=== PATIENT | female | born 1945 | race Caucasian/White ===

== ENCOUNTER 2021-03-14 12:02 | Emergency (ER) | payer OTHER ==
--- OUTSIDE RECORDS SUMMARY | 2021-03-14 12:06 | XMS REPORT | Continuity of Care Document ---
:1945 Author Organization [facility] t Address [address] [place] [address] Care Team Providers Name Role Phone PCP, DOES NOT HAVE A Primary Care Physician Unavailable Jake Rangel Attending Clinician Unavailable MAIA Attending Clinician Unavailable Maia CHACON Attending Clinician SATNAM Attending Clinician Unavailable SHELBI Attending Clinician Unavailable LINDA Attending Clinician Unavailable RICHARD Attending Clinician Unavailable CARLOS Attending Clinician Unavailable MD CARLOS Attending Clinician Unavailable KELVIN Attending Clinician Unavailable Jake Rangel Admitting Clinician Unavailable MARINO Admitting Clinician Unavailable MD MARINO Admitting Clinician Unavailable Payers Payer Name Policy Type Policy Number Effective Date Expiration Date Dede lewis MEDICARE PART A [id number] 2009 \\T\\ B 00:00:[address] [facility] [id number] 2021 00:00:00 Problems Condition Condition Condition Status Onset Resolution Last Treating Co mments Source Name Details Category Date Date Treatment Clinician Date Benign Benign Disease Active Univers hypertensi hypertensi it y of on on [facility] Arthritis Arthritis Disease Active Uni vers ity [facility] Sleep Sleep Disease Active Univers apnea apnea ity of [facility] Pre-diabet Pre-diabet Disease Active U nivers es es ity of [facility] Herpes Herpes Disease Active Univers ity of [facility] Hyperlipid Hyperlipid Disease Active U nivers emia emia ity of [facility] Edema of Edema of Disease Active Unive rs foot foot ity [facility] [place] Allergies, Adverse Reactions, Alerts Allergy Allergy Status Severity Reaction(s) Onset Inactive Treating Comm ents Source Name Type Date Date Clinician Statins- DA Active SV 0 [facility] 8-13 Clear Reductas 00:[facility] hydralaz DA Active SV 0 [facility] ine 8-13 Clear 00:00: Ardon 00 [facility] amoxicil DA Active DC [facility] elsy 8-13 Clear 00:00: Ardon 00 [facility] Statins- DA Active SV BURNING 0 [facility] SKIN,VOMITIN 8-13 Bong ar Reductas G,SWEATING,D 00:00: La pratibha RUSSELL,"FEELIN 00 Sandi trish Inhibito G OF PASSING l r OUT [facility] hydralaz DA Active SV SOB,PALPITAT HC A ine IONS, 8-13 Clear "FEELING OF 00:00: Ardon DYING" 00 [facility] amoxicil DA Active DC GI UPSET [facility] elsy 8-13 Clear 00:00: Ardon 00 [facility] Codeine Propensi Active Other - See 2012-04 stomach U nivers ty to comments 2-15 ache ity of adverse 00:00: [place] reaction Medical s Branch CODEINE DRUG Active Dizziness 2012-04 Univer s INGREDI 2-15 ity of 00:00: [address] Social History Social Habit Start Date Stop Date Quantity Comments Source Exposure to Not sure [facility] SARS-CoV-2 [facility] (event) Branch Alcohol intake 2021-03-12 2021-03-12 Current University 00:00:00 00:00:00 non-drinker of [facility] alcohol Branch (finding) Tobacco use and 2012-12-13 2012-12-13 Never used Universit y of exposure 00:00:00 00:00:00 [facility] Sex Ass[birth year] Universit y of 00:00:00 00:00:00 [facility] Smoking Status Start Date Stop Date Source Never smoker [facility] Branch Medications Ordered Filled Start Stop Current Ordering Indication Dosage Frequency Signature Comments Components Source Medication Medication Date Date Medication? Clinician (SIG) Name Name ALPRAZolam 2020-04 Yes .25mg Take 0.25 U nivers (XANAX) 1-19 mg by ity of 0.25 mg 18:59: mouth 3 [place] tablet 20 (three) Medical times Branch daily. ibuprofen 2020-04 Yes 800mg Take 800 Uni vers (MOTRIN) 1-19 mg by ity of 800 mg 18:59: mouth 3 [place] tablet 20 (three) Medical times Branch daily with meals. Cholecalcif 2020-04 Yes 5000U Take 5,000 Univers stephon, 1-19 Units by ity of Vitamin D3, 18:59: [place]. [place] 125 [place]cg 20 Medical (5,000 Branch unit) capsule ALPRAZolam 2020-04 Yes .25mg Take 0.25 U nivers (XANAX) 1-19 mg by ity of 0.25 mg 18:59: mouth 3 [place] tablet 20 (three) Medical times Branch daily. ibuprofen 2020-04 Yes 800mg Take 800 Uni vers (MOTRIN) 1-19 mg by ity of 800 mg 18:59: mouth 3 [place] tablet 20 (three) Medical times Branch daily with meals. Cholecalcif 2020-04 Yes 5000U Take 5,000 Univers stephon, 1-19 Units by ity of Vitamin D3, 18:59: [place]. [place] 125 mcg 20 Medical (5,000 Branch unit) capsule apixaban 2020-04 Yes 2.5mg Take 2.5 Univ ers 2.5 mg 1-19 mg by ity of tablet 18:58: mouth. [address] apixaban 2020-04 Yes 2.5mg Take 2.5 Univ ers 2.5 mg 1-19 mg by ity of tablet 18:58: mouth. [address] amLODIPine 2020-04 Yes 10mg Take 10 mg U nivers 10 mg 1-19 by mouth. ity of tablet 18:57: [address] amLODIPine 2020-04 Yes 10mg Take 10 mg U nivers 10 mg 1-19 by mouth. ity of tablet 18:57: [address] levalbutero 2020-04 Yes [id number] 1{puff} Inhale 1-2 Univers l 45 1-19 Puffs ity of mcg/actuati 00:00: every 4 [place] as on inhaler 00 (four) Medical hours as Branch needed for Wheezing. levalbutero 2020-04 Yes [id number] 1{puff} Inhale 1-2 Univers l 45 1-19 Puffs ity of mcg/actuati 00:00: every 4 [place] as on inhaler 00 (four) Medical hours as Branch needed for Wheezing. benzonatate 2020-04- Yes [id number] 100mg Take 1 Univers (TESSALON 1-19 11-30 capsule by itQuynh) 100 00:00: 05:59 [place] mg capsule 00 :00 every 8 Medica l (eight) Branch hours for 10 days. benzonatate 2020-04- Yes [id number] 100mg Take 1 Univers (TESSALON 1-19 11-30 capsule by itlarry [facility] JOSEFINASwifto) 100 00:00: 05:59 [place] mg capsule 00 :00 every 8 Medica l (eight) Branch hours for 10 days. pantoprazol 2020-04 Yes Take by Un anthony e 40 mg EC 0-12 mouth 2 ity of tablet 00:00: (two) [place] 00 times Medical daily. Branch pantoprazol 2020-04 Yes Take by Un anthony e 40 mg EC 0-12 mouth 2 ity of tablet 00:00: (two) [place] 00 times Medical daily. Branch chlorphenir 2012-04 Yes [id number] 5mL Take 5 mL Univers amine-hydro 2-09 by mouth ity of codone 00:00: every 12 [place] (TUSSIONEX) 00 (twelve) Medi adalberto 8-10 mg/5 hours as Branch mL needed for suspension Cough. chlorphenir 2012-04 Yes [id number] 5mL Take 5 mL Univers amine-hydro 2-09 by mouth ity of codone 00:00: every 12 [place] (TUSSIONEX) 00 (twelve) Medi adalberto 8-10 mg/5 hours as Branch mL needed for suspension Cough. loratadine 2012-04 Yes 10mg Take 1 Tab U nivers (CLARITIN) 0-18 by mouth ity o f 10 mg 00:00: daily. [place] tablet 00 Medical Branch loratadine 2012-04 Yes 10mg Take 1 Tab U nivers (CLARITIN) 0-18 by mouth ity o f 10 mg 00:00: daily. [place] tablet 00 Medical Branch furosemide Yes [id number] 40mg Take 1 Tab Univers (LASIX) 40 8-22 by mouth ity o f mg tablet 00:00: daily. [place] 00 [facility] telmisartan Yes [id number] 80mg Take 1 Tab Univers (MICARDIS) 8-22 by mouth ity o f 80 mg 00:00: daily. [place] tablet Medical [place] potassium Yes [id number] 10meq Take 1 Tab Univers chloride 8-22 by mouth ity of (K-DUR) 10 00:00: daily. [place] mEq CR Medical tablet Branch furosemide Yes [id number] 40mg Take 1 Tab Univers (LASIX) 40 8-22 by mouth ity o f mg tablet 00:00: daily. [address] telmisartan Yes [id number] 80mg Take 1 Tab Univers (MICARDIS) 8-22 by mouth ity o f 80 mg 00:00: daily. [place] tablet Medical [place] potassium Yes [id number] 10meq Take 1 Tab Univers chloride 8-22 by mouth ity of (K-DUR) 10 00:00: daily. [place] mEq CR Medical tablet [place] Vital Signs Vital Name Observation Time Observation Value Comments Source Systolic blood 2021-03-13 01:03:00 149 [facility]Hg[facility] Diastolic blood 2021-03-13 01:03:00 88 mm[Hg] [facility] Heart rate 2021-03-13 01:02:00 86 /min [facility] Body temperature 2021-03-13 01:02:00 37.5 [facility] Respiratory rate 2021-03-13 01:02:00 21 /min [facility] Body height 2021-03-13 01:02:00 162.6 cm [facility] Body weight 2021-03-13 01:02:00 85.231 kg [facility] BMI 2021-03-13 01:02:00 32.25 kg/m2 [facility] Oxygen saturation in 2021-03-13 01:02:00 96 /min [facility] Arterial blood by [facility] Pulse oximetry Branch Procedures Procedure Date / Time Performed Performing Clinician Sourc e POCT RAPID FLU A AND 2021-03-13 01:42:00 Anjana Carvalho [facility] POCT GRP A STREP 2021-03-13 01:42:00 Anjana Carvalho [facility] (MOLECULAR) [facility] XR CHEST 2 VW 2021-03-13 01:25:08 Anjana Carvalho [place] [facility] [id number] 2019-12-09 00:00:00 JOHRI.02 [facility] [id number] 2019-12-09 00:00:00 JOHRI.02 [facility] [id number] 2019-12-09 00:00:00 JOHRI.02 [facility] Encounters Start End Encounter Admission Attending Care Care Encounter Source Date/Time Date/Time Type Type Clinicians Facility Department ID 2019-12-10 Inpatient SHERLY Rangel, [facility] MEDI.01 [id number] [facility] 14:30:00 Avinash [id number] [facility] 2019-12-09 Inpatient Claire, [facility] DAYS [id number] [facility] 08:00:00 Avinash [id number] [facility] 2019-12-05 Inpatient Claire, [facility] DAYS [id number] [facility] 10:00:00 Avinash [id number] [facility] 2021-03-12 2021-03-12 Outpatient R MAIA [facility] [id number] [facility] 19:17:34 23:59:00 [facility] 2021-03-12 2021-03-12 [facility] [id number] [facility] 19:17:34 23:59:00 Encounter Located within [facility] [id number] ity of [place] 4.2.7.2.686 [place] as ANDREA?BLEA [id number] [facility] [address] [place] MEDICAL OFFICE BUILDING 2021-03-12 2021-03-12 Urgent [facility] [id number] Univers 18:44:47 19:49:37 Care Located within [facility] [id number] it [facility] 4.2.7.2.686 [place] as ANDREA?BLEA [id number] Hi dical [facility] [address] [place] MEDICAL OFFICE BUILDING 2020-11-03 2020-11-03 Outpatient [facility] [id number] [place] 00:00:00 00:00:[address] 2020-07-27 2020-07-29 Outpatient GHADIRI, [facility] [id number] [place] 00:00:00 00:00:00 BLANCA [address] 2020-07-15 2020-07-15 Outpatient MARIO, [facility] [id number] [place] 00:00:00 00:00:00 KISHA [address] 2020-07-02 2020-07-02 Outpatient GHADIRI, [facility] [id number] [place] 00:00:00 00:00:00 BLANCA [address] 2020-06-29 2020-06-29 Emergency WINGKUN, [facility] [id number] [place] 00:00:00 00:00:00 KEITH [address] 2020-06-02 2020-06-02 Outpatient [facility] [id number] [place] 00:00:00 00:00:[address] 2020-05-12 2020-05-12 Outpatient [facility] [id number] [place] 00:00:00 00:00:[address] 2020-01-14 2020-01-14 Outpatient GHADIRI, [facility] [id number] [place] 00:00:00 00:00:00 BLANCA [address] 2019-10-21 2019-10-21 Outpatient [facility] [id number] [place] 00:00:00 00:00:[address] 2019-10-15 2019-10-15 Outpatient VAHE RAMOSYA [facility] [id number] [place] 00:00:00 00:00:[address] 2019-10-07 2019-10-08 Outpatient KOHRIRIHOFER, [facility] [id number] [place] 00:00:00 00:00:00 LURDES [address] 2019-08-27 2019-08-27 Outpatient VAHE RAMOSYA [facility] [id number] [place] 00:00:00 00:00:[address] 2019-08-14 2019-08-14 Outpatient GHADIRI, [facility] [id number] [place] 00:00:00 00:00:00 BLANCA [address] 2019-08-14 2019-08-14 Outpatient GHADIRI, [facility] [id number] [place] 00:00:00 00:00:00 BLANCA [address] 2019-07-12 2019-07-12 Outpatient MARIO, [facility] [id number] [place] 00:00:00 00:00:00 KISHA [address] 2019-07-08 2019-07-08 Outpatient MARIO, [facility] [id number] [place] 00:00:00 00:00:00 KISHA [address] 2019-07-08 2019-07-08 Outpatient MARIO, [facility] [id number] [place] 00:00:00 00:00:00 KISHA [address] 2019-06-27 2019-06-27 Outpatient GHADIRI, [facility] [id number] [place] 00:00:00 00:00:00 BLANCA [address] 2019-06-27 2019-06-27 Outpatient MARIO, [facility] [id number] [place] 00:00:00 00:00:00 KISHA [address] 2019-03-05 2019-03-05 Emergency KELVINLEVI DE LA CRUZ [facility] [id number] [place] 00:00:00 00:00:[address] Results Test Description Test Time Test Comments Results Result Comments Source POCT RAPID FLU A AND B TEST 2021-03-13 01:42:00 Test Item Value Reference Range Interpretation Comme nts POCT INFLUENZA A (test code = negative Negative - Negative 3840) POCT INFLUENZA B (test code = negative Negative - Negative 3841) GIN (test code = GIN) accurate development and interpretation of all internal controls Lab Interpretation (test code = Normal 53735-8) [facility]2021-03-13 01:42:00 Test Item Value Reference Range Interpretation Comments POCT GP A STREP (test negative Negative - code = 07039-8) Negative GIN (test code = GIN) accurate development and interpretation of all internal controls Lab Interpretation Normal (test code = 38988-8) [facility]00 Test Item Value Reference Range Interpretation Comments MAGNESIUM (test code = MAG) 1.84 mg/dL 1.8-2.4 N CALCIUM [id number] 06:18:00 Test Item Value Reference Range Interpretation Comments CALCIUM IONIZED (test code = MICKEY) 0.98 MMOL/L 1.12-1.32 L [id number] 06:04:00 Test Item Value Reference Range Interpretation Comments MAGNESIUM (test code = MAG) mg/dL 1.8-2.4 CALCIUM [id number] 06:04:00 Test Item Value Reference Range Interpretation Comments CALCIUM IONIZED (test code = MICKEY) 0.98 MMOL/L 1.12-1.32 L [id number] 16:47:00 Test Item Value Reference Range Interpretation Comments CALCIUM (test code = CA) 6.9 mg/dL 8.0-10.5 L [id number] 16:47:00 Test Item Value Reference Range Interpretation Comments MAGNESIUM (test code = MAG) 1.84 mg/dL 1.8-2.4 N CALCIUM [id number] 16:47:00 Test Item Value Reference Range Interpretation Comments CALCIUM IONIZED (test code = MICKEY) 0.97 MMOL/L 1.12-1.32 L [id number] 16:46:00 Test Item Value Reference Range Interpretation Comments CALCIUM (test code = CA) 6.9 mg/dL 8.0-10.5 L [id number] 16:46:00 Test Item Value Reference Range Interpretation Comments MAGNESIUM (test code = MAG) 1.84 mg/dL 1.8-2.4 N CALCIUM [id number] 16:46:00 Test Item Value Reference Range Interpretation Comments CALCIUM IONIZED (test code = MICKEY) MMOL/L 1.12-1.32 SURGICAL PATH [id number] 15:35:00 RUN DATE: 12/12/19 [place] [facility] *LIVE* PAGE 1 RUN TIME: 1535 Specimen Inquiry RUN USER: INTERFACE PATIENT: EL[facility] #: [id number] AGE/SX: 74/F ROOM: [facility] RE12/10/19[facility] DR: Avinash Rangel III : 44 BED: 1 DIS: STATUS: ADM IN TLOC: SPEC #: [id number] RECD: 12/09/19 STATUS: WAYNE ZEFERINO #: [id number] MARCEL: 12/09/[address]: Avinash Rangel III, MD ENTERED: 12/09/19 SP TYPE: SURG SPEC OTHR D R: Blanca Ulrich MD ORDERED: FROZEN SECTION, GM LEVEL 5 CODES: [id number] - SOFT TISSUES, N [id number] - THYROID GLAND COPIES TO: Blanca Ulrich MD [address] [place] [address] [place] [address] [address] [email or web address] PROCEDURES: FROZEN SECTION (Incomplete) GM LEVEL 5 (Incomplete) TISSUES: 1. THYROID GLAND, NOS - Thyroid, left lobe, excision 2. THYROID GLAND, NOS - Thyroid, right lobe, excision 3. SOFT TISSUES, NOS - Soft tissue, right central neck compartm COMMENTS The small foci of papillary microcarcinoma are not present in the sections for frozen diagnosis. 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 Thyroid, right lobe, excision: Follicular variant of papillary microcarcinoma, 0.2 cm, margins free of tumor; nodular hyperplasia. Soft tissue, rightcentral neck compartment, dissect: No evidence of metastatic carcinoma identified in 2 lymph nodes (0/2); benign-appearing parathyroid glands. CONTINUED ON NEXT PAGE RUN DATE: 12/12/[address] [facility] *LIVE* PAGE 2 RUN TIME: 1535 Specimen Inquiry RUN USER: INTERFACE SPEC #: [id number] PATIENT: ELISE MONROY #[id number] (Continued) FINAL DIAGNOSIS (Continued) PROVISIONAL DIAGNOSIS Thyroid lobe, left : Follicular lesion, final diagnosis deferred to permanent sections. Thyroid lobe, right: Follicular lesion, final diagnosis deferred to permanent sections. GROSS AND MICROSCOPIC FROZEN DIAGNOSIS: Thyroid, left lobe, excision: Follicular lesion, deferred to permanent sections. Thyroid, right lobe, excision: Follicular lesion, deferred to permanent sections. GROSS DESCRIPTION: Received fresh designated left thyroid lobe is one segment of pink-hicks tissue measuring 7 x 2.7 x 2 cm and weighing 16.3 g. The entire surface is inked black. Sections are submitted as (A) for frozen diagnosis. Additional sections are submitted entirely as (B)-(G). Received fresh and designated right thyroid lobe is one segment of pink-hicks tissue thatweighs 11.3 g and measures 5.4 x 3.5 x 2.4 cm. The surface is inked black. Sections are submitted as (H) for frozen diagnosis. The rest of the specimen is submitted entirely as (I)-(N). Specimen #3, right central compartment neck dissection is one segment of yellow soft and daniel tissue measuring 2.3 cm in largest dimension. Entirely submitted (O). MICROSCOPIC EXAMINATION: Specimen #1 shows nodular proliferation of thyroid follicles and focal follicular variant of papillary thyroid carcinoma (0.3 cm). The resection margins are free of tumor. Benign-appearing parathyroid glands are identified. The second specimen reveals nodular hyperplasia of thyroid follicles with focal follicular variant of papillary thyroid carcinoma (0.2 cm). The resection margins are free of tumor. Benign-appearingparathyroid glands are present. Specimen #3, shows benign- appearing parathyroid glands (3) are 2 small lymph nodes without evidence of metastatic carcinoma (0/2). POST-OP DIAGNOSIS None given CONTINUED ON NEXT PAGE RUN DATE: 12/12/19 [address] *LIVE* PAGE 3 RUN TIME: 1535 Specimen Inquiry RUN USER: INTERFACE SPEC #: [id number] PATIENT: ELISE MONROY #[id number] (Continued) PRE-OP DIAGNOSIS Malignant neoplasm of thyroid gland REVIEWED BY: SYNOPTIC REPORT *Procedure: Right Lobectomy Left Lobectomy *Lymph Node Sampling - Central compartment dissection,right. Received: Fresh Specimen Integrity: Intact. Divided (thyroidectomy performed as lobectomy and completion thyroidectomy) Specimen Size Right lobe: 5.4 x 3.5 x 2.4 cm. Left lobe: 7 x 2.7 x 2 cm. Specimen Weight(s) Overall or aggregate weight (specify): 11.3 g (right lobe); 16.3 g (left lobe). *Tumor laterality: Bilateral. *Tumor Focality: Two foci. *Tumor Size: Greatest dimension: 0.2 cm (right lobe); 0.3 cm (left lobe). *Histologic Type (select all that apply) (Notes D and E) - Papillary microcarcinoma, Follicular variant. *Margins: Free of tumor. *Angioinvasion (vascular invasion): Not identified. *Lymphatic Invasion: Not identified. Perineural Invasion Not identified. *Extrathy roidal Extension: No. * TNM: [id number] Tumor block(s): (G) (K) Signed SIGNATURE ON FILE Johan Sanders MD 12/12/19 1535 -------- ---- END OF REPORT [id number] 07:31:00 Test Item Value Reference Range Interpretation Comments CALCIUM (test code = CA) 6.7 mg/dL 8.0-10.5 L [id number] 07:31:00 Test Item Value Reference Range Interpretation Comments MAGNESIUM (test code = MAG) 1.98 mg/dL 1.8-2.4 CALCIUM [id number] 07:31:00 Test Item Value Reference Range Interpretation Comments CALCIUM IONIZED (test code = MICKEY) 0.95 MMOL/L 1.12-1.32 L [id number] 07:23:00 Test Item Value Reference Range Interpretation Comments CALCIUM (test code = CA) mg/dL 8.0-10.5 [id number] 07:23:00 Test Item Value Reference Range Interpretation Comments MAGNESIUM (test code = MAG) mg/dL 1.8-2.4 CALCIUM [id number] 07:23:00 Test Item Value Reference Range Interpretation Comments CALCIUM IONIZED (test code = MICKEY) 0.95 MMOL/L 1.12-1.32 L [id number] 16:39:00 Test Item Value Reference Range Interpretation Comments CALCIUM (test code = CA) 7.2 mg/dL 8.0-10.5 L [id number] 16:39:00 Test Item Value Reference Range Interpretation Comments MAGNESIUM (test code = MAG) 1.67 mg/dL 1.8-2.4 L CALCIUM [id number] 16:39:00 Test Item Value Reference Range Interpretation Comments CALCIUM IONIZED (test code = MICKEY) 0.98 MMOL/L 1.12-1.32 L [id number] 16:25:00 Test Item Value Reference Range Interpretation Comments CALCIUM (test code = CA) mg/dL 8.0-10.5 [id number] 16:25:00 Test Item Value Reference Range Interpretation Comments MAGNESIUM (test code = MAG) mg/dL 1.8-2.4 CALCIUM [id number] 16:25:00 Test Item Value Reference Range Interpretation Comments CALCIUM IONIZED (test code = MICKEY) 0.98 MMOL/L 1.12-1.32 L [id number] 08:36:00 Test Item Value Reference Range Interpretation Comments CALCIUM (test code = CA) 7.1 mg/dL 8.0-10.5 L [id number] 08:36:00 Test Item Value Reference Range Interpretation Comments MAGNESIUM (test code = MAG) 1.70 mg/dL 1.8-2.4 L CALCIUM [id number] 08:36:00 Test Item Value Reference Range Interpretation Comments CALCIUM IONIZED (test code = MICKEY) 0.97 MMOL/L 1.12-1.32 L [id number] 08:34:00 Test Item Value Reference Range Interpretation Comments CALCIUM (test code = CA) 7.1 mg/dL 8.0-10.5 L [id number] 08:34:00 Test Item Value Reference Range Interpretation Comments MAGNESIUM (test code = MAG) 1.70 mg/dL 1.8-2.4 L CALCIUM [id number] 08:34:00 Test Item Value Reference Range Interpretation Comments CALCIUM IONIZED (test code = MICKEY) MMOL/L 1.12-1.32 [id number] 18:47:00 Test Item Value Reference Range Interpretation Comments CALCIUM (test code = CA) 7.5 mg/dL 8.0-10.5 L [id number] 18:47:00 Test Item Value Reference Range Interpretation Comments MAGNESIUM (test code = MAG) 1.86 mg/dL 1.8-2.4 N CALCIUM [id number] 18:47:00 Test Item Value Reference Range Interpretation Comments CALCIUM IONIZED (test code = MICKEY) 1.03 MMOL/L 1.12-1.32 L [id number] 18:30:00 Test Item Value Reference Range Interpretation Comments CALCIUM (test code = CA) mg/dL 8.0-10.5 [id number] 18:30:00 Test Item Value Reference Range Interpretation Comments MAGNESIUM (test code = MAG) mg/dL 1.8-2.4 CALCIUM [id number] 18:30:00 Test Item Value Reference Range Interpretation Comments CALCIUM IONIZED (test code = MICKEY) 1.03 MMOL/L 1.12-1.32 L [id number] 05:57:00 Test Item Value Reference Range Interpretation Comments CALCIUM (test code = CA) 7.2 mg/dL 8.0-10.5 L [id number] 05:57:00 Test Item Value Reference Range Interpretation Comments MAGNESIUM (test code = MAG) 1.66 mg/dL 1.8-2.4 L CALCIUM [id number] 05:57:00 Test Item Value Reference Range Interpretation Comments CALCIUM IONIZED (test code = MICKEY) 1.04 MMOL/L 1.12-1.32 L [id number] 05:40:00 Test Item Value Reference Range Interpretation Comments CALCIUM (test code = CA) 7.2 mg/dL 8.0-10.5 L [id number] 05:40:00 Test Item Value Reference Range Interpretation Comments MAGNESIUM (test code = MAG) 1.66 mg/dL 1.8-2.4 L CALCIUM [id number] 05:40:00 Test Item Value Reference Range Interpretation Comments CALCIUM IONIZED (test code = MICKEY) MMOL/L 1.12-1.32 [id number] 18:12:00 Test Item Value Reference Range Interpretation Comments CALCIUM (test code = CA) 8.5 mg/dL 8.0-10.5 N [id number] 18:12:00 Test Item Value Reference Range Interpretation Comments MAGNESIUM (test code = MAG) 1.76 mg/dL 1.8-2.4 L CALCIUM [id number] 18:12:00 Test Item Value Reference Range Interpretation Comments CALCIUM IONIZED (test code = MICKEY) 1.13 MMOL/L 1.12-1.32 N [id number] 18:10:00 Test Item Value Reference Range Interpretation Comments CALCIUM (test code = CA) mg/dL 8.0-10.5 [id number] 18:10:00 Test Item Value Reference Range Interpretation Comments MAGNESIUM (test code = MAG) mg/dL 1.8-2.4 CALCIUM [id number] 18:10:00 Test Item Value Reference Range Interpretation Comments CALCIUM IONIZED (test code = MICKEY) 1.13 MMOL/L 1.12-1.32 N Novel Coronavirus 2019 [id number] 20:53:00 Test Item Value Reference Range Interpretation Comments Novel Coronavirus 2019 Inhouse (test Negative Negative code = COVNONPUI) BASIC METABOLIC [id number] 12:00:00 Test Item Value Reference Range Interpretation Comments SODIUM (test code = NA) 142 mEq/L 134-147 N POTASSIUM (test code = 4.2 mEq/L 3.4-5.0 N K) CHLORIDE (test code = 107 mEq/L 100-108 N CL) CARBON DIOXIDE (test 27 mEq/L 21-33 N code = CO2) ANION GAP (test code = 12 0-20 N GAP) GLUCOSE (test code = 105 mg/dL 70-110 N GLU) BLOOD UREA NITROGEN 16 mg/dL 7-18 N (test code = BUN) GLOMERULAR FILTRATION 69.9 70-80 L Units of measure = RATE (test code = GFR) ml/mi n/1.73 m2 CREATININE (test code = 0.8 mg/dL 0.6-1.3 N CREAT) CALCIUM (test code = 9.7 mg/dL 8.0-10.5 N CA) - XR CHEST 2 [id number] 11:58:00 FAX: Blanca Robin MD [place]: St: PRE FAX: Avinash Wood III [phone] Name: ELISE MONROY [facility] : 1945 Age/S: 74/F [address] [place] [address] Unit #: [id number] Loc: [place] [address] Phys: Avinash Rangel III, MD Acct: [id number] Dis Date: Status: PRE SDC PHONE #: [phone] Exam Date: 12/05/2019 1148 FAX #: [phone] Reason: THYROIDECTOMY EXAMS: CPT CODE: [id number] XR CHEST 2 V [id number] EXAM: XR CHEST 2 VIEWS DATE: 12/05/2019 10:51 AM : 1945; Age: 74 years y/o Female INDICATION: THYROIDECTOMY COMPARISON: None. TECHNIQUE: PA and lateralchest radiographs. FINDINGS: Lines, tubes and hardware: None. Lungs and pleura: The lungs are clear. Hyperexpanded lungs. No pleural effusion. Heart and mediastinum: The heart size is normal for technique. The mediastinal contours are normal. Pulmonary vascularity is normal. IMPRESSION: No acute cardiopulmonary process. Emphysema. SL: [id number] at 1158 Reported and signed by: Norah Webster D.O. CC: Shalonda Ulrich MD; Avinash Rangel III, MD Technologist: RT Kvng(Sridevi) Trnscrd Date/Time/By: 12/05/2019 (7109) : By: [email or web address] Orig Print D/T: S: 12/05/2019 (8105) PAGE 1 Signed ReportCBC W/AUTO [id number] 11:32:00 Test Item Value Reference Range Interpretation Comments WHITE BLOOD CELL (test code = 6.53 x10 3/uL 4.5-11.0 N WBC) RED BLOOD CELL (test code = 4.70 x10 6/uL 3.54-5.02 N RBC) HEMOGLOBIN (test code = HGB) 14.0 g/dL 11.0-15.0 N HEMATOCRIT (test code = HCT) 43.2 % 33.0-45.0 N MEAN CELL VOLUME (test code = 91.9 fL 81.0-99.0 N MCV) MEAN CELL HGB (test code = MCH) 29.8 pg 27.0-33.0 N MEAN CELL HGB CONCETRATION 32.4 g/dL 33.0-37.0 L (test code = MCHC) RED CELL DISTRIBUTION WIDTH CV 12.4 % 11.5-14.5 N (test code = RDW) RED CELL DISTRIBUTION WIDTH SD 41.8 fL 37.0-54.0 N (test code = RDW-SD) PLATELET COUNT (test code = 185 x10 3/uL 150-400 N PLT) MEAN PLATELET VOLUME (test code 10.9 fL 7.0-9.0 H = MPV) NEUTROPHIL % (test code = NT%) 51.9 % 56.0-77.0 L IMMATURE GRANULOCYTE % (test 0.2 % 0.0-2.0 N code = IG%) LYMPHOCYTE % (test code = LY%) 35.7 % 14.0-32.0 H MONOCYTE % (test code = MO%) 9.2 % 4.8-9.0 H EOSINOPHIL % (test code = EO%) 1.8 % 0.3-3.7 N BASOPHIL % (test code = BA%) 1.2 % 0.0-2.0 N NUCLEATED RBC % (test code = 0.0 % 0-0 N NRBC%) NEUTROPHIL # (test code = NT#) 3.39 x10 3/uL 2.0-7.6 N IMMATURE GRANULOCYTE # (test 0.01 x10 3/uL 0.00-0.03 N code = IG#) LYMPHOCYTE # (test code = LY#) 2.33 x10 3/uL 1.0-3.8 N MONOCYTE # (test code = MO#) 0.60 x10 3/uL 0.1-0.8 N EOSINOPHIL # (test code = EO#) 0.12 x10 3/uL 0.0-0.2 N BASOPHIL # (test code = BA#) 0.08 x10 3/uL 0.0-0.2 N NUCLEATED RBC # (test code = 0.00 x10 3/uL 0.0-0.1 N NRBC#) MANUAL DIFF REQUIRED (test code NO = MDIFF) SARS coronavirus 2 RNA [Presence] in Respiratory specimen by ARAMIS with probe [id number] 22:31:33 Test Item Value Reference Range Interpretation Comments SARS coronavirus 2 RNA Not detected Not-Detected [Presence] in Respiratory specimen by ARAMIS with probe detection (test code = 76980-4)
--- NOTE | 2021-03-14 12:58 | RAD REPORT ---
EXAM DESCRIPTION: RAD - Chest Pa And Lat (2 Views) - 03/14/2021 12:50 pm CLINICAL HISTORY: Fever;Cough COMPARISON: None TECHNIQUE: Frontal and lateral views of the chest were obtained. FINDINGS: The lungs are clear of focal consolidation. Interstitial pattern is mildly prominent with the baseline unknown. A mild viral infiltrate is possible. Trachea is midline. Acute failure or volum e overload are not suspected. Heart size is normal and central vasculature is within normal limits. No pleural effusion or pneu mothorax seen. No acute bone finding. Lower thoracic and upper lumbar scoliosis noted. No aortic abn ormality. IMPRESSION: No focal mass or consolidation to suspect bacterial pneumonia. No failure or volume overload. Baseline exam with mildly prominent interstitial markings. A mild edema or infiltrate cannot be exclu ded.
[2021-03-14] MEDS ORDERED: ACETAMINOPHEN 325 MG TABLET ONE (13:03)
[2021-03-14] MEDS ORDERED: HYDROCODONE/CHLORPHEN 5 ML/OSYR ONE (13:11)
[2021-03-14 14:25] LABS: SARS-COV-2 RT PCR NEGATIVE (NEGATIVE)
--- NOTE | 2021-03-14 15:19 | EDPHYS ---
Physician Documentation [facility] Name: Val Love Age: 75 yrs Sex: Female : 1945 Arrival Date: 03/14/2021 Time: 12:08 Bed 11 Private MD: ED Physician Salvatore Srivastava HPI: 03/14 12:39 This 75 yrs old Female presents to ER via Ambulatory with complaints of Fever, Cough. pm1 12:39 The patient reports fever, that was measured at 102.6 degrees Fahrenheit. Onset: The pm1 symptoms/episode began/occurred 4 day(s) ago. Modifying factors: there are no obvious modifying factors. Associated signs and symptoms: Pertinent positives: cough, post nasal drainage with sore throat, Pertinent negatives: abdominal pain. Severity of symptoms: in the emergency department the symptoms are worse. The patient has experienced similar episodes in the past, multiple times. The patient has been recently seen at an urgent care, for similar complaints, 2 days ago. Negative covid, flu, and strep swab and negative chest x-ray at urgent care. Historical: - Allergies: 12:20 Statins; vg1 12:20 Hydralazine; vg1 12:20 Amoxicillin-Pot Clavulanate; vg1 - Home Meds: 12:20 Synthroid Oral [Active]; Eliquis oral [Active]; amlodipine oral [Active]; vg1 - PMHx: 12:20 Hypertensive disorder; Hypothyroidism; vg1 - PSHx: 12:20 Cholecystectomy; Tonsillectomy; vg1 - Immunization history:: Client reports receiving the 2nd dose of the Covid vaccine, Flu vaccine is up to date. - Social history:: Smoking status: Patient denies any tobacco usage or history of. ROS: 12:39 Eyes: Negative for injury, pain, redness, and discharge. pm1 12:39 Cardiovascular: Negative for chest pain, palpitations, and edema. 12:39 Abdomen/GI: Negative for abdominal pain, nausea, vomiting, diarrhea, and constipation, Back: Negative for injury and pain, MS/Extremity: Negative for injury and deformity, Skin: Negative for injury, rash, and discoloration, Neuro: Negative for headache, weakness, numbness, tingling, and seizure. 12:39 Constitutional: Positive for fever, Negative for poor PO intake. 12:39 ENT: Positive for sore throat, Postnasal drainage. 12:39 Respiratory: Positive for cough, Negative for shortness of breath, sputum production. 12:39 All other systems are negative. Exam: 12:39 Constitutional: This is a well developed, well nourished patient who is awake, alert, pm1 and in no acute distress. Head/Face: Normocephalic, atraumatic. 12:39 Abdomen/GI: Soft, non-tender, with normal bowel sounds. No distension or tympany. No guarding or rebound. No evidence of tenderness throughout. Back: No spinal tenderness. No costovertebral tenderness. Full range of motion. Skin: Warm, dry with normal turgor. Normal color with no rashes, no lesions, and no evidence of cellulitis. MS/ Extremity: Pulses equal, no cyanosis. Neurovascular intact. Full, normal range of motion. 12:39 Cardiovascular: Exam negative for acute changes, Rate: normal, Rhythm: regular, Pulses: no pulse deficits are appreciated. 12:39 Respiratory: Exam negative for acute changes, respiratory distress, shortness of breath, Breath sounds: are clear throughout. 12:39 Neuro: Exam negative for acute changes, Orientation: is normal, Mentation: is normal, Motor: is normal, moves all fours. Vital Signs: 12:14 BP 139 / 74; Pulse 93; Resp 18; Temp 100.5(O); Pulse Ox 96% ; Weight 84.82 kg; Height 5 vg1 ft. 4 in. (162.56 cm); Pain 2/10; 15:00 BP 128 / 64; Pulse 74; Resp 20; Temp 97.9(O); Pulse Ox 96% ; jh6 12:14 Body Mass Index 32.10 (84.82 kg, 162.56 cm) vg1 MDM: 12:33 Patient medically screened. pm1 15:16 Data reviewed: vital signs. Data interpreted: Pulse oximetry: on room air is 96 %. pm1 Interpretation: normal. Counseling: I had a detailed discussion with the patient and/or guardian regarding: the historical points, exam findings, and any diagnostic results supporting the discharge/admit diagnosis, lab results, radiology results, the need for outpatient follow up, to return to the emergency department if symptoms worsen or persist or if there are any questions or concerns that arise at home. 15:16 ED course: Patient would like antibiotic treatment for her cough since antibiotics work pm1 for her when she has these symptoms. Explained the patient is not standard but she insists that she needs antibiotic treatment to get better. 03/14 12:32 Order name: COVID-19 (Coronavirus) Document "Date of Onset" if Symptomatic pm1 03/14 12:32 Order name: Flu pm1 03/14 12:32 Order name: Strep; Complete Time: 15:09 pm1 03/14 12:32 Order name: Droplet/Contact Precautions pm1 03/14 12:32 Order name: Chest Pa And Lat (2 Views) XRAY; Complete Time: 13:42 pm1 03/14 13:39 Order name: COVID-19/FLU A+B; Complete Time: 15:09 EDMS 03/14 14:40 Order name: Throat Culture EDMS 03/14 12:32 Order name: Labs collected and sent pm1 03/14 12:32 Order name: O2 Per Protocol pm1 Administered Medications: 13:15 Drug: Tussionex Pennkinetic ER (chlorpheniramine-hydrocodone) Suspension 5 ml Route: PO;[facility] 15:13 Follow up: Response: Other [facility] 13:15 Drug: Acetaminophen 650 mg Route: PO; 6 15:13 Follow up: Response: No adverse reaction [facility] Disposition: 16:40 Co-signature as Attending Physician, Salvatore Srivastava MD I agree with the assessment and rn plan of care. Attestation: The patient's history, exam findings, diagnostics, and a summary of any interventions or procedures was reviewed in detail with Johnathon Quan NP. Disposition Summary: 03/14/21 15:18 Discharge Ordered Location: Home pm1 Problem: new pm1 Symptoms: have improved pm1 Condition: Stable pm1 Diagnosis - Cough pm1 Followup: pm1 - With: Emergency Department - When: As needed - Reason: Worsening of condition Followup: pm1 - With: Private Physician - When: 2 - 3 days - Reason: Recheck today's complaints, Continuance of care, Re-evaluation by your physician Discharge Instructions: - Discharge Summary Sheet pm1 - Cough, Adult pm1 Forms: - Medication Reconciliation Form pm1 - Thank You Letter pm1 - Antibiotic Education pm1 - Prescription Opioid Use pm1 Prescriptions: - Ventolin HFA 90 mcg/actuation Inhalation HFA aerosol inhaler - inhale 1 puff by INHALATION route every 4-6 hours As needed; 1 Inhaler; pm1 Refills: 0, Product Selection Permitted - Zithromax Z-Garry 250 mg Oral Tablet - take 1 tablet by ORAL route as directed for 5 days Day 1 - take two (2) tablets pm1 one time. Day 2, 3, 4 , 5 take one (1) tablet once daily.; 6 tablet; Refills: 0, Product Selection Permitted - Medrol (Garry) 4 mg Oral Tablets, Dose Pack - take 1 tablet by ORAL route as directed - follow package instructions; 1 pm1 packet; Refills: 0, Product Selection Permitted Signatures: Dispatcher [employer] EDMS Salvatore Srivastava MD MD rn Marinas, Patrick, NP [employer] pm1 Shelley Choi RN RN vg1 Marylu Aguilar RN RN jh6 Corrections: (The following items were deleted from the chart) 12:33 12:33 CORONAVIRUS ordered. EDMS EDMS 12:33 12:33 Influenza Screen (A ordered. EDMS EDMS 12:33 12:33 Group A Streptococcus Rapid Sc ordered. EDMS EDMS 13:39 12:33 CORONAVIRUS ordered. EDMS EDMS 13:39 12:33 Influenza Screen (A ordered. EDMS EDMS
--- NOTE | 2021-03-14 15:19 | ER ---
Nurse's Notes [facility] Name: Val Love Age: 75 yrs Sex: Female : 1945 Arrival Date: 03/14/2021 Time: 12:08 Bed 11 Private MD: Diagnosis: Cough Presentation: 03/14 12:14 Chief complaint: Patient states: Fever and a cough since Monday03/10/21. Today vg1 temperature was 102.6. "It feels like sinus drainage and now it feels like its going down into my chest" Has been taking Tylenol and Mucinex. Went to Urgent care on Monday03/12/21 and was tested Covid, flu, strep and pneumonia and results were negative. States 'chest discomfort' when coughing. Coronavirus screen: Vaccine status: Patient reports receiving the 2nd dose of the covid vaccine. Client denies travel out of the [place] in the last 14 days. Ebola Screen: Patient negative for fever greater than or equal to 101.5 degrees Fahrenheit, and additional compatible Ebola Virus Disease symptoms. Initial Sepsis Screen: Does the patient meet any 2 criteria? No. Patient's initial sepsis screen is negative. Does the patient have a suspected source of infection? No. Patient's initial sepsis screen is negative. Risk Assessment: Do you want to hurt yourself or someone else? Patient reports no desire to harm self or others. Onset of symptoms was March 10, 2021. 12:14 Method Of Arrival: Ambulatory vg1 12:14 Acuity: NELDA 3 vg1 Triage Assessment: 12:20 General: Appears in no apparent distress. comfortable, Behavior is calm, cooperative. vg1 Pain: Complains of pain in head and chest Pain currently is 2 out of 10 on a pain scale. Historical: - Allergies: 12:20 Statins; vg1 12:20 Hydralazine; vg1 12:20 Amoxicillin-Pot Clavulanate; vg1 - Home Meds: 12:20 Synthroid Oral [Active]; Eliquis oral [Active]; amlodipine oral [Active]; vg1 - PMHx: 12:20 Hypertensive disorder; Hypothyroidism; vg1 - PSHx: 12:20 Cholecystectomy; Tonsillectomy; vg1 - Immunization history:: Client reports receiving the 2nd dose of the Covid vaccine, Flu vaccine is up to date. - Social history:: Smoking status: Patient denies any tobacco usage or history of. Screenin:15 Abuse screen: Denies threats or abuse. jh6 13:15 Nutritional screening: No deficits noted. Tuberculosis screening: No symptoms or risk jh6 factors identified. Fall Risk None identified. Assessment: 12:46 General: Appears in no apparent distress. comfortable, Behavior is calm, cooperative. jh6 12:46 Respiratory: No deficits noted. Reports cough that is non-productive, Airway is patent. jh6 15:00 Reassessment: Patient is alert, oriented x 3, equal unlabored respirations, skin jh6 warm/dry/pink. Pt reports decreased cough and is able to speak in complete sentences. . Vital Signs: 12:14 BP 139 / 74; Pulse 93; Resp 18; Temp 100.5(O); Pulse Ox 96% ; Weight 84.82 kg; Height 5 vg1 ft. 4 in. (162.56 cm); Pain 2/10; 15:00 BP 128 / 64; Pulse 74; Resp 20; Temp 97.9(O); Pulse Ox 96% ; jh6 12:14 Body Mass Index 32.10 (84.82 kg, 162.56 cm) vg1 ED Course: 12:08 Patient arrived in ED. mr 12:20 Triage completed. vg1 12:20 Arm band placed on. vg1 12:26 Johnathon Quan NP is PHCP. pm1 12:26 Salvatore Srivastava MD is Attending Physician. pm1 12:38 Marylu Aguilar, KERRI is Primary Nurse. jh6 12:46 X-ray(s) taken. jh6 12:49 Chest Pa And Lat (2 Views) XRAY In Process Unspecified. EDMS 15:00 Call light in reach. jh6 15:50 No provider procedures requiring assistance completed. jh6 Administered Medications: 13:15 Drug: Tussionex Pennkinetic ER (chlorpheniramine-hydrocodone) Suspension 5 ml Route: PO;jh6 15:13 Follow up: Response: Other jh6 13:15 Drug: Acetaminophen 650 mg Route: PO; jh6 15:13 Follow up: Response: No adverse reaction jh6 Outcome: 15:18 Discharge ordered by . pm1 15:30 Discharged to home ambulatory. jh6 15:30 Condition: good 15:30 Discharge instructions given to patient, Instructed on discharge instructions, follow up and referral plans. Demonstrated understanding of instructions, follow-up care, medications, Prescriptions given X 3. 15:51 Patient left the ED. jh6 Signatures: Dispatcher [employer] REYES CarltonDonna mr QuanJohnathon, FILM DRYING MACHINE OPERATOR FILM DRYING MACHINE OPERATOR pm1 Shelley Choi, RN RN vg1 Marylu Aguilar RN RN jh6
[2021-03-14 16:00] VITALS: O2SAT 96
[2021-03-14 16:02] VITALS: BP 128/64; TEMP 97.9
== END 2021-03-14 15:51 | disposition home or self-care (01) ==
LOC: ER 12:02
DX: R05.9 Cough, unspecified (principal); I10 Essential (primary) hypertension; E03.9 Hypothyroidism, unspecified; Z79.01 Long term (current) use of anticoagulants; Z20.822 Contact with and (suspected) exposure to COVID-19; Z88.1 Allergy status to other antibiotic agents; Z88.8 Allergy status to other drugs, medicaments and biological substances
CPT/HCPCS: 87070; 87081; 0240U; 71046; 99283

== ENCOUNTER 2021-06-07 17:43 | Emergency (ER) | payer OTHER ==
--- OUTSIDE RECORDS SUMMARY | 2021-06-07 17:46 | XMS REPORT | Continuity of Care Document ---
:1945 Author Organization [facility] t Address [address] [place] [address] Care Team Providers Name Role Phone PCP, DOES NOT HAVE A Primary Care Physician Unavailable Jake Rangel Attending Clinician Unavailable Maia CHACON Attending Clinician MAIA Attending Clinician Unavailable SATNAM Attending Clinician Unavailable SHELBI Attending Clinician Unavailable LINDA Attending Clinician Unavailable RICHARD Attending Clinician Unavailable CARLOS Attending Clinician Unavailable MD CARLOS Attending Clinician Unavailable KELVIN Attending Clinician Unavailable Jake Rangel Admitting Clinician Unavailable MARINO Admitting Clinician Unavailable MD MARINO Admitting Clinician Unavailable Payers Payer Name Policy Type Policy Number Effective Date Expiration Date S ource Problems Condition Condition Condition Status Onset Resolution Last Treating Co mments Source Name Details Category Date Date Treatment Clinician Date Benign Benign Disease Active Univers hypertensi hypertensi it y of on on [facility] Arthritis Arthritis Disease [facility] Sleep Disease Active Univers apnea apnea ity of [facility] Pre-diabet Pre-diabet Disease Active U nivers es es ity [facility] Herpes Herpes Disease Active Univers ity [facility] Hyperlipid Hyperlipid Disease Active U nivers emia emia ity [facility] Edema of Edema of Disease Active [facility] Allergies, Adverse Reactions, Alerts Allergy Allergy Status Severity Reaction(s) Onset Inactive Treating Comm ents Source Name Type Date Date Clinician Statins- DA Active SV 2020-0 [facility] 8-13 Clear Reductas 00:00: Ardon e [facility] hydralaz DA Active SV 0 [facility] ine 8-13 Clear 00:00: Ardon 00 [facility] amoxicil DA Active [place] [facility] elsy 8-13 Clear 00:00: Ardon 00 [facility] Statins- DA Active SV BURNING [facility] SKIN,VOMITIN 8-13 Bong ar Reduct[place] G,SWEATING,D 00:00: Yasmeen RUSSELL,"FEELIN 00 Sandi trish Inhibito G OF PASSING l r OUT [facility] hydralaz DA Active SV SOB,PALPITAT HC A ine IONS, 8-13 Clear "FEELING OF 00:00: Ardon DYING" 00 [facility] amoxicil DA Active [place] [facility] UPSET [facility] elsy 8-13 Clear 00:00: Ardon 00 [facility] Codeine Propensi Active Other - See 2012-04 stomach U nivers ty to comments 2-15 ache ity of adverse 00:00: [place] reaction Medical s Branch CODEINE DRUG Active Dizziness 2012-04 Univer s INGREDI 2-15 ity of 00:00: [address] Social History Social Habit Start Date Stop Date Quantity Comments Source Exposure to Not sure [facility] SARS-CoV-2 [facility] (event) Branch Alcohol intake 2021-03-12 2021-03-12 Current [facility] 00:00:00 00:00:00 non-drinker of [facility] alcohol [place] (finding) Tobacco use and 2012-12-13 2012-12-13 Never used Universit y of exposure 00:00:00 00:00:00 [facility] Sex Ass[birth year] Universit y of 00:00:00 00:00:00 [facility] Smoking Status Start Date Stop Date Source Never smoker [facility] Branch Medications Ordered Filled Start Stop Current Ordering Indication Dosage Frequency Signature Comments Components Source Medication Medication Date Date Medication? Clinician (SIG) Name Name ALPRAZolam 2020-04 Yes .25mg Take 0.25 U nivers (XANAX) 1-19 mg by ity of 0.25 mg 18:59: mouth 3 [place] tablet 20 (three) Medical times Branch daily. ibuprofen 2020-04 Yes 800mg Take 800 Uni vers (MOTRIN) 1-19 mg by ity of 800 mg 18:59: mouth 3 [place] tablet 20 (three) Medical times Branch daily with meals. Cholecalcif 2020-04 Yes 5000U Take 5,000 Univers stephon, 1-19 Units by ity of Vitamin D3, 18:59: [place]. [place] 125 mcg 20 Medical (5,000 Branch unit) capsule ALPRAZolam 2020-04 Yes .25mg Take 0.25 U nivers (XANAX) 1-19 mg by ity of 0.25 mg 18:59: mouth 3 [place] tablet 20 (three) Medical times Branch daily. ibuprofen 2020-04 Yes 800mg Take 800 Uni vers (MOTRIN) 1-19 mg by ity of 800 mg 18:59: mouth 3 [place] tablet 20 (three) Medical times Branch daily with meals. Cholecalcif 2020-04 Yes 5000U Take 5,000 Univers stephon, 1-19 Units by ity of Vitamin D3, 18:59: [place]. [place] 125 mcg 20 Medical (5,000 Branch unit) capsule apixaban 2020-04 Yes 2.5mg Take 2.5 Univ ers 2.5 mg 1-19 mg by ity of tablet 18:58: mouth. [address] apixaban 2020-04 Yes 2.5mg Take 2.5 Univ ers 2.5 mg 1-19 mg by ity of tablet 18:58: mouth. [address] amLODIPine 2020-04 Yes 10mg Take 10 mg U nivers 10 mg 1-19 by mouth. ity of tablet 18:57: [address] amLODIPine 2020-04 Yes 10mg Take 10 mg U nivers 10 mg 1-19 by mouth. ity of tablet 18:57: [address] levalbutero 2020-04 Yes [id number] 1{puff} Inhale 1-2 Univers l 45 1-19 Puffs ity of mcg/actuati 00:00: every 4 [place] as on inhaler 00 (four) Medical hours as Branch needed for Wheezing. levalbutero 2020-04 Yes [id number] 1{puff} Inhale 1-2 Univers l 45 1-19 Puffs ity of mcg/actuati 00:00: every 4 [place] as on inhaler 00 (four) Medical hours as Branch needed for Wheezing. benzonatate 2020-04- Yes [id number] 100mg Take 1 Univers (TESSALON 1-19 11-30 capsule by ity of JOSEFINALP33.TV) 100 00:00: 05:59 [place] mg capsule 00 :00 every 8 Medica l (eight) Branch hours for 10 days. benzonatate 2020-04- Yes [id number] 100mg Take 1 Univers (TESSALON 1-19 11-30 capsule by ity of JOSEFINALP33.TV) 100 00:00: 05:59 mouth [place] mg capsule 00 :00 every 8 Medica l (eight) Branch hours for 10 days. pantoprazol 2020-04 Yes Take by Un anthony e 40 mg EC 0-12 mouth 2 ity of tablet 00:00: (two) [place] 00 times Medical daily. Branch pantoprazol 2020-04 Yes Take by Un anthony e 40 mg EC 0-12 mouth 2 ity of tablet 00:00: (two) [place] 00 times Medical daily. Branch chlorphenir 2012-04 Yes [id number] 5mL Take 5 mL Univers amine-hydro 2-09 by mouth ity of codone 00:00: every 12 [place] (TUSSIONEX) 00 (twelve) Medi adalberto 8-10 mg/5 hours as Branch mL needed for suspension Cough. chlorphenir 2012-04 Yes [id number] 5mL Take 5 mL Univers amine-hydro 2-09 by mouth ity of codone 00:00: every 12 [place] (TUSSIONEX) 00 (twelve) Medi adalberto 8-10 mg/5 hours as Branch mL needed for suspension Cough. loratadine 2012-04 Yes 10mg Take 1 Tab U nivers (CLARITIN) 0-18 by mouth ity o f 10 mg 00:00: daily. [place] tablet [facility] Branch loratadine 2012-04 Yes 10mg Take 1 Tab U nivers (CLARITIN) 0-18 by mouth ity o f 10 mg 00:00: daily. [place] tablet [facility] furosemide Yes [id number] 40mg Take 1 Tab Univers (LASIX) 40 8-22 by mouth ity o f mg tablet 00:00: daily. [place] [facility] telmisartan Yes [id number] 80mg Take 1 Tab Univers (MICARDIS) 8-22 by mouth ity o f 80 mg 00:00: daily. [place] tablet Medical Branch potassium Yes [id number] 10meq Take 1 Tab Univers chloride 8-22 by mouth ity of (K-DUR) 10 00:00: daily. [place] mEq CR Medical tablet Branch furosemide Yes [id number] 40mg Take 1 Tab Univers (LASIX) 40 8-22 by mouth ity o f mg tablet 00:00: daily. [place] [facility] Branch telmisartan Yes [id number] 80mg Take 1 Tab Univers (MICARDIS) 8-22 by mouth ity o f 80 mg 00:00: daily. [place] tablet Medical [place] potassium Yes [id number] 10meq Take 1 Tab Univers chloride 8-22 by mouth ity of (K-DUR) 10 00:00: daily. [place] mEq CR Medical tablet [place] Vital Signs Vital Name Observation Time Observation Value Comments Source Systolic blood 2021-03-13 01:03:00 149 mm[Hg] Univer sity of pressure [facility] Diastolic blood 2021-03-13 01:03:00 88 mm[Hg] [facility] Heart rate 2021-03-13 01:02:00 86 /min [facility] Body temperature 2021-03-13 01:02:00 37.5 [facility] Respiratory rate 2021-03-13 01:02:00 21 /min [facility] Body height 2021-03-13 01:02:00 162.6 cm [facility] Body weight 2021-03-13 01:02:00 85.231 kg [facility] BMI 2021-03-13 01:02:00 32.25 kg/m2 [facility] Oxygen saturation in 2021-03-13 01:02:00 96 /min [facility] Arterial blood by [facility] Pulse oximetry Branch Procedures Procedure Date / Time Performed Performing Clinician Sourc e POCT RAPID FLU A AND 2021-03-13 01:42:00 Andrew Carvalho [facility] B TEST Medical Branch POCT GRP A STREP 2021-03-13 01:42:00 Andrew Carvalho [facility] (MOLECULAR) [facility] XR CHEST 2 VW 2021-03-13 01:25:08 Andrew Carvalho o f [facility] [id number] 2019-12-09 00:00:00 JOHRI.02 [facility] [id number] 2019-12-09 00:00:00 JOHRI.02 [facility] [id number] 2019-12-09 00:00:00 JOHRI.02 [facility] Encounters Start End Encounter Admission Attending Care Care Encounter Source Date/Time Date/Time Type Type Clinicians Facility Department ID 2019-12-10 Inpatient SHERLY Rangel [facility] MEDI.01 [id number] [facility] 14:30:00 Avinash [id number] [facility] 2019-12-09 Inpatient Claire [facility] DAYS [id number] [facility] 08:00:00 Avinash [id number] [facility] 2019-12-05 Inpatient Claire [facility] DAYS [id number] [facility] 10:00:00 Avinash [id number] [facility] 2021-03-12 2021-03-12 [facility] [id number] Univers 19:17:34 23:59:00 Encounter [facility] [employer] [id number] ity of MUIR [id number] [place] as ANDREA?BLEA [id number] [facility] [address] [place] MEDICAL OFFICE BUILDING 2021-03-12 2021-03-12 [facility] [id number] Univers 19:00:00 19:49:37 ANDREW [facility] 2021-03-12 2021-03-12 Urgent [facility] [id number] Univers 18:44:47 19:49:37 [facility] [id number] it y of MU[place] [id number] [place] as ANDREA?BLEA [id number] [facility] [address] [place] MEDICAL OFFICE BUILDING 2020-11-03 2020-11-03 Outpatient [facility] [id number] [place] 00:00:00 00:00:[address] 2020-07-27 2020-07-29 Outpatient GHADIRI, [facility] [id number] [place] 00:00:00 00:00:00 BLANCA [address] 2020-07-15 2020-07-15 Outpatient MARIO, [facility] [id number] [place] 00:00:00 00:00:00 KISHA [address] 2020-07-02 2020-07-02 Outpatient GHADIRI, [facility] [id number] [place] 00:00:00 00:00:00 BLANCA [address] 2020-06-29 2020-06-29 Emergency WINGKUN, [facility] [id number] [place] 00:00:00 00:00:00 KEITH [address] 2020-06-02 2020-06-02 Outpatient [facility] [id number] [place] 00:00:00 00:00:[address] 2020-05-12 2020-05-12 Outpatient [facility] [id number] [place] 00:00:00 00:00:[address] 2020-01-14 2020-01-14 Outpatient GHADIRI, [facility] [id number] [place] 00:00:00 00:00:00 BLANCA [address] 2019-10-21 2019-10-21 Outpatient [facility] [id number] [place] 00:00:00 00:00:[address] 2019-10-15 2019-10-15 Outpatient VAHE RAMOSYA [facility] [id number] [place] 00:00:00 00:00:[address] 2019-10-07 2019-10-08 Outpatient KOHLNHOFER, [facility] [id number] [place] 00:00:00 00:00:00 LURDES [address] 2019-08-27 2019-08-27 Outpatient VAHE RAMOSYA [facility] [id number] [place] 00:00:00 00:00:[address] 2019-08-14 2019-08-14 Outpatient GHADIRI, [facility] [id number] [place] 00:00:00 00:00:00 BLANCA [address] 2019-08-14 2019-08-14 Outpatient GHADIRI, [facility] [id number] [place] 00:00:00 00:00:00 BLANCA [address] 2019-07-12 2019-07-12 Outpatient MARIO, [facility] [id number] [place] 00:00:00 00:00:00 KISHA [address] 2019-07-08 2019-07-08 Outpatient MARIO, [facility] [id number] [place] 00:00:00 00:00:00 KISHA [address] 2019-07-08 2019-07-08 Outpatient MARIO, [facility] [id number] [place] 00:00:00 00:00:00 KISHA [address] 2019-06-27 2019-06-27 Outpatient MARIO, [facility] [id number] [place] 00:00:00 00:00:00 KISHA [address] 2019-06-27 2019-06-27 Outpatient GHADIRI, [facility] [id number] [place] 00:00:00 00:00:00 BLANCA [address] 2019-03-05 2019-03-05 Emergency KELVIN, LEVI [facility] [id number] [place] 00:00:00 00:00:[address] Results [...] controls Lab Interpretation (test code = Normal 47066-0) [facility]2021-03-13 01:42:00 Test Item Value Reference Range Interpretation Comments POCT GP A STREP (test negative Negative - code = 76279-6) Negative GIN (test code = GIN) accurate development and interpretation of all internal controls Lab Interpretation Normal (test code = 73661-7) [facility] 06:18:00 Test Item Value Reference Range Interpretation Comments MAGNESIUM (test code = MAG) 1.84 mg/dL 1.8-2.4 N CALCIUM [id number] 06:18:00 Test Item Value Reference Range Interpretation Comments CALCIUM IONIZED (test code = MICKEY) 0.98 MMOL/L 1.12-1.32 L [id number] 06:04:00 Test Item Value Reference Range Interpretation Comments MAGNESIUM (test code = MAG) mg/dL 1.8-2.4 CALCIUM [id number] 06:04:00 Test Item Value Reference Range Interpretation Comments CALCIUM IONIZED (test code = MICKEY) 0.98 MMOL/L 1.12-1.32 L [id number] 16:47:00 Test Item Value Reference Range Interpretation Comments CALCIUM (test code = CA) 6.9 mg/dL 8.0-10.5 L [id number] 16:47:00 Test Item Value Reference Range Interpretation Comments MAGNESIUM (test code = MAG) 1.84 mg/dL 1.8-2.4 N CALCIUM [id number] 16:47:00 Test Item Value Reference Range Interpretation Comments CALCIUM IONIZED (test code = MICKEY) 0.97 MMOL/L 1.12-1.32 L [id number] 16:46:00 Test Item Value Reference Range Interpretation Comments CALCIUM (test code = CA) 6.9 mg/dL 8.0-10.5 L [id number] 16:46:00 Test Item Value Reference Range Interpretation Comments MAGNESIUM (test code = MAG) 1.84 mg/dL 1.8-2.4 N CALCIUM [id number] 16:46:00 Test Item Value Reference Range Interpretation Comments CALCIUM IONIZED (test code = MICKEY) MMOL/L 1.12-1.32 SURGICAL PATH [id number] 15:35:00 RUN DATE: 12/12/19 [place] [facility] *LIVE* PAGE 1 RUN TIME: 1535 Specimen Inquiry RUN USER: INTERFACE PATIENT: ELISE MONROY [facility] #: [id number] AGE/SX: 74/F ROOM: [facility] RE12/10/19REG DR: Avinash Rangel III : 44 BED: 1 DIS: STATUS: ADM IN TLOC: SPEC #: [id number] RECD: 12/09/19 STATUS: WAYNE REQ #: [id number] MARCEL: 12/09/19 [facility] DR: Avinash Rangel III, MD ENTERED: 12/09/19 SP TYPE: SURG SPEC OTHR D R: Blanca Ulrich MD ORDERED: FROZEN SECTION, GM LEVEL 5 CODES: [id number] - SOFT TISSUES, N [id number] - THYROID GLAND COPIES TO: Blanca Ulrich MD [address] [place] [address] [place] [address] [address] [email or web address] PROCEDURES: FROZEN SECTION (Incomplete) GM LEVEL 5 [...] CONTINUED ON NEXT PAGE RUN DATE: 12/12/19 [facility] *LIVE* PAGE 2 RUN TIME: 1535 Specimen Inquiry RUN USER: INTERFACE SPEC #: [id number] PATIENT: ELISE MONROY #[id number] (Continued) FINAL DIAGNOSIS (Continued) PROVISIONAL DIAGNOSIS Thyroid [...] CONTINUED ON NEXT PAGE RUN DATE: 12/12/19 [facility] *LIVE* PAGE 3 RUN TIME: 1535 Specimen Inquiry RUN USER: INTERFACE SPEC #: [id number] PATIENT: ELISE MONROY #[id number] (Continued) PRE-OP DIAGNOSIS Malignant neoplasm of thyroid [...] identified. *Extrathy roidal Extension: No. * TNM: [id number] Tumor block(s): (G) (K) Signed SIGNATURE ON FILE Johan Sanders MD 12/12/19 4585 -------- ---- END OF REPORT [id number] 07:31:00 Test Item Value Reference Range Interpretation Comments CALCIUM (test code = CA) 6.7 mg/dL 8.0-10.5 L [id number] 07:31:00 Test Item Value Reference Range Interpretation Comments MAGNESIUM (test code = MAG) 1.98 mg/dL 1.8-2.4 CALCIUM [id number] 07:31:00 Test Item Value Reference Range Interpretation Comments CALCIUM IONIZED (test code = MICKEY) 0.95 MMOL/L 1.12-1.32 L [id number] 07:23:00 Test Item Value Reference Range Interpretation Comments CALCIUM (test code = CA) mg/dL 8.0-10.5 [id number] 07:23:00 Test Item Value Reference Range Interpretation Comments MAGNESIUM (test code = MAG) mg/dL 1.8-2.4 CALCIUM [id number] 07:23:00 Test Item Value Reference Range Interpretation Comments CALCIUM IONIZED (test code = MICKEY) 0.95 MMOL/L 1.12-1.32 L [id number] 16:39:00 Test Item Value Reference Range Interpretation Comments CALCIUM (test code = CA) 7.2 mg/dL 8.0-10.5 L [id number] 16:39:00 Test Item Value Reference Range Interpretation Comments MAGNESIUM (test code = MAG) 1.67 mg/dL 1.8-2.4 L CALCIUM [id number] 16:39:00 Test Item Value Reference Range Interpretation Comments CALCIUM IONIZED (test code = MICKEY) 0.98 MMOL/L 1.12-1.32 L [id number] 16:25:00 Test Item Value Reference Range Interpretation Comments CALCIUM (test code = CA) mg/dL 8.0-10.5 [id number] 16:25:00 Test Item Value Reference Range Interpretation Comments MAGNESIUM (test code = MAG) mg/dL 1.8-2.4 CALCIUM [id number] 16:25:00 Test Item Value Reference Range Interpretation Comments CALCIUM IONIZED (test code = MICKEY) 0.98 MMOL/L 1.12-1.32 L [id number] 08:36:00 Test Item Value Reference Range Interpretation Comments CALCIUM (test code = CA) 7.1 mg/dL 8.0-10.5 L [id number] 08:36:00 Test Item Value Reference Range Interpretation Comments MAGNESIUM (test code = MAG) 1.70 mg/dL 1.8-2.4 L CALCIUM [id number] 08:36:00 Test Item Value Reference Range Interpretation Comments CALCIUM IONIZED (test code = MICKEY) 0.97 MMOL/L 1.12-1.32 L [id number] 08:34:00 Test Item Value Reference Range Interpretation Comments CALCIUM (test code = CA) 7.1 mg/dL 8.0-10.5 L [id number] 08:34:00 Test Item Value Reference Range Interpretation Comments MAGNESIUM (test code = MAG) 1.70 mg/dL 1.8-2.4 L CALCIUM [id number] 08:34:00 Test Item Value Reference Range Interpretation Comments CALCIUM IONIZED (test code = MICKEY) MMOL/L 1.12-1.32 [id number] 18:47:00 Test Item Value Reference Range Interpretation Comments CALCIUM (test code = CA) 7.5 mg/dL 8.0-10.5 L [id number] 18:47:00 Test Item Value Reference Range Interpretation Comments MAGNESIUM (test code = MAG) 1.86 mg/dL 1.8-2.4 N CALCIUM [id number] 18:47:00 Test Item Value Reference Range Interpretation Comments CALCIUM IONIZED (test code = MICKEY) 1.03 MMOL/L 1.12-1.32 L [id number] 18:30:00 Test Item Value Reference Range Interpretation Comments CALCIUM (test code = CA) mg/dL 8.0-10.5 [id number] 18:30:00 Test Item Value Reference Range Interpretation Comments MAGNESIUM (test code = MAG) mg/dL 1.8-2.4 CALCIUM [id number] 18:30:00 Test Item Value Reference Range Interpretation Comments CALCIUM IONIZED (test code = MICKEY) 1.03 MMOL/L 1.12-1.32 L [id number] 05:57:00 Test Item Value Reference Range Interpretation Comments CALCIUM (test code = CA) 7.2 mg/dL 8.0-10.5 L [id number] 05:57:00 Test Item Value Reference Range Interpretation Comments MAGNESIUM (test code = MAG) 1.66 mg/dL 1.8-2.4 L CALCIUM [id number] 05:57:00 Test Item Value Reference Range Interpretation Comments CALCIUM IONIZED (test code = MICKEY) 1.04 MMOL/L 1.12-1.32 L [id number] 05:40:00 Test Item Value Reference Range Interpretation Comments CALCIUM (test code = CA) 7.2 mg/dL 8.0-10.5 L [id number] 05:40:00 Test Item Value Reference Range Interpretation Comments MAGNESIUM (test code = MAG) 1.66 mg/dL 1.8-2.4 L CALCIUM [id number] 05:40:00 Test Item Value Reference Range Interpretation Comments CALCIUM IONIZED (test code = MICKEY) MMOL/L 1.12-1.32 [id number] 18:12:00 Test Item Value Reference Range Interpretation Comments CALCIUM (test code = CA) 8.5 mg/dL 8.0-10.5 N [id number] 18:12:00 Test Item Value Reference Range Interpretation Comments MAGNESIUM (test code = MAG) 1.76 mg/dL 1.8-2.4 L CALCIUM [id number] 18:12:00 Test Item Value Reference Range Interpretation Comments CALCIUM IONIZED (test code = MICKEY) 1.13 MMOL/L 1.12-1.32 N [id number] 18:10:00 Test Item Value Reference Range Interpretation Comments CALCIUM (test code = CA) mg/dL 8.0-10.5 [id number] 18:10:00 Test Item Value Reference Range Interpretation Comments MAGNESIUM (test code = MAG) mg/dL 1.8-2.4 CALCIUM [id number] 18:10:00 Test Item Value Reference Range Interpretation Comments CALCIUM IONIZED (test code = MICKEY) 1.13 MMOL/L 1.12-1.32 N Novel Coronavirus 2019 [id number] 20:53:00 Test Item Value Reference Range Interpretation Comments Novel Coronavirus 2019 Inhouse (test Negative Negative code = COVNONPUI) BASIC METABOLIC [id number] 12:00:00 Test Item Value Reference Range Interpretation [...] 8.0-10.5 N CA) - XR CHEST 2 [id number] 11:58:00 FAX: Blanca Robni MD [place]: St: PRE FAX: Avinash Wood III [phone] Name: ELISE MONROY [facility] : 1945 Age/S: 74/F [address] [place] [address] Unit #: [id number] Loc: [place] [address] Phys: Avinash Rangel III, MD Acct: G [id number] Dis Date: Status: PRE [facility] PHONE #: [phone] Exam Date: 12/05/2019 1148 FAX #: [phone] Reason: THYROIDECTOMY EXAMS: CPT CODE: [id number] XR CHEST 2 V [id number] EXAM: XR CHEST 2 VIEWS DATE: 12/05/2019 [...] IMPRESSION: No acute cardiopulmonary process. Emphysema. SL: [id number] at 1158 Reported and signed by: Norah Webster D.O. CC: Shalonda Ulrich MD; Avinash Rangel III, MD Technologist: RT Kvng(Sridevi) Trnscrd Date/Time/By: 12/05/2019 (5233) : By: [email or web address] Orig Print D/T: S: 12/05/2019 (7665) PAGE 1 Signed ReportCBC W/AUTO [id number] 11:32:00 Test Item Value Reference Range Interpretation [...] in Respiratory specimen by ARAMIS with probe [id number] 22:31:33 Test Item Value Reference Range Interpretation Comments SARS coronavirus 2 RNA Not detected Not-Detected [Presence] in Respiratory specimen by ARAMIS with probe detection (test code = 69956-1)
[2021-06-07 19:01] LABS: Absolute Lymphocytes (CBC) 2.1 K/uL (0.7-4.9); Hematocrit 38.7 % (36.0-45.0); Lymphocytes % 18.6 % (15.3-44.8); MPV 7.7 fL (7.6-11.3); RBC Red Blood Cell Count 4.63 M/uL (3.86-4.86)
[2021-06-07] MEDS ORDERED: ACETAMINOPHEN 500 MG TAB ONE (19:06)
[2021-06-07] MEDS ORDERED: NA CHLORIDE 0.9% 500 ML ONE (19:06)
[2021-06-07 19:15] LABS: Protime INR 1.19
[2021-06-07 19:18] LABS: ALT/SGPT 30 U/L (12-78); AST/SGOT 25 U/L (15-37); Albumin 3.3 g/dL (3.4-5.0); Alkaline Phosphatase 104 U/L (45-117); BUN Blood Urea Nitrogen 10 mg/dL (7-18); Bicarbonate 27 mmol/L (21-32); Bilirubin Direct 0.1 mg/dL (0-0.2); Bilirubin Total 0.4 mg/dL (0.2-1.0); Glucose Level 122 mg/dL (74-106); Potassium 3.1 mmol/L (3.5-5.1); Protein, Total 7.5 g/dL (6.4-8.2); Sodium Level 141 mmol/L (136-145)
[2021-06-07 19:25] LABS: NT PRO-BNP 222 pg/mL (<450); Thyroid Stimulating Hormone 0.665 uIU/mL (0.360-3.740)
--- NOTE | 2021-06-07 19:55 | RAD REPORT ---
EXAM DESCRIPTION: RAD - Chest Single View - 06/07/2021 7:35 pm CLINICAL HISTORY: PALPITATIONS Chest pain. COMPARISON: Chest Pa And Lat (2 Views) dated 03/14/2021 FINDINGS: Portable technique limits examination quality. Mild bilateral pulmonary opacities are seen which may represent pulmonary edema or a viral infection. The heart is mildly enlarged size. Mild to moderate lower thoracic dextroscoliosis.
--- NOTE | 2021-06-07 21:43 | EDPHYS ---
Physician Documentation [facility] Name: Val Love Age: 75 yrs Sex: Female : 1945 Arrival Date: 06/07/2021 Time: 17:44 Bed 18 Private MD: ED Physician Salvatore Srivastava HPI: 06/07 18:11 This 75 yrs old Female presents to ER via Ambulatory with complaints of afib, Cough. pm1 18:11 The patient presents with a history of irregular heart beat. Context: The symptoms pm1 occur at rest. Onset: The symptoms/episode began/occurred today. Duration: The patient or guardian reports a single episode, that is still ongoing. Modifying factors: The symptoms are aggravated by nothing. The symptoms are alleviated by nothing. Associated signs and symptoms: Pertinent positives: cough, on and off since February of last year. Dx bronchitis. Severity of symptoms: in the emergency department the symptoms are unchanged. The patient has experienced similar episodes in the past, a few times, patient reports that her palpations feel like her atrial fibrillation. Patient takes Eliquis for her atrial fibrillation. Historical: - Allergies: 17:57 statins; ll1 17:57 HYDRALAZINE; ll1 17:57 amoxicillin-pot clavulanate; ll1 - Home Meds: 18:58 amlodipine oral [Active]; Eliquis Oral [Active]; Synthroid Oral [Active]; fierro - PMHx: 17:57 Hypertensive disorder; Hypothyroidism; ll1 - PSHx: 17:57 Cholecystectomy; Tonsillectomy; ll1 - Immunization history:: Client reports receiving the 2nd dose of the Covid vaccine. - Social history:: Smoking status: Patient denies any tobacco usage or history of. ROS: 18:11 Constitutional: Negative for fever, chills, and weight loss. pm1 18:11 Abdomen/GI: Negative for abdominal pain, nausea, vomiting, diarrhea, and constipation, Back: Negative for injury and pain, MS/Extremity: Negative for injury and deformity, Skin: Negative for injury, rash, and discoloration, Neuro: Negative for headache, weakness, numbness, tingling, and seizure. 18:11 Cardiovascular: Positive for palpitations, Negative for chest pain. 18:11 Respiratory: Positive for cough, Negative for shortness of breath. 18:11 All other systems are negative. Exam: 18:11 Constitutional: This is a well developed, well nourished patient who is awake, alert, pm1 and in no acute distress. Head/Face: Normocephalic, atraumatic. 18:11 Back: No spinal tenderness. No costovertebral tenderness. Full range of motion. Skin: Warm, dry with normal turgor. Normal color with no rashes, no lesions, and no evidence of cellulitis. MS/ Extremity: Pulses equal, no cyanosis. Neurovascular intact. Full, normal range of motion. 18:11 Eyes: Exam is negative for acute changes, Periorbital structures: appear normal, Extraocular movements: no acute changes. 18:11 ENT: Exam is negative for acute changes, Mouth: no acute changes, Lips: normal, moist, Oral mucosa: normal, pink and intact, moist. 18:11 Cardiovascular: Exam negative for acute changes, Rate: normal, Rhythm: regular, Pulses: no pulse deficits are appreciated, Heart sounds: normal, Edema: is not appreciated. 18:11 Respiratory: Exam negative for acute changes, respiratory distress, shortness of breath, Breath sounds: are clear throughout. 18:11 Neuro: Exam negative for acute changes, Orientation: is normal, Mentation: is normal, Motor: is normal, moves all fours. Vital Signs: 17:54 BP 180 / 88; Pulse 102; Resp 20; Temp 100.2(TE); Pulse Ox 98% on R/A; Weight 86.18 kg; ll1 Height 5 ft. 4 in. (162.56 cm); Pain 7/10; 19:17 BP 163 / 71 LA Supine (auto/reg); Pulse 96 RA; Resp 20 S; Pulse Ox 96% on R/A; Pain tk1 5/10; 20:04 Temp 99.8; tk1 20:36 BP 153 / 74 LA Supine (auto/reg); Pulse 83; Resp 18; Temp 98.9(O); Pulse Ox 94% ; Pain tk1 0/10; 21:30 BP 141 / 58 LA Supine (auto/reg); Pulse 79 MON; Resp 16 S; Temp 98.9(O); Pulse Ox 97% tk1 on R/A; 22:30 BP 155 / 68 LA Supine (auto/reg); Pulse 79 MON; Resp 18 S; Pulse Ox 96% ; tk1 23:30 BP 147 / 58 LA Supine (auto/reg); Pulse 79 MON; Resp 18; Temp 98.5(O); Pulse Ox 96% on tk1 R/A; 17:54 Body Mass Index 32.61 (86.18 kg, 162.56 cm) ll1 MDM: 18:02 Patient medically screened. pm1 21:39 Data reviewed: vital signs. Data interpreted: Pulse oximetry: on room air is 98 %. pm1 Interpretation: normal. Counseling: I had a detailed discussion with the patient and/or guardian regarding: the historical points, exam findings, and any diagnostic results supporting the discharge/admit diagnosis, lab results, radiology results, the need for outpatient follow up, to return to the emergency department if symptoms worsen or persist or if there are any questions or concerns that arise at home. 06/07 18:11 Order name: COVID-19/FLU A+B (Document "Date of Onset" if Symptomatic) pm1 06/07 18:11 Order name: Basic Metabolic Panel pm1 06/07 18:11 Order name: CBC with Diff pm1 06/07 18:11 Order name: LFT's pm1 06/07 18:11 Order name: Magnesium pm1 06/07 18:11 Order name: NT PRO-BNP pm1 06/07 18:11 Order name: PT-INR; Complete Time: 19:34 pm1 06/07 18:11 Order name: Troponin HS; Complete Time: 19:34 pm1 06/07 18:11 Order name: Strep; Complete Time: 19:34 pm1 06/07 18:11 Order name: TSH; Complete Time: 19:34 pm1 06/07 18:11 Order name: COVID-19/FLU A+B; Complete Time: 22:45 EDMS 06/07 18:11 Order name: Basic Metabolic Panel; Complete Time: 19:34 EDMS 06/07 18:11 Order name: CBC with Automated Diff; Complete Time: 19:13 EDMS 06/07 18:11 Order name: Liver (Hepatic) Function; Complete Time: 19:34 EDMS 06/07 18:11 Order name: XRAY Chest (1 view); Complete Time: 19:57 pm1 06/07 18:11 Order name: EKG; Complete Time: 18:12 pm1 06/07 18:11 Order name: Cardiac monitoring; Complete Time: 20:33 pm1 06/07 18:11 Order name: EKG - Nurse/Tech; Complete Time: 20:33 pm1 06/07 18:11 Order name: IV Saline Lock; Complete Time: 20:33 pm1 06/07 18:11 Order name: Labs collected and sent; Complete Time: 20:33 pm1 06/07 18:11 Order name: O2 Per Protocol; Complete Time: 20:33 pm1 06/07 18:11 Order name: O2 Sat Monitoring; Complete Time: 20:33 pm1 06/07 18:11 Order name: Magnesium; Complete Time: 19:34 EDMS 06/07 18:11 Order name: NT PRO-BNP; Complete Time: 19:34 EDMS 06/07 19:21 Order name: Throat Culture EDMS Administered Medications: 19:13 Drug: Tylenol 1000 mg Route: PO; tk1 20:04 Follow up: Temp 99.8 tk1 20:07 Follow up: Response: Temperature is decreased tk1 19:13 Drug: NS 0.9% 500 ml Route: IV; Rate: bolus; Infused Over: 1 hrs; Site: right tk1 antecubital; Delivery: Primary tubing; 20:04 Follow up: IV Status: Completed infusion; IV Intake: 500ml tk1 23:37 Not Given (Patient driving herself. ): Tussionex Pennkinetic ER tk1 (chlorpheniramine-hydrocodone) Suspension 5 ml PO once Disposition: 06/08 07:26 Co-signature as Attending Physician, Salvatore Srivastava MD. rn Disposition Summary: 06/07/21 21:42 Discharge Ordered Location: Home pm1 Problem: new pm1 Symptoms: have improved pm1 Condition: Stable pm1 Diagnosis - Acute upper respiratory infection, unspecified pm1 Followup: pm1 - With: Emergency Department - When: As needed - Reason: Worsening of condition Followup: pm1 - With: Private Physician - When: 2 - 3 days - Reason: Recheck today's complaints, Continuance of care, Re-evaluation by your physician Discharge Instructions: - Discharge Summary Sheet pm1 - Upper Respiratory Infection, Adult pm1 Forms: - Medication Reconciliation Form pm1 - Thank You Letter pm1 - Antibiotic Education pm1 - Prescription Opioid Use pm1 - SBAR form cs9 Signatures: Dispatcher [employer] Salvatore Perla MD MD rn Johnathon Quan, AIRCRAFT CLEANING SUPERVISOR AIRCRAFT CLEANING SUPERVISOR pm1 Rosita Matias, RN RN ll1 Janice Hood RN RN Manda López tk1 Corrections: (The following items were deleted from the chart) 06/07 22:57 21:42 Influenza due to identified novel influenza A virus pm1 pm1
--- NOTE | 2021-06-07 21:43 | ER ---
Nurse's Notes [facility] Name: Val Love Age: 75 yrs Sex: Female : 1945 Arrival Date: 06/07/2021 Time: 17:44 Bed 18 Private MD: Diagnosis: Acute upper respiratory infection, unspecified Presentation: 06/07 17:54 Chief complaint: Patient states: Cough for 2 weeks. States she went into A fib today ll1 because she didn't take her A fib meds today. Coronavirus screen: Vaccine status: Patient reports receiving the 2nd dose of the covid vaccine. Client denies travel out of the [place] in the last 14 days. cough unrelated to allergies, difficulty breathing, fatigue, shortness of breath, Client presents with at least one sign or symptom that may indicate coronavirus-19. Standard/surgical mask placed on the client. Ebola Screen: Patient denies travel to an Ebola-affected area in the 21 days before illness onset. Initial Sepsis Screen: Does the patient meet any 2 criteria? HR > 90 bpm. No. Patient's initial sepsis screen is negative. Does the patient have a suspected source of infection? Yes: Productive cough/pneumonia. Risk Assessment: Do you want to hurt yourself or someone else? Patient reports no desire to harm self or others. Onset of symptoms was May 25, 2021. 17:54 Method Of Arrival: Ambulatory ll1 17:54 Acuity: NELDA 3 ll1 Triage Assessment: 18:58 General: Behavior is calm, cooperative. fierro Historical: - Allergies: 17:57 statins; ll1 17:57 HYDRALAZINE; ll1 17:57 amoxicillin-pot clavulanate; ll1 - Home Meds: 18:58 amlodipine oral [Active]; Eliquis Oral [Active]; Synthroid Oral [Active]; fierro - PMHx: 17:57 Hypertensive disorder; Hypothyroidism; ll1 - PSHx: 17:57 Cholecystectomy; Tonsillectomy; ll1 - Immunization history:: Client reports receiving the 2nd dose of the Covid vaccine. - Social history:: Smoking status: Patient denies any tobacco usage or history of. Screenin:56 Abuse screen: Denies threats or abuse. Denies injuries from another. Nutritional fierro screening: No deficits noted. Tuberculosis screening: No symptoms or risk factors identified. Fall Risk IV access (20 points). Assessment: 18:56 General: Appears in no apparent distress. Pain: Complains of pain in chest Pain began fierro gradually. Respiratory: Reports cough that is pain with cough Pain is 7 out of 10 on a pain scale. EENT: Reports nasal congestion sore throat. 19:17 General: Appears in no apparent distress. comfortable, well groomed, well developed, tk1 well nourished, Behavior is calm, cooperative, appropriate for age. Pain: Complains of pain in chest Pain began gradually, with coughing. Neuro: No deficits noted. Level of Consciousness is awake, alert, obeys commands, Oriented to person, place, time, situation, Appropriate for age Movie Shot Cameraman are equal bilaterally Moves all extremities. Full function Gait is steady, Speech is normal, Facial symmetry appears normal. Cardiovascular: Rhythm is atrial fibrillation. Respiratory: Reports cough that is non-productive, pain with cough Breath sounds are diminished bilaterally. in left lower lobe and right lower lobe. GI: No deficits noted. No signs and/or symptoms were reported involving the gastrointestinal system. : No deficits noted. No signs and/or symptoms were reported regarding the genitourinary system. EENT: Reports nasal congestion throat irritation.. Derm: No deficits noted. No signs and/or symptoms reported regarding the dermatologic system. Musculoskeletal: No deficits noted. No signs and/or symptoms reported regarding the musculoskeletal system. 19:52 Reassessment: Patient up to restroom to void. Steady gait. Tolerated well. tk1 20:36 Reassessment: Patient appears in no apparent distress at this time. No changes from tk1 previously documented assessment. Patient and/or family updated on plan of care and expected duration. Pain level reassessed. Patient is alert, oriented x 3, equal unlabored respirations, skin warm/dry/pink. 23:30 Reassessment: D/C per MD order. Discharge instructions given to patient. verbalized tk1 understanding. 23:38 Reassessment: Patient appears in no apparent distress at this time. No changes from tk1 previously documented assessment. Patient and/or family updated on plan of care and expected duration. Pain level reassessed. Patient is alert, oriented x 3, equal unlabored respirations, skin warm/dry/pink. Vital Signs: 17:54 BP 180 / 88; Pulse 102; Resp 20; Temp 100.2(TE); Pulse Ox 98% on R/A; Weight 86.18 kg; ll1 Height 5 ft. 4 in. (162.56 cm); Pain 7/10; 19:17 BP 163 / 71 LA Supine (auto/reg); Pulse 96 RA; Resp 20 S; Pulse Ox 96% on R/A; Pain tk1 5/10; 20:04 Temp 99.8; tk1 20:36 BP 153 / 74 LA Supine (auto/reg); Pulse 83; Resp 18; Temp 98.9(O); Pulse Ox 94% ; Pain tk1 0/10; 21:30 BP 141 / 58 LA Supine (auto/reg); Pulse 79 MON; Resp 16 S; Temp 98.9(O); Pulse Ox 97% tk1 on R/A; 22:30 BP 155 / 68 LA Supine (auto/reg); Pulse 79 MON; Resp 18 S; Pulse Ox 96% ; tk1 23:30 BP 147 / 58 LA Supine (auto/reg); Pulse 79 MON; Resp 18; Temp 98.5(O); Pulse Ox 96% on tk1 R/A; 17:54 Body Mass Index 32.61 (86.18 kg, 162.56 cm) ll1 Vitals: 19:17 Cardiac Rhythm Assessment Irregular Atrial fibrillation. tk1 ED Course: 17:44 Patient arrived in ED. am2 17:57 Triage completed. ll1 17:58 Arm band placed on Patient placed in an exam room, on a stretcher. ll1 18:02 Johnathon Quan NP is PHCP. pm1 18:02 Salvatore Srivastava MD is Attending Physician. pm1 18:54 COVID-19/FLU A+B Sent. fierro 18:54 Strep Sent. fierro 18:56 Patient has correct armband on for positive identification. Bed in low position. fierro 18:56 No provider procedures requiring assistance completed. Inserted saline lock: 20 gauge fierro in right antecubital area, using aseptic technique. 19:01 Manda Vasquez is Primary Nurse. tk1 19:14 Basic Metabolic Panel Sent. tk1 19:14 Strep Sent. tk1 19:14 TSH Sent. tk1 19:14 Basic Metabolic Panel Sent. tk1 19:14 Magnesium Sent. tk1 19:14 NT PRO-BNP Sent. tk1 19:14 Liver (Hepatic) Function Sent. tk1 19:14 PT-INR Sent. tk1 19:14 Troponin HS Sent. tk1 19:14 COVID-19/FLU A+B (Document "Date of Onset" if Symptomatic) Sent. tk1 19:17 Awaiting lab results. tk1 19:17 Patient has correct armband on for positive identification. Bed in low position. Call tk1 light in reach. Side rails up X2. conveyor monitor on. Pulse ox on. NIBP on. 19:17 IV is patent, is intact, with fluids infusing freely, with good blood return. Patient tk1 maintains SpO2 saturation greater than 95% on room air. 19:35 XRAY Chest (1 view) In Process Unspecified. EDMS 19:50 Throat Culture Sent. tk1 20:33 CBC with Diff Sent. tk1 20:33 LFT's Sent. tk1 20:33 Magnesium Sent. tk1 20:33 NT PRO-BNP Sent. tk1 23:30 IV discontinued, intact, bleeding controlled, No redness/swelling at site. Pressure tk1 dressing applied. Administered Medications: 19:13 Drug: Tylenol 1000 mg Route: PO; tk1 20:04 Follow up: Temp 99.8 tk1 20:07 Follow up: Response: Temperature is decreased tk1 19:13 Drug: NS 0.9% 500 ml Route: IV; Rate: bolus; Infused Over: 1 hrs; Site: right tk1 antecubital; Delivery: Primary tubing; 20:04 Follow up: IV Status: Completed infusion; IV Intake: 500ml tk1 23:37 Not Given (Patient driving herself. ): Tussionex Pennkinetic ER tk1 (chlorpheniramine-hydrocodone) Suspension 5 ml PO once Intake: 19:17 PO: 50ml (Water); IV: 500ml (IV Fluid); Total: 550ml. tk1 20:04 IV: 500ml; Total: 1050ml. tk1 Outcome: 21:42 Discharge ordered by . pm1 23:30 Discharged to home tk1 23:30 Discharged to home ambulatory. 23:30 Condition: stable 23:30 Discharge instructions given to patient, Instructed on discharge instructions, follow up and referral plans. medication usage, Demonstrated understanding of instructions, follow-up care, medications. 23:43 Patient left the ED. tk1 Signatures: Dispatcher [employer] JONOMS Johnathon Quan, CONTRACT ADMINISTRATOR CONTRACT ADMINISTRATOR pm1 Maylin Lara am2 Rosita Matias RN RN ll1 Janice Hood RN RN Manda López tk1
[2021-06-07 22:29] LABS: SARS-COV-2 RT PCR NEGATIVE (NEGATIVE)
[2021-06-08 00:34] VITALS: O2SAT 96
[2021-06-08 00:35] VITALS: BP 147/58; TEMP 98.5
--- NOTE | 2021-06-08 10:15 | EKG ---
Test Date: 2021-06-07 Test Time: 19:33:24 Self Pay Specialist: JULITA MEASUREMENT RESULTS: Intervals: Rate: 90 ME: 164 QRSD: 82 QT: 406 QTc: 496 [place]: P: 77 ME: 164 QRS: 42 T: 49 INTERPRETIVE STATEMENTS: Sinus rhythm with premature atrial complexes Nonspecific T wave abnormality Prolonged QT Abnormal ECG Compared to ECG 07/07/1994 16:09:00 Atrial premature complex(es) now present T-wave abnormality now present Prolonged QT interval now present Electronically Signed On 06-08-21 10:14:31 ROUTE DRIVER by Igor Boles
== END 2021-06-07 23:43 | disposition home or self-care (01) ==
LOC: ER 17:43
DX: J06.9 Acute upper respiratory infection, unspecified (principal); I48.91 Unspecified atrial fibrillation; I10 Essential (primary) hypertension; Z20.822 Contact with and (suspected) exposure to COVID-19; Z79.01 Long term (current) use of anticoagulants; Z88.1 Allergy status to other antibiotic agents; Z88.8 Allergy status to other drugs, medicaments and biological substances
CPT/HCPCS: 93005; 87070; 85025; 80048; 36415; 83735; 85610; 80076; 87081; 84443; 84484; 83880; 0240U; 71045; 96360; 99285; J7040

== ENCOUNTER 2022-05-26 16:45 | Emergency (ER) | payer OTHER ==
--- OUTSIDE RECORDS SUMMARY | 2022-05-26 16:56 | XMS REPORT | Continuity of Care Document ---
:1945 Author Organization [facility] t Address [address] [place] [address] Care Team Providers Name Role Phone ANAY BRUNO Primary Care Physician Unavailable Avinash Rangel Attending Clinician Unavailable ANAY BRUNO Attending Clinician Unavailable DELILAH TORRES III Attending Clinician Unavailable [facility] Attending Clinician Unavailable Unknown, Attending Attending Clinician Unavailable LIAM AREVALO Attending Clinician Unavailable Doctor Unassigned, [place] Attending Clinician Unavailable Denisse Adames PTA Attending Clinician Unavailable Tuan Hussein MD Attending Clinician TUAN HUSSEIN Attending Clinician Unavailable Gilmer Murillo Attending Clinician Unavailable Eula Hughes PTA Attending Clinician Unavailable Jyoti Valdez PTA Attending Clinician Unavailable Ingrid Shepherd PT Attending Clinician Unavailable Meg Ulrich MD Attending Clinician BETSY MURILLO Attending Clinician Unavailable Gilmer Lowery Attending Clinician Unavailable Yuly [place] Attending Clinician YULY RIVERA Attending Clinician Unavailable [place] Attending Clinician Unavailable Anjana Johnston Attending Clinician ANJANA CARVALHO Attending Clinician Unavailable KISHA MARIO Attending Clinician Unavailable KEITH MCKEON Attending Clinician Unavailable REX RAMOS Attending Clinician Unavailable LURDES GONZALEZ Attending Clinician Unavailable MD LURDES GONZALEZ Attending Clinician Unavailable LEVI WARREN Attending Clinician Unavailable Avinash Rangel Admitting Clinician Unavailable YESSENIA PICHARDO Admitting Clinician Unavailable MD YESSENIA PICHARDO Admitting Clinician Unavailable Payers Payer Name Policy Type Policy Number Effective Date Expiration Date Dede lewis MEDICARE PART A [id number] 2009 \\T\\ B 00:00:00 FOR LIFE [id number] 2021 00:00:00 Problems Condition Condition Condition Status Onset Resolution Last Treating Co mments Source Name Details Category Date Date Treatment Clinician Date Atrial Atrial Disease Active 2021-04 Overview: Univer s fibrillati fibrillati 04-30 Formattin ity of on with on with 00:00: g of this [place] RVR RVR 00 note Medical might be Branch different from the original. 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 type type S/p repair Gastroesop Gastroesop Disease Active 2021-04 Overview : Univers hageal hageal 04-30 Formattin ity of reflux reflux 00:00: g of this [place] disease disease 00 note Medical without without might be Branch esophagiti esophagiti different s s from the original. Resolved after lap band Hiatal Hiatal Disease Active 2021-04 Overview: Univer s hernia hernia 04-30 Formattin ity of 00:00: g of this [place] 00 note Medical might be Branch different from the original. S/p repair Gout, Gout, Disease Active 2021-04 Overview: Univer s unspecifie unspecifie 04-30 Formattin ity of d cause, d cause, 00:00: g of this [place] as unspecifie unspecifie 00 note Me dical d d might be Branch chronicity chronicity different , , from the unspecifie unspecifie original. d site d site Not currently on preventat demian medicatio n Obesity Obesity Disease Active 2021-04 Univers (BMI (BMI 04-30 ity of 30-39.9) 30-39.9) 00:00: [place] 00 Medical Branch Anxiety Anxiety Disease Active 2021-04 Overview: [facility] ers 04-30 Formattin ity of 00:00: g of this [place] 00 note Medical might be Branch different from the original. Rarely takes alprazola m Pneumonia Pneumonia Disease Active 2021-04 Overview: Univers due to due to 04-30 Formattin ity of infectious infectious 00:00: g of this [place] organism, organism, 00 note Medi adalberto unspecifie unspecifie might be Branch d d different laterality laterality from the , , original. unspecifie unspecifie Had d part of d part of pneumonia lung lung w/ sepsis in 2014 Thyroid Thyroid Disease Active 2021-04 Overview: [facility] ers cancer cancer 04-30 Formattin ity of 00:00: g of this [place] 00 note Medical might be Branch different from the original. 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 y and body y and body Since mass index mass index (BMI) of (BMI) of with 1st 31.0 to 31.0 to child 31.9 in 31.9 in adult adult Benign Benign Disease Active Methodi hypertensi hypertensi 05-04 st on on 00:00: Hospita 00 l Gastroesop Gastroesop Disease Active M ethodi hageal hageal 05-04 reflux reflux 00:00: Hospita disease disease 00 l Arthritis Arthritis Disease Active Met hodi 05-04 st 00:00: Hospita 00 l Gout Gout Disease Active Methodi 05-04 st 00:00: Hospita 00 l History of History of Disease Active M ethodi Darcie-en-Y Darcie-en-Y 05-04 gastric gastric 00:00: Hospita bypass bypass 00 l Anxiety Anxiety Disease Active Overview: Meth anne [address] 00:00: g of this Hospita 00 note l might be different from the original. Worried bad thoughts often Allergies, Adverse Reactions, Alerts Allergy Allergy Status Severity Reaction(s) Onset Inactive Treating Comm ents Source Name Type Date Date Clinician Statins- DA Active [facility] 8-13 Clear Reductas 00:00: [facility] hydralaz DA Active SV [facility] ine 8-13 Clear 00:00: Ardon 00 [facility] amoxicil DA Active [place] [facility] elsy 8-13 Clear 00:00: Ardon 00 [facility] Statins- DA Active SV BURNING [facility] SKIN,VOMITIN 8-13 Bong ar Reductas G,SWEATING,D 00:00: La pratibha RUSSELL,"FEELIN 00 Sandi trish Inhibito G OF PASSING r [facility] hydralaz DA Active SV SOB,PALPITAT HC A ine IONS, 8-13 Clear "FEELING OF 00:00: Ardon DYING" 00 [facility] amoxicil DA Active [place] GI UPSET HCA elsy 8-13 Clear 00:00: Ardon 00 [facility] Amoxicil Propensi Active GI Nausea, Metho di elsy-Pot ty to Intolerance 11-[address] Clavulan adverse 00:00: Hospita ate reaction 00 l s to drug AMOXICIL DRUG Active Med Other-Cmnt [facility] ers ELSY-POT 11-21 ity of CLAVULAN 00:00: [place] ATE 00 Medical Branch Amoxicil Propensi Active Other - See Nausea, Univers elsy-Pot ty to comments 11-21 diarrhea ity o f Clavulan adverse 00:00: [place] ate reaction 00 Medical s Branch Hydralaz Propensi Active Palpitations Patient Methodi ine ty to [address] adverse 00:00: a dose of Hospit a reaction 00 hydralazi l s to ne IV in [facility] and she experienc ed heart pounding, severe dizziness , and feeling like she was about to stop breathing . HYDRALAZ DRUG Active High Palpitations Un anthony INE INGREDI 09-26 ity of 00:00: [place] 00 Medical Branch Hydralaz Propensi Active Shortness of Patient Univers ine ty to Breath 09-26 received ity of adverse 00:00: a dose of [place] reaction 00 hydralazi Medic al s ne IV in [facility] and she experienc ed heart pounding, severe dizziness , and feeling like she was about to stop breathing . Statins- Propensi Active Other (See Burning M ethodi Hmg-Coa ty to Comments) 2- of skin, st Reductas adverse 00:00: passes Hospita e reaction 00 out l Inhibito s to rs drug STATINS- Drug Active High Other-Cmnt [facility] ers HMG-COA Class 2-27 ity of REDUCTAS 00:00: [place] E 00 Medical INHIBITO Branch RS Statins- Propensi Active Other - See Burning Univers Hmg-Coa ty to comments 2-27 of skin, ity o f Reductas adverse 00:00: passes [place] e reaction 00 out Medical Inhibito s Branch rs Codeine Propensi Active Other - See 2012-04 stomach U nivers ty to comments 06-08 acheBecam ity o f adverse 00:00: e [place] reaction 00 depressed Medic al s and was Branch hospitali zed CODEINE DRUG Active Dizziness 2012-04 Univer s INGREDI 06-08 ity of 00:00: [place] 00 Medical Branch Family History Family Member Diagnosis Comments Start Date Stop Date Source Natural father Cancer [facility] Natural father Esophageal cancer [facility] father Liver cancer [facility] Natural father Pancreatic cancer [facility] Natural mother Cancer [facility] Natural mother Lung cancer [facility] Paternal Cancer [facility] Paternal Colon cancer [facility] Natural sister Kory's Hindu thyroiditis [facility] Natural sister Heart attack [facility] Natural sister Hypertension [facility] Natural sister Thyroid disease [facility] Natural sister Diabetes [facility] Natural sister Heart disease [facility] Social History Social Habit Start Date Stop Date Quantity Comments Source Exposure to 2022-05-16 2022-05-26 [facility] sure [facility] 12:32:00 [facility] (event) [place] Alcohol intake 2021-12-01 2021-12-[address] [facility] 00:00:00 00:00:00 non-drinker of alcohol (finding) Tobacco use and 2021-08-12 2021-08-12 Smokeless tobacco [facility] exposure 00:00:00 00:00:00 non-user Sex [birth year] Universit y of 00:00:00 00:00:00 [facility] [place] [facility] Smoking Status Start Date Stop Date Source Never smoked tobacco [facility] Medications Ordered Filled Start Stop Current Ordering Indication Dosage Frequency Signature Comments Components Source Medication Medication Date Date Medication? Clinician (SIG) Name Name telmisartan Yes [id number] 80mg Take 1 Univers (MICARDIS) 2-01 tablet by ity of 80 mg 00:00: mouth in [place] tablet 00 the Medical morning. Branch telmisartan Yes [id number] 80mg Take 1 Univers (MICARDIS) 2-01 tablet by ity of 80 mg 00:00: mouth in [place] tablet 00 the Medical morning. Branch telmisartan Yes [id number] 80mg Take 1 Univers (MICARDIS) 2-01 tablet by ity of 80 mg 00:00: mouth in [place] tablet 00 the Medical morning. Branch telmisartan 3-0 Yes [id number] 80mg Take 1 Univers (MICARDIS) 2-01 tablet by ity of 80 mg 00:00: mouth in [place] tablet 00 the Medical morning. Branch telmisartan 3-0 Yes [id number] 80mg Take 1 Univers (MICARDIS) 2-01 tablet by ity of 80 mg 00:00: mouth in [place] tablet 00 the Medical morning. Branch telmisartan 2022-0 Yes [id number] 80mg Take 1 Univers (MICARDIS) 2-01 tablet by ity of 80 mg 00:00: mouth in [place] tablet 00 the Medical morning. Branch telmisartan 2022-0 Yes [id number] 80mg Take 1 Univers (MICARDIS) 2-01 tablet by ity of 80 mg 00:00: mouth in [place] tablet 00 the Medical morning. Branch telmisartan 2022-0 Yes [id number] 80mg Take 1 Univers (MICARDIS) 2-01 tablet by ity of 80 mg 00:00: mouth in [place] tablet 00 the Medical morning. Branch telmisartan 2022-0 Yes [id number] 80mg Take 1 Univers (MICARDIS) 2-01 tablet by ity of 80 mg 00:00: mouth in [place] tablet 00 the Medical morning. Branch telmisartan 2022-0 Yes [id number] 80mg Take 1 Univers (MICARDIS) 2-01 tablet by ity of 80 mg 00:00: mouth in [place] tablet 00 the Medical morning. Branch telmisartan 3-0 Yes [id number] 80mg Take 1 Univers (MICARDIS) 2-01 tablet by ity of 80 mg 00:00: mouth in [place] tablet 00 the Medical morning. Branch telmisartan 3-0 Yes [id number] 80mg Take 1 Univers (MICARDIS) 2-01 tablet by ity of 80 mg 00:00: mouth in [place] tablet 00 the Medical morning. Branch telmisartan 3-0 Yes [id number] 80mg Take 1 Univers (MICARDIS) 2-01 tablet by ity of 80 mg 00:00: mouth in [place] tablet 00 the Medical morning. Branch telmisartan Yes [id number] 80mg Take 1 Univers (MICARDIS) 2-01 tablet by ity of 80 mg 00:00: mouth in [place] tablet 00 the Medical morning. Branch telmisartan Yes [id number] 80mg Take 1 Univers (MICARDIS) 2-01 tablet by ity of 80 mg 00:00: mouth in [place] tablet 00 the Medical morning. Branch amoxicillin 2021-04 Yes [id number] 1{tbl} Take 1 Univers -clavulanat 2-27 tablet by ity of e 00:00: mouth in [place] (AUGMENTIN) 00 the Medical 875-125 mg morning Branch per tablet and 1 tablet in the evening. amoxicillin 2021-04 Yes [id number] 1{tbl} Take 1 Univers -clavulanat 2-27 tablet by ity of e 00:00: mouth in [place] (AUGMENTIN) 00 the Medical 875-125 mg morning Branch per tablet and 1 tablet in the evening. amoxicillin 2021-04 Yes [id number] 1{tbl} Take 1 Univers -clavulanat 2-27 tablet by ity of e 00:00: mouth in [place] (AUGMENTIN) 00 the Medical 875-125 mg morning Branch per tablet and 1 tablet in the evening. amoxicillin 2021-04 Yes [id number] 1{tbl} Take 1 Univers -clavulanat 2-27 tablet by ity of e 00:00: mouth in [place] (AUGMENTIN) 00 the Medical 875-125 mg morning Branch per tablet and 1 tablet in the evening. amoxicillin 2021-04 Yes [id number] 1{tbl} Take 1 Univers -clavulanat 2-27 tablet by ity of e 00:00: mouth in [place] (AUGMENTIN) 00 the Medical 875-125 mg morning Branch per tablet and 1 tablet in the evening. amoxicillin 2021-04 Yes [id number] 1{tbl} Take 1 Univers -clavulanat 2-27 tablet by ity of e 00:00: mouth in [place] (AUGMENTIN) 00 the Medical 875-125 mg morning Branch per tablet and 1 tablet in the evening. albuterol 2021-04 Yes [id number] 2{puff} Inhale 2 Univers 90 2-23 Puffs ity of mcg/actuati 00:00: every 6 [place] as on inhaler 00 (six) Medical hours as Branch needed for Wheezing or Shortness of Breath. promethazin 2021-04 Yes [id number] 5mL Take 5 mL Univers e-dextromet 2-23 by mouth 4 it y of horphan 00:00: (four) [place] 6.25-15 00 times Medical mg/5 mL daily as Branch syrup needed for Cough. fluticasone 2021-04 Yes [id number] 1{puff} Inhale 1 Univers propion-fernie 2-23 Puff every it y of meteroL 00:00: 12 [place] ([facility] ([facility]) Medical INHUB) hours. Branch 250-50 mcg/dose inhalation disk albuterol 2021-04 Yes [id number] 2{puff} Inhale 2 Univers 90 2-23 Puffs ity of mcg/actuati 00:00: every 6 [place] as on inhaler 00 (six) Medical hours as Branch needed for Wheezing or Shortness of Breath. promethazin 2021-04 Yes [id number] 5mL Take 5 mL Univers e-dextromet 2-23 by mouth 4 it y of horphan 00:00: (four) [place] 6.25-15 00 times Medical mg/5 mL daily as Branch syrup needed for Cough. fluticasone 2021-04 Yes [id number] 1{puff} Inhale 1 Univers propion-fernie 2-23 Puff every it y of meteroL 00:00: 12 [place] ([facility] ([facility]) Medical INHUB) hours. Branch 250-50 mcg/dose inhalation disk albuterol 2021-04 Yes [id number] 2{puff} Inhale 2 Univers 90 2-23 Puffs ity of mcg/actuati 00:00: every 6 [place] as on inhaler 00 (six) Medical hours as Branch needed for Wheezing or Shortness of Breath. promethazin 2021-04 Yes [id number] 5mL Take 5 mL Univers e-dextromet 2-23 by mouth 4 it y of horphan 00:00: (four) [place] 6.25-15 00 times Medical mg/5 mL daily as Branch syrup needed for Cough. fluticasone 2021-04 Yes [id number] 1{puff} Inhale 1 Univers propion-fernie 2-23 Puff every it y of meteroL 00:00: 12 [place] ([facility] ([facility]) Medical INHUB) hours. Branch 250-50 mcg/dose inhalation disk azithromyci 2021-04 Yes [id number] Take two Univers n 250 mg 2-23 tablets my ity o f tablet 00:00: mouth [place] today Medical followed Branch by one tablet daily for a total for 5 days albuterol 2021-04 Yes [id number] 2{puff} Inhale 2 Univers 90 2-23 Puffs ity of mcg/actuati 00:00: every 6 [place] as on inhaler 00 (six) Medical hours as Branch needed for Wheezing or Shortness of Breath. promethazin 2021-04 Yes [id number] 5mL Take 5 mL Univers e-dextromet 2-23 by mouth 4 it y of horphan 00:00: (four) [place] 6.25-15 00 times Medical mg/5 mL daily as Branch syrup needed for Cough. fluticasone 2021-04 Yes [id number] 1{puff} Inhale 1 Univers propion-fernie 2-23 Puff every it y of meteroL 00:00: 12 [place] ([facility] ([facility]) Medical INHUB) hours. Branch 250-50 mcg/dose inhalation disk azithromyci 2021-04 Yes [id number] Take two Univers n 250 mg 2-23 tablets my ity o f tablet 00:00: mouth [place] today Medical followed Branch by one tablet daily for a total for 5 days albuterol 2021-04 Yes [id number] 2{puff} Inhale 2 Univers 90 2-23 Puffs ity of mcg/actuati 00:00: every 6 [place] as on inhaler 00 (six) Medical hours as Branch needed for Wheezing or Shortness of Breath. promethazin 2021-04 Yes [id number] 5mL Take 5 mL Univers e-dextromet 2-23 by mouth 4 it y of horphan 00:00: (four) [place] 6.25-15 00 times Medical mg/5 mL daily as Branch syrup needed for Cough. fluticasone 2021-04 Yes [id number] 1{puff} Inhale 1 Univers propion-fernie 2-23 Puff every it y of meteroL 00:00: 12 [place] ([facility] ([facility]) Medical INHUB) hours. Branch 250-50 mcg/dose inhalation disk azithromyci 2021-04 Yes [id number] Take two Univers n 250 mg 2-23 tablets my ity o f tablet 00:00: mouth [place] 00 today Medical followed Branch by one tablet daily for a total for 5 days albuterol 2021-04 Yes [id number] 2{puff} Inhale 2 Univers 90 2-23 Puffs ity of mcg/actuati 00:00: every 6 [place] as on inhaler 00 (six) Medical hours as Branch needed for Wheezing or Shortness of Breath. promethazin 2021-04 Yes [id number] 5mL Take 5 mL Univers e-dextromet 2-23 by mouth 4 it y of horphan 00:00: (four) [place] 6.25-15 00 times Medical mg/5 mL daily as Branch syrup needed for Cough. fluticasone 2021-04 Yes [id number] 1{puff} Inhale 1 Univers propion-fernie 2-23 Puff every it y of meteroL 00:00: 12 [place] ([facility] Medical INHUB) hours. Branch 250-50 mcg/dose inhalation disk azithromyci 2021-04 Yes [id number] Take two Univers n 250 mg 2-23 tablets my ity o f tablet 00:00: mouth [place] today Medical followed Branch by one tablet daily for a total for 5 days albuterol 2021-04 Yes [id number] 2{puff} Inhale 2 Univers 90 2-23 Puffs ity of mcg/actuati 00:00: every 6 [place] as on inhaler 00 (six) Medical hours as Branch needed for Wheezing or Shortness of Breath. promethazin 2021-04 Yes [id number] 5mL Take 5 mL Univers e-dextromet 2-23 by mouth 4 it y of horphan 00:00: (four) [place] 6.25-15 00 times Medical mg/5 mL daily as Branch syrup needed for Cough. fluticasone 2021-04 Yes [id number] 1{puff} Inhale 1 Univers propion-fernie 2-23 Puff every it y of meteroL 00:00: 12 [place] ([facility] 00 (twelve) Medical INHUB) hours. Branch 250-50 mcg/dose inhalation disk azithromyci 2021-04 Yes [id number] Take two Univers n 250 mg 2-23 tablets my ity o f tablet 00:00: mouth [place] 00 today Medical followed Branch by one tablet daily for a total for 5 days albuterol 2021-04 Yes [id number] 2{puff} Inhale 2 Univers 90 2-23 Puffs ity of mcg/actuati 00:00: every 6 [place] as on inhaler 00 (six) Medical hours as Branch needed for Wheezing or Shortness of Breath. promethazin 2021-04 Yes [id number] 5mL Take 5 mL Univers e-dextromet 2-23 by mouth 4 it y of horphan 00:00: (four) [place] 6.25-15 00 times Medical mg/5 mL daily as Branch syrup needed for Cough. fluticasone 2021-04 Yes [id number] 1{puff} Inhale 1 Univers propion-fernie 2-23 Puff every it y of meteroL 00:00: 12 [place] ([facility] ([facility]) Medical INHUB) hours. Branch 250-50 mcg/dose inhalation disk azithromyci 2021-04 Yes [id number] Take two Univers n 250 mg 2-23 tablets my ity o f tablet 00:00: mouth [place] Medical followed Branch by one tablet daily for a total for 5 days albuterol 2021-04 Yes [id number] 2{puff} Inhale 2 Univers 90 2-23 Puffs ity of mcg/actuati 00:00: every 6 [place] as on inhaler 00 (six) Medical hours as Branch needed for Wheezing or Shortness of Breath. promethazin 2021-04 Yes [id number] 5mL Take 5 mL Univers e-dextromet 2-23 by mouth 4 it y of horphan 00:00: (four) [place] 6.25-15 00 times Medical mg/5 mL daily as Branch syrup needed for Cough. fluticasone 2021-04 Yes [id number] 1{puff} Inhale 1 Univers propion-fernie 2-23 Puff every it y of meteroL 00:00: 12 [place] ([facility] ([facility]) Medical INHUB) hours. Branch 250-50 mcg/dose inhalation disk azithromyci 2021-04 Yes [id number] Take two Univers n 250 mg 2-23 tablets my ity o f tablet 00:00: mouth [place] Medical followed Branch by one tablet daily for a total for 5 days albuterol 2021-04 Yes [id number] 2{puff} Inhale 2 Univers 90 2-23 Puffs ity of mcg/actuati 00:00: every 6 [place] as on inhaler 00 (six) Medical hours as Branch needed for Wheezing or Shortness of Breath. promethazin 2021-04 Yes [id number] 5mL Take 5 mL Univers e-dextromet 2-23 by mouth 4 it y of horphan 00:00: (four) [place] 6.25-15 00 times Medical mg/5 mL daily as Branch syrup needed for Cough. fluticasone 2021-04 Yes [id number] 1{puff} Inhale 1 Univers propion-fernie 2-23 Puff every it y of meteroL 00:00: 12 [place] ([facility] 00 (twelve) Medical INHUB) hours. Branch 250-50 mcg/dose inhalation disk azithromyci 2021-04 Yes [id number] Take two Univers n 250 mg 2-23 tablets my ity o f tablet 00:00: mouth [place] 00 today Medical followed Branch by one tablet daily for a total for 5 days ALPRAZolam 2021-04- No .25mg Take 0.25 Univers 0.25 mg 2-08 12-08 mg by ity of tablet 11:20: 00:00 mouth 3 [place] 35 :00 (three) Medical times Branch daily. ALPRAZolam 2021-04- No .25mg Take 0.25 Univers 0.25 mg 2-08 12-08 mg by ity of tablet 11:20: 00:00 mouth 3 [place] 35 :00 (three) Medical times Branch daily. Biotin 2021-04 Yes Univers 10,000 mcg 2-08 ity of Cap 11:04: [place] 37 Medical Branch L.acid/L.ca 2021-04 Yes Take by Uni vers sei/B.bif/B 2-08 mouth. ity of .ronnell/FOS 11:04: [place] (PROBIOTIC 37 Medical BLEND ORAL) Branch mv-mn/iron/ 2021-04 Yes Take by Uni vers folic 2-08 mouth. ity of acid/herb 11:04: [place] [facility] 37 Medical (VITAMIN D3 Branch COMPLETE ORAL) Biotin 2021-04 Yes Univers 10,000 mcg 2-08 ity of Cap 11:04: [place] 37 Medical Branch L.acid/L.ca 2021-04 Yes Take by Uni vers sei/B.bif/B 2-08 mouth. ity of .ronnell/FOS 11:04: [place] (PROBIOTIC 37 Medical BLEND ORAL) Branch mv-mn/iron/ 2021-04 Yes Take by Uni vers folic 2-08 mouth. ity of acid/herb 11:04: [place] [id number] Medical (VITAMIN D3 Branch COMPLETE ORAL) Biotin 2021-04 Yes Univers 10,000 mcg 2-08 ity of Cap 11:04: [place] [address] Medical Branch L.acid/L.ca 2021-04 Yes Take by Uni vers sei/B.bif/B 2-08 mouth. ity of .ronnell/FOS 11:04: [place] (PROBIOTIC 37 Medical BLEND ORAL) Branch mv-mn/iron/ 2021-04 Yes Take by Uni vers folic 2-08 mouth. ity of acid/herb 11:04: [place] [id number] Medical (VITAMIN D3 Branch COMPLETE ORAL) Biotin 2021-04 Yes Univers 10,000 mcg 2-08 ity of Cap 11:04: [place] [address] Medical Branch L.acid/L.ca 2021-04 Yes Take by Uni vers sei/B.bif/B 2-08 mouth. ity of .ronnell/FOS 11:04: [place] (PROBIOTIC 37 Medical BLEND ORAL) Branch mv-mn/iron/ 2021-04 Yes Take by Uni vers folic 2-08 mouth. ity of acid/herb 11:04: [place] [id number] Medical (VITAMIN D3 Branch COMPLETE ORAL) Biotin 2021-04 Yes Univers 10,000 mcg 2-08 ity of Cap 11:04: [place] [address] Medical Branch L.acid/L.ca 2021-04 Yes Take by Uni vers sei/B.bif/B 2-08 mouth. ity of .ronnell/FOS 11:04: [place] (PROBIOTIC 37 Medical BLEND ORAL) Branch mv-mn/iron/ 2021-04 Yes Take by Uni vers folic 2-08 mouth. ity of acid/herb 11:04: [place] [id number] Medical (VITAMIN D3 Branch COMPLETE ORAL) Biotin 2021-04 Yes Univers 10,000 mcg 2-08 ity of Cap 11:04: [place] [address] Medical Branch L.acid/L.ca 2021-04 Yes Take by Uni vers sei/B.bif/B 2-08 mouth. ity of .ronnell/FOS 11:04: [place] (PROBIOTIC 37 Medical BLEND ORAL) Branch mv-mn/iron/ 2021-04 Yes Take by Uni vers folic 2-08 mouth. ity of acid/herb 11:04: [place] [id number] Medical (VITAMIN D3 Branch COMPLETE ORAL) Biotin 2021-04 Yes Univers 10,000 mcg 2-08 ity of Cap 11:04: [place] [address] Medical Branch L.acid/L.ca 2021-04 Yes Take by Uni vers sei/B.bif/B 2-08 mouth. ity of .ronnell/FOS 11:04: [place] (PROBIOTIC 37 Medical BLEND ORAL) Branch mv-mn/iron/ 2021-04 Yes Take by Uni vers folic 2-08 mouth. ity of acid/herb 11:04: [place] [id number] 37 Medical (VITAMIN D3 Branch COMPLETE ORAL) Biotin 2021-04 Yes Univers 10,000 mcg 2-08 ity of Cap 11:04: [place] [address] Medical Branch L.acid/L.ca 2021-04 Yes Take by Uni vers sei/B.bif/B 2-08 mouth. ity of .ronnell/FOS 11:04: [place] (PROBIOTIC 37 Medical BLEND ORAL) Branch mv-mn/iron/ 2021-04 Yes Take by Uni vers folic 2-08 mouth. ity of acid/herb 11:04: [place] [address] Medical (VITAMIN D3 Branch COMPLETE ORAL) Biotin 2021-04 Yes Univers 10,000 mcg 2-08 ity of Cap 11:04: [place] [address] Medical Branch L.acid/L.ca 2021-04 Yes Take by Uni vers sei/B.bif/B 2-08 mouth. ity of .ronnell/FOS 11:04: [place] (PROBIOTIC 37 Medical BLEND ORAL) Branch mv-mn/iron/ 2021-04 Yes Take by Uni vers folic 2-08 mouth. ity of acid/herb 11:04: [place] [id number] Medical (VITAMIN D3 Branch COMPLETE ORAL) Biotin 2021-04 Yes Univers 10,000 mcg 2-08 ity of Cap 11:04: [place] [address] Medical Branch L.acid/L.ca 2021-04 Yes Take by Uni vers sei/B.bif/B 2-08 mouth. ity of .ronnell/FOS 11:04: [place] (PROBIOTIC 37 Medical BLEND ORAL) Branch mv-mn/iron/ 2021-04 Yes Take by Uni vers folic 2-08 mouth. ity of acid/herb 11:04: [place] [id number] 37 Medical (VITAMIN D3 Branch COMPLETE ORAL) Biotin 2021-04 Yes Univers 10,000 mcg 2-08 ity of Cap 11:04: [place] [address] Medical Branch L.acid/L.ca 2021-04 Yes Take by Uni vers sei/B.bif/B 2-08 mouth. ity of .ronnell/FOS 11:04: [place] (PROBIOTIC 37 Medical BLEND ORAL) Branch mv-mn/iron/ 2021-04 Yes Take by Uni vers folic 2-08 mouth. ity of acid/herb 11:04: [place] [id number] 37 Medical (VITAMIN D3 Branch COMPLETE ORAL) Biotin 2021-04 Yes Univers 10,000 mcg 2-08 ity of Cap 11:04: [place] [address] Medical Branch L.acid/L.ca 2021-04 Yes Take by Uni vers sei/B.bif/B 2-08 mouth. ity of .ronnell/FOS 11:04: [place] (PROBIOTIC 37 Medical BLEND ORAL) Branch mv-mn/iron/ 2021-04 Yes Take by Uni vers folic 2-08 mouth. ity of acid/herb 11:04: [place] [id number] Medical (VITAMIN D3 Branch COMPLETE ORAL) Biotin 2021-04 Yes Univers 10,000 mcg 2-08 ity of Cap 11:04: [place] [address] Medical Branch L.acid/L.ca 2021-04 Yes Take by Uni vers sei/B.bif/B 2-08 mouth. ity of .ronnell/FOS 11:04: [place] (PROBIOTIC 37 Medical BLEND ORAL) Branch mv-mn/iron/ 2021-04 Yes Take by Uni vers folic 2-08 mouth. ity of acid/herb 11:04: [place] [id number] Medical (VITAMIN D3 Branch COMPLETE ORAL) Biotin 2021-04 Yes Univers 10,000 mcg 2-08 ity of Cap 11:04: [place] [address] Medical Branch L.acid/L.ca 2021-04 Yes Take by Uni vers sei/B.bif/B 2-08 mouth. ity of .ronnell/FOS 11:04: [place] (PROBIOTIC 37 Medical BLEND ORAL) Branch mv-mn/iron/ 2021-04 Yes Take by Uni vers folic 2-08 mouth. ity of acid/herb 11:04: [place] [id number] Medical (VITAMIN D3 Branch COMPLETE ORAL) Biotin 2021-04 Yes Univers 10,000 mcg 2-08 ity of Cap 11:04: [address] Branch L.acid/L.ca 2021-04 Yes Take by Uni vers sei/B.bif/B 2-08 mouth. ity of .ronnell/FOS 11:04: [place] ([place] [address] Medical BLEND ORAL) Branch mv-mn/iron/ 2021-04 Yes Take by Uni vers folic 2-08 mouth. ity of acid/herb 11:04: [address] (VITAMIN D3 Branch COMPLETE ORAL) amLODIPine 2021-04 Yes 10mg Take 10 mg U nivers 10 mg 2-08 by mouth. ity of tablet 11:00: [address] Cholecalcif 2021-04 Yes 5000U Take 5,000 Univers stephon, 2-08 Units by ity of Vitamin D3, 11:00: [place]. [place] 125 [place] 17 Medical (5,000 Branch unit) capsule Levothyroxi 2021-04 Yes Take by Uni vers ne 137 mcg 2-08 mouth. ity of Cap 11:00: [address] amLODIPine 2021-04 Yes 10mg Take 10 mg U nivers 10 mg 2-08 by mouth. ity of tablet 11:00: [address] Cholecalcif 2021-04 Yes 5000U Take 5,000 Univers stephon, 2-08 Units by ity of Vitamin D3, 11:00: [place]. [place] 125 [place] 17 Medical (5,000 Branch unit) capsule Levothyroxi 2021-04 Yes Take by Uni vers ne 137 mcg 2-08 mouth. ity of Cap 11:00: [address] amLODIPine 2021-04 Yes 10mg Take 10 mg U nivers 10 mg 2-08 by mouth. ity of tablet 11:00: [address] Cholecalcif 2021-04 Yes 5000U Take 5,000 Univers stephon, 2-08 Units by ity of Vitamin D3, 11:00: [place]. [place] 125 [place] 17 Medical (5,000 Branch unit) capsule Levothyroxi 2021-04 Yes Take by Uni vers ne 137 mcg 2-08 mouth. ity of Cap 11:00: [address] amLODIPine 2021-04 Yes 10mg Take 10 mg U nivers 10 mg 2-08 by mouth. ity of tablet 11:00: [address] Cholecalcif 2022-1 Yes 5000U Take 5,000 Univers stephon, 2-08 Units by ity of Vitamin D3, 11:00: [place]. [place] 125 [place] 17 Medical (5,000 Branch unit) capsule Levothyroxi 2021-04 Yes Take by Uni vers ne 137 mcg 2-08 mouth. ity of Cap 11:00: [address] amLODIPine 2021-04 Yes 10mg Take 10 mg U nivers 10 mg 2-08 by mouth. ity of tablet 11:00: [address] Cholecalcif 2021-04 Yes 5000U Take 5,000 Univers stephon, 2-08 Units by ity of Vitamin D3, 11:00: [place]. [place] 125 m[place] 17 Medical (5,000 Branch unit) capsule Levothyroxi 2021-04 Yes Take by Uni vers ne 137 mcg 2-08 mouth. ity of Cap 11:00: [address] amLODIPine 2021-04 Yes 10mg Take 10 mg U nivers 10 mg 2-08 by mouth. ity of tablet 11:00: [address] Cholecalcif 2021-04 Yes 5000U Take 5,000 Univers ste[place], 2-08 Units by ity of Vitamin D3, 11:00: [place]. [place] 125 m[place] 17 Medical (5,000 Branch unit) capsule Levothyroxi 2021-04 Yes Take by Uni vers ne 137 mcg 2-08 mouth. ity of Cap 11:00: [address] amLODIPine 2021-04 Yes 10mg Take 10 mg U nivers 10 mg 2-08 by mouth. ity of tablet 11:00: [address] Cholecalcif 2021-04 Yes 5000U Take 5,000 Univers ste[place], 2-08 Units by ity of Vitamin D3, 11:00: [place]. [place] 125 m[place] 17 Medical (5,000 Branch unit) capsule Levothyroxi 2021-04 Yes Take by Uni vers ne 137 mcg 2-08 mouth. ity of Cap 11:00: [address] amLODIPine 2021-04 Yes 10mg Take 10 mg U nivers 10 mg 2-08 by mouth. ity of tablet 11:00: [address] Cholecalcif 2021-04 Yes 5000U Take 5,000 Univers ste[place], 2-08 Units by ity of Vitamin D3, 11:00: mouth. [place] 125 m[place] 17 Medical (5,000 Branch unit) capsule Levothyroxi 2021-04 Yes Take by Uni vers ne 137 mcg 2-08 mouth. ity of Cap 11:00: [address] amLODIPine 2021-04 Yes 10mg Take 10 mg U nivers 10 mg 2-08 by mouth. ity of tablet 11:00: [address] Cholecalcif 2021-04 Yes 5000U Take 5,000 Univers ste[place], 2-08 Units by ity of Vitamin D3, 11:00: mouth. [place] 125 m[place] 17 Medical (5,000 Branch unit) capsule Levothyroxi 2021-04 Yes Take by Uni vers ne 137 mcg 2-08 mouth. ity of Cap 11:00: [address] amLODIPine 2021-04 Yes 10mg Take 10 mg U nivers 10 mg 2-08 by mouth. ity of tablet 11:00: [address] Cholecalcif 2021-04 Yes 5000U Take 5,000 Univers ste[place], 2-08 Units by ity of Vitamin D3, 11:00: mouth. [place] 125 mcg 17 Medical (5,000 Branch unit) capsule Levothyroxi 2021-04 Yes Take by Uni vers ne 137 mcg 2-08 mouth. ity of Cap 11:00: [address] amLODIPine 2021-04 Yes 10mg Take 10 mg U nivers 10 mg 2-08 by mouth. ity of tablet 11:00: [address] Cholecalcif 2021-04 Yes 5000U Take 5,000 Univers ste[place], 2-08 Units by ity of Vitamin D3, 11:00: mouth. [place] 125 mcg 17 Medical (5,000 Branch unit) capsule Levothyroxi 2021-04 Yes Take by Uni vers ne 137 mcg 2-08 mouth. ity of Cap 11:00: [address] amLODIPine 2021-04 Yes 10mg Take 10 mg U nivers 10 mg 2-08 by mouth. ity of tablet 11:00: [address] Cholecalcif 2021-04 Yes 5000U Take 5,000 Univers ste[place], 2-08 Units by ity of Vitamin D3, 11:00: mouth. [place] 125 mcg 17 Medical (5,000 Branch unit) capsule Levothyroxi 2021-04 Yes Take by Uni vers ne 137 mcg 2-08 mouth. ity of Cap 11:00: [address] amLODIPine 2021-04 Yes 10mg Take 10 mg U nivers 10 mg 2-08 by mouth. ity of tablet 11:00: [address] Cholecalcif 2021-04 Yes 5000U Take 5,000 Univers ste[place], 2-08 Units by ity of Vitamin D3, 11:00: mouth. [place] 125 mcg 17 Medical (5,000 Branch unit) capsule Levothyroxi 2021-04 Yes Take by Uni vers ne 137 mcg 2-08 mouth. ity of Cap 11:00: [address] amLODIPine 2021-04 Yes 10mg Take 10 mg U nivers 10 mg 2-08 by mouth. ity of tablet 11:00: [address] Cholecalcif 2021-04 Yes 5000U Take 5,000 Univers ste[place], 2-08 Units by ity of Vitamin D3, 11:00: mouth. [place] 125 mcg 17 Medical (5,000 Branch unit) capsule Levothyroxi 2021-04 Yes Take by Uni vers ne 137 mcg 2-08 mouth. ity of Cap 11:00: [address] amLODIPine 2021-04 Yes 10mg Take 10 mg U nivers 10 mg 2-08 by mouth. ity of tablet 11:00: [address] Cholecalcif 2021-04 Yes 5000U Take 5,000 Univers ste[place], 2-08 Units by ity of Vitamin D3, 11:00: mouth. [place] 125 mcg 17 Medical (5,000 Branch unit) capsule Levothyroxi 2021-04 Yes Take by Uni vers ne 137 mcg 2-08 mouth. ity of Cap 11:00: [address] apixaban 2021-04 Yes 1358 2.5mg Take 1 Univer s 2.5 mg 2-08 tablet by ity of tablet 00:00: mouth in [place] [address] the Medical morning Branch and 1 tablet in the evening. Indication s: atrial fibrillati on pantoprazol 2021-04 Yes [id number] 40mg Take 1 Univers e 40 mg EC 2-08 tablet by ity of tablet 00:00: mouth in [place] [address] the [facility] morning Branch and 1 tablet in the evening. apixaban 2021-04 Yes 1358 2.5mg Take 1 Univer s 2.5 mg 2-08 tablet by ity of tablet 00:00: mouth in [place] [address] the Medical morning Branch and 1 tablet in the evening. Indication s: atrial fibrillati on pantoprazol 2021-04 Yes [id number] 40mg Take 1 Univers e 40 mg EC 2-08 tablet by ity of tablet 00:00: mouth in [place] [address] the Medical morning Branch and 1 tablet in the evening. apixaban 2021-04 Yes 1358 2.5mg Take 1 Univer s 2.5 mg 2-08 tablet by ity of tablet 00:00: mouth in [place] [address] the [facility] morning Branch and 1 tablet in the evening. Indication s: atrial fibrillati on pantoprazol 2021-04 Yes [id number] 40mg Take 1 Univers e 40 mg EC 2-08 tablet by ity of tablet 00:00: mouth in [place] [address] the Medical morning Branch and 1 tablet in the evening. apixaban 2021-04 Yes 1358 2.5mg Take 1 Univer s 2.5 mg 2-08 tablet by ity of tablet 00:00: mouth in [place] [address] the [facility] morning [place] and 1 tablet in the evening. Indication s: atrial fibrillati on pantoprazol 2021-04 Yes [id number] 40mg Take 1 Univers e 40 mg EC 2-08 tablet by ity of tablet 00:00: mouth in [place] [address] the [facility] morning [place] and 1 tablet in the evening. apixaban 2021-04 Yes 1358 2.5mg Take 1 Univer s 2.5 mg 2-08 tablet by ity of tablet 00:00: mouth in [place] [address] the [facility] morning [place] and 1 tablet in the evening. Indication s: atrial fibrillati on pantoprazol 2021-04 Yes [id number] 40mg Take 1 Univers e 40 mg EC 2-08 tablet by ity of tablet 00:00: mouth in [place] [address] the [facility] morning Branch and 1 tablet in the evening. apixaban 2021-04 Yes 1358 2.5mg Take 1 Univer s 2.5 mg 2-08 tablet by ity of tablet 00:00: mouth in [place] [address] the [facility] morning [place] and 1 tablet in the evening. Indication s: atrial fibrillati on pantoprazol 2021-04 Yes [id number] 40mg Take 1 Univers e 40 mg EC 2-08 tablet by ity of tablet 00:00: mouth in [place] 00 the Medical morning Branch and 1 tablet in the evening. apixaban 2021-04 Yes 1358 2.5mg Take 1 Univer s 2.5 mg 2-08 tablet by ity of tablet 00:00: mouth in [place] [address] the [facility] morning Branch and 1 tablet in the evening. Indication s: atrial fibrillati on pantoprazol 2021-04 Yes [id number] 40mg Take 1 Univers e 40 mg EC 2-08 tablet by ity of tablet 00:00: mouth in [place] [address] the [facility] morning [place] and 1 tablet in the evening. apixaban 2021-04 Yes 1358 2.5mg Take 1 Univer s 2.5 mg 2-08 tablet by ity of tablet 00:00: mouth in [place] [address] the [facility] morning Branch and 1 tablet in the evening. Indication s: atrial fibrillati on pantoprazol 2021-04 Yes [id number] 40mg Take 1 Univers e 40 mg EC 2-08 tablet by ity of tablet 00:00: mouth in [place] [address] the [facility] morning [place] and 1 tablet in the evening. apixaban 2021-04 Yes 1358 2.5mg Take 1 Univer s 2.5 mg 2-08 tablet by ity of tablet 00:00: mouth in [place] [address] the [facility] morning [place] and 1 tablet in the evening. Indication s: atrial fibrillati on pantoprazol 2021-04 Yes [id number] 40mg Take 1 Univers e 40 mg EC 2-08 tablet by ity of tablet 00:00: mouth in [place] [address] the [facility] morning [place] and 1 tablet in the evening. apixaban 2021-04 Yes 1358 2.5mg Take 1 Univer s 2.5 mg 2-08 tablet by ity of tablet 00:00: mouth in [place] [address] the [facility] morning [place] and 1 tablet in the evening. Indication s: atrial fibrillati on pantoprazol 2021-04 Yes [id number] 40mg Take 1 Univers e 40 mg EC 2-08 tablet by ity of tablet 00:00: mouth in [place] [address] the [facility] morning [place] and 1 tablet in the evening. apixaban 2021-04 Yes 1358 2.5mg Take 1 Univer s 2.5 mg 2-08 tablet by ity of tablet 00:00: mouth in [place] [address] the [facility] morning [place] and 1 tablet in the evening. Indication s: atrial fibrillati on pantoprazol 2021-04 Yes [id number] 40mg Take 1 Univers e 40 mg EC 2-08 tablet by ity of tablet 00:00: mouth in [place] 00 the Medical morning Branch and 1 tablet in the evening. apixaban 2021-04 Yes 1358 2.5mg Take 1 Univer s 2.5 mg 2-08 tablet by ity of tablet 00:00: mouth in [place] 00 the Medical morning Branch and 1 tablet in the evening. Indication s: atrial fibrillati on pantoprazol 2021-04 Yes [id number] 40mg Take 1 Univers e 40 mg EC 2-08 tablet by ity of tablet 00:00: mouth in [place] 00 the Medical morning Branch and 1 tablet in the evening. apixaban 2021-04 Yes 1358 2.5mg Take 1 Univer s 2.5 mg 2-08 tablet by ity of tablet 00:00: mouth in [place] [address] the Medical morning Branch and 1 tablet in the evening. Indication s: atrial fibrillati on pantoprazol 2021-04 Yes [id number] 40mg Take 1 Univers e 40 mg EC 2-08 tablet by ity of tablet 00:00: mouth in [place] [address] the Medical morning Branch and 1 tablet in the evening. apixaban 2021-04 Yes 1358 2.5mg Take 1 Univer s 2.5 mg 2-08 tablet by ity of tablet 00:00: mouth in [place] [address] the [facility] morning Branch and 1 tablet in the evening. Indication s: atrial fibrillati on pantoprazol 2021-04 Yes [id number] 40mg Take 1 Univers e 40 mg EC 2-08 tablet by ity of tablet 00:00: mouth in [place] [address] the Medical morning [place] and 1 tablet in the evening. apixaban 2021-04 Yes 1358 2.5mg Take 1 Univer s 2.5 mg 2-08 tablet by ity of tablet 00:00: mouth in [place] [address] the [facility] morning [place] and 1 tablet in the evening. Indication s: atrial fibrillati on pantoprazol 2021-04 Yes [id number] 40mg Take 1 Univers e 40 mg EC 2-08 tablet by ity of tablet 00:00: mouth in [place] [address] the [facility] morning [place] and 1 tablet in the evening. apixaban 2021-04- No 2.5mg Take 2.5 Uni vers 2.5 mg 1-22 11-22 mg by ity of tablet 12:59: 00:00 mouth. [place] 05 :00 Medical Branch apixaban 2021-04 Yes 1358 2.5mg Take 1 Univer s 2.5 mg 1-22 tablet by ity of tablet 00:00: mouth in [place] 00 the [facility] morning [place] and 1 tablet in the evening. Indication s: atrial fibrillati on apixaban 2021-04 Yes 1358 2.5mg Take 1 Univer s 2.5 mg 1-22 tablet by ity of tablet 00:00: mouth in [place] 00 the Medical morning Branch and 1 tablet in the evening. Indication s: atrial fibrillati on apixaban 2021-04 Yes 1358 2.5mg Take 1 Univer s 2.5 mg 1-22 tablet by ity of tablet 00:00: mouth in [place] 00 the [facility] morning Branch and 1 tablet in the evening. Indication s: atrial fibrillati on apixaban 2021-04 Yes 1358 2.5mg Take 1 Univer s 2.5 mg 1-22 tablet by ity of tablet 00:00: mouth in [place] 00 the [facility] morning [place] and 1 tablet in the evening. Indication s: atrial fibrillati on apixaban 2021-04 Yes 1358 2.5mg Take 1 Univer s 2.5 mg 1-22 tablet by ity of tablet 00:00: mouth in [place] 00 the [facility] morning [place] and 1 tablet in the evening. Indication s: atrial fibrillati on apixaban 2021-04- No 1358 2.5mg Take 1 Unive rs 2.5 mg 1-22 1208 tablet by ity of tablet 00:00: 00:00 mouth in [place] 00 :00 the [facility] morning Branch and 1 tablet in the evening. Indication s: atrial fibrillati on apixaban 2021-04- No 1358 2.5mg Take 1 Unive rs 2.5 mg 1-22 12-08 tablet by ity of tablet 00:00: 00:00 mouth in [place] 00 :00 the [facility] morning Branch and 1 tablet in the evening. Indication s: atrial fibrillati on ibuprofen 2021-04- No 800mg Take 800 Un anthony (MOTRIN) -07 11-07 mg by ity of 800 mg 09:35: 00:00 mouth 3 [place] tablet 50 :00 (three) Medical times Branch daily with meals. ibuprofen 2021-04- No 800mg Take 800 Un anthony (MOTRIN) 04-30 11-07 mg by ity of 800 mg 09:35: 00:00 mouth 3 [place] tablet 50 :00 (three) Medical times Branch daily with meals. ibuprofen 2021-2021- No 800mg Take 800 Un anthony (MOTRIN) 04-30 11-07 mg by ity of 800 mg 09:35: 00:00 mouth 3 [place] tablet 50 :00 (three) Medical times Branch daily with meals. spironolact 2021-2021- No 25mg Take 25 mg Univers one 25 mg 04-30 by mouth. ity of tablet 09:35: 00:00 [place] 19 :00 [facility] Branch spironolact 2021-2021- No 25mg Take 25 mg Univers one 25 mg 04-30 by mouth. ity of tablet 09:35: 00:00 [place] 19 :00 Medical Branch spironolact 2021-2021- No 25mg Take 25 mg Univers one 25 mg 04-30 by mouth. ity of tablet 09:35: 00:00 [place] 19 :00 Medical Branch guaiFENesin 2021-2021- No 200mg Take 200 Univers 100 mg/5 mL 04-3007 mg by ity of solution 09:35: 00:00 mouth. [place] 09 :00 Medical [place] guaiFENesin 2021-1 2021- No 200mg Take 200 Univers 100 mg/5 mL 04-30 11-07 mg by ity of solution 09:35: 00:00 mouth. [place] 09 :00 Medical [place] guaiFENesin 2021-2021- No 200mg Take 200 Univers 100 mg/5 mL 04-30 11-07 mg by ity of solution 09:35: 00:00 mouth. [place] 09 :00 [facility] Branch glyBURIDE-m 2021-2021- No 1{tbl} Take 1 U nivers etformin 04-30 tablet by ity o f 1.25-250 mg 09:35: 00:00 mouth. [place] tablet 06 :[address] [facility] glyBURIDE-m 2021-2021- No 1{tbl} Take 1 U nivers etformin 04-30 tablet by ity o f 1.25-250 mg 09:35: 00:00 mouth. [place] tablet 06 :[address] [facility] [place] glyBURIDE-m 2021-04- No 1{tbl} Take 1 U nivers etformin - 11-07 tablet by ity o f 1.25-250 mg 09:35: 00:00 mouth. [place] tablet 06 :[address] [facility] [place] apixaban 2021-04 Yes 2.5mg Take 2.5 Univ ers 2.5 mg 1-07 mg by ity of tablet 09:14: mouth. [address] Biotin 2021-04 Yes Univers 10,000 mcg 1-07 ity of Cap 09:14: [address] metoprolol 2021-04 Yes 25mg Take 25 mg U nivers succinate 1-07 by mouth. ity o f XL 25 mg 24 09:14: [facility] tablet [address] [place] [address] apixaban 2021-04 Yes 2.5mg Take 2.5 Univ ers 2.5 mg 1-07 mg by ity of tablet 09:14: mouth. [address] Biotin 2021-04 Yes Univers 10,000 mcg 1-07 ity of Cap 09:14: [address] metoprolol 2021-04 Yes 25mg Take 25 mg U nivers succinate 1-07 by mouth. ity o f XL 25 mg 24 09:14: [facility] tablet [address] [place] [address] apixaban 2021-04 Yes 2.5mg Take 2.5 Univ ers 2.5 mg 1-07 mg by ity of tablet 09:14: mouth. [address] Biotin 2021-04 Yes Univers 10,000 mcg 1-07 ity of Cap 09:14: [address] metoprolol 2021-04 Yes 25mg Take 25 mg U nivers succinate 1-07 by mouth. ity o f XL 25 mg 24 09:14: [facility] tablet [address] [place] [address] Biotin 2021-04 Yes Univers 10,000 mcg 1-07 ity of Cap 09:14: [address] metoprolol 2021-04 Yes 25mg Take 25 mg U nivers succinate 1-07 by mouth. ity o f XL 25 mg 24 09:14: [facility] tablet [address] [place] [address] Biotin 2021-04 Yes Univers 10,000 mcg 1-07 ity of Cap 09:14: [place] 24 Medical Branch metoprolol 2021-04 Yes 25mg Take 25 mg U nivers succinate 1-07 by mouth. ity o f XL 25 mg 24 09:14: [place] hr tablet 24 Medical Branch Biotin 2021-04 Yes Univers 10,000 mcg 1-07 ity of Cap 09:14: [place] 24 [facility] Branch metoprolol 2021-04 Yes 25mg Take 25 mg U nivers succinate 1-07 by mouth. ity o f XL 25 mg 24 09:14: [place] hr tablet 24 Medical Branch Biotin 2021-04 Yes Univers 10,000 mcg 1-07 ity of Cap 09:14: [address] Branch metoprolol 2021-04 Yes 25mg Take 25 mg U nivers succinate 1-07 by mouth. ity o f XL 25 mg 24 09:14: [place] hr tablet 24 Medical Branch Biotin 2021-04 Yes Univers 10,000 mcg 1-07 ity of Cap 09:14: [address] Branch metoprolol 2021-04 Yes 25mg Take 25 mg U nivers succinate 1-07 by mouth. ity o f XL 25 mg 24 09:14: [place] hr tablet 24 Medical Branch metoprolol 2021-04 Yes 25mg Take 25 mg U nivers succinate 1-07 by mouth. ity o f XL 25 mg 24 09:14: [place] hr tablet 24 Medical Branch metoprolol 2021-04 Yes 25mg Take 25 mg U nivers succinate 1-07 by mouth. ity o f XL 25 mg 24 09:14: [place] hr tablet 24 Medical Branch metoprolol 2021-04 Yes 25mg Take 25 mg U nivers succinate 1-07 by mouth. ity o f XL 25 mg 24 09:14: [place] hr tablet 24 Medical Branch metoprolol 2021-04 Yes 25mg Take 25 mg U nivers succinate 1-07 by mouth. ity o f XL 25 mg 24 09:14: [place] hr tablet 24 Medical Branch metoprolol 2021-04 Yes 25mg Take 25 mg U nivers succinate 1-07 by mouth. ity o f XL 25 mg 24 09:14: [place] hr tablet 24 Medical Branch metoprolol 2021-04 Yes 25mg Take 25 mg U nivers succinate 1-07 by mouth. ity o f XL 25 mg 24 09:14: [place] hr tablet 24 Medical Branch metoprolol 2021-04 Yes 25mg Take 25 mg U nivers succinate 1-07 by mouth. ity o f XL 25 mg 24 09:14: [place] hr tablet 24 Medical Branch metoprolol 2021-04 Yes 25mg Take 25 mg U nivers succinate 1-07 by mouth. ity o f XL 25 mg 24 09:14: [place] hr tablet 24 Medical Branch metoprolol 2021-04 Yes 25mg Take 25 mg U nivers succinate 1-07 by mouth. ity o f XL 25 mg 24 09:14: [place] hr tablet 24 Medical Branch metoprolol 2021-04 Yes 25mg Take 25 mg U nivers succinate 1-07 by mouth. ity o f XL 25 mg 24 09:14: [place] hr tablet 24 Medical Branch metoprolol 2021-04 Yes 25mg Take 25 mg U nivers succinate 1-07 by mouth. ity o f XL 25 mg 24 09:14: [place] hr tablet 24 Medical Branch metoprolol 2021-04 Yes 25mg Take 25 mg U nivers succinate 1-07 by mouth. ity o f XL 25 mg 24 09:14: [place] hr tablet 24 Medical Branch metoprolol 2021-04 Yes 25mg Take 25 mg U nivers succinate 1-07 by mouth. ity o f XL 25 mg 24 09:14: [place] hr tablet 24 Medical Branch metoprolol 2021-04 Yes 25mg Take 25 mg U nivers succinate 1-07 by mouth. ity o f XL 25 mg 24 09:14: [place] hr tablet 24 Medical Branch metoprolol 2021-04 Yes 25mg Take 25 mg [facility] n[facility] succinate 1-07 by mouth. ity o f XL 25 mg 24 09:14: [place] hr tablet 24 Medical Branch ALPRAZolam 2021-04 Yes .25mg Take 0.25 U nivers 0.25 mg 1-07 mg by ity of tablet 09:08: mouth 3 [place] 44 (three) Medical times Branch daily. ALPRAZolam 2021-04 Yes .25mg Take 0.25 U nivers 0.25 mg 1-07 mg by ity of tablet 09:08: mouth 3 [place] 44 (three) Medical times Branch daily. ALPRAZolam 2021-04 Yes .25mg Take 0.25 U nivers 0.25 mg 1-07 mg by ity of tablet 09:08: mouth 3 [place] 44 (three) Medical times Branch daily. ALPRAZolam 2021-04 Yes .25mg Take 0.25 U nivers 0.25 mg 1-07 mg by ity of tablet 09:08: mouth 3 [place] 44 (three) Medical times Branch daily. ALPRAZolam 2021-04 Yes .25mg Take 0.25 U nivers 0.25 mg 1-07 mg by ity of tablet 09:08: mouth 3 [place] 44 (three) Medical times Branch daily. ALPRAZolam 2021-04 Yes .25mg Take 0.25 U nivers 0.25 mg 1-07 mg by ity of tablet 09:08: mouth 3 [place] 44 (three) Medical times Branch daily. ALPRAZolam 2021-04 Yes .25mg Take 0.25 U nivers 0.25 mg 1-07 mg by ity of tablet 09:08: mouth 3 [place] 44 (three) Medical times Branch daily. ALPRAZolam 2021-04 Yes .25mg Take 0.25 U nivers 0.25 mg 1-07 mg by ity of tablet 09:08: mouth 3 [place] 44 (three) Medical times Branch daily. baclofen 2021-04 Yes [id number] 5mg Take 1 [facility] mg tablet 1-07 tablet by ity o f 00:00: mouth 3 (three) Medical times Branch daily as needed for Pain (scale 4-6) (May make sleepy). baclofen 2021-04 Yes [id number] 5mg Take 1 [facility] n[facility] mg tablet 1-07 tablet by ity o f 00:00: mouth 3 (three) Medical times Branch daily as needed for Pain (scale 4-6) (May make sleepy). baclofen 2021-04 Yes [id number] 5mg Take 1 [facility] n[facility] mg tablet 1-07 tablet by ity o f 00:00: mouth 3 00 (three) Medical times Branch daily as needed for Pain (scale 4-6) (May make sleepy). baclofen 2021-04 Yes [id number] 5mg Take 1 [facility] mg tablet 1-07 tablet by ity o f 00:00: mouth 3 00 (three) Medical times Branch daily as needed for Pain (scale 4-6) (May make sleepy). baclofen 2021-04 Yes [id number] 5mg Take 1 [facility] n[facility] mg tablet -07 tablet by ity o f 00:00: mouth 3 [place] 00 (three) Medical times Branch daily as needed for Pain (scale 4-6) (May make sleepy). baclofen 5 2021-04 Yes [id number] 5mg Take 1 [facility]ivers mg tablet -07 tablet by ity o f 00:00: mouth 3 [place] 00 (three) Medical times Branch daily as needed for Pain (scale 4-6) (May make sleepy). baclofen 2021-04 Yes [id number] 5mg Take 1 [facility] n[facility] mg tablet -07 tablet by ity o f 00:00: mouth 3 [place] 00 (three) Medical times Branch daily as needed for Pain (scale 4-6) (May make sleepy). baclofen 2021-04 Yes [id number] 5mg Take 1 [facility] mg tablet -07 tablet by ity o f 00:00: mouth 3 [place] 00 (three) Medical times Branch daily as needed for Pain (scale 4-6) (May make sleepy). baclofen 2021-04- No [id number] 5mg Take 1 [facility] mg tablet 04-30- tablet by ity of 00:00: 00:00 mouth 3 [place] 00 :00 (three) Medical times Branch daily as needed for Pain (scale 4-6) (May make sleepy). baclofen 2021-04- No [id number] 5mg Take 1 [facility] mg tablet 04-30- tablet by ity of 00:00: 00:00 mouth 3 [place] 00 :00 (three) Medical times Branch daily as needed for Pain (scale 4-6) (May make sleepy). loratadine 2021-04 Yes TAKE 1 [facility] (CLARITIN) 0-[address] 10 mg 00:00: EVERY [facility]osp[facility] tablet 00 MORNING l (NEED APPOINTMEN T FOR FURTHER REFILL) telmisartan 2021-04 Yes [id number] TAKE 1 [facility] (MICARDIS) 0-[address] 80 MG 00:00: DAILY [facility]ospita tablet 00 l Biotin Yes [facility] 10,000 mcg 9-26 ity of Cap 11:24: [place] 08 [facility] Branch glyBURIDE-m Yes 1{tbl} Take 1 Un [facility] etformin 9-26 tablet by it[facility] of 1.25-250 mg 11:24: [place] [address] [place] [address] guaiFENesin Yes 200mg Take 200 [facility] nivers 100 mg/5 mL 9-26 mg by ity of solution 11:24: mouth. [address] melatonin 3 Yes Univer s mg TbDL 9-26 ity of 11:24: [address] metoprolol Yes 25mg Take 25 mg [facility] succinate 9-26 by mouth. ity o f XL 25 mg 24 11:24: [place] hr tablet [address] [place] [address] spironolact Yes 25mg Take 25 mg [facility] one 25 mg 9-26 by mouth. ity o f tablet 11:24: [address] Biotin Yes [facility] 10,000 mcg 9-26 ity of Cap 11:24: [address] glyBURIDE-m Yes 1{tbl} Take 1 [facility] etformin 9-26 tablet by ity of 1.25-250 mg 11:24: [place]. [place] [address] [place] [address] guaiFENesin Yes 200mg Take 200 [facility] nivers 100 mg/5 mL 9-26 mg by ity of solution 11:24: mouth. [address] melatonin 3 Yes Univer s mg TbDL - ity of 11:24: [address] metoprolol Yes 25mg Take 25 mg [facility] nivers succinate 9-26 by mouth. ity o f XL 25 mg 24 11:24: [place] hr tablet [address] [place] [address] spironolact Yes 25mg Take 25 mg [facility] one 25 mg 9-26 by mouth. ity o f tablet 11:24: [address] Biotin Yes [facility] 10,000 mcg 9-26 ity of Cap 11:24: [address] glyBURIDE-m Yes 1{tbl} Take 1 [facility] etformin 9-26 tablet by ity of 1.25-250 mg 11:24: [place]. [place] [address] [place] [address] guaiFENesin Yes 200mg Take 200 [facility] nivers 100 mg/5 mL 9-26 mg by ity of solution 11:24: mouth. [address] melatonin 3 Yes Univer s mg TbDL 9-26 ity of 11:24: [address] metoprolol Yes 25mg Take 25 mg [facility] succinate 9-26 by mouth. ity o f XL 25 mg 24 11:24: [place] hr tablet [address] [place] [address] spironolact Yes 25mg Take 25 mg [facility] one 25 mg 9-26 by mouth. ity o f tablet 11:24: [address] Biotin Yes [facility] 10,000 mcg 9-26 ity of Cap 11:24: [address] glyBURIDE-m Yes 1{tbl} Take 1 [facility] etformin 9-26 tablet by [facility] of 1.25-250 mg 11:24: [place]. [place] [address] [place] [address] guaiFENesin Yes 200mg Take 200 [facility] nivers 100 mg/5 mL 9-26 mg by ity of solution 11:24: mouth. [address] melatonin 3 Yes Univer s mg TbDL -26 ity of 11:24: [address] metoprolol Yes 25mg Take 25 mg [facility] succinate 9-26 by mouth. ity o f XL 25 mg 24 11:24: [place] hr tablet [address] [place] [address] spironolact Yes 25mg Take 25 mg [facility] one 25 mg 9-26 by mouth. ity o f tablet 11:24: [address] Biotin Yes [facility] 10,000 mcg 9-26 ity of Cap 11:24: [address] glyBURIDE-m Yes 1{tbl} Take 1 [facility] etformin 9-26 tablet by [facility]y of 1.25-250 mg 11:24: [place]. [place] [address] [place] [address] guaiFENesin Yes 200mg Take 200 U nivers 100 mg/5 mL 9-26 mg by ity of solution 11:24: mouth. [address] melatonin 3 Yes Univer s mg TbDL 9-26 ity of 11:24: [address] metoprolol Yes 25mg Take 25 mg [facility] succinate 01-17 by mouth. ity o f XL 25 mg 24 11:24: [address] spironolact Yes 25mg Take 25 mg [facility] one 25 mg 01-17 by mouth. ity o f tablet 11:24: [address] Branch melatonin 3 2021-0 Yes Univer s mg TbDL 01-17 ity of 11:24: [address] Branch melatonin 3 0 Yes Univer s mg TbDL 01-17 ity of 11:24: [address] Branch melatonin 3 0 Yes Univer s mg TbDL 01-17 ity of 11:24: [address] melatonin 3 0 Yes Univer s mg TbDL 01-17 ity of 11:24: [address] melatonin 3 Yes Univer s mg TbDL 01-17 ity of 11:24: [address] melatonin 3 0 Yes Univer s mg TbDL 01-17 ity of 11:24: [address] Branch melatonin 3 0 Yes Univer s mg TbDL 01-17 ity of 11:24: [address] Branch melatonin 3 2021-0 Yes Univer s mg TbDL 01-17 ity of 11:24: [address] Branch melatonin 3 0 Yes Univer s mg TbDL 01-17 ity of 11:24: [address] melatonin 3 2021-0 Yes Univer s mg TbDL 01-17 ity of 11:24: [address] Branch melatonin 3 2021-0 Yes Univer s mg TbDL 01-17 ity of 11:24: [address] melatonin 3 0 Yes Univer s mg TbDL 01-17 ity of 11:24: [address] Branch melatonin 3 2021-0 Yes Univer s mg TbDL 01-17 ity of 11:24: [address] Branch melatonin 3 2021-0 Yes Univer s mg TbDL 01-17 ity of 11:24: [address] melatonin 3 2021-0 Yes Univer s mg TbDL 01-17 ity of 11:24: [address] Branch melatonin 3 2021-0 Yes Univer s mg TbDL 01-17 ity of 11:24: [place] 08 [facility] Branch melatonin 3 Yes Univer s mg TbDL 9-26 ity of 11:24: [place] [address] Medical Branch melatonin 3 Yes Univer s mg TbDL 9-26 ity of 11:24: [place] [address] Medical Branch melatonin 3 Yes Univer s mg TbDL 926 ity of 11:24: [place] [address] Medical Branch melatonin 3 Yes Univer s mg TbDL 9-26 ity of 11:24: [place] [address] Medical Branch melatonin 3 Yes Univer s mg TbDL 9-26 ity of 11:24: [place] [address] Medical Branch melatonin 3 Yes Univer s mg TbDL 9-26 ity of 11:24: [place] [address] Medical Branch melatonin 3 Yes Univer s mg TbDL 926 ity of 11:24: [place] [address] Medical Branch fluticasone Yes [id number] 2{spray Use 2 [facility] propionate 9-26 } Sprays in ity of 50 00:00: each [place] mcg/actuati 00 nostril in Me dical on nasal the Branch spray morning. fluticasone Yes [id number] 2{spray Use 2 [facility] propionate 9-26 } Sprays in ity of 50 00:00: each [place] mcg/actuati 00 nostril in Me dical on nasal the Branch spray morning. fluticasone Yes [id number] 2{spray Use 2 [facility] propionate 9-26 } Sprays in ity of 50 00:00: each [place] mcg/actuati 00 nostril in Me dical on nasal the Branch spray morning. fluticasone Yes [id number] 2{spray Use 2 [facility] propionate 9-26 } Sprays in ity of 50 00:00: each [place] mcg/actuati 00 nostril in Me dical on nasal the Branch spray morning. fluticasone Yes [id number] 2{spray Use 2 [facility] propionate 9-26 } Sprays in ity of 50 00:00: each [place] mcg/actuati 00 nostril in Me dical on nasal the Branch spray morning. fluticasone 2021- No [id number] 2{spray Use 2 [facility] propionate 9-26 11-07 } Sprays in ity of 50 00:00: 00:00 each [place] mcg/actuati 00 :00 nostril in Me dical on nasal the Branch spray morning. fluticasone 2021- No [id number] 2{spray Use 2 [facility] propionate 01-17 } Sprays in ity of 50 00:00: 00:00 each [place] mcg/actuati 00 :00 nostril in Me dical on nasal the Branch spray morning. fluticasone 2021- No [id number] 2{spray Use 2 [facility] propionate 01-17 } Sprays in ity of 50 00:00: 00:00 each [place] mcg/actuati 00 :00 nostril in Me dical on nasal the Branch spray morning. doxycycline 2021- No [id number] 100mg Take 1 [facility] hyclate 100 01-17 tablet by it y of mg tablet 00:00: 04:59 mouth in [place] 00 :00 the Medical morning Branch and 1 tablet in the evening. Do all this for 10 days. doxycycline 2021- No [id number] 100mg Take 1 [facility] hyclate 100 01-17 tablet by it y of mg tablet 00:00: 04:59 mouth in [place] 00 :00 the Medical morning Branch and 1 tablet in the evening. Do all this for 10 days. blood sugar Yes [id number] [facility] diagnostic 8-[address] strips 00:00: Reflect, Hospita strip test 00 test blood l strips sugar once daily, Dx E11.65-DM lancets 33 Yes [id number] [facility] gauge misc 8-[address] 00:00: Reflect, Hospita 00 test blood l sugar once daily, DX-E11.65, DM guaiFENesin Yes 200mg Q.[id number] Take 200 [facility] (ROBITUSSIN 8-10 [id number] mg by s t ) 100 mg/5 08:33: 3D mouth 3 Hosp gerry mL syrup 33 (three) l times a day as needed for cough. multivit Yes Take by [facility] with 8-[address] iron,minera 08:23: Hospit a ls 46 l (GERIATRIC MULTIVIT-IR ON-MINS ORAL) ALPRAZolam Yes .25mg QD Take 0.25 [facility] (XANAX) 8-[address] 0.25 MG 08:23: mouth Hospita tablet 46 nightly as l needed. amLODIPine Yes 10mg QD Take 10 mg [facility] (NORVASC) 8-[address] 10 mg 08:23: daily. Hospita tablet 46 l metoprolol Yes 25mg QD Take 25 mg [facility] succinate 8-[address] XL 08:23: nightly. Hospita (TOPROL-XL) 46 l 25 mg 24 hr tablet melatonin 3 Yes [facility] i mg 8-10 st tablet,disi 08:23: Hospit a ntegrating 46 l potassium Yes Only w/ Metho di chloride 8-[address] (KLOR-CON) 08:23: Hospita 10 MEQ CR 46 l tablet biotin Yes [facility] 10,000 mcg 8-10 st capsule 08:23: Hospita 46 l cholecalcif Yes 5000U QD Take 5,000 [facility] stephon, 8-[address] vitamin D3, 08:23: mouth Hospi ta 5,000 unit 46 daily. l capsule ibuprofen Yes 200mg Q6H Take 200 [facility] (ADVIL) 200 8-[address] MG tablet 08:23: mouth Hospita 46 every 6 l (six) hours as needed for mild pain. blood-gluco Yes [id number] Use as [facility] se meter 8-[address] (glucose 00:00: Hospita monitoring 00 l kit) kit topiramate Yes [facility] 25 mg 8-10 ity of tablet 00:00: [address] topiramate Yes [facility] 25 mg 8-10 ity of tablet 00:00: [address] topiramate Yes [facility] 25 mg 8-10 ity of tablet 00:00: [address] topiramate Yes [facility] 25 mg 8-10 ity of tablet 00:00: [address] topiramate Yes Univers 25 mg 8-10 ity of tablet 00:00: [address] topiramate Yes [facility] 25 mg 8-10 ity of tablet 00:00: [facility] topiramate Yes Univers 25 mg 8-10 ity of tablet 00:00: [facility] topiramate Yes Univers 25 mg 8-10 ity of tablet 00:00: [facility] topiramate Yes Univers 25 mg 8-10 ity of tablet 00:00: [facility] topiramate Yes [facility] 25 mg 8-10 ity of tablet 00:00: [facility] topiramate Yes [facility] 25 mg 8-10 ity of tablet 00:00: [facility] topiramate Yes Univers 25 mg 8-10 ity of tablet 00:00: [facility] topiramate Yes [facility] 25 mg 8-10 ity of tablet 00:00: [place] [facility] topiramate 2022- No 25mg Q.5D Take 1 Meth anne (Topamax) 8-10 08-11 tablet (25 st 25 MG 00:00: 04:59 mg total) Hospit a tablet 00 :00 by mouth 2 l (two) times a day. topiramate 2021- No Univer s 25 mg 8-10 12-08 ity of tablet 00:00: 00:00 [place] 00 : [facility] topiramate 2021- No Univer s 25 mg 8-10 12-08 ity of tablet 00:00: 00:00 [place] 00 :[address] [facility] loratadine 2021- No TAKE 1 Meth anne (CLARITIN) -26 10-[address] 10 mg 00:00: 00:00 EVERY Hospita tablet 00 :00 MORNING l (NEED APPOINTMEN T FOR FURTHER REFILL) telmisartan Yes [id number] TAKE 1 [facility] (MICARDIS) 7-12 TABLET(80 st 80 MG 00:00: MG) BY Hospita tablet 00 MOUTH l DAILY telmisartan 2021- No [id number] 80mg QD Take 1 [facility] (MICARDIS) 7-11 10-20 tablet (80 st 80 MG 00:00: 00:00 mg total) Hospit a tablet 00 :00 by mouth l daily. telmisartan 2021- No [id number] 80mg QD Take 1 [facility] (MICARDIS) 11-01- tablet (80 st 80 MG 00:00: 00:00 mg total) Hospit a tablet 00 :00 by mouth l daily. Micardis 80 2021-0 Yes 80mg QD Take 1 [facility] anne mg tablet - tablet (80 st 00:00: mg total) Hospita 00 by mouth l daily. Patient will need appointmen t for future refills. Micardis 80 2021-2021- No 80mg QD Take 1 [facility] mg tablet 10-29- tablet (80 st 00:00: 00:00 mg total) Hospita 00 :00 by mouth l daily. Patient will need appointmen t for future refills. pantoprazol Yes 40mg Q.5D Take 1 Meth anne e 5-02 tablet (40 st (PROTONIX) 00:00: mg total) Ho spita 40 MG EC 00 by mouth 2 l tablet (two) times a day for 90 days. apixaban 2021- No 2.5mg Q.5D Take 2.5 [facility] (ELIQUIS) 4-26 04-[address] 2.5 mg 16:43: 00:00 mouth 2 Hospita tablet 01 :00 (two) l times a day. apixaban 2021- No 2.5mg Q.5D Take 1 [facility]o di (ELIQUIS) 4-26 05-[address] 2.5 mg 00:00: 04:59 (2.5 mg Hospita tablet 00 :00 total) by l mouth 2 (two) times a day for 30 days. pantoprazol 2021-2021- No 40mg Q.5D Take 1 Met hodi e 4-26 05-02 tablet (40 st (PROTONIX) 00:00: 00:00 mg total) H ospita 40 MG EC 00 :00 by mouth 2 l tablet (two) times a day for 30 days. methylPREDN 2021- No [id number] 40mg M ethodi ISolone 08-12 04- st acetate 19:45: 19:46 Hospita (DEPO-MEDRO 00 :00 l L) injection 40 mg phenylephri 2021-0 2022- No Take by Me fadyanne archie-DM-olman 4-21 04-[address] enesin 13:33: 00:00 Hospita (Child 12 :00 l Mucinex Cough-Conge st) 2.5-5-100 mg/5 mL liquid fluticasone 2021-0 Yes 1{puff} Q.5D Inhale 1 [facility] propion-fernie 4-[address] meteroL 00:00: (two) Hospita (Advair 00 times a l Diskus) day. 250-50 mcg/dose DISKUS fluticasone 2021-0 Yes 1{puff} Inhale 1 [facility] propion-fernie 4-21 Puff. ity of meteroL 00:00: [place] 250-50 00 Medical mcg/dose Branch inhalation disk fluticasone 2021-0 Yes 1{puff} Inhale 1 [facility] propion-fernie 4-21 Puff. ity of meteroL 00:00: [place] 250-50 00 Medical mcg/dose Branch inhalation disk fluticasone 2021-0 Yes 1{puff} Inhale 1 [facility] propion-fernie 4-21 Puff. ity of meteroL 00:00: [place] 250-50 00 Medical mcg/dose Branch inhalation disk fluticasone 2021-0 Yes 1{puff} Inhale 1 [facility] propion-fernie 4-21 Puff. ity of meteroL 00:00: [place] 250-50 00 Medical mcg/dose Branch inhalation disk fluticasone 2021-0 Yes 1{puff} Inhale 1 [facility] propion-fernie 4-21 Puff. ity of meteroL 00:00: [place] 250-50 00 Medical mcg/dose Branch inhalation disk fluticasone 2021-0 2022- No 1{puff} Inhale 1 [facility] propion-fernie 4-21 11-07 Puff. ity of meteroL 00:00: 00:00 [place] 250-50 00 :00 Medical mcg/dose Branch inhalation disk fluticasone 2-0 2022- No 1{puff} Inhale 1 [facility] propion-fernie 4-21 11-07 Puff. ity of meteroL 00:00: 00:00 [place] 250-50 00 :00 Medical mcg/dose Branch inhalation disk fluticasone 2021- No 1{puff} Inhale 1 [facility] propion-fernie 08-12 11-07 Puff. ity of meteroL 00:00: 00:00 [place] 250-50 00 :00 Medical mcg/dose Branch inhalation disk cefuroxime 2021- No 250mg Q.5D Take 1 [facility] (CEFTIN) 08-12-[address] 250 MG 00:00: 04:59 (250 mg Hospita tablet 00 :00 total) by l mouth 2 (two) times a day for 10 days. loratadine 2021- No TAKE 1 [facility] (CLARITIN) 05-28- TABLET st 10 mg 00:00: 00:00 EVERY Hospita tablet 00 :00 MORNING l (NEED APPOINTMEN T FOR FURTHER REFILL) ALPRAZolam 2020-04 Yes .25mg Take 0.25 U nivers (XANAX) 1-19 mg by ity of 0.25 mg 18:59: mouth 3 [place] tablet 20 (three) Medical times Branch daily. ibuprofen 2020-04 Yes 800mg Take 800 Uni vers (MOTRIN) 1-19 mg by ity of 800 mg 18:59: mouth 3 [place] tablet 20 (three) Medical times Branch daily [...] ity of 800 mg 18:59: mouth 3 [place] tablet 20 (three) Medical times Branch daily [...] ity of 800 mg 18:59: mouth 3 [place] tablet 20 (three) Medical times Branch daily [...] ity of 800 mg 18:59: mouth 3 [place] tablet 20 (three) Medical times Branch daily [...] ity of 800 mg 18:59: mouth 3 [place] tablet 20 (three) Medical times Branch daily with meals. Cholecalcif 2020-04 Yes 5000U Take 5,000 [facility] stephon, 1-19 Units by ity of Vitamin D3, 18:59: mouth. [place] 125 mcg 20 Medical (5,000 Branch unit) capsule Cholecalcif 2020-04 Yes 5000U Take 5,000 [facility] stephon, 1-19 Units by ity of Vitamin D3, 18:59: mouth. [place] 125 mcg 20 Medical (5,000 Branch unit) capsule Cholecalcif 2020-04 Yes 5000U Take 5,000 [facility] stephon, 1-19 Units by ity of Vitamin D3, 18:59: mouth. [place] 125 mcg 20 Medical (5,000 Branch unit) capsule Cholecalcif 2020-04 Yes 5000U Take 5,000 Univers [...] ity of 800 mg 18:59: mouth 3 [place] tablet 20 (three) Medical times Branch daily with meals. Cholecalcif 2020-04 Yes 5000U Take 5,000 [facility] stephon, 1-19 Units by ity of Vitamin D3, 18:59: mouth. [place] 125 mcg 20 Medical (5,000 Branch unit) capsule Cholecalcif 2020-04 Yes 5000U Take 5,000 [facility] stephon, 1-19 Units by ity of Vitamin D3, 18:59: mouth. [place] 125 mcg 20 Medical (5,000 Branch unit) capsule Cholecalcif 2020-04 Yes 5000U Take 5,000 [facility] stephon, 1-19 Units by ity of Vitamin D3, 18:59: mouth. [place] 125 mcg 20 Medical (5,000 Branch unit) capsule Cholecalcif 2020-04 Yes 5000U Take 5,000 [facility] stephon, 1-19 Units by ity of Vitamin D3, 18:59: mouth. [place] 125 mcg 20 Medical (5,000 Branch unit) capsule Cholecalcif 2020-04 Yes 5000U Take 5,000 [facility] stephon, 1-19 Units by ity of Vitamin D3, 18:59: mouth. [place] 125 mcg 20 Medical (5,000 Branch unit) capsule Cholecalcif 2020-04 Yes 5000U Take 5,000 Univers [...] ity of 800 mg 18:59: mouth 3 [place] tablet 20 (three) Medical times Branch daily [...] ity of 800 mg 18:59: mouth 3 [place] tablet 20 (three) Medical times Branch daily with meals. Cholecalcif 2020-04 Yes 5000U Take 5,000 [facility] stephon, 1-19 Units by ity of Vitamin D3, 18:59: mouth. [place] 125 mcg 20 Medical (5,000 Branch unit) capsule apixaban 2020-04 Yes 2.5mg Take 2.5 Univ ers 2.5 mg 1-19 mg by ity of tablet 18:58: mouth. [address] apixaban 2020-04 Yes 2.5mg Take 2.5 Univ ers 2.5 mg 1-19 mg by ity of tablet 18:58: mouth. [address] apixaban 2020-04 Yes 2.5mg Take 2.5 Univ ers 2.5 mg 1-19 mg by ity of tablet 18:58: mouth. [address] apixaban 2020-04 Yes 2.5mg Take 2.5 Univ ers 2.5 mg 1-19 mg by ity of tablet 18:58: mouth. [address] apixaban 2020-04 Yes 2.5mg Take 2.5 Univ ers 2.5 mg 1-19 mg by ity of tablet 18:58: mouth. [address] apixaban 2020-04 Yes 2.5mg Take 2.5 Univ ers 2.5 mg 1-19 mg by ity of tablet 18:58: mouth. [address] apixaban 2020-04 Yes 2.5mg Take 2.5 Univ ers 2.5 mg 1-19 mg by ity of tablet 18:58: mouth. [address] apixaban 2020-04 Yes 2.5mg Take 2.5 Univ ers 2.5 mg 1-19 mg by ity of tablet 18:58: mouth. [address] amLODIPine 2020-04 Yes 10mg Take 10 mg U nivers 10 mg 1-19 by mouth. ity of tablet 18:57: [address] amLODIPine 2020-04 Yes 10mg Take 10 mg U nivers 10 mg 1-19 by mouth. ity of tablet 18:57: [address] amLODIPine 2020-04 Yes 10mg Take 10 mg U nivers 10 mg 1-19 by mouth. ity of tablet 18:57: [address] amLODIPine 2020-04 Yes 10mg Take 10 mg U nivers 10 mg 1-19 by mouth. ity of tablet 18:57: [address] amLODIPine 2020-04 Yes 10mg Take 10 mg U nivers 10 mg 1-19 by mouth. ity of tablet 18:57: [address] amLODIPine 2020-04 Yes 10mg Take 10 mg U nivers 10 mg 1-19 by mouth. ity of tablet 18:57: [address] amLODIPine 2020-04 Yes 10mg Take 10 mg U nivers 10 mg 1-19 by mouth. ity of tablet 18:57: [address] amLODIPine 2020-04 Yes 10mg Take 10 mg U nivers 10 mg 1-19 by mouth. ity of tablet 18:57: [address] amLODIPine 2020-04 Yes 10mg Take 10 mg U nivers 10 mg 1-19 by mouth. ity of tablet 18:57: [address] amLODIPine 2020-04 Yes 10mg Take 10 mg U nivers 10 mg 1-19 by mouth. ity of tablet 18:57: [address] amLODIPine 2020-04 Yes 10mg Take 10 mg U nivers 10 mg 1-19 by mouth. ity of tablet 18:57: [address] amLODIPine 2020-04 Yes 10mg Take 10 mg U nivers 10 mg 1-19 by mouth. ity of tablet 18:57: [address] amLODIPine 2020-04 Yes 10mg Take 10 mg U nivers 10 mg 1-19 by mouth. ity of tablet 18:57: [address] amLODIPine 2020-04 Yes 10mg Take 10 mg U nivers 10 mg 1-19 by mouth. ity of tablet 18:57: [address] amLODIPine 2020-04 Yes 10mg Take 10 mg U nivers 10 mg 1-19 by mouth. ity of tablet 18:57: [address] amLODIPine 2020-04 Yes 10mg Take 10 mg U nivers 10 mg 1-19 by mouth. ity of tablet 18:57: [address] levalbutero 2020-04 Yes [id number] 1{puff} Inhale 1-2 Univers l 45 1-19 Puffs ity of mcg/actuati 00:00: every 4 [place] on inhaler 00 (four) Medical hours as Branch needed for Wheezing. levalbutero 2020-04 Yes [id number] 1{puff} Inhale 1-2 Univers l 45 1-19 Puffs ity of mcg/actuati 00:00: every 4 [place] on inhaler 00 (four) Medical hours as Branch needed for Wheezing. levalbutero 2020-04 Yes [id number] 1{puff} Inhale 1-2 Univers l 45 1-19 Puffs ity of mcg/actuati 00:00: every 4 [place] on inhaler 00 (four) Medical hours as Branch needed for Wheezing. levalbutero 2020-04 Yes [id number] 1{puff} Inhale 1-2 Univers l 45 1-19 Puffs ity of mcg/actuati 00:00: every 4 [place] on inhaler 00 (four) Medical hours as Branch needed for Wheezing. levalbutero 2020-04 Yes [id number] 1{puff} Inhale 1-2 Univers l 45 1-19 Puffs ity of mcg/actuati 00:00: every 4 [place] on inhaler 00 (four) Medical hours as Branch needed for Wheezing. levalbutero 2020-04 Yes [id number] 1{puff} Inhale 1-2 Univers l 45 1-19 Puffs ity of mcg/actuati 00:00: every 4 [place] on inhaler 00 (four) Medical hours as Branch needed for Wheezing. levalbutero 2020-04 Yes [id number] 1{puff} Inhale 1-2 Univers l 45 1-19 Puffs ity of mcg/actuati 00:00: every 4 [place] on inhaler 00 (four) Medical hours as Branch needed for Wheezing. levalbutero 2020-04 Yes [id number] 1{puff} Inhale 1-2 Univers l 45 1-19 Puffs ity of mcg/actuati 00:00: every 4 [place] on inhaler 00 (four) Medical hours as Branch needed for Wheezing. levalbutero 2020-04 Yes [id number] 1{puff} Inhale 1-2 Univers l 45 1-19 Puffs ity of mcg/actuati 00:00: every 4 [place] on inhaler 00 (four) Medical hours as Branch needed for Wheezing. levalbutero 2020-04 Yes [id number] 1{puff} Inhale 1-2 Univers l 45 1-19 Puffs ity of mcg/actuati 00:00: every 4 [place] on inhaler 00 (four) Medical hours as Branch needed for Wheezing. levalbutero 2020-04 Yes [id number] 1{puff} Inhale 1-2 [facility] l 45 1-19 Puffs ity of mcg/actuati 00:00: every 4 [place] on inhaler 00 (four) Medical hours as Branch needed for Wheezing. levalbutero 2020-04 Yes [id number] 1{puff} Inhale 1-2 [facility] l 45 1-19 Puffs ity of mcg/actuati 00:00: every 4 [place] on inhaler 00 (four) Medical hours as Branch needed for Wheezing. levalbutero 2020-04 Yes [id number] 1{puff} Inhale 1-2 [facility] l 45 1-19 Puffs ity of mcg/actuati 00:00: every 4 [place] on inhaler 00 (four) Medical hours as Branch needed for Wheezing. levalbutero 2020-04 Yes [id number] 1{puff} Inhale 1-2 [facility] l 45 1-19 Puffs ity of mcg/actuati 00:00: every 4 [place] on inhaler 00 (four) Medical hours as Branch needed for Wheezing. levalbutero 2020-04 Yes [id number] 1{puff} Inhale 1-2 [facility] l 45 1-19 Puffs ity of mcg/actuati 00:00: every 4 [place] on inhaler 00 (four) Medical hours as Branch needed for Wheezing. levalbutero 2020-04 Yes [id number] 1{puff} Inhale 1-2 [facility] l 45 1-19 Puffs ity of mcg/actuati 00:00: every 4 [place] on inhaler 00 (four) Medical hours as Branch needed for Wheezing. levalbutero 2020-04- No [id number] 1{puff} Inhale 1-2 [facility] l 45 1-19 12-08 Puffs ity of mcg/actuati 00:00: 00:00 every 4 [place] inhaler 00 :00 (four) Medical hours as Branch needed for Wheezing. levalbutero 2020-04- No [id number] 1{puff} Inhale 1-2 Univers l 45 1-19 12-08 Puffs ity of mcg/actuati 00:00: 00:00 every 4 [place] inhaler 00 :00 (four) Medical hours as Branch needed for Wheezing. benzonatate 2020-04- No [id number] 100mg Take 1 Univers (TESSALON 1-19 11-30 capsule by [place]) 100 00:00: 05:59 [place] mg capsule 00 :00 every 8 Medica l (eight) Branch hours for 10 days. benzonatate 2020-04- No [id number] 100mg Take 1 [facility] (TESSALON 1-19 11-30 capsule by [place]) 100 00:00: 05:59 [place] mg capsule 00 :00 every 8 Medica l (eight) Branch hours for 10 days. Micardis 80 2020-04- No 80mg QD Take 1 [facility] mg tablet 04-28 07-08 tablet (80 st 00:00: 00:00 mg total) [facility]osp[facility] 00 :00 by mouth l daily. Patient will need appointmen t for future refills. pantoprazol 2020-04 Yes Take by Uni vers e 40 mg EC 0-12 mouth 2 ity of tablet 00:00: (two) [place] 00 times Medical daily. Branch pantoprazol 2020- Yes Take by Uni vers e 40 mg EC 0-12 mouth 2 ity of tablet 00:00: (two) [place] 00 times Medical daily. Branch pantoprazol 2020- Yes Take by Uni vers e 40 mg EC 0-12 mouth 2 ity of tablet 00:00: (two) [place] 00 times Medical daily. Branch pantoprazol 2020- Yes Take by Uni vers e 40 mg EC 0-12 mouth 2 ity of tablet 00:00: (two) [place] 00 times Medical daily. Branch pantoprazol 2020- Yes Take by Uni vers e 40 mg EC 0-12 mouth 2 ity of tablet 00:00: (two) [place] 00 times Medical daily. Branch pantoprazol 2020- Yes Take by Uni vers e 40 mg EC 0-12 mouth 2 ity of tablet 00:00: (two) [place] 00 times Medical daily. Branch pantoprazol 2020- Yes Take by Uni vers e 40 mg EC 0-12 mouth 2 ity of tablet 00:00: (two) [place] 00 times Medical daily. Branch pantoprazol 2020- Yes Take by Uni vers e 40 mg EC 0-12 mouth 2 ity of tablet 00:00: (two) [place] 00 times Medical daily. Branch pantoprazol 2020-1 Yes Take by Uni vers e 40 mg EC 0-12 mouth 2 ity of tablet 00:00: (two) [place] 00 times Medical daily. Branch pantoprazol 2020- Yes Take by Uni vers e 40 mg EC 0-12 mouth 2 ity of tablet 00:00: (two) [place] 00 times Medical daily. Branch pantoprazol 2020- Yes Take by Uni vers e 40 mg EC 0-12 mouth 2 ity of tablet 00:00: (two) [place] 00 times Medical daily. Branch pantoprazol 2020-1 Yes Take by Uni vers e 40 mg EC 0-12 mouth 2 ity of tablet 00:00: (two) [place] 00 times Medical daily. Branch pantoprazol 2020-1 Yes Take by Uni vers e 40 mg EC 0-12 mouth 2 ity of tablet 00:00: (two) [place] 00 times Medical daily. Branch pantoprazol 2020-1 Yes Take by Uni vers e 40 mg EC 0-12 mouth 2 ity of tablet 00:00: (two) [place] 00 times Medical daily. Branch pantoprazol 2020-04 Yes Take by Uni vers e 40 mg EC 0-12 mouth 2 ity of tablet 00:00: (two) [place] 00 times Medical daily. Branch pantoprazol 2020-04 Yes Take by Uni vers e 40 mg EC 0-12 mouth 2 ity of tablet 00:00: (two) [place] 00 times Medical daily. Branch pantoprazol 2020-04- No Take by Un anthony e 40 mg EC 0-12 12-08 mouth 2 ity o f tablet 00:00: 00:00 (two) [place] 00 :00 times Medical daily. Branch pantoprazol 2020-04- No Take by Un anthony e 40 mg EC 0-12 12-08 mouth 2 ity o f tablet 00:00: 00:00 (two) [place] 00 :00 times Medical daily. Branch pantoprazol 2020-04- No TAKE 1 Met hodi e 012 04-[address] (PROTONIX) 00:00: 00:00 TWICE A Hos pamela 40 MG EC 00 :00 DAY l tablet loratadine 2021- No TAKE 1 Meth anne (CLARITIN) 8-10 02-[address] 10 mg 00:00: 00:00 EVERY Hospita tablet 00 :00 MORNING l (NEED APPOINTMEN T FOR FURTHER REFILL) ID NOW Yes TEST [facility] COVID-19 7-[address] Test Kit 00:00: Hospita kit 00 l buPROPion 2021- No [facility] (WELLBUTRIN 10-14 04- st ) 75 MG 00:00: 00:00 Hospita tablet 00 :00 l cyanocobala Yes 500ug QD Take 500 M ethodi min, 6-[address] vitamin 00:00: mouth Hospita B-12, 500 00 daily. l mcg lozenge Synthroid 2021- No 150ug QD Take 150 Me [facility]odi 150 mcg 3-25 08-[address] tablet 00:00: 00:00 mouth Hospita 00 :00 every l morning. furosemide Yes TAKE 1 Metho di (LASIX) 40 6-[address] mg tablet 00:00: MOUTH Hospita 00 DAILY l NEEDED FOR LEG SWELLING(F LUID RETENTION) chlorphenir 2012-04 Yes [id number] 5mL Take 5 mL Univers amine-hydro 2-09 by mouth ity of codone 00:00: every 12 [place] () () Medi adalberto 8-10 mg/5 hours as Branch mL needed for suspension Cough. chlorphenir 2012-04 Yes [id number] 5mL Take 5 mL [facility] amine-hydro 2-09 by mouth ity of codone 00:00: every 12 [place] () () Medi adalberto 8-10 mg/5 hours as Branch mL needed for suspension Cough. chlorphenir 2012-04 Yes [id number] 5mL Take 5 mL [facility] amine-hydro 2-09 by mouth ity of codone 00:00: every 12 [place] () () Medi adalberto 8-10 mg/5 hours as Branch mL needed for suspension Cough. chlorphenir 2012-04 Yes [id number] 5mL Take 5 mL [facility] amine-hydro 2-09 by mouth ity of codone 00:00: every 12 [place] () () Medi adalberto 8-10 mg/5 hours as Branch mL needed for suspension Cough. chlorphenir 2012-04 Yes [id number] 5mL Take 5 mL Univers amine-hydro 2-09 by mouth ity of codone 00:00: every 12 [place] () (twelve) Medi adalberto 8-10 mg/5 hours as Branch mL needed for suspension Cough. chlorphenir 2012-04 Yes [id number] 5mL Take 5 mL Univers amine-hydro 2-09 by mouth ity of codone 00:00: every 12 [place] () (twelve) Medi adalberto 8-10 mg/5 hours as Branch mL needed for suspension Cough. chlorphenir 2012-04 Yes [id number] 5mL Take 5 mL Univers amine-hydro 2-09 by mouth ity of codone 00:00: every 12 [place] () (twelve) Medi adalberto 8-10 mg/5 hours as Branch mL needed for suspension Cough. chlorphenir 2012-04 Yes [id number] 5mL Take 5 mL Univers amine-hydro 2-09 by mouth ity of codone 00:00: every 12 [place] (TUSSIONEX) 00 (twelve) Medi adalberto 8-10 mg/5 hours as Branch mL needed for suspension Cough. chlorphenir 2012-04- No [id number] 5mL Take 5 mL Univers amine-hydro 06-02 by mouth ity of codone 00:00: 00:00 every 12 [place] (TUSSIONEX) 00 :00 (twelve) Medi adalberto 8-10 mg/5 hours as Branch mL needed for suspension Cough. chlorphenir 2012-04- No [id number] 5mL Take 5 mL Univers amine-hydro 06-02 by mouth ity of codone 00:00: 00:00 every 12 [place] (TUSSIONEX) 00 :00 (twelve) Medi adalberto 8-10 mg/5 hours as Branch mL needed for suspension Cough. chlorphenir 2012-04- No [id number] 5mL Take 5 mL Univers amine-hydro 06-02 by mouth ity of codone 00:00: 00:00 every 12 [place] (TUSSIONEX) 00 :00 (twelve) Medi adalberto 8-10 mg/5 hours as Branch mL needed for suspension Cough. loratadine 2012-04 Yes 10mg Take 1 Tab U nivers (CLARITIN) 0-18 by mouth ity o f 10 mg 00:00: daily. [place] tablet [facility] Branch loratadine 2012-04 Yes 10mg Take 1 Tab U nivers (CLARITIN) 0-18 by mouth ity o f 10 mg 00:00: daily. [place] tablet [facility] Branch loratadine 2012-04 Yes 10mg Take 1 Tab U nivers (CLARITIN) 0-18 by mouth ity o f 10 mg 00:00: daily. [place] tablet [facility] Branch loratadine 2012-04 Yes 10mg Take 1 Tab U nivers (CLARITIN) 0-18 by mouth ity o f 10 mg 00:00: daily. [place] tablet Medical Branch loratadine 2012-04 Yes 10mg Take 1 Tab U nivers (CLARITIN) 0-18 by mouth ity o f 10 mg 00:00: daily. [place] tablet 00 [facility] Branch loratadine 2012-04 Yes 10mg Take 1 Tab U nivers (CLARITIN) 0-18 by mouth ity o f 10 mg 00:00: daily. [place] tablet [facility] Branch loratadine 2012-04 Yes 10mg Take 1 Tab U nivers (CLARITIN) 0-18 by mouth ity o f 10 mg 00:00: daily. [place] tablet [facility] loratadine 2012-04 Yes 10mg Take 1 Tab U nivers (CLARITIN) 0-18 by mouth ity o f 10 mg 00:00: daily. [place] tablet [facility] loratadine 2012-04 Yes 10mg Take 1 Tab U nivers (CLARITIN) 0-18 by mouth ity o f 10 mg 00:00: daily. [place] tablet [facility] loratadine 2012-04 Yes 10mg Take 1 Tab U nivers (CLARITIN) 0-18 by mouth ity o f 10 mg 00:00: daily. [place] tablet [facility] loratadine 2012-04 Yes 10mg Take 1 Tab U nivers (CLARITIN) 0-18 by mouth ity o f 10 mg 00:00: daily. [place] tablet [facility] loratadine 2012-04 Yes 10mg Take 1 Tab U nivers (CLARITIN) 0-18 by mouth ity o f 10 mg 00:00: daily. [place] tablet [facility] loratadine 2012-04 Yes 10mg Take 1 Tab U nivers (CLARITIN) 0-18 by mouth ity o f 10 mg 00:00: daily. [place] tablet [facility] loratadine 2012-04 Yes 10mg Take 1 Tab U nivers (CLARITIN) 0-18 by mouth ity o f 10 mg 00:00: daily. [place] tablet [facility] loratadine 2012-04 Yes 10mg Take 1 Tab U nivers (CLARITIN) 0-18 by mouth ity o f 10 mg 00:00: daily. [place] tablet [facility] loratadine 2012-04 Yes 10mg Take 1 Tab U nivers (CLARITIN) 0-18 by mouth ity o f 10 mg 00:00: daily. [place] tablet [facility] loratadine 2012-04- No 10mg Take 1 Tab Univers (CLARITIN) 0-18 12-08 by mouth ity of 10 mg 00:00: 00:00 daily. [place] tablet 00 :[address] [facility] loratadine 2012-04- No 10mg Take 1 Tab Univers (CLARITIN) 0-18 12-08 by mouth ity of 10 mg 00:00: 00:00 daily. [place] tablet 00 :[address] [facility] furosemide Yes [id number] 40mg Take 1 Tab Univers (LASIX) 40 8-22 by mouth ity o f mg tablet 00:00: daily. [place] [facility] telmisartan Yes [id number] 80mg Take 1 Tab Univers (MICARDIS) 8-22 by mouth ity o f 80 mg 00:00: daily. [place] tablet Medical [place] potassium Yes [id number] 10meq Take 1 Tab Univers chloride 8-22 by mouth ity of (K-DUR) 10 00:00: daily. [place] mEq CR Medical tablet Branch furosemide Yes [id number] 40mg Take 1 Tab Univers (LASIX) 40 8-22 by mouth ity o f mg tablet 00:00: daily. [place] [facility] telmisartan Yes [id number] 80mg Take 1 Tab Univers (MICARDIS) 8-22 by mouth ity o f 80 mg 00:00: daily. [place] tablet [facility] potassium Yes [id number] 10meq Take 1 Tab Univers chloride 8-22 by mouth ity of (K-DUR) 10 00:00: daily. [place] mEq CR Medical tablet Branch furosemide Yes [id number] 40mg Take 1 Tab Univers (LASIX) 40 8-22 by mouth ity o f mg tablet 00:00: daily. [address] telmisartan Yes [id number] 80mg Take 1 Tab Univers (MICARDIS) 8-22 by mouth ity o f 80 mg 00:00: daily. [place] tablet [facility] potassium Yes [id number] 10meq Take 1 Tab Univers chloride 8-22 by mouth ity of (K-DUR) 10 00:00: daily. [place] mEq CR Medical tablet Branch furosemide Yes [id number] 40mg Take 1 Tab Univers (LASIX) 40 8-22 by mouth ity o f mg tablet 00:00: daily. [address] telmisartan Yes [id number] 80mg Take 1 Tab Univers (MICARDIS) 8-22 by mouth ity o f 80 mg 00:00: daily. [place] tablet 00 Medical [place] potassium Yes [id number] 10meq Take 1 Tab Univers chloride 8-22 by mouth ity of (K-DUR) 10 00:00: daily. [place] mEq CR Medical tablet Branch furosemide Yes [id number] 40mg Take 1 Tab Univers (LASIX) 40 8-22 by mouth ity o f mg tablet 00:00: daily. [facility] telmisartan Yes [id number] 80mg Take 1 Tab Univers (MICARDIS) 8-22 by mouth ity o f 80 mg 00:00: daily. [place] tablet [facility] potassium Yes [id number] 10meq Take 1 Tab Univers chloride 8-22 by mouth ity of (K-DUR) 10 00:00: daily. [place] mEq CR Medical tablet [place] telmisartan Yes [id number] 80mg Take 1 Tab Univers (MICARDIS) 8-22 by mouth ity o f 80 mg 00:00: daily. [place] tablet [facility] telmisartan Yes [id number] 80mg Take 1 Tab Univers (MICARDIS) 8-22 by mouth ity o f 80 mg 00:00: daily. [place] tablet [facility] telmisartan Yes [id number] 80mg Take 1 Tab Univers (MICARDIS) 8-22 by mouth ity o f 80 mg 00:00: daily. [place] tablet [facility] telmisartan Yes [id number] 80mg Take 1 Tab Univers (MICARDIS) 8-22 by mouth ity o f 80 mg 00:00: daily. [place] tablet [facility] furosemide Yes [id number] 40mg Take 1 Tab Univers (LASIX) 40 8-22 by mouth ity o f mg tablet 00:00: daily. [facility] telmisartan Yes [id number] 80mg Take 1 Tab Univers (MICARDIS) 8-22 by mouth ity o f 80 mg 00:00: daily. [place] tablet [facility] telmisartan Yes [id number] 80mg Take 1 Tab Univers (MICARDIS) 8-22 by mouth ity o f 80 mg 00:00: daily. [place] tablet [address] [facility] potassium Yes [id number] 10meq Take 1 Tab Univers chloride 8-22 by mouth ity of (K-DUR) 10 00:00: daily. [place] mEq CR Medical tablet Branch telmisartan Yes [id number] 80mg Take 1 Tab Univers (MICARDIS) 8-22 by mouth ity o f 80 mg 00:00: daily. [place] tablet Medical [place] telmisartan Yes [id number] 80mg Take 1 Tab Univers (MICARDIS) 8-22 by mouth ity o f 80 mg 00:00: daily. [place] tablet Medical [place] telmisartan Yes [id number] 80mg Take 1 Tab Univers (MICARDIS) 8-22 by mouth ity o f 80 mg 00:00: daily. [place] tablet Medical [place] furosemide Yes [id number] 40mg Take 1 Tab Univers (LASIX) 40 8-22 by mouth ity o f mg tablet 00:00: daily. [facility] telmisartan Yes [id number] 80mg Take 1 Tab Univers (MICARDIS) 8-22 by mouth ity o f 80 mg 00:00: daily. [place] tablet [facility] potassium Yes [id number] 10meq Take 1 Tab Univers chloride 8-22 by mouth ity of (K-DUR) 10 00:00: daily. [place] mEq CR Medical [facility] Branch furosemide Yes [id number] 40mg Take 1 Tab Univers (LASIX) 40 8-22 by mouth ity o f mg tablet 00:00: daily. [facility] telmisartan Yes [id number] 80mg Take 1 Tab Univers (MICARDIS) 8-22 by mouth ity o f 80 mg 00:00: daily. [place] tablet Medical [place] potassium Yes [id number] 10meq Take 1 Tab Univers chloride 8-22 by mouth ity of (K-DUR) 10 00:00: daily. [place] mEq CR 00 Medical [facility] Branch telmisartan 2021- No [id number] 80mg Take 1 Tab Univers (MICARDIS) 8-22 12-08 by mouth ity of 80 mg 00:00: 00:00 daily. [place] tablet 00 :00 Medical [place] telmisartan 2021- No [id number] 80mg Take 1 Tab Univers (MICARDIS) 8-22 12-08 by mouth ity of 80 mg 00:00: 00:00 daily. [place] tablet 00 :[address] [facility] furosemide 2021- No [id number] 40mg Take 1 Tab Univers (LASIX) 40 12-13-07 by mouth ity of mg tablet 00:00: 00:00 daily. [place] 00 :00 Medical [place] potassium 2021- No [id number] 10meq Take 1 Tab Univers chloride 12-13-07 by mouth ity of (K-DUR) 10 00:00: 00:00 daily. [place] mEq CR 00 :00 Medical tablet Branch furosemide 2021- No [id number] 40mg Take 1 Tab Univers (LASIX) 40 12-13-07 by mouth ity of mg tablet 00:00: 00:00 daily. [place] 00 :[address] [facility] potassium 2021- No [id number] 10meq Take 1 Tab Univers chloride 12-13- by mouth ity of (K-DUR) 10 00:00: 00:00 daily. [place] mEq CR 00 :00 Medical [facility] Branch furosemide 2021- No [id number] 40mg Take 1 Tab Univers (LASIX) 40 12-13- by mouth ity of mg tablet 00:00: 00:00 daily. [place] 00 :[address] [facility] potassium 2021- No [id number] 10meq Take 1 Tab Univers chloride 12-13 by mouth ity of (K-DUR) 10 00:00: 00:00 [place]. [place] mEq CR 00 :00 [facility] Immunizations Ordered Filled Immunization Date Status Comments [facility] e Immunization Name Name Influenza Virus 2022-02-05 Completed Universit y of Vaccine Quad IM, 00:00:00 [facility] dical Preserv and ABX Branch Free 6 MO-64 YRS SARS-COV-2 COVID-19 2022-02-05 Completed Unive rsity of MERARY-SUCROSE 00:00:00 [place] Medica l VACCINE 12 YRS+, Branch BIVALENT 0.3ML, IM, (PFIZER BERNAL TOP BOOSTER) Influenza Virus 2022-02-05 Completed Universit y of Vaccine Quad IM, 00:00:00 [place] Me dical Preserv and ABX Branch Free 6 MO-64 YRS SARS-COV-2 COVID-19 2022-02-05 Completed Unive rsity of MERARY-SUCROSE 00:00:00 [place] Medica l VACCINE 12 YRS+, Branch BIVALENT 0.3ML, IM, (PFIZER BERNAL TOP BOOSTER) Influenza Virus 2022-02-05 Completed Universit y of Vaccine Quad IM, 00:00:00 [place] Me dical Preserv and ABX Branch Free 6 MO-64 YRS SARS-COV-2 COVID-19 2022-02-05 Completed Unive rsity of MERARY-SUCROSE 00:00:00 [place] Medica l VACCINE 12 YRS+, Branch BIVALENT 0.3ML, IM, (PFIZER BERNAL TOP BOOSTER) Influenza Virus 2022-02-05 Completed Universit y of Vaccine Quad IM, 00:00:00 [place] Me dical Preserv and ABX Branch Free 6 MO-64 YRS SARS-COV-2 COVID-19 2022-02-05 Completed Unive rsity of MERARY-SUCROSE 00:00:00 [place] Medica l VACCINE 12 YRS+, Branch BIVALENT 0.3ML, IM, (PFIZER BERNAL TOP BOOSTER) Influenza Virus 2022-02-05 Completed Universit y of Vaccine Quad IM, 00:00:00 [place] Me dical Preserv and ABX Branch Free 6 MO-64 YRS SARS-COV-2 COVID-19 2022-02-05 Completed Unive rsity of MERARY-SUCROSE 00:00:00 [place] Medica l VACCINE 12 YRS+, Branch BIVALENT 0.3ML, IM, (PFIZER BERNAL TOP BOOSTER) Influenza Virus 2022-02-05 Completed Universit y of Vaccine Quad IM, 00:00:00 [place] Me dical Preserv and ABX Branch Free 6 MO-64 YRS SARS-COV-2 COVID-19 2022-02-05 Completed Unive rsity of MERARY-SUCROSE 00:00:00 [place] Medica l VACCINE 12 YRS+, Branch BIVALENT 0.3ML, IM, (PFIZER BERNAL TOP BOOSTER) Influenza Virus 2022-02-05 Completed Universit y of Vaccine Quad IM, 00:00:00 [place] Me dical Preserv and ABX Branch Free 6 MO-64 YRS SARS-COV-2 COVID-19 2022-02-05 Completed Unive rsity of MERARY-SUCROSE 00:00:00 [place] Medica l VACCINE 12 YRS+, Branch BIVALENT 0.3ML, IM, (PFIZER BERNAL TOP BOOSTER) Influenza Virus 2022-02-05 Completed Universit y of Vaccine Quad IM, 00:00:00 [place] Me dical Preserv and ABX Branch Free 6 MO-64 YRS SARS-COV-2 COVID-19 2022-02-05 Completed Unive rsity of MERARY-SUCROSE 00:00:00 [place] Medica l VACCINE 12 YRS+, Branch BIVALENT 0.3ML, IM, (PFIZER BERNAL TOP BOOSTER) Influenza Virus 2022-02-05 Completed Universit y of Vaccine Quad IM, 00:00:00 [place] Me dical Preserv and ABX Branch Free 6 MO-64 YRS SARS-COV-2 COVID-19 2022-02-05 Completed Unive rsity of MERARY-SUCROSE 00:00:00 [place] Medica l VACCINE 12 YRS+, Branch BIVALENT 0.3ML, IM, (PFIZER BERNAL TOP BOOSTER) Influenza Virus 2022-02-05 Completed Universit y of Vaccine Quad IM, 00:00:00 [place] Me dical Preserv and ABX Branch Free 6 MO-64 YRS SARS-COV-2 COVID-19 2022-02-05 Completed Unive rsity of MERARY-SUCROSE 00:00:00 [place] Medica l VACCINE 12 YRS+, Branch BIVALENT 0.3ML, IM, (PFIZER BERNAL TOP BOOSTER) Influenza Virus 2022-02-05 Completed Universit y of Vaccine Quad IM, 00:00:00 [place] Me dical Preserv and ABX Branch Free 6 MO-64 YRS SARS-COV-2 COVID-19 2022-02-05 Completed Unive rsity of MERARY-SUCROSE 00:00:00 [place] Medica l VACCINE 12 YRS+, Branch BIVALENT 0.3ML, IM, (PFIZER BERNAL TOP BOOSTER) Influenza Virus 2022-02-05 Completed Universit y of Vaccine Quad IM, 00:00:00 [place] Me dical Preserv and ABX Branch Free 6 MO-64 YRS SARS-COV-2 COVID-19 2022-02-05 Completed Unive rsity of MERARY-SUCROSE 00:00:00 [place] Medica l VACCINE 12 YRS+, Branch BIVALENT 0.3ML, IM, (PFIZER BERNAL TOP BOOSTER) Influenza Virus 2022-02-05 Completed Universit y of Vaccine Quad IM, 00:00:00 [place] Me dical Preserv and ABX Branch Free 6 MO-64 YRS SARS-COV-2 COVID-19 2022-02-05 Completed Unive rsity of MERARY-SUCROSE 00:00:00 [place] Medica l VACCINE 12 YRS+, Branch BIVALENT 0.3ML, IM, (PFIZER BERNAL TOP BOOSTER) Influenza Virus 2022-02-05 Completed Universit y of Vaccine Quad IM, 00:00:00 [place] Me dical Preserv and ABX Branch Free 6 MO-64 YRS SARS-COV-2 COVID-19 2022-02-05 Completed Unive rsity of MERARY-SUCROSE 00:00:00 [place] Medica l VACCINE 12 YRS+, Branch BIVALENT 0.3ML, IM, (PFIZER BERNAL TOP BOOSTER) Influenza Virus 2022-02-05 Completed Universit y of Vaccine Quad IM, 00:00:00 [place] Me dical Preserv and ABX Branch Free 6 MO-64 YRS SARS-COV-2 COVID-19 2022-02-05 Completed Unive rsity of MERARY-SUCROSE 00:00:00 [place] Medica l VACCINE 12 YRS+, Branch BIVALENT 0.3ML, IM, (PFIZER BERNAL TOP BOOSTER) Influenza Virus 2022-02-05 Completed Universit y of Vaccine Quad IM, 00:00:00 [place] Me dical Preserv and ABX Branch Free 6 MO-64 YRS SARS-COV-2 COVID-19 2022-02-05 Completed Unive rsity of MERARY-SUCROSE 00:00:00 [place] Medica l VACCINE 12 YRS+, Branch BIVALENT 0.3ML, IM, (PFIZER BERNAL TOP BOOSTER) Influenza Virus 2022-02-05 Completed Universit y of Vaccine Quad IM, 00:00:00 [place] Me dical Preserv and ABX Branch Free 6 MO-64 YRS SARS-COV-2 COVID-19 2022-02-05 Completed Unive rsity of MERARY-SUCROSE 00:00:00 [place] Medica l VACCINE 12 YRS+, Branch BIVALENT 0.3ML, IM, (PFIZER BERNAL TOP BOOSTER) Influenza Virus 2022-02-05 Completed Universit y of Vaccine Quad IM, 00:00:00 [place] Me dical Preserv and ABX Branch Free 6 MO-64 YRS SARS-COV-2 COVID-19 2022-02-05 Completed Unive rsity of MERARY-SUCROSE 00:00:00 [place] Medica l VACCINE 12 YRS+, Branch BIVALENT 0.3ML, IM, (PFIZER BERNAL TOP BOOSTER) Influenza Virus 2022-02-05 Completed Universit y of Vaccine Quad IM, 00:00:00 [place] Me dical Preserv and ABX Branch Free 6 MO-64 YRS SARS-COV-2 COVID-19 2022-02-05 Completed Unive rsity of MERARY-SUCROSE 00:00:00 [place] Medica l VACCINE 12 YRS+, Branch BIVALENT 0.3ML, IM, (PFIZER BERNAL TOP BOOSTER) Influenza Virus 2022-02-05 Completed Universit y of Vaccine Quad IM, 00:00:00 [place] Me dical Preserv and ABX Branch Free 6 MO-64 YRS SARS-COV-2 COVID-19 2022-02-05 Completed Unive rsity of MERARY-SUCROSE 00:00:00 [place] Medica l VACCINE 12 YRS+, Branch BIVALENT 0.3ML, IM, (PFIZER BERNAL TOP BOOSTER) Influenza Virus 2022-02-05 Completed Universit y of Vaccine Quad IM, 00:00:00 [place] Me dical Preserv and ABX Branch Free 6 MO-64 YRS SARS-COV-2 COVID-19 2022-02-05 Completed Unive rsity of MERARY-SUCROSE 00:00:00 [place] Medica l VACCINE 12 YRS+, Branch BIVALENT 0.3ML, IM, (PFIZER BERNAL TOP BOOSTER) Influenza Virus 2022-02-05 Completed Universit y of Vaccine Quad IM, 00:00:00 [place] Me dical Preserv and ABX Branch Free 6 MO-64 YRS SARS-COV-2 COVID-19 2022-02-05 Completed Unive rsity of MERARY-SUCROSE 00:00:00 [place] Medica l VACCINE 12 YRS+, Branch BIVALENT 0.3ML, IM, (PFIZER BERNAL TOP BOOSTER) Influenza Virus 2022-02-05 Completed Universit y of Vaccine Quad IM, 00:00:00 [place] Me dical Preserv and ABX Branch Free 6 MO-64 YRS Influenza Virus 2022-02-05 Completed Universit y of Vaccine Quad IM, 00:00:00 [place] Me dical Preserv and ABX Branch Free 6 MO-64 YRS SARS-COV-2 COVID-19 2022-02-05 Completed Unive rsity of MERARY-SUCROSE 00:00:00 [place] Medica l VACCINE 12 YRS+, Branch BIVALENT 0.3ML, IM, (PFIZER BERNAL TOP BOOSTER) Influenza Virus 2022-02-05 Completed Universit y of Vaccine Quad IM, 00:00:00 [place] Me dical Preserv and ABX Branch Free 6 MO-64 YRS SARS-COV-2 COVID-19 2022-02-05 Completed Unive rsity of MERARY-SUCROSE 00:00:00 [place] Medica l VACCINE 12 YRS+, Branch BIVALENT 0.3ML, IM, (PFIZER BERNAL TOP BOOSTER) Influenza Virus 2022-02-05 Completed Universit y of Vaccine Quad IM, 00:00:00 [place] [facility] ABX Branch Free 6 MO-64 YRS SARS-COV-2 COVID-19 2022-02-05 Completed Unive rsity of MERARY-SUCROSE 00:00:00 [place] [facility] VACCINE 12 YRS+, Branch BIVALENT 0.3ML, IM, (PFIZER BERNAL TOP BOOSTER) PFIZER COVID-19 2021-02-15 Completed Hindu MRNA VACCINATION 00:00:00 [facility] Tdap 2021-01-13 Completed Hindu 00:00:00 [facility] FLUCELVAX QUAD PF 2021-01-[address] 00:00:00 [facility] PFIZER COVID-19 2020-06-02 Completed Hindu MRNA VACCINATION 00:00:00 [facility] PFIZER COVID-19 2020-05-12 Completed Hindu MRNA VACCINATION 00:00:00 [facility] FLUZONE HIGH-DOSE 2019-12-[address] PF 00:00:00 [facility] Tdap 2019-05-14 Completed Hindu 00:00:00 [facility] Zoster Vaccine 2019-03-09 Completed Hindu Recombinant 00:00:00 [facility] FLUZONE HIGH-DOSE 2019-03-[address] PF 00:00:00 [facility] FLUBLOK QUAD PF 2018-02-19 Completed Hindu 00:00:00 [facility] FLUZONE HIGH-DOSE 2016-02-[address] PF 00:00:00 [facility] Pneumococcal 2014-04-24 Completed Hindu Conjugate 00:00:00 [facility] Pneumococcal 2012-04-24 Completed Hindu Conjugate 13-Valent 00:00:00 [facility]pi [facility]atore Vital Signs Vital Name Observation Time Observation Value Comments Source Systolic blood 2022-05-26 18:46:00 155 mm[Hg] Univer sity of pressure [facility] Diastolic blood 2022-05-26 18:46:00 82 mm[Hg] Unive rsity of pressure [facility] Heart rate 2022-05-26 18:46:00 75 /min [facility] Body temperature 2022-05-26 18:46:00 36.89 Se[facility]ity [facility] [place] [facility] Respiratory rate 2022-05-26 18:46:00 18 /min [facility] [place] [facility] Body height 2022-05-26 18:46:00 162.6 cm [facility] [place] [facility] Body weight 2022-05-26 18:46:00 87.629 kg [facility] [place] [facility] BMI 2022-05-26 18:46:00 33.16 kg/m2 [facility] [place] [facility] Oxygen saturation in 2022-05-26 18:46:00 96 /min University of Arterial blood by [facility] Pulse oximetry Branch Systolic blood 2022-04-15 20:26:00 163 mm[Hg] Univer sity of pressure [facility] Diastolic blood 2022-04-15 20:26:00 81 mm[Hg] Unive rsity of pressure [facility] Heart rate 2022-04-15 20:25:00 92 /min [facility] [place] [facility] Body temperature 2022-04-15 20:25:00 37.5 [facility] [place] [facility] Body height 2022-04-15 20:25:00 162.6 cm [facility] [place] [facility] Body weight 2022-04-15 20:25:00 85.73 kg [facility] [place] [facility] BMI 2022-04-15 20:25:00 32.44 kg/m2 [facility] [place] [facility] Oxygen saturation in 2022-04-15 20:25:00 95 /min University of Arterial blood by [facility] Pulse oximetry Branch Systolic blood 2022-03-31 17:00:00 131 mm[Hg] Univer sity of pressure [facility] Diastolic blood 2022-03-31 17:00:00 81 mm[Hg] Unive rsity of pressure [facility] Heart rate 2022-03-31 17:00:00 72 /min [facility] [place] [facility] Body temperature 2022-03-31 17:00:00 36.89 [facility] [place] [facility] Body height 2022-03-31 17:00:00 162.6 cm [facility] [place] [facility] Body weight 2022-03-31 17:00:00 86.637 kg [facility] [place] [facility] BMI 2022-03-31 17:00:00 32.79 kg/m2 [facility] [place] [facility] Oxygen saturation in 2022-03-31 17:00:00 96 /min University of Arterial blood by [place] [facility] Pulse oximetry Branch Systolic blood 2022-02-28 14:36:00 135 mm[Hg] Univer sity of pressure [facility] Diastolic blood 2022-02-28 14:36:00 77 mm[Hg] Unive rsity of pressure [facility] Heart rate 2022-02-28 14:35:00 65 /min [facility] [place] [facility] Body temperature 2022-02-28 14:35:00 36.5 [facility] [place] [facility] Body height 2022-02-28 14:35:00 162.6 cm [facility] [place] [facility] Body weight 2022-02-28 14:35:00 86.183 kg [facility] [place] [facility] BMI 2022-02-28 14:35:00 32.61 kg/m2 [facility] [place] [facility] Oxygen saturation in 2022-02-28 14:35:00 97 /min University of Arterial blood by [facility] Pulse oximetry Branch Systolic blood 2022-01-17 16:25:00 148 mm[Hg] Univer sity of pressure [facility] Diastolic blood 2022-01-17 16:25:00 79 mm[Hg] Unive rsity of pressure [facility] Heart rate 2022-01-17 16:17:00 89 /min [facility] [place] [facility] Body temperature 2022-01-17 16:17:00 36.67 [facility] [place] [facility] Respiratory rate 2022-01-17 16:17:00 18 /min [facility] [place] [facility] Body height 2022-01-17 16:17:00 162.6 cm [facility] [place] [facility] Body weight 2022-01-17 16:17:00 86.229 kg [facility] [place] [facility] BMI 2022-01-17 16:17:00 32.63 kg/m2 [facility] [place] [facility] Oxygen saturation in 2022-01-17 16:17:00 97 /min University of Arterial blood by [place] [facility] Pulse oximetry Branch Systolic blood 2021-03-13 01:03:00 149 mm[Hg] Univer sity of pressure [facility] Diastolic blood 2021-03-13 01:03:00 88 mm[Hg] Unive rsity of [facility] Heart rate 2021-03-13 01:02:00 86 /min Universi ty [facility] Body temperature 2021-03-13 01:02:00 37.5 [facility] Respiratory rate 2021-03-13 01:02:00 21 /min [facility] Body height 2021-03-13 01:02:00 162.6 cm Universi ty [facility] Body weight 2021-03-13 01:02:00 85.231 kg [facility] BMI 2021-03-13 01:02:00 32.25 kg/m2 [facility] Oxygen saturation in 2021-03-13 01:02:00 96 /min [facility] Arterial blood by [facility] Pulse oximetry Branch Systolic blood 2021-12-01 13:26:00 148 mm[Hg] Method [facility] pressure Diastolic blood 2021-12-01 13:26:00 86 mm[Hg] [facility] pressure Heart rate 2021-12-01 13:26:00 67 /min [facility] Respiratory rate 2021-12-01 13:26:00 22 /min [facility] Body height 2021-12-01 13:26:00 163.8 cm [facility] Body weight 2021-12-01 13:26:00 87.091 kg [facility] BMI 2021-12-01 13:26:00 32.45 kg/m2 [facility] Oxygen saturation in 2021-12-01 13:26:00 97 /min [facility] Arterial blood by Pulse oximetry Body temperature 2021-08-12 18:31:00 36.67 Se[facility] Procedures Procedure Date / Time Performing Clinician Source Performed AUTHORIZATION TO RELEASE 2022-05-13 06:01:00 Doctor Unassigned, [facility] PHI TO [facility] POCT MOLECULAR FLU 2022-04-15 20:21:00 Anay Bruno [facility] POCT SARS-COV-2 ANTIGEN 2022-04-15 20:20:00 Anay Bruno [facility] [place] (BINAX NOW) [facility] Branch AUTHORIZATION TO RELEASE 2022-04-04 06:01:00 Doctor Unassigned, [facility] PHI TO [facility] NO SHOW OR MISSED 2022-02-28 14:25:14 Doctor Unasssonja, [facility] APPOINTMENT POLICY [facility] h ACKNOWLEDGEMENT SARS-COV-2 COVID-19 2022-02-05 17:07:33 Doctor Unassigned, [facility] MERARY-SUCROSE VACCINE 12 [facility] YRS+, BIVALENT 0.3ML, IM, (PFIZER BERNAL TOP BOOSTER) FLU VACC (), 6 2022-02-05 17:06:17 Doctor Unasssonja, Екатерина [facility] MO-63 YRS, .5ML, IM, QUAD [facility] (FLUCELVAX) CONSENT/REFUSAL FOR 2022-01-17 16:16:15 Doctor Reymundo, [facility] DIAGNOSIS AND TREATMENT [facility] CBC WITH PLATELET AND 2021-12-01 18:44:00 [facility] DIFFERENTIAL COMPREHENSIVE METABOLIC 2021-12-01 18:44:00 [facility] PANEL LIPID PANEL 2021-12-01 18:44:00 [facility] URINALYSIS, AUTOMATED WITH 2021-12-01 18:44:00 [facility] MICROSCOPY POC GLYCOSYLATED 2021-12-01 13:39:00 [facility] HEMOGLOBIN (HGB A1C) XR CHEST 2 VW 2021-08-12 20:50:00 [facility] POC GLYCOSYLATED 2021-08-12 19:45:00 [facility] HEMOGLOBIN (HGB A1C) MICROALBUMIN / CREATININE 2021-08-12 19:42:00 [facility] URINE RATIO CBC WITH PLATELET AND 2021-08-12 19:42:00 [facility] DIFFERENTIAL URINALYSIS, COMPLETE, WITH 2021-08-12 19:42:00 [facility] REFLEX TO CULTURE MAMMO SELF REQUESTING 2021-08-12 17:46:35 Meg Ulrich [facility] SCREENING BILATERAL W TASHA POCT RAPID FLU A AND B 2021-03-13 01:42:[address] [facility] TEST Medical Branch POCT GRP A STREP 2021-03-13 01:42:00 Anjana Carvalho [facility] (MOLECULAR) Medical Branch XR CHEST 2 VW 2021-03-13 01:25:08 Anjana Carvalho Eldena o f [facility] [id number] 2019-12-09 00:00:00 JOHRI.02 [facility] [id number] 2019-12-09 00:00:00 JOHRI.02 [facility] [id number] 2019-12-09 00:00:00 JOHRI.02 [facility] Plan of Care Planned Activity Planned Date Details Comments Source Future Scheduled 2022-05-26 Hepatitis C Hindu Test 16:31:04 screening Hospital (procedure) [code = 197068363] Future Scheduled 2022-05-26 65+ PNEUMOCOCCAL Methodi st Test 16:31:04 VACCINE (2 - PPSV23 Hospital if available, else PCV20) [code = 65+ PNEUMOCOCCAL VACCINE (2 - PPSV23 if available, else PCV20)] Future Scheduled 2022-05-26 COVID-19 VACCINE (4 Meth odist Test 16:31:04 - Booster for Pfizer Hospita l series) [code = COVID-19 VACCINE (4 - Booster for Pfizer series)] Future Scheduled 2022-05-26 DIABETES: RETINAL Method ist Test 16:31:04 EYE EXAM [code = Hospital DIABETES: RETINAL EYE EXAM] Future Scheduled 2022-05-26 DIABETIC FOOT EXAM Metho dist Test 16:31:04 [code = DIABETIC Hospital FOOT EXAM] Future Scheduled 2022-05-26 SHINGLES VACCINES (2 Postponed from M ethodist Test 16:31:04 of 2) [code = 05/04/2019 Hospital SHINGLES VACCINES (2 (Patient Refused) of 2)] Encounters Start End Encounter Admission Attending Care Care Encounter Source Date/Time Date/Time Type Type Clinicians Facility Department ID 2019-12-10 Inpatient TODD Davenport [facility].01 [id number] [facility] 14:30:00 Avinash 00 [facility] 2022-06-30 2022-06-30 Outpatient R UMU [facility] [id number] Univers 11:00:00 11:00:00 ANAY ity [facility] 2022-05-26 2022-05-26 Outpatient R MELISSA III, [facility] [id number] Univers 12:15:00 12:56:19 DELILAH bright [facility] 2022-05-26 2022-05-26 Nurse Nurse, [facility] 1.2.840.114 [id number] Univers 12:15:00 12:35:00 Visit Unknown, Attending HEALTH 350.1.13.10 [facility] 4.2.7.2.686 Barrie as ANDREA?BLEA [phone] [facility] [address] MEDICAL OFFICE BUILDING 2022-05-16 2022-05-16 Outpatient R MICKEY [facility] [id number] Univers 11:00:00 11:00:00 LIAM bright o f [facility] 2022-05-13 2022-05-13 Orders Doctor GIULIANA 1.2.840.114 [id number] Univers 00:00:00 00:00:00 Only Unassigned, CONCEPCION 350.1.13.10 ity of [place] [facility] 4.2.7.2.686 Barrie as [phone] [address] 2022-05-12 2022-05-12 Telephone [facility] 1.2.379.545 [id number] Univers 00:00:00 00:00:00 [place] HEALTH 350.1.13.10 ity of [place] 4.2.7.2.686 Barrie as ANDREA?BLEA [phone] [facility] [address] MEDICAL OFFICE BUILDING 2022-05-12 2022-05-12 Telephone [facility] 1.2.038.400 [id number] Univers 00:00:00 00:00:00 Anay HEALTH 350.1.13.10 ity of [place] 4.2.7.2.686 Barrie as ANDREA?BLEA [phone] [facility] [address] MEDICAL OFFICE BUILDING 2022-05-11 2022-05-11 Telephone [facility] 1.2.254.264 [id number] Univers 00:00:00 00:00:00 [facility] 350.1.13.10 ity of [place] 4.2.7.2.686 Barrie as ANDREA?BLEA [phone] [address] OFFICE [facility] 2022-04-15 2022-04-15 Outpatient R UMU [facility] [id number] Univers 14:20:00 14:52:17 [facility] 2022-04-15 2022-04-15 Office [facility] 1.2.840.114 [id number] Univers 14:20:00 14:52:17 Visit [facility] 350.1.13.10 ity of [place] 4.2.7.2.686 Barrie as ANDREA?BLEA [phone] [address] OFFICE [facility] 2022-04-15 2022-04-15 Refill [facility] 1.2.840.114 [id number] Univers 00:00:00 00:00:00 [facility] 350.1.13.10 ity of [place] 4.2.7.2.686 Barrie as ANDREA?BLEA [phone] [facility] [address] [facility] OFFICE [facility] 2022-04-05 2022-04-05 Ancillary Denisse Adames [facility] 1.2. 840.114 [id number] Univers 09:30:00 10:15:00 Visit Tuan Hussein [place] 350.1.13.10 ity of [place].2.[place] [phone] [facility] [address] [facility] 2022-04-05 2022-04-05 Outpatient R JOVITA [facility] [id number] Univers 09:30:00 09:30:00 [facility] 2022-04-04 2022-04-04 Orders Doctor GIORDANO 1.2.840.114 [id number] Univers 00:00:00 00:00:00 Only Unassigned, CONCEPCION 350.1.13.10 ity of [place] [facility] 4.2.7.2.686 Barrie as [phone] [address] 2022-03-31 2022-03-31 [employer] Techn[employer] Lab, Ang - Db [facility] 1.2.840.1 14 [id number] Univers 11:45:00 12:00:00 Visit Umu [facility] 350.1.13.10 [facility] 4.2.7.2.686 Barrie as ANDREA?BLEA [phone] [place] dical KNEY [address] [facility] OFFICE [facility] 2022-03-31 2022-03-31 Outpatient R AMARILISNhi [facility] [id number] Univers 11:00:00 11:50:48 ANAY bright [facility] 2022-03-31 2022-03-31 Office Umu [facility] 1.2.840.114 [id number] Univers 11:00:00 11:50:48 Visit [facility] 350.1.13.10 ity of [place] 4.2.7.2.686 Barrie as ANDREA?BLEA [phone] [place] dical LEAHEY [address] [facility] OFFICE [facility] 2022-03-31 2022-03-31 Ancillary Saul Eula Kriss [facility] 1.2.840 .114 [id number] Univers 09:30:00 10:15:00 Visit Tuan Hussein 350.1.13.10 [facility] 4.2.[place] [phone] [place] dical N[place] [address] [facility] 2022-03-28 2022-03-28 Ancillary Jyoti Valdez [facility] 1.2.840 .114 [id number] Univers 10:15:00 12:59:51 Visit Tuan Hussein 350.1.13.10 [facility] 4.2.[place] [phone] [place] dical N[place] [address] [facility] 2022-03-21 2022-03-21 Outpatient R JOVITA [facility] [id number] Univers 11:00:00 16:16:34 TUAN bright [facility] 2022-03-21 2022-03-21 Ancillary Ingrid Shepherd [facility] 1 .2.840.114 [id number] Univers 11:00:00 16:16:34 Visit Tuan Hussein [place] 350.1.13.10 ity of [place] 4.2.7.2.686 [place] JANNETHIO [phone] [facility] [address] [facility] 2022-03-14 2022-03-14 Refill [facility] 1.2.840.114 [id number] Univers 00:00:00 00:00:00 [facility] 350.1.13.10 ity of [place] 4.2.7.2.686 Barrie as ANDREA?BLEA [phone] [facility] 0[address] [facility] OFFICE [facility] 2022-02-28 2022-02-28 [facility] [id number] Univers 09:41:14 23:59:00 [facility] 2022-02-28 2022-02-28 Office [facility] 1.2.840.114 [id number] Univers 08:40:00 09:39:25 Visit [facility] 350.1.13.10 ity of [place] 4.2.7.2.686 Barrie as ANDREA?BLEA [phone] [address] OFFICE [facility] 2022-02-28 2022-02-28 Orders Doctor GIULIANA 1.2.840.114 [id number] Univers 00:00:00 00:00:00 Only Unassigned, CONCEPC[place] 350.1.13.10 ity of [place] [facility] 4.2.7.2.686 Barrie as [phone] [address] 2022-02-14 2022-02-14 Refill Ghadiri, 1.2.840.1 [id number] Methodi 00:00:00 00:00:[address] 3.430.2.7 Hospit a .3.207402 l .8 2022-02-10 2022-02-10 Refill Ghadiri, 1.2.840.1 [id number] Methodi 00:00:00 00:00:[address] 3.430.2.7 Hospit a .3.563036 l .8 2022-02-05 2022-02-05 Outpatient R CHIDI [facility] [id number] Univers 12:00:00 13:10:27 BETSY ity of [facility] 2022-02-05 2022-02-05 Imm/Inj Vaccine, Ang Db Uc [facility] 1.2.840 .114 [id number] Univers 12:20:00 12:30:00 Visit Unknown, Attending [facility] 350.1.13.10 ity of [place] 4.2.7.2.686 Barrie as ANDREA?BLEA [phone] [address] OFFICE [facility] 2022-02-05 2022-02-05 Imm/Inj Nurse, [facility] 1.2.840.114 [id number] Univers 12:00:00 12:20:00 Visit Unknown, Attending [facility] 350.1.13.10 ity of [place] 4.2.7.2.686 Barrie as ANDREA?BLEA [phone] [address] OFFICE [facility] 2022-01-17 2022-01-17 Urgent [facility] 1.2.840.114 [id number] Univers 11:30:00 11:53:17 Care [facility] 350.1.13.10 i ty of [facility] 4.2.7.2.686 Barrie as ANDREA?BLEA [phone] [address] OFFICE [facility] 2022-01-17 2022-01-17 Outpatient R NICOLE [facility] [id number] Univers 11:30:00 11:53:17 [facility] deangelo o f [facility] 2022-01-17 2022-01-17 Refill [facility] 1.2.840.114 [id number] Univers 00:00:00 00:00:00 [facility] 350.1.13.10 i ty of [facility] 4.2.7.2.686 Barrie as ANDREA?BLEA [phone] [address] OFFICE [facility] 2022-01-17 2022-01-17 Orders Doctor GIORDANO 1.2.840.[id number] [place] [address] 00:00:00 00:00:00 Only Unassigned, CONCEPCION 350.1.13.10 ity of [place] [facility] 4.2.7.2.686 Barrie as [phone] [place] [address] Branch 2021-12-01 2021-12-01 Office Ghadiri, 1.2.840.1 [id number] 04319 Methodi 08:40:00 09:25:02 Visit Meg 87174.1.[address] 3.430.2.7 Hospit a .3.785586 l .8 2021-12-01 2021-12-01 Outpatient GHADIRI, [facility] [id number] [place] 00:00:00 00:00:[address] MEG [address] 2021-12-01 2021-12-01 Travel 1.2.840.1 1.2.847.486 [id number] Methodi 00:00:00 00:00:[address] 3.430.2.7 0.2.7.3.698 Ho spita .3.370694 084.8 l .8 2021-11-16 2021-11-16 Refill Ghadiri, 1.2.840.1 [id number] Methodi 00:00:00 00:00:[address] 3.430.2.7 Hospit a .3.930865 l .8 2021-11-02 2021-11-02 Refill Ghadiri, 1.2.840.1 [id number] [id number] Methodi 00:00:00 00:00:[address] 3.430.2.7 Hospit a .3.156521 l .8 2021-11-01 2021-11-01 Telephone Ghadiri, 1.2.840.1 [id number] Methodi 00:00:00 00:00:[address] 3.430.2.7 Hospit a .3.434919 l .8 2021-10-302021-10-[address] [facility] 1.2.840.1 [id number] 51824 Methodi 00:00:00 00:00:[address] 3.430.2.7 Hospit a .3.115592 l .8 2021-10-29 2021-10-29 Orders [facility], 1.2.840.1 [id number] 20299 Methodi 00:00:00 00:00:00 Only Meg 16329.1.[address] 3.430.2.7 Hospit a .3.440733 l .8 2021-10-29 2021-10-29 Refill [facility], 1.2.840.1 [id number] 24150 Methodi 00:00:00 00:00:[address] 3.430.2.7 Hospit a .3.924076 l .8 2021-08-23 2021-08-23 [facility], 1.2.840.1 [id number] 02889 Methodi 00:00:00 00:00:00 Only Meg 15662.1.[address] 3.430.2.7 Hospit a .3.451684 l .8 2021-08-17 2021-08-17 Refill [facility], 1.2.840.1 [id number] 87019 Methodi 00:00:00 00:00:[address] 3.430.2.7 Hospit a .3.686623 l .8 2021-08-12 2021-08-12 [facility], 1.2.840.1 [id number] [id number] Methodi 14:45:00 23:59:00 Encounter Meg 14516.1.1 [address] t 3.430.2.7 Hospit a .3.513946 l .8 2021-08-12 2021-08-12 [facility], 1.2.840.1 [id number] [id number] Methodi 13:40:00 15:04:27 Visit Meg 64241.1.[address] 3.430.2.7 Hospit a .3.167696 l .8 2021-08-12 2021-08-12 Hospital [facility], 1.2.840.1 [id number] Methodi 12:06:19 14:44:00 Encounter Meg 95406.1.1 397 [address] t 3.430.2.7 Hospit a .3.152403 l .8 2021-08-12 2021-08-12 Outpatient [facility] [id number] [place] 00:00:00 00:00:00 MEG [address] 2021-08-12 2021-08-12 Outpatient [facility] [id number] [place] 00:00:00 00:00:[address] 2021-08-12 2021-08-12 [facility]patient [facility] [id number] [place] 00:00:00 00:00:[address] MEG [address] 2021-08-12 2021-08-12 Transcribe nairi, 1.2.840.1 [id number] Methodi 00:00:00 00:00:00 Orders Meg 68168.1.[address] 3.430.2.7 Hospit a .3.552067 l .8 2021-08-12 2021-08-12 Travel 1.2.840.1 1.2.374.820 [id number] Methodi 00:00:00 00:00:[address] 3.430.2.7 0.2.7.3.698 Ho spita .3.193599 084.8 l .8 2021-07-19 2021-07-19 Transcribe adiri, 1.2.840.1 [id number] Methodi 00:00:00 00:00:00 Orders Meg 27333.1.[address] 3.430.2.7 Hospit a .3.614312 l .8 2021-06-08 2021-06-08 Patient Pranav, 1.2.840.1 [id number] Methodi 00:00:00 00:00:00 Outreach Jes 11645.1.[address] 3.430.2.7 Hospit a .3.973868 l .8 2021-05-28 2021-05-28 Refill Mojgan, 1.2.840.1 [id number] 52007 Methodi 00:00:00 00:00:[address] 3.430.2.7 Hospit a .3.809074 l .8 2021-03-12 2021-03-12 [facility] 1.2.814.187 [id number] Univers 19:17:34 23:59:00 Encounter [facility] 350.1.13.10 ity of [place] 4.2.7.2.686 Barrie as ANDREA?BLEA [phone] Ky magypa GWENDOLYN 808 [facility] OFFICE [facility] 2021-03-12 2021-03-12 Outpatient [facility] [id number] Univers 19:00:00 19:49:37 [facility] 2021-03-12 2021-03-12 [facility] 1.2.840.114 [id number] Univers 18:44:47 19:49:37 Care [facility] 350.1.13.10 it y of [place] 4.2.7.2.686 Barrie as ANDREA?BLEA [id number] [place] jamel SNOW [address] [place] MEDICAL OFFICE [facility] 2020-11-03 2020-11-03 Outpatient [facility] [id number] 429 [place] 00:00:00 00:00:[address] 2020-07-27 2020-07-29 Outpatient GHADIRI, [facility] [id number] [place] 00:00:00 00:00:00 MEG [address] 2020-07-15 2020-07-15 Outpatient MARIO, [facility] [id number] [place] 00:00:00 00:00:00 KISHA [address] 2020-07-02 2020-07-02 Outpatient GHADIRI, [facility] [id number] [place] 00:00:00 00:00:00 MEG [address] 2020-06-29 2020-06-29 Emergency [place], [facility] [id number] [place] 00:00:00 00:00:00 KEITH 533 Me thodi st 2020-06-02 2020-06-02 Outpatient [facility] [id number] [place] 00:00:00 00:00:[address] 2020-05-12 2020-05-12 Outpatient [facility] [id number] [place] 00:00:00 00:00:[address] 2020-01-14 2020-01-14 Outpatient GHADIRI, [facility] [id number] [place] 00:00:00 00:00:00 MEG [address] 2019-10-21 2019-10-21 Outpatient [facility] [id number] 337 [place] 00:00:00 00:00:[address] 2019-10-15 2019-10-15 Outpatient VAHE RAMOSYA [facility] [id number] [place] 00:00:00 00:00:[address] 2019-10-07 2019-10-08 Outpatient KOHLNHOFER, [facility] [id number] [place] 00:00:00 00:00:00 LURDES [address] 2019-08-27 2019-08-27 Outpatient REX RAMOS [facility] [id number] [place] 00:00:00 00:00:[address] 2019-08-14 2019-08-14 Outpatient GHADIRI, [facility] [id number] [place] 00:00:00 00:00:00 MEG [address] 2019-08-14 2019-08-14 Outpatient GHADIRI, [facility] [id number] [place] 00:00:00 00:00:00 MEG [address] 2019-07-12 2019-07-12 Outpatient MARIO, [facility] [id number] [place] 00:00:00 00:00:00 KISHA [address] 2019-07-08 2019-07-08 Outpatient MARIO, [facility] [id number] [place] 00:00:00 00:00:00 KISHA [address] 2019-07-08 2019-07-08 Outpatient SHELBI, [facility] [id number] [place] 00:00:00 00:00:00 KISHA [address] 2019-06-27 2019-06-27 Outpatient SHELBI, [facility] [id number] [place] 00:00:00 00:00:00 KISHA [address] 2019-06-27 2019-06-27 Outpatient MOJGAN, [facility] [id number] [place] 00:00:00 00:00:00 MEG [address] 2019-03-05 2019-03-05 Emergency KELVIN, LEVI [facility] [id number] [place] 00:00:00 00:00:[address] Results Test Description Test Time Test Comments Results Result Comments Source POCT SARS-COV-2 ANTIGEN (BINAX NOW) 2022-04-15 20:37:00 Test Item Value Reference Range Interpretation Comme nts POCT SARS-COV-2 ANTIGEN (test code = 13856-2) Not Detected Not Dete cted On board controls acceptable with C Line (test code = Yes 3574) [facility] SARS-COV-2 ANTIGEN (BINAX NOW)2022-04-15 20:37:00 Test Item Value Reference Range Interpretation Comments POCT SARS-COV-2 ANTIGEN (test Not Detected Not Detected code = 41878-2) On board controls acceptable Yes with C Line (test code = 3574) [facility] SARS-COV-2 ANTIGEN (BINAX NOW)2022-04-15 20:37:00 Test Item Value Reference Range Interpretation Comments POCT SARS-COV-2 ANTIGEN (test Not Detected Not Detected code = 63162-6) On board controls acceptable Yes with C Line (test code = 3574) [facility] SARS-COV-2 ANTIGEN (BINAX NOW)2022-04-15 20:37:00 Test Item Value Reference Range Interpretation Comments POCT SARS-COV-2 ANTIGEN (test Not Detected Not Detected code = 33457-6) On board controls acceptable Yes with C Line (test code = 3574) [facility] MOLECULAR [id number] 20:33:08 Test Item Value Reference Range Interpretation Comments POCT Molecular FluA (test code = Negative Negative 98694-9) POCT Molecular FluB (test code = Negative Negative 63100-6) Lab Interpretation (test code = Normal 17255-0) [facility] MOLECULAR [id number] 20:33:08 Test Item Value Reference Range Interpretation Comments POCT Molecular FluA (test code = Negative Negative 46362-6) POCT Molecular FluB (test code = Negative Negative 06574-2) Lab Interpretation (test code = Normal 87936-6) [facility] MOLECULAR [id number] 20:33:08 Test Item Value Reference Range Interpretation Comments POCT Molecular FluA (test code = Negative Negative 23702-1) POCT Molecular FluB (test code = Negative Negative 24005-3) Lab Interpretation (test code = Normal 75770-8) [facility] MOLECULAR [id number] 20:33:08 Test Item Value Reference Range Interpretation Comments POCT Molecular FluA (test code = Negative Negative 71216-9) POCT Molecular FluB (test code = Negative Negative 62479-3) Lab Interpretation (test code = Normal 57216-0) [facility] [id number] 05:30:00 Test Item Value Reference Range Interpretation Comments Glucose (test code 97 mg/dL 65-99 Fasting = 2345-7) reference interval BUN (test code = 10 mg/dL 7-25 3094-0) Creatinine (test 0.60 mg/dL 0.60-1.00 code = 2160-0) eGFR (test code = 92 See_Comment The eGFR i s based 8257) on the CKD-EPI 2020 equation. To calculate the n ew eGFR from a previous Creatinine or Cystatin Cresul t, go to https://www.kid ne y.org/professio na ls/kdoqi/gfr%5F ca lculator [Automated message] The system which generated this result transmitted reference range : > OR = 60 mL/min/1.73m2. The reference range was not used to interpr et this result as normal/abnormal . BUN/creatinine NOT APPLICABLE See_Comment [Automated ratio (test code = message] The 3097-3) system which generated this result transmitted reference range : 6 - 22 (calc). The reference range was not used to interpr et this result as normal/abnormal . Sodium (test code 142 mmol/L 135-146 = 2951-2) Potassium (test 4.3 mmol/L 3.5-5.3 code = 2823-3) Chloride (test 105 mmol/L 98-110 code = 2075-0) CO2 (test code = 30 mmol/L 20-32 2027-9) Calcium (test code 8.9 mg/dL 8.6-10.4 = 00905-2) Protein (test code 6.5 g/dL 6.1-8.1 = 2885-2) Albumin, S (test 3.9 g/dL 3.6-5.1 code = 1751-7) Globulin, total 2.6 See_Comment [Automated (test code = message] The ) system which generated this result transmitted reference range : 1.9 - 3.7 g/dL (calc). The reference range was not used to interpret this result as normal/abnormal . Albumin/globulin 1.5 See_Comment [Automated ratio (test code = message] The ) system which generated this result transmitted reference range : 1.0 - 2.5 (calc ). The reference range was not used to interpr et this result as normal/abnormal . Total bilirubin 0.6 mg/dL 0.2-1.2 (test code = 1974-) Alkaline 78 U/L 37-153 phosphatase (test code = 6768-6) AST (test code = 19 U/L 10-35 1920-8) ALT (test code = 15 U/L 6-29 1742-6) GIN (test code = FASTING:YES GIN) FASTING: YES RAC (test code = Performing RAC) Organization Information: Site ID: RGA Name: [facility] Address: [address] [place] [id number] Director: Peng Balderrama [facility] [id number] 05:30:00 Test Item Value Reference Range Interpretation Comments Cholesterol, total 190 mg/dL <=200 (test code = 2092-3) HDL cholesterol 54 mg/dL See_Comment [Automated (test code = 2084-12) message ] The system which generated this result transmitted reference range : > OR = 50. The reference range was not used to interpret this result as normal/abnormal . Triglycerides (test 175 mg/dL <=150 H code = 2571-8) LDL cholesterol 107 mg/dL (calc) H Reference ra nge: calculated (test <100 Desira ble code = 32795-8) range <100 m g/dL for primary prevention; <70 mg/dL for patients with C HD or diabetic patients with > or = 2 CHD risk factors. LDL-C is now calculated using the Chinedu-Marcy calculation, which is a validated novel method providin g better accuracy than the Friedewald equation in the estimation of LDL-C. Chinedu S S et al. CHON. 2013;310(19): 2709-5313 (http://educati on .[employer] .com/faq/UZA277 ) Cholesterol/HDL 3.5 See_Comment [Automated ratio (test code = message] The 9830-1) system which generated this result transmitted reference range : <5.0 (calc). Th e reference range was not used to interpret this result as normal/abnormal . Non-HDL cholesterol 136 See_Comment H For alfonso ents with (test code = diabetes plus 1 72956-0) major ASCVD ris k factor, treatin g to a non-HDL-C goal of <100 mg/dL (LDL-C of <70 mg/dL) is considered a therapeutic option. [Automated message] The system which generated this result transmitted reference range : <130 mg/dL (calc). The reference range was not used to interpret this result as normal/abnormal . GIN (test code = FASTING:YES GIN) FASTING: YES RAC (test code = Performing RAC) Organization Information: Site ID: RGA Name: [facility] Address: [address] [place] [phone] Director: Peng Balderrama Lab Interpretation Abnormal (test code = 25005-4) [facility] with platelet and [id number] 05:30:00 Test Item Value Reference Range Interpretation Comments WBC (test code = 6.0 See_Comment [Automated 3947-2) message] The system which generated this result transmitted reference range : 3.8 - 10.8 Thousand/uL. Th e reference range was not used to interpret this result as normal/abnormal . RBC (test code = 4.47 See_Comment [Automated 789-8) message] The system which generated this result transmitted reference range : 3.80 - 5.10 Million/uL. The reference range was not used to interpret this result as normal/abnormal . HGB (test code = 12.4 g/dL 11.7-15.5 718-7) HCT (test code = 37.5 % 35.0-45.0 4544-3) MCV (test code = 83.9 fL 80.0-100.0 787-2) MCH (test code = 27.7 pg 27.0-33.0 785-6) MCHC (test code = 33.1 g/dL 32.0-36.0 786-4) RDW (test code = 14.1 % 11.0-15.0 788-0) Platelet count 196 See_Comment [Automated (test code = message] The 777-3) system which generated this result transmitted reference range : 140 - 400 Thousand/uL. Th e reference range was not used to interpret this result as normal/abnormal . MPV (test code = 11.7 fL 7.5-12.5 776-5) Neutrophils, 2820 See_Comment [Automated absolute (test message] The code = 751-8) system which generated this result transmitted reference range : 1,500 - 7,800 cells/uL. The reference range was not used to interpret this result as normal/abnormal . Lymphocytes, 2526 See_Comment [Automated absolute (test message] The code = 731-0) system which generated this result transmitted reference range : 850 - 3,900 cells/uL. The reference range was not used to interpret this result as normal/abnormal . Monocytes, 492 See_Comment [Automated absolute (test message] The code = 742-7) system which generated this result transmitted reference range : 200 - 950 cells/uL. The reference range was not used to interpret this result as normal/abnormal . Eosinophils, 90 See_Comment [Automated absolute (test message] The code = 711-2) system which generated this result transmitted reference range : 15 - 500 cells/uL. The reference range was not used to interpret this result as normal/abnormal . Basophils, 72 See_Comment [Automated absolute (test message] The code = 704-7) system which generated this result transmitted reference range : 0 - 200 cells/u L. The reference range was not used to interpr et this result as normal/abnormal . Neutrophils (test 47 % code = 770-8) Lymphocytes (test 42.1 % code = 736-9) Monocytes (test 8.2 % code = 5905-5) Eosinophils (test 1.5 % code = 713-8) Basophils + RC 1.2 % (test code = 706-2) GIN (test code = FASTING:YES GIN) FASTING: YES RAC (test code = Performing RAC) Organization Information: Site ID: RGA Name: [facility] Address: [address] [place] [phone] Director: Peng Newton [facility], automated with [id number] 05:30:00 Test Item Value Reference Range Interpretation Comments Color, UA (test YELLOW YELLOW code = 5778-6) Appearance (test CLEAR CLEAR code = 5767-9) Specific gravity, 1.011 1.001-1.035 urine (test code = 5811-5) pH, urine (test 8.0 5.0-8.0 code = 5803-2) Glucose, urine NEGATIVE NEGATIVE (test code = 29031-3) Bilirubin, UA NEGATIVE NEGATIVE (test code = 5770-3) Ketones, UA (test NEGATIVE NEGATIVE code = 2514-8) Occult blood, NEGATIVE NEGATIVE urine (test code = 5794-3) Protein, UA (test NEGATIVE NEGATIVE code = 02836-7) Nitrite, UA (test NEGATIVE NEGATIVE code = 5802-4) Leukocyte NEGATIVE NEGATIVE esterase, UA (test code = 5799-2) WBC, UA (test NONE SEEN See_Comment [Automated code = 5821-4) message] The system which generated this result transmit john reference range : < OR = 5 /HPF. Th e reference range was not used to interpret this result as normal/abnormal . RBC, UA (test NONE SEEN See_Comment [Automated code = 48173-1) message] The system which generated this result transmit john reference range : < OR = 2 /HPF. Th e reference range was not used to interpret this result as normal/abnormal . Squamous NONE SEEN See_Comment [Automated epithelial cells, message] T he UA (test code = system which 53506-5) generated this result transmit john reference range : < OR = 5 /HPF. Th e reference range was not used to interpret this result as normal/abnormal . Bacteria, UA NONE SEEN NONE SEEN /HPF (test code = 5769-5) Hyaline casts, UA NONE SEEN NONE SEEN /LPF (test code = 5796-8) Note: (test code This urine was = 8251-1) analyzed for th e presence of WBC , RBC, bacteria, casts, and othe r formed elements . Only those elements seen w ere reported. GIN (test code = FASTING:YES GIN) FASTING: YES RAC (test code = Performing RAC) Organization Information: Site ID: RGA Name: [facility] Address: [address] [place] [phone] Director: Peng Balderrama [facility] glycosylated hemoglobin (Hb A1C)2021-12-01 13:39:00 Test Item Value Reference Range Interpretation Comments POC Hemoglobin A1C (test code = 5.6 % 8454065) [facility] creatinine urine [id number] 20:55:00 Test Item Value Reference Interpretation Comments Range Creatinine, urine 64 mg/dL 20-275 (mg/dL) (test code = 2161-8) Microalbumin, urine 6.6 mg/dL See Note: Referenc e Range: (test code = Reference Range Not 612[address]-2) established Microalbumin/creati 103 See_Comment H The ADA defines nine ratio (test abnormaliti es in code = 9318-7) albuminexcret ion as follows: Albumi dexter Category Result (mcg/mg creatin ine) Normal to Mildl y increased <30Moderately increased 30-29 9 Severely increa sed > OR = 300 The AD A recommends that at least two of threespecimens collected withi n a 3-6 month perio d beabnormal befo re considering a patient to bewi thin a diagnostic category. [Auto mated message] The sy stem which generated this result transmit john reference range : <30 mcg/mg creat. T he reference range was not used to interpret this result as normal/abnormal . GIN (test code = FASTING:YES GIN) FASTING: YES RAC (test code = Performing RAC) Organization Information: Site ID: RGA Name: [facility] Address: [address] [place] [phone] Director: Peng Balderrama Lab Interpretation Abnormal (test code = 37991-3) [facility] WITH [facility] TO [id number] 20:55:00 Test Item Value Reference Range Interpretation Comments Color, UA (test code YELLOW YELLOW = 5778-6) Appearance (test CLEAR CLEAR code = 5767-9) Specific gravity, 1.015 1.001-1.035 urine (test code = 5811-5) pH, urine (test code 7.5 5.0-8.0 = 5803-2) Glucose, urine (test NEGATIVE NEGATIVE code = 03921-6) Bilirubin, UA (test NEGATIVE NEGATIVE code = 5770-3) Ketones, UA (test NEGATIVE NEGATIVE code = 2514-8) Occult blood, urine NEGATIVE NEGATIVE (test code = 5794-3) Protein, UA (test TRACE NEGATIVE A code = 23644-8) Nitrite, UA (test NEGATIVE NEGATIVE code = 5802-4) Leukocyte esterase, NEGATIVE NEGATIVE UA (test code = 5799-2) WBC, UA (test code = NONE SEEN See_Comment [Autom ated 5821-4) message] The system which generated this result transmitted reference range : < OR = 5 /HPF. The reference range was not used to interpr et this result as normal/abnormal . RBC, UA (test code = NONE SEEN See_Comment [Autom ated 68896-2) message] The system which generated this result transmitted reference range : < OR = 2 /HPF. The reference range was not used to interpr et this result as normal/abnormal . Squamous epithelial NONE SEEN See_Comment [Automa john cells, UA (test code message ] The = 24003-6) system which generated this result transmitted reference range : < OR = 5 /HPF. The reference range was not used to interpr et this result as normal/abnormal . Bacteria, UA (test NONE SEEN NONE SEEN /HPF code = 5769-5) Hyaline casts, UA NONE SEEN NONE SEEN /LPF (test code = 5796-8) Reflex (test code = NO CULTU RE 630-4) INDICATED GIN (test code = FASTING:YES GIN) FASTING: YES RAC (test code = Performing RAC) Organization Information: Site ID: RGA Name: [facility] Address: [address] [place] [phone] Director: Peng Balderrama Lab Interpretation Abnormal (test code = 81755-9) [facility] RAPID FLU A AND B [id number] 01:42:00 Test Item Value Reference Range Interpretation Comments POCT INFLUENZA A (test negative Negative - code = 3840) Negative POCT INFLUENZA B (test negative Negative - code = 3841) Negative GIN (test code = GIN) accurate development and interpretation of all internal controls Lab Interpretation Normal (test code = 92295-6) [facility] GRP A STREP (MOLECULAR)2021-03-13 01:42:00 Test Item Value Reference Range Interpretation Comments POCT GP A STREP (test negative Negative - code = 36213-9) Negative GIN (test code = GIN) accurate development and interpretation of all internal controls Lab Interpretation Normal (test code = 40596-6) [facility] Test Item Value Reference Range Interpretation Comments MAGNESIUM (test code = MAG) 1.84 mg/dL 1.8-2.4 N CALCIUM [id number] 06:18:00 Test Item Value Reference Range Interpretation Comments CALCIUM IONIZED (test code = MICKEY) 0.98 MMOL/L 1.12-1.32 L [id number] 06:04:00 Test Item Value Reference Range Interpretation Comments MAGNESIUM (test code = MAG) mg/dL 1.8-2.4 CALCIUM [id number] 06:04:00 Test Item Value Reference Range Interpretation Comments CALCIUM IONIZED (test code = MICKEY) 0.98 MMOL/L 1.12-1.32 L [id number] 16:47:00 Test Item Value Reference Range Interpretation Comments CALCIUM (test code = CA) 6.9 mg/dL 8.0-10.5 L [id number] 16:47:00 Test Item Value Reference Range Interpretation Comments MAGNESIUM (test code = MAG) 1.84 mg/dL 1.8-2.4 N CALCIUM [id number] 16:47:00 Test Item Value Reference Range Interpretation Comments CALCIUM IONIZED (test code = MICKEY) 0.97 MMOL/L 1.12-1.32 L [id number] 16:46:00 Test Item Value Reference Range Interpretation Comments CALCIUM (test code = CA) 6.9 mg/dL 8.0-10.5 L [id number] 16:46:00 Test Item Value Reference Range Interpretation Comments MAGNESIUM (test code = MAG) 1.84 mg/dL 1.8-2.4 N CALCIUM [id number] 16:46:00 Test Item Value Reference Range Interpretation Comments CALCIUM IONIZED (test code = MICKEY) MMOL/L 1.12-1.32 SURGICAL PATH [id number] 15:35:00 RUN DATE: 12/12/19 [facility] *LIVE* PAGE 1 RUN TIME: 1535 Specimen Inquiry RUN USER: INTERFACE --PATIENT: ELISE MONROY LOC: GChristiana1SOC U #: [id number] AGE/SX: 74/F ROOM: [facility] RE12/10/[facility] DR: Avinash Rangel III : 43 BED: 1 DIS: STATUS: ADM IN TLOC: SPEC #: [id number] RECD: 12/09/19 STATUS: WAYNE MCGARRY #: [id number] MARCEL: 12/09/[address] [facility] DR: Avinash Rangel III, MD ENTERED: 12/09/19 SP TYPE: SURG SPEC OTHR DR: Meg Ulrich MD ORDERED: FROZEN SECTION, GM LEVEL 5 CODES: [id number] - SOFT TISSUES, N [id number] - THYROID GLAND COPIES TO: Meg Ulrich MD [address] [place] [address] [place] [address] [address] [email or web address] PROCEDURES: FROZEN SECTION (Incomplete) GM LEVEL 5 ( Incomplete) TISSUES: 1. THYROID GLAND, NOS - Thyroid, [...] free of tumor; nodular hyperplasia. Soft tissue, right central neck compartment, dissect: No evidence of metastatic carcinoma identified in 2 lymph nodes(0/2); benign-appearing parathyroid glands. CONTINUED ON NEXT PAGE RUN DATE: 12/12/19 [facility] *LIVE* PAGE 2 RUN TIME: 1535 Specimen Inquiry RUN USER: INTERFACE SPEC #: [id number] PATIENT: ELISE MONROY #[id number] (Continued) FINAL DIAGNOSIS (Continued) PROVISIONAL DIAGNOSIS Thyroid [...] left thyroid lobe is one segment of pink- hicks tissue measuring 7 x 2.7 x 2 cm and weighing 16.3 g. The entire surface is inked black. Sections are submitted as (A) for frozen diagnosis. Additional sections are submitted entirely as (B)-(G). 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 The resection margins are free of tumor. Benign-appearing parathyroid glands are present. Specimen #3, shows benign-appearing parathyroid glands (3) are 2 small lymph nodes without evidence of metastatic carcinoma (0/2). POST-OP DIAGNOSIS None given CONTINUED ON NEXT PAGE RUN DATE: 12/12/19 [facility] *LIVE* PAGE 3 RUN TIME: 153 Specimen Inquiry RUN USER: INTERFACE SPEC #: [id number] PATIENT: ELISE MONROY #[id number] (Continued) PRE- OP DIAGNOSIS Malignant neoplasm of thyroid gland REVIEWED BY: SYNOPTIC REPORT *Procedure: Right Lobectomy Left Lobectomy *Lymph Node Sampling - Central compartment dissection, right. Received: Fresh Specimen Integrity:Intact. Divided (thyroidectomy performed as lobectomy and completion [...] and E) - Papillary microcarcinoma, Follicular variant. *Margins:Free of tumor. *Angioinvasion (vascular invasion): Not identified. *Lymphatic Invasion: Not identified. Perineural Invasion Not identified. *Extrathyroidal Extension: No. * TNM: [id number] Tumor block(s): (G) (K) Signed SIGNATURE ON FILE Johan Sanders MD 12/12/19 1535 END OF REPORT CALCIUM 2019-12-12 07:31:00 Test Item Value Reference Range Interpretation Comments CALCIUM (test code = CA) 6.7 mg/dL 8.0-10.5 L [id number] 07:31:00 Test Item Value Reference Range Interpretation Comments MAGNESIUM (test code = MAG) 1.98 mg/dL 1.8-2.4 CALCIUM [id number] 07:31:00 Test Item Value Reference Range Interpretation Comments CALCIUM IONIZED (test code = MICKEY) 0.95 MMOL/L 1.12-1.32 L [id number] 07:23:00 Test Item Value Reference Range Interpretation Comments CALCIUM (test code = CA) mg/dL 8.0-10.5 [id number] 07:23:00 Test Item Value Reference Range Interpretation Comments MAGNESIUM (test code = MAG) mg/dL 1.8-2.4 CALCIUM [id number] 07:23:00 Test Item Value Reference Range Interpretation Comments CALCIUM IONIZED (test code = MICKEY) 0.95 MMOL/L 1.12-1.32 L [id number] 16:39:00 Test Item Value Reference Range Interpretation Comments CALCIUM (test code = CA) 7.2 mg/dL 8.0-10.5 L [id number] 16:39:00 Test Item Value Reference Range Interpretation Comments MAGNESIUM (test code = MAG) 1.67 mg/dL 1.8-2.4 L CALCIUM [id number] 16:39:00 Test Item Value Reference Range Interpretation Comments CALCIUM IONIZED (test code = MICKEY) 0.98 MMOL/L 1.12-1.32 L [id number] 16:25:00 Test Item Value Reference Range Interpretation Comments CALCIUM (test code = CA) mg/dL 8.0-10.5 [id number] 16:25:00 Test Item Value Reference Range Interpretation Comments MAGNESIUM (test code = MAG) mg/dL 1.8-2.4 CALCIUM [id number] 16:25:00 Test Item Value Reference Range Interpretation Comments CALCIUM IONIZED (test code = MICKEY) 0.98 MMOL/L 1.12-1.32 L [id number] 08:36:00 Test Item Value Reference Range Interpretation Comments CALCIUM (test code = CA) 7.1 mg/dL 8.0-10.5 L [id number] 08:36:00 Test Item Value Reference Range Interpretation Comments MAGNESIUM (test code = MAG) 1.70 mg/dL 1.8-2.4 L CALCIUM [id number] 08:36:00 Test Item Value Reference Range Interpretation Comments CALCIUM IONIZED (test code = MICKEY) 0.97 MMOL/L 1.12-1.32 L [id number] 08:34:00 Test Item Value Reference Range Interpretation Comments CALCIUM (test code = CA) 7.1 mg/dL 8.0-10.5 L [id number] 08:34:00 Test Item Value Reference Range Interpretation Comments MAGNESIUM (test code = MAG) 1.70 mg/dL 1.8-2.4 L CALCIUM [id number] 08:34:00 Test Item Value Reference Range Interpretation Comments CALCIUM IONIZED (test code = MICKEY) MMOL/L 1.12-1.32 [id number] 18:47:00 Test Item Value Reference Range Interpretation Comments CALCIUM (test code = CA) 7.5 mg/dL 8.0-10.5 L [id number] 18:47:00 Test Item Value Reference Range Interpretation Comments MAGNESIUM (test code = MAG) 1.86 mg/dL 1.8-2.4 N CALCIUM [id number] 18:47:00 Test Item Value Reference Range Interpretation Comments CALCIUM IONIZED (test code = MICKEY) 1.03 MMOL/L 1.12-1.32 L [id number] 18:30:00 Test Item Value Reference Range Interpretation Comments CALCIUM (test code = CA) mg/dL 8.0-10.5 [id number] 18:30:00 Test Item Value Reference Range Interpretation Comments MAGNESIUM (test code = MAG) mg/dL 1.8-2.4 CALCIUM [id number] 18:30:00 Test Item Value Reference Range Interpretation Comments CALCIUM IONIZED (test code = MICKEY) 1.03 MMOL/L 1.12-1.32 L [id number] 05:57:00 Test Item Value Reference Range Interpretation Comments CALCIUM (test code = CA) 7.2 mg/dL 8.0-10.5 L [id number] 05:57:00 Test Item Value Reference Range Interpretation Comments MAGNESIUM (test code = MAG) 1.66 mg/dL 1.8-2.4 L CALCIUM [id number] 05:57:00 Test Item Value Reference Range Interpretation Comments CALCIUM IONIZED (test code = MICKEY) 1.04 MMOL/L 1.12-1.32 L [id number] 05:40:00 Test Item Value Reference Range Interpretation Comments CALCIUM (test code = CA) 7.2 mg/dL 8.0-10.5 L [id number] 05:40:00 Test Item Value Reference Range Interpretation Comments MAGNESIUM (test code = MAG) 1.66 mg/dL 1.8-2.4 L CALCIUM [id number] 05:40:00 Test Item Value Reference Range Interpretation Comments CALCIUM IONIZED (test code = MICKEY) MMOL/L 1.12-1.32 [id number] 18:12:00 Test Item Value Reference Range Interpretation Comments CALCIUM (test code = CA) 8.5 mg/dL 8.0-10.5 N [id number] 18:12:00 Test Item Value Reference Range Interpretation Comments MAGNESIUM (test code = MAG) 1.76 mg/dL 1.8-2.4 L CALCIUM [id number] 18:12:00 Test Item Value Reference Range Interpretation Comments CALCIUM IONIZED (test code = MICKEY) 1.13 MMOL/L 1.12-1.32 N [id number] 18:10:00 Test Item Value Reference Range Interpretation Comments CALCIUM (test code = CA) mg/dL 8.0-10.5 [id number] 18:10:00 Test Item Value Reference Range Interpretation Comments MAGNESIUM (test code = MAG) mg/dL 1.8-2.4 CALCIUM [id number] 18:10:00 Test Item Value Reference Range Interpretation Comments CALCIUM IONIZED (test code = MICKEY) 1.13 MMOL/L 1.12-1.32 N Novel Coronavirus 2019 [id number] 20:53:00 Test Item Value Reference Range Interpretation Comments Novel Coronavirus 2018 Inhouse (test Negative Negative code = COVNONPUI) BASIC METABOLIC [id number] 12:00:00 Test Item Value Reference Range Interpretation [...] 8.0-10.5 N CA) - XR CHEST 2 [id number] 11:58:00 FAX: Meg Robin MD [place]: St: PRE FAX: Avinash Wood III [phone] Name: ELISE MONROY [facility] : 1945 Age/S: 74/F [address] [place] [address] Unit #: [id number] Loc: [place] [address] Phys: Avinash Rangel III, MD Acct: [id number] Dis Date: [place] [facility] #: [phone] Exam Date: 12/05/2019 1148 FAX #: [phone] Reason: THYROIDECTOMY EXAMS: CPT CODE: [id number] XR CHEST 2 V 04163 EXAM: XR CHEST 2 VIEWS DATE: 12/05/2019 10:51 AM : 1945; Age: 74 years y/o Female INDICATION: THYROIDECTOMY COMPARISON: None. TECHNIQUE: PA and lateral chest radiographs. FIN DINGS: Lines, tubes and hardware: None. Lungs and pleura: The lungs are clear. Hyperexpanded lungs.No pleural effusion. Heart and mediastinum: The heart size is normal for technique. The mediastinal contours are normal. Pulmonary vascularity is normal. IMPRESSION: No acute cardiopulmonary process. Emphysema. SL: [id number] at 1158 Reported and signed by: Norah Webster D.O. CC: Shalonda Ulrich MD; Avinash Rangel III, MD Technologist: RT Kvng(Sridevi) Trnjenifer Date/Time/By: 12/05/2019 (2026) : By: [email or web address] Orig Print D/T: S: 12/05/2019 (6110) PAGE 1 Signed ReportCBC W/AUTO [id number] 11:32:00 Test Item Value Reference Range Interpretation [...] in Respiratory specimen by ARAMIS with probe [id number] 22:31:33 Test Item Value Reference Range Interpretation Comments SARS coronavirus 2 RNA Not detected Not-Detected [Presence] in Respiratory specimen by ARAMIS with probe detection (test code = 30914-8) [facility]
[2022-05-26 17:33] LABS: Absolute Lymphocytes (CBC) 2.6 K/uL (0.7-4.9); Hematocrit 38.7 % (36.0-45.0); Lymphocytes % 34.8 % (15.3-44.8); MCV 84.9 fL (80-100); MPV 8.7 fL (7.6-11.3); RBC Red Blood Cell Count 4.55 M/uL (3.86-4.86)
[2022-05-26 17:34] LABS: Protime INR 1.08
[2022-05-26 17:49] LABS: Albumin 3.7 g/dL (3.4-5.0); Bilirubin Total 0.4 mg/dL (0.2-1.0); Magnesium 2.2 mg/dL (1.6-2.4); Potassium 3.3 mmol/L (3.5-5.1); Protein, Total 7.7 g/dL (6.4-8.2); Troponin High Sensitivity 6.7 pg/mL (<58.9)
[2022-05-26] MEDS ORDERED: FUROSEMIDE 40 MG/4 ML VIAL ONE (18:00)
--- NOTE | 2022-05-26 18:01 | RAD REPORT ---
EXAM DESCRIPTION: RAD - Chest Single View - 05/26/2022 5:39 pm CLINICAL HISTORY: CHEST PAIN Chest pain. COMPARISON: Chest Single View dated 06/07/2021; Chest Pa And Lat (2 Views) dated 03/14/2021 FINDINGS: Portable technique limits examination quality. The lungs are emphysematous but grossly clear. The heart is mildly enlarged in size. No displaced fra ctures. IMPRESSION: Mild COPD.
[2022-05-26] MEDS ORDERED: LEVALBUTEROL 1.25 MG/3 ML NEB ONE (18:39)
[2022-05-26] MEDS ORDERED: POTASSIUM CL SA 10 MEQ TAB PO ONE (18:39)
[2022-05-26] MEDS ORDERED: IPRATROPIUM BROM 0.5MG/2.5ML ONE (18:39)
--- NOTE | 2022-05-26 19:39 | RAD REPORT ---
EXAM DESCRIPTION: US - Extrem Venous W Compress Moe - 05/26/2022 7:30 pm CLINICAL HISTORY: SWELLING Bilateral leg edema and swelling. COMPARISON: No comparisons TECHNIQUE: Real-time sonographic interrogation of the left and right lower extremity deep venous sys tems was performed. FINDINGS: Normal compressibility, flow augmentation, phasic flow and spontaneous flow is identified in both the left and right lower extremity deep venous systems. IMPRESSION: No sonographic evidence of left or right lower extremity deep venous thrombosis.
--- NOTE | 2022-05-26 19:52 | EDPHYS ---
Physician Documentation [facility] Name: Val Love Age: 76 yrs Sex: Female : 1945 Arrival Date: 05/26/2022 Time: 16:48 Bed 11 Private MD: ED Physician Yogesh Way HPI: 05/26 19:48 This 76 yrs old Female presents to ER via Ambulatory with complaints of Leg Swelling, kb Feet Swelling, Shortness Of Breath. 19:48 The patient has shortness of breath when laying down. kb 19:49 Onset: The symptoms/episode began/occurred 2 week(s) ago. Duration: The symptoms are kb continuous. The patient's shortness of breath is aggravated by supine position, is alleviated by sitting up. Associated signs and symptoms: Pertinent positives: Lower extremity edema. Severity of symptoms: At their worst the symptoms were moderate in the emergency department the symptoms are unchanged. The patient has experienced similar episodes in the past. The patient has not recently seen a physician. Patient reports lower extremity edema and orthopnea for 2 weeks. States she does not have a history of CHF. Went to PCP today and was told she needed to come to the ER for evaluation. Denies chest pain. Reports that she has taken Lasix in the past for this so she took it once this week and once last week but it in 2020.. Historical: - Allergies: 16:52 amoxicillin-pot clavulanate; ll1 16:52 HYDRALAZINE; ll1 16:52 statins; ll1 - Home Meds: 19:56 amlodipine oral [Active]; Eliquis Oral [Active]; Synthroid Oral [Active]; eh3 - PMHx: 16:52 Hypertensive disorder; Hypothyroidism; ll1 16:55 A fib; ll1 - PSHx: 16:52 Cholecystectomy; Tonsillectomy; Thyroidectomy; ll1 - Immunization history:: Client reports receiving the 2nd dose of the Covid vaccine. - Social history:: Smoking status: Patient denies any tobacco usage or history of. ROS: 19:47 Constitutional: Negative for fever, chills, and weight loss. kb 19:47 Cardiovascular: Positive for edema. 19:47 Respiratory: Positive for orthopnea. 19:47 All other systems are negative. Exam: 19:47 Constitutional: This is a well developed, well nourished patient who is awake, alert, kb and in no acute distress. Head/Face: Normocephalic, atraumatic. ENT: Moist Mucous membranes Abdomen/GI: Soft, non-tender. No distention Skin: Warm, dry with normal turgor. Normal color. MS/ Extremity: Pulses equal, no cyanosis. Neurovascular intact. Full, normal range of motion. Neuro: Awake and alert, GCS 15, oriented to person, place, time, and situation. Moves all extremities. Normal gait. Psych: Awake, alert, with orientation to person, place and time. Behavior, mood, and affect are within normal limits. 19:47 Cardiovascular: Rate: normal, Rhythm: regular, Pulses: no pulse deficits are appreciated, Edema: pedal edema, that is moderate. 19:47 ECG was reviewed by the Attending Physician. 19:47 Respiratory: the patient does not display signs of respiratory distress, Respirations: normal, Breath sounds: rhonchi, that are mild, are located in both bases. Vital Signs: 16:51 BP 176 / 77; Pulse 86; Resp 17; Temp 97.9; Pulse Ox 98% ; Weight 87.54 kg; Height 5 ft. ll1 4 in. (162.56 cm); Pain 0/10; 16:51 Body Mass Index 33.13 (87.54 kg, 162.56 cm) ll1 MDM: 17:00 Patient medically screened. kb 19:45 Differential diagnosis: Bronchitis CHF exacerbation, Chronic Obstructive Pulmonary kb Disease pneumonia. Data reviewed: vital signs, nurses notes. Consideration of Admission/Observation Escalation of care including admission/observation considered. Counseling: I had a detailed discussion with the patient and/or guardian regarding: the historical points, exam findings, and any diagnostic results supporting the discharge/admit diagnosis, lab results, radiology results, the need for outpatient follow up, a family practitioner, to return to the emergency department if symptoms worsen or persist or if there are any questions or concerns that arise at home. ED course: Pt nontoxic in appearance. Feeling better after treatment. Reports she has an albuterol inhaler at home that she can use. Will prescribe Lasix 20mg daily and pt will follow up with PCP. Pt educated to return for worsening symptoms. . 05/26 17:00 Order name: CBC with Diff; Complete Time: 17:40 kb 05/26 17:00 Order name: Magnesium; Complete Time: 17:51 kb 05/26 17:00 Order name: NT PRO-BNP; Complete Time: 17:51 kb 05/26 17:00 Order name: PT-INR; Complete Time: 17:40 kb 05/26 17:00 Order name: Troponin HS; Complete Time: 17:51 kb 05/26 17:00 Order name: CMP; Complete Time: 17:51 kb 05/26 17:00 Order name: XRAY Chest (1 view); Complete Time: 18:13 kb 05/26 17:00 Order name: EKG; Complete Time: 17:00 kb 05/26 17:00 Order name: Cardiac monitoring; Complete Time: 17:54 kb 05/26 18:40 Order name: US Extremity Venous W Compression Moe; Complete Time: 19:41 kb 05/26 17:00 Order name: EKG - Nurse/Tech; Complete Time: 17:24 kb 05/26 17:00 Order name: IV Saline Lock; Complete Time: 17:24 kb 05/26 17:00 Order name: Labs collected and sent; Complete Time: 17:24 kb 05/26 17:00 Order name: O2 Per Protocol; Complete Time: 17:54 kb 05/26 17:00 Order name: O2 Sat Monitoring; Complete Time: 17:54 kb EC:47 Rate is 69 beats/min. Rhythm is regular. QRS [place] is Normal. LA interval is normal at kb 146 msec. QRS interval is normal at 76 msec. QT interval is normal at 486 msec. Administered Medications: 18:07 Drug: Lasix (furosemide) 40 mg Route: IVP; Site: left antecubital; ko1 18:42 Drug: Potassium Chloride 20 mEq Route: PO; ko1 18:42 Drug: Xopenex (levalbuterol) 1.25 mg Route: Inhalation; ko1 18:42 Drug: AtroVENT (ipratropium) Aerosol 0.5 mg Route: Inhalation; ko1 Disposition Summary: 05/26/22 19:51 Discharge Ordered Location: Home kb Condition: Stable kb Diagnosis - Edema, unspecified - Peripheral kb - Dyspnea kb Followup: kb - With: Emergency Department - When: As needed - Reason: Worsening of condition Followup: kb - With: Private Physician - When: 2 - 3 days - Reason: Recheck today's complaints, Continuance of care, Re-evaluation by your physician Discharge Instructions: - Discharge Summary Sheet kb - Shortness of Breath, Adult, [id number] kb - Peripheral Edema kb Forms: - Medication Reconciliation Form kb - Thank You Letter kb - Antibiotic Education kb - Prescription Opioid Use kb Prescriptions: - Lasix 20 mg Oral Tablet - take 1 tablet by ORAL route once daily; 20 tablet; Refills: 0, Product kb Selection Permitted Signatures: Dispatcher [employer] EDTamar Zarate, OSWALDO-C MANGLE OPERATOR GARMENTS-Rosita Ayala, RN RN ll1 Georgia Gilman RN RN eh3 Jessi Vyas, RN RN ko1
--- NOTE | 2022-05-26 19:52 | ER ---
Nurse's Notes [facility] Name: Val Love Age: 76 yrs Sex: Female : 1945 Arrival Date: 05/26/2022 Time: 16:48 Bed 11 Private MD: Diagnosis: Edema, unspecified-Peripheral;Dyspnea Presentation: 05/26 16:51 Chief complaint: Patient states: Bilateral leg swelling and SOB when laying flat for 2 ll1 weeks. Has to sleep sitting up. Coronavirus screen: Vaccine status: Patient reports receiving the 2nd dose of the covid vaccine. Client denies travel out of the [place] in the last 14 days. At this time, the client does not indicate any symptoms associated with coronavirus-19. Ebola Screen: Patient denies travel to an Ebola-affected area in the 21 days before illness onset. Initial Sepsis Screen: Does the patient meet any 2 criteria? No. Patient's initial sepsis screen is negative. Does the patient have a suspected source of infection? No. Patient's initial sepsis screen is negative. Risk Assessment: Do you want to hurt yourself or someone else? Patient reports no desire to harm self or others. Onset of symptoms was May 12, 2022. 16:51 Method Of Arrival: Ambulatory ll1 16:51 Acuity: NELDA 3 ll1 Historical: - Allergies: 16:52 amoxicillin-pot clavulanate; ll1 16:52 HYDRALAZINE; ll1 16:52 statins; ll1 - Home Meds: 19:56 amlodipine oral [Active]; Eliquis Oral [Active]; Synthroid Oral [Active]; eh3 - PMHx: 16:52 Hypertensive disorder; Hypothyroidism; ll1 16:55 A fib; ll1 - PSHx: 16:52 Cholecystectomy; Tonsillectomy; Thyroidectomy; ll1 - Immunization history:: Client reports receiving the 2nd dose of the Covid vaccine. - Social history:: Smoking status: Patient denies any tobacco usage or history of. Screenin:20 [facility] ED Fall Risk Assessment (Adult) History of falling in the last 3 months, ko1 including since admission No falls in past 3 months (0 pts) Confusion or Disorientation No (0 pts) Intoxicated or Sedated No (0 pts) Impaired Gait No (0 pts) Mobility Assist Device Used No (0 pt) Altered Elimination No (0 pt) Score/Fall Risk Level 0 - 2 = Low Risk Oriented to surroundings, Maintained a safe environment, Educated pt \T\ family on fall prevention, incl call for assistance when getting out of bed, Assessed \T\ reinforced patient's understanding of fall precautions, Provided non-skid footwear, Hourly rounding (assess needs \T\ fall precautionary measures) done, Used ambulatory aids as needed (educated on \T\ assisted with), Used gait belt as appropriate. Abuse screen: Denies threats or abuse. Denies injuries from another. Nutritional screening: No deficits noted. Tuberculosis screening: No symptoms or risk factors identified. Assessment: 17:20 General: Appears in no apparent distress. comfortable, Behavior is calm, cooperative, ko1 appropriate for age. Pain: Denies pain. Neuro: No deficits noted. Cardiovascular: Rhythm is regular. Respiratory: Airway is patent Respiratory effort is even, unlabored, Breath sounds with crackles bilaterally. GI: No deficits noted. : No deficits noted. EENT: No deficits noted. Derm: No deficits noted. Musculoskeletal: No deficits noted. 19:00 General: Appears in no apparent distress. comfortable, Behavior is calm, cooperative, eh3 appropriate for age. Pain: Denies pain. Neuro: Level of Consciousness is awake, alert, obeys commands, Oriented to person, place, time, situation. Cardiovascular: Capillary refill < 3 seconds Patient's skin is warm and dry. Cardiovascular: Rhythm is regular. Respiratory: Respiratory: Airway is patent Respiratory effort is even, unlabored, Respiratory pattern is regular, symmetrical. Musculoskeletal: Swelling present in right leg and left leg. Vital Signs: 16:51 BP 176 / 77; Pulse 86; Resp 17; Temp 97.9; Pulse Ox 98% ; Weight 87.54 kg; Height 5 ft. ll1 4 in. (162.56 cm); Pain 0/10; 16:51 Body Mass Index 33.13 (87.54 kg, 162.56 cm) ll1 ED Course: 16:48 Patient arrived in ED. as 16:52 Triage completed. ll1 16:53 Tamar Maharaj F[facility]-C [facility]. kb 16:[address] DO is Attending Physician. kb 16:53 Arm band placed on. ll1 17:20 Patient has correct armband on for positive identification. Bed in low position. Call ko1 light in reach. Side rails up X 1. Client placed on continuous cardiac and pulse oximetry monitoring. NIBP monitoring applied. groundwater monitoring technician on. 17:24 Initial lab(s) drawn, by me, sent to lab. EKG done, by ED staff. Inserted saline lock: em1 20 gauge in left antecubital area, using aseptic technique. Blood collected. 17:41 XRAY Chest (1 view) In Process Unspecified. EDMS 17:48 Jessi Vyas, RN is Primary Nurse. ko1 17:52 Patient placed in an exam room, on a stretcher. ll1 18:45 Initial Neb Treatment Given as ordered Patient was instructed and evaluated on ko1 procedure. 19:30 US Extremity Venous W Compression Moe In Process Unspecified. EDMS 19:55 No provider procedures requiring assistance completed. IV discontinued, intact, eh3 bleeding controlled, No redness/swelling at site. Pressure dressing applied. Administered Medications: 18:07 Drug: Lasix (furosemide) 40 mg Route: IVP; Site: left antecubital; ko1 18:42 Drug: Potassium Chloride 20 mEq Route: PO; ko1 18:42 Drug: Xopenex (levalbuterol) 1.25 mg Route: Inhalation; ko1 18:42 Drug: AtroVENT (ipratropium) Aerosol 0.5 mg Route: Inhalation; ko1 Medication: 19:56 VIS not applicable for this client. eh3 Outcome: 19:51 Discharge ordered by . kb 19:56 Discharged to home ambulatory. eh3 19:56 Condition: stable 19:56 Discharge instructions given to patient, Instructed on discharge instructions, follow up and referral plans. medication usage, Demonstrated understanding of instructions, follow-up care, medications, Prescriptions given X 1. 20:02 Patient left the ED. eh3 Signatures: Dispatcher [employer] EDMS Tamar Maharaj, Tita Lai Eric em1 Rosita Matias, RN RN ll1 Georgia Gilman RN RN eh3 Jessi Vyas, RN RN ko1
[2022-05-26 20:15] VITALS: BP 176/77; TEMP 97.9; O2SAT 98
== END 2022-05-26 20:02 | disposition home or self-care (01) ==
LOC: ER 16:45
DX: R60.9 Edema, unspecified (principal); R06.00 Dyspnea, unspecified; I48.91 Unspecified atrial fibrillation; Z79.01 Long term (current) use of anticoagulants; I10 Essential (primary) hypertension; E03.9 Hypothyroidism, unspecified; Z88.1 Allergy status to other antibiotic agents; Z88.8 Allergy status to other drugs, medicaments and biological substances
CPT/HCPCS: 93005; 85025; 36415; 83735; 85610; 84484; 80053; 83880; 71045; 93970; 96374; 99285; J7614; J1940; J7644

== ENCOUNTER 2022-06-08 19:15 | Emergency (ER) | payer OTHER ==
--- OUTSIDE RECORDS SUMMARY | 2022-06-08 19:25 | XMS REPORT | Continuity of Care Document ---
:1945 Author Organization [facility] t Address [address] [place] [place] [address] Care Team Providers Name Role Phone ANAY BRUNO Primary Care Physician Unavailable Avinash Rangel Attending Clinician Unavailable ANAY BRUNO Attending Clinician Unavailable DELILAH RHODES III Attending Clinician Unavailable King SRIDEVI MD, James C Attending Clinician Unknown, Attending Attending Clinician Unavailable [facility] Attending Clinician Unavailable LIAM AREVALO Attending Clinician Unavailable Doctor Unassigned, [place] Attending Clinician Unavailable Denisse Adames PTA Attending Clinician Unavailable Tuan Hussein MD Attending Clinician TUAN HUSSEIN Attending Clinician Unavailable Gilmer Murillo Attending Clinician Unavailable Eula Hughes PTA Attending Clinician Unavailable Jyoti Valdez PTA Attending Clinician Unavailable Ingrid Shepherd PT Attending Clinician Unavailable Meg Ulrich MD Attending Clinician BETSY MURILLO Attending Clinician Unavailable Vaccine, Ang Db [facility] Attending Clinician Unavailable Yuly Carolina Attending Clinician YULY RIVERA Attending Clinician Unavailable Jes Rock Attending Clinician Unavailable Maia CHACON, Anjana Attending Clinician ANJANA CARVALHO Attending Clinician Unavailable [...] Policy Number Effective Date Expiration Date S debbie MEDICARE PART A [id number] 2009 \\T\\ B 00:00:00 FOR LIFE [id number] 2021 00:00:00 Problems Condition Condition Condition Status Onset Resolution Last Treating Co mments Source Name Details Category Date Date Treatment Clinician Date Atrial Atrial Disease Active 2021-04 Overview: Univer s fibrillati fibrillati 04-30 Formattin ity of on with on with 00:00: g of this [place] RVR RVR 00 note Medical might be Branch different from the original. 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 Rarely takes alprazola m Pneumonia Pneumonia Disease Active 2021-04 Overview: Univers due to due to 04-30 Formattin ity of infectious infectious 00:00: g of this [place] organism, organism, 00 note Medi adalberto unspecifie unspecifie might be Branch d d different laterality laterality from the , , original. unspecifie unspecifie Had d part of d part of pneumonia lung lung w/ sepsis in 2014 Thyroid Thyroid Disease Active 2021-04 Overview: [facility] ers cancer cancer 04-30 Formattin ity of 00:00: g of this [place] 00 note Medical might be Branch different from the original. 10/21/2019 with L bx/thyroi dectomy Skin Skin Disease Active 2021-04 [facility] cancer cancer 04-30 ity of 00:00: [place] [facility] Atrial Atrial Disease Active Methodi [...] Disease Active M ethodi es es 12-06 00:00: Hospita 00 l Double Double Disease [...] 8-13 Clear Reductas 00:00: [facility] e [facility] Inhibito [facility] hydralaz DA Active SV [facility] ine 8-13 Clear 00:00: [place] 00 [facility] amoxicil DA Active MA [facility] elsy 8-13 Clear 00:00: [place] 00 [facility] Statins- DA Active SV BURNING [facility]-Coa SKIN,VOMITIN 813 Bong ar Reductas G,SWEATING,D 00:00: Yasmeen RUSSELL,"FEELIN 00 Sandi trish Inhibito G [facility] hydralaz DA Active SV SOB,PALPITAT HC A ine IONS, 813 Clear "FEELING OF 00:00: Ardon DYING" 00 [facility] amoxicil DA Active MA GI UPSET HCA elsy 8-13 Clear 00:00: [place] 00 [facility] Amoxicil Propensi Active GI Nausea, Metho di elsy-Pot ty to Intolerance 11-[address] Clavulan adverse 00:00: Hospita ate reaction 00 l s to drug AMOXICIL DRUG Active Med Other-Cmnt [facility] ers ELSY-POT 11-21 ity of CLAVULAN 00:00: [...] hydralazi l s to ne [facility] and she experienc ed heart pounding, severe dizziness , and feeling like she was about to stop breathing . HYDRALAZ DRUG Active High Palpitations Un anthony INE INGREDI 605 ity of 00:00: [place] 00 Medical [place] Hydralaz Propensi Active Shortness of Patient Univers ine ty to Breath 605 received ity of adverse 00:00: a dose of [place] reaction 00 hydralazi Medic al s ne IV in [facility] and she experienc ed heart pounding, severe dizziness , and feeling like she was about to stop breathing . Statins- Propensi Active Other (See Burning M ethodi Hmg-Coa ty to Comments) 2-27 of skin, st Reductas adverse 00:00: passes Hospita e reaction 00 out l Inhibito s to rs drug STATINS- Drug Active High Other-Cmnt [facility] ers HMG-COA Class 2-27 ity of REDUCTAS [...] Source Natural father Cancer [facility] Natural father Esophageal cancer [facility] Natural father Liver cancer [facility] Natural father Pancreatic cancer [facility] mother Cancer [facility] mother Lung cancer [facility] Paternal Cancer [facility] Paternal Colon cancer [facility] Natural sister Kory[employer] Evangelical thyroiditis [facility] Natural sister Heart attack [facility] Natural sister Hypertension [facility] Natural sister Thyroid disease [facility] Natural sister Diabetes [facility] Natural sister Heart disease [facility] Social History Social Habit Start Date Stop Date Quantity Comments Source Exposure to 2022-05-29 2022-06-08 Not sure [facility]-CoV-2 00:00:00 18:20:00 [facility] (event) [place] Alcohol intake 2021-12-01 2021-12-01 [facility] 00:00:00 00:00:00 non-drinker of alcohol (finding) Tobacco use and 2021-08-12 2021-08-12 Smokeless tobacco [facility] [place] exposure 00:00:00 00:00:00 non-user Sex [birth year] Universit y of 00:00:00 00:00:00 [facility] Smoking Status Start Date Stop Date Source Never smoked tobacco [facility] Medications Ordered Filled Start Stop Current Ordering Indication Dosage Frequency Signature Comments Components Source Medication Medication Date Date Medication? Clinician (SIG) Name Name amLODIPine 2022- No 10mg Take 10 mg Univers 10 mg 2-10 -10 by mouth. ity of tablet 09:05: 00:00 [place] 26 :00 Medical Branch amLODIPine 2022- No 10mg Take 10 mg Univers 10 mg 2-10 -10 by mouth. ity of tablet 09:05: 00:00 [place] 26 :00 [facility] amLODIPine 2023-0 Yes 10mg Take 1 Unive rs 10 mg 2-10 tablet by ity of tablet 00:00: mouth in [place] 00 the Medical morning. Branch amLODIPine 2022-0 Yes 10mg Take 1 Unive rs 10 mg 2-10 tablet by ity of tablet 00:00: mouth in [place] 00 the Medical morning. Branch amLODIPine 2022-0 Yes 10mg Take 1 Unive rs 10 mg 2-10 tablet by ity of tablet 00:00: mouth in [place] 00 the Medical morning. Branch telmisartan 3-0 Yes [id number] 80mg Take 1 Univers (MICARDIS) 2-01 tablet by ity of 80 mg 00:00: mouth in [place] tablet 00 the Medical morning. Branch telmisartan 3-0 Yes [id number] 80mg Take 1 Univers (MICARDIS) 2-01 tablet by ity of 80 mg 00:00: mouth in [place] tablet 00 the Medical morning. Branch telmisartan 3-0 Yes [id number] 80mg Take 1 Univers (MICARDIS) 2-01 tablet by ity of 80 mg 00:00: mouth in [place] tablet 00 the Medical morning. Branch telmisartan 3-0 Yes [id number] 80mg Take 1 Univers (MICARDIS) 2-01 tablet by ity of 80 mg 00:00: mouth in [place] tablet 00 the Medical morning. Branch telmisartan 3-0 Yes [id number] 80mg Take 1 Univers (MICARDIS) 2-01 tablet by ity of 80 mg 00:00: mouth in [place] tablet 00 the Medical morning. Branch telmisartan 3-0 Yes [id number] 80mg Take 1 Univers (MICARDIS) 2-01 tablet by ity of 80 mg 00:00: mouth in [place] tablet 00 the Medical morning. Branch telmisartan 3-0 Yes [id number] 80mg Take 1 Univers (MICARDIS) 2-01 tablet by ity of 80 mg 00:00: mouth in [place] tablet 00 the Medical morning. Branch telmisartan 3-0 Yes [id number] 80mg Take 1 Univers (MICARDIS) 2-01 tablet by ity of 80 mg 00:00: mouth in [place] tablet 00 the Medical morning. Branch telmisartan 2023-0 Yes [id number] 80mg Take 1 Univers (MICARDIS) 2-01 tablet by ity of 80 mg 00:00: mouth in [place] tablet 00 the Medical morning. Branch telmisartan 2022-0 Yes [id number] 80mg Take 1 Univers (MICARDIS) 2-01 tablet by ity of 80 mg 00:00: mouth in [place] tablet 00 the Medical morning. Branch telmisartan 2022-0 Yes [id number] 80mg Take 1 Univers (MICARDIS) 2-01 tablet by ity of 80 mg 00:00: mouth in [place] tablet 00 the Medical morning. Branch telmisartan 0 Yes [id number] 80mg Take 1 Univers (MICARDIS) 2-01 tablet by ity of 80 mg 00:00: mouth in [place] tablet 00 the Medical morning. Branch telmisartan 0 Yes [id number] 80mg Take 1 Univers (MICARDIS) 2-01 tablet by ity of 80 mg 00:00: mouth in [place] tablet 00 the Medical morning. Branch telmisartan 0 Yes [id number] 80mg Take 1 Univers (MICARDIS) 2-01 tablet by ity of 80 mg 00:00: mouth in [place] tablet 00 the Medical morning. Branch telmisartan 0 Yes [id number] 80mg Take 1 Univers (MICARDIS) 2-01 tablet by ity of 80 mg 00:00: mouth in [place] tablet 00 the Medical morning. Branch telmisartan 0 Yes [id number] 80mg Take 1 Univers (MICARDIS) 2-01 tablet by ity of 80 mg 00:00: mouth in [place] tablet 00 the Medical morning. Branch telmisartan 0 Yes [id number] 80mg Take 1 Univers (MICARDIS) 2-01 tablet by ity of 80 mg 00:00: mouth in [place] tablet 00 the Medical morning. Branch telmisartan 0 Yes [id number] 80mg Take 1 Univers (MICARDIS) 2-01 tablet by ity of 80 mg 00:00: mouth in [place] tablet 00 the Medical morning. Branch amoxicillin 2021-04 Yes [id number] 1{tbl} Take 1 Univers -clavulanat 2-27 tablet by ity of e 00:00: mouth in [place] (AUGMENTIN) 00 the Medical 875-125 mg morning Branch per tablet and 1 tablet in the evening. amoxicillin 2021-04 Yes [id number] 1{tbl} Take 1 Univers -clavulanat 2-27 tablet by ity of e 00:00: mouth in [place] (AUGMENTIN) 00 the Medical 875-125 mg morning Branch per tablet and 1 tablet in the evening. amoxicillin 2021-04 Yes [id number] 1{tbl} Take 1 Univers -clavulanat 2-27 tablet by ity of e 00:00: mouth in [place] (AUGMENTIN) 00 the Medical 875-125 mg morning Branch per tablet and 1 tablet in the evening. amoxicillin 2021-04 Yes [id number] 1{tbl} Take 1 Univers -clavulanat 2-27 tablet by ity of e 00:00: mouth in [place] (AUGMENTIN) 00 the Medical 875-125 mg morning Branch per tablet and 1 tablet in the evening. amoxicillin 2021-04 Yes [id number] 1{tbl} Take 1 Univers -clavulanat 2-27 tablet by ity of e 00:00: mouth in [place] (AUGMENTIN) 00 the Medical 875-125 mg morning Branch per tablet and 1 tablet in the evening. amoxicillin 2021-04 Yes [id number] 1{tbl} Take 1 Univers -clavulanat 2-27 tablet by ity of e 00:00: mouth in [place] (AUGMENTIN) 00 the Medical 875-125 mg morning Branch per tablet and 1 tablet in the evening. amoxicillin 2021-04 Yes [id number] 1{tbl} Take 1 Univers -clavulanat 2-27 tablet by ity of e 00:00: mouth in [place] (AUGMENTIN) 00 the Medical 875-125 mg morning Branch per tablet and 1 tablet in the evening. amoxicillin 2021-04 Yes [id number] 1{tbl} Take 1 Univers -clavulanat 2-27 tablet by ity of e 00:00: mouth in [place] (AUGMENTIN) 00 the Medical 875-125 mg morning Branch per tablet and 1 tablet in the evening. amoxicillin 2021-04 Yes [id number] 1{tbl} Take 1 Univers -clavulanat 2-27 tablet by ity of e 00:00: mouth in [place] (AUGMENTIN) 00 the Medical 875-125 mg morning Branch per tablet and 1 tablet in the evening. albuterol 2021-04 Yes [id number] 2{puff} Inhale 2 Univers 90 2-23 Puffs ity of mcg/actuati 00:00: every 6 [place] as on inhaler 00 (six) Medical hours as Branch needed for Wheezing or Shortness of Breath. promethazin 2021-04 Yes [id number] 5mL Take 5 mL Univers e-dextromet 2-23 by mouth 4 it y of horphan 00:00: (four) [place] 6.25-15 00 times Medical mg/5 mL daily as Branch syrup needed for Cough. fluticasone 2021-04 Yes [id number] 1{puff} Inhale 1 Univers propion-fernie 2-23 Puff every it y of meteroL 00:00: 12 [place] [facility] hours. Branch 250-50 mcg/dose inhalation disk albuterol 2021-04 Yes [id number] 2{puff} Inhale 2 Univers 90 2-23 Puffs ity of mcg/actuati 00:00: every 6 [place] as on inhaler 00 (six) Medical hours as Branch needed for Wheezing or Shortness of Breath. promethazin 2021-04 Yes [id number] 5mL Take 5 mL Univers e-dextromet 2-23 by mouth 4 it y of horphan 00:00: (four) [place] 6.25-15 00 times Medical mg/5 mL daily as Branch syrup needed for Cough. fluticasone 2021-04 Yes [id number] 1{puff} Inhale 1 Univers propion-fernie 2-23 Puff every it y of meteroL 00:00: 12 [place] ([facility] Medical INHUB) hours. Branch 250-50 mcg/dose inhalation disk albuterol 2021-04 Yes [id number] 2{puff} Inhale 2 Univers 90 2-23 Puffs ity of mcg/actuati 00:00: every 6 [place] as on inhaler 00 (six) Medical hours as Branch needed for Wheezing or Shortness of Breath. promethazin 2021-04 Yes [id number] 5mL Take 5 mL Univers e-dextromet 2-23 by mouth 4 it y of horphan 00:00: (four) [place] 6.25-15 00 times Medical mg/5 mL daily as Branch syrup needed for Cough. fluticasone 2021-04 Yes [id number] 1{puff} Inhale 1 Univers propion-fernie 2-23 Puff every it y of meteroL 00:00: 12 [place] ([facility] 00 (twelve) Medical INHUB) hours. Branch 250-50 mcg/dose inhalation disk azithromyci 2021-04 Yes [id number] Take two Univers n 250 mg 2-23 tablets my ity o f tablet 00:00: mouth [place] 00 today Medical followed Branch by one tablet daily for a total for 5 days albuterol 2021-04 Yes [id number] 2{puff} Inhale 2 Univers 90 2-23 Puffs ity of mcg/actuati 00:00: every 6 [place] as on inhaler 00 (six) Medical hours as Branch needed for Wheezing or Shortness of Breath. promethazin 2021-04 Yes [id number] 5mL Take 5 mL Univers e-dextromet 2-23 by mouth 4 it y of horphan 00:00: (four) [place] 6.25-15 00 times Medical mg/5 mL daily as Branch syrup needed for Cough. fluticasone 2021-04 Yes [id number] 1{puff} Inhale 1 Univers propion-fernie 2-23 Puff every it y of meteroL 00:00: 12 [place] ([facility] 00 ([facility] Medical INHUB) hours. Branch 250-50 mcg/dose inhalation disk azithromyci 2021-04 Yes [id number] Take two Univers n 250 mg 2-23 tablets my ity o f tablet 00:00: mouth [place] 00 today Medical followed Branch by one tablet daily for a total for 5 days albuterol 2021-04 Yes [id number] 2{puff} Inhale 2 Univers 90 2-23 Puffs ity of mcg/actuati 00:00: every 6 [place] as on inhaler 00 (six) Medical hours as Branch needed for Wheezing or Shortness of Breath. promethazin 2021-04 Yes [id number] 5mL Take 5 mL Univers e-dextromet 2-23 by mouth 4 it y of horphan 00:00: (four) [place] 6.25-15 00 times Medical mg/5 mL daily as Branch syrup needed for Cough. fluticasone 2021-04 Yes [id number] 1{puff} Inhale 1 Univers propion-fernie 2-23 Puff every it y of meteroL 00:00: 12 [place] [facility]) hours. Branch 250-50 mcg/dose inhalation disk azithromyci 2021-04 Yes [id number] Take two Univers n 250 mg 2-23 tablets my ity o f tablet 00:00: mouth today Medical followed Branch by one tablet daily for a total for 5 days albuterol 2021-04 Yes [id number] 2{puff} Inhale 2 Univers 90 2-23 Puffs ity of mcg/actuati 00:00: every 6 [place] as on inhaler 00 (six) Medical hours as Branch needed for Wheezing or Shortness of Breath. promethazin 2021-04 Yes [id number] 5mL Take 5 mL Univers e-dextromet 2-23 by mouth 4 it y of horphan 00:00: (four) [place] 6.25-15 00 times Medical mg/5 mL daily as Branch syrup needed for Cough. fluticasone 2021-04 Yes [id number] 1{puff} Inhale 1 Univers propion-fernie 2-23 Puff every it y of meteroL 00:00: 12 [place] ([facility]) hours. Branch 250-50 mcg/dose inhalation disk azithromyci 2021-04 Yes [id number] Take two Univers n 250 mg 2-23 tablets my ity o f tablet 00:00: mouth [place] today Medical followed Branch by one tablet daily for a total for 5 days albuterol 2021-04 Yes [id number] 2{puff} Inhale 2 Univers 90 2-23 Puffs ity of mcg/actuati 00:00: every 6 [place] as on inhaler 00 (six) Medical hours as Branch needed for Wheezing or Shortness of Breath. promethazin 2021-04 Yes [id number] 5mL Take 5 mL Univers e-dextromet 2-23 by mouth 4 it y of horphan 00:00: (four) [place] 6.25-15 00 times Medical mg/5 mL daily as Branch syrup needed for Cough. fluticasone 2021-04 Yes [id number] 1{puff} Inhale 1 Univers propion-fernie 2-23 Puff every it y of meteroL 00:00: 12 [place] ([facility] Medical INHUB) hours. Branch 250-50 mcg/dose inhalation disk azithromyci 2021-04 Yes [id number] Take two Univers n 250 mg 2-23 tablets my ity o f tablet 00:00: mouth [place] 00 today Medical followed Branch by one tablet daily for a total for 5 days albuterol 2021-04 Yes [id number] 2{puff} Inhale 2 Univers 90 2-23 Puffs ity of mcg/actuati 00:00: every 6 [place] as on inhaler 00 (six) Medical hours as Branch needed for Wheezing or Shortness of Breath. promethazin 2021-04 Yes [id number] 5mL Take 5 mL Univers e-dextromet 2-23 by mouth 4 it y of horphan 00:00: (four) [place] 6.25-15 00 times Medical mg/5 mL daily as Branch syrup needed for Cough. fluticasone 2021-04 Yes [id number] 1{puff} Inhale 1 Univers propion-fernie 2-23 Puff every it y of meteroL 00:00: 12 [place] ([facility] Medical INHUB) hours. Branch 250-50 mcg/dose inhalation disk azithromyci 2021-04 Yes [id number] Take two Univers n 250 mg 2-23 tablets my ity o f tablet 00:00: mouth [place] 00 today Medical followed Branch by one tablet daily for a total for 5 days albuterol 2021-04 Yes [id number] 2{puff} Inhale 2 Univers 90 2-23 Puffs ity of mcg/actuati 00:00: every 6 [place] as on inhaler 00 (six) Medical hours as Branch needed for Wheezing or Shortness of Breath. promethazin 2021-04 Yes [id number] 5mL Take 5 mL Univers e-dextromet 2-23 by mouth 4 it y of horphan 00:00: (four) [place] 6.25-15 00 times Medical mg/5 mL daily as Branch syrup needed for Cough. fluticasone 2021-04 Yes [id number] 1{puff} Inhale 1 Univers propion-fernie 2-23 Puff every it y of meteroL 00:00: 12 [place] ([facility] ([facility] Medical INHUB) hours. Branch 250-50 mcg/dose inhalation disk azithromyci 2021-04 Yes [id number] Take two Univers n 250 mg 2-23 tablets my ity o f tablet 00:00: mouth [place] today Medical followed Branch by one tablet daily for a total for 5 days albuterol 2021-04 Yes [id number] 2{puff} Inhale 2 Univers 90 2-23 Puffs ity of mcg/actuati 00:00: every 6 [place] as on inhaler 00 (six) Medical hours as Branch needed for Wheezing or Shortness of Breath. promethazin 2021-04 Yes [id number] 5mL Take 5 mL Univers e-dextromet 2-23 by mouth 4 it y of horphan 00:00: (four) [place] 6.25-15 00 times Medical mg/5 mL daily as Branch syrup needed for Cough. fluticasone 2021-04 Yes [id number] 1{puff} Inhale 1 Univers propion-fernie 2-23 Puff every it y of meteroL 00:00: 12 [place] ([facility] ([facility] Medical INHUB) hours. Branch 250-50 mcg/dose inhalation disk azithromyci 2021-04 Yes [id number] Take two Univers n 250 mg 2-23 tablets my ity o f tablet 00:00: mouth [place] Medical followed Branch by one tablet daily for a total for 5 days albuterol 2021-04 Yes [id number] 2{puff} Inhale 2 Univers 90 2-23 Puffs ity of mcg/actuati 00:00: every 6 [place] as on inhaler 00 (six) Medical hours as Branch needed for Wheezing or Shortness of Breath. promethazin 2021-04 Yes [id number] 5mL Take 5 mL Univers e-dextromet 2-23 by mouth 4 it y of horphan 00:00: (four) [place] 6.25-15 00 times Medical mg/5 mL daily as Branch syrup needed for Cough. fluticasone 2021-04 Yes [id number] 1{puff} Inhale 1 Univers propion-fernie 2-23 Puff every it y of meteroL 00:00: 12 [place] ([facility] 00 (twelve) Medical INHUB) hours. Branch 250-50 mcg/dose inhalation disk azithromyci 2021-04 Yes [id number] Take two Univers n 250 mg 2-23 tablets my ity o f tablet 00:00: mouth [place] today Medical followed Branch by one tablet daily for a total for 5 days albuterol 2021-04 Yes [id number] 2{puff} Inhale 2 Univers 90 2-23 Puffs ity of mcg/actuati 00:00: every 6 [place] as on inhaler 00 (six) Medical hours as Branch needed for Wheezing or Shortness of Breath. promethazin 2021-04 Yes [id number] 5mL Take 5 mL Univers e-dextromet 2-23 by mouth 4 it y of horphan 00:00: (four) [place] 6.25-15 00 times Medical mg/5 mL daily as Branch syrup needed for Cough. fluticasone 2021-04 Yes [id number] 1{puff} Inhale 1 Univers propion-fernie 2-23 Puff every it y of meteroL 00:00: 12 [place] ([facility]) hours. Branch 250-50 mcg/dose inhalation disk azithromyci 2021-04 Yes [id number] Take two Univers n 250 mg 2-23 tablets my ity o f tablet 00:00: mouth [place] today Medical followed Branch by one tablet daily for a total for 5 days albuterol 2021-04 Yes [id number] 2{puff} Inhale 2 Univers 90 2-23 Puffs ity of mcg/actuati 00:00: every 6 [place] as on inhaler 00 (six) Medical hours as Branch needed for Wheezing or Shortness of Breath. promethazin 2021-04 Yes [id number] 5mL Take 5 mL Univers e-dextromet 2-23 by mouth 4 it y of horphan 00:00: (four) [place] 6.25-15 00 times Medical mg/5 mL daily as Branch syrup needed for Cough. fluticasone 2021-04 Yes [id number] 1{puff} Inhale 1 Univers propion-fernie 2-23 Puff every it y of meteroL 00:00: 12 [place] ([facility] Medical INHUB) hours. Branch 250-50 mcg/dose inhalation disk azithromyci 2021-04 Yes [id number] Take two Univers n 250 mg 2-23 tablets my ity o f tablet 00:00: mouth 00 today Medical followed Branch by one tablet daily for a total for 5 days ALPRAZolam 2021-04- No .25mg Take 0.25 Univers 0.25 mg 2-08 12-08 mg by ity of tablet 11:20: 00:00 mouth 3 [place] 35 :00 (three) Medical times Branch daily. ALPRAZolam 2021-04- No .25mg Take 0.25 Univers 0.25 mg 2-08 12-08 mg by ity of tablet 11:20: 00:00 mouth 3 [place] 35 :00 (three) Medical times Branch daily. Biotin 2021-04 Yes Univers 10,000 mcg 2-08 ity of Cap 11:04: [place] [address] Medical Branch L.acid/L.ca 2021-04 Yes Take by Uni vers sei/B.bif/B 2-08 mouth. ity of .ronnell/FOS 11:04: [place] (PROBIOTIC 37 Medical BLEND ORAL) Branch mv-mn/iron/ 2021-04 Yes Take by Uni vers folic 2-08 mouth. ity of acid/herb 11:04: [place] [address] Medical (VITAMIN D3 Branch COMPLETE ORAL) Biotin 2021-04 Yes Univers 10,000 mcg 2-08 ity of Cap 11:04: [place] [address] Medical Branch L.acid/L.ca 2021-04 Yes Take by Uni vers sei/B.bif/B 2-08 mouth. ity of .ronnell/FOS 11:04: [place] (PROBIOTIC 37 Medical BLEND ORAL) Branch mv-mn/iron/ 2021-04 Yes Take by Uni vers folic 2-08 mouth. ity of acid/herb 11:04: [place] [address] Medical (VITAMIN D3 Branch COMPLETE ORAL) Biotin 2021-04 Yes Univers 10,000 mcg 2-08 ity of Cap 11:04: [place] [address] Medical Branch L.acid/L.ca 2021-04 Yes Take by Uni vers sei/B.bif/B 2-08 mouth. ity of .ronnell/FOS 11:04: [place] (PROBIOTIC 37 Medical BLEND ORAL) Branch mv-mn/iron/ 2021-04 Yes Take by Uni vers folic 2-08 mouth. ity of acid/herb 11:04: [place] [address] Medical (VITAMIN D3 Branch COMPLETE ORAL) Biotin 2021-04 Yes Univers 10,000 mcg 2-08 ity of Cap 11:04: [place] [address] Medical Branch L.acid/L.ca 2021-04 Yes Take by Uni vers sei/B.bif/B 2-08 mouth. ity of .ronnell/FOS 11:04: [place] (PROBIOTIC 37 Medical BLEND ORAL) Branch mv-mn/iron/ 2021-04 Yes Take by Uni vers folic 2-08 mouth. ity of acid/herb 11:04: [place] 190 37 Medical (VITAMIN D3 Branch COMPLETE ORAL) Biotin 2021-04 Yes Univers 10,000 mcg 2-08 ity of Cap 11:04: [place] [address] Medical Branch L.acid/L.ca 2021-04 Yes Take by Uni vers sei/B.bif/B 2-08 mouth. ity of .ronnell/FOS 11:04: [place] (PROBIOTIC 37 Medical BLEND ORAL) Branch mv-mn/iron/ 2021-04 Yes Take by Uni vers folic 2-08 mouth. ity of acid/herb 11:04: [place] [id number] 37 Medical (VITAMIN D3 Branch COMPLETE ORAL) Biotin 2021-04 Yes Univers 10,000 mcg 2-08 ity of Cap 11:04: [place] [address] Medical Branch L.acid/L.ca 2021-04 Yes Take by Uni vers sei/B.bif/B 2-08 mouth. ity of .ronnell/FOS 11:04: [place] (PROBIOTIC 37 Medical BLEND ORAL) Branch mv-mn/iron/ 2021-04 Yes Take by Uni vers folic 2-08 mouth. ity of acid/herb 11:04: [place] [id number] 37 Medical (VITAMIN D3 Branch COMPLETE ORAL) Biotin 2021-04 Yes Univers 10,000 mcg 2-08 ity of Cap 11:04: [place] [address] Medical Branch L.acid/L.ca 2021-04 Yes Take by Uni vers sei/B.bif/B 2-08 mouth. ity of .ronnell/FOS 11:04: [place] (PROBIOTIC 37 Medical BLEND ORAL) Branch mv-mn/iron/ 2021-04 Yes Take by Uni vers folic 2-08 mouth. ity of acid/herb 11:04: [place] [id number] 37 Medical (VITAMIN D3 Branch COMPLETE ORAL) Biotin 2021-04 Yes Univers 10,000 mcg 2-08 ity of Cap 11:04: [place] [address] Medical Branch L.acid/L.ca 2021-04 Yes Take by Uni vers sei/B.bif/B 2-08 mouth. ity of .ronnell/FOS 11:04: [place] (PROBIOTIC 37 Medical BLEND ORAL) Branch mv-mn/iron/ 2021-04 Yes Take by Uni vers folic 2-08 mouth. ity of acid/herb 11:04: [place] [id number] 37 Medical (VITAMIN D3 Branch COMPLETE ORAL) Biotin 2021-04 Yes Univers 10,000 mcg 2-08 ity of Cap 11:04: [place] [address] Medical Branch L.acid/L.ca 2021-04 Yes Take by Uni vers sei/B.bif/B 2-08 mouth. ity of .ronnell/FOS 11:04: [place] (PROBIOTIC 37 Medical BLEND ORAL) Branch mv-mn/iron/ 2021-04 Yes Take by Uni vers folic 2-08 mouth. ity of acid/herb 11:04: [place] [address] 37 Medical (VITAMIN D3 Branch COMPLETE ORAL) Biotin 2021-04 Yes Univers 10,000 mcg 2-08 ity of Cap 11:04: [place] [address] Medical Branch L.acid/L.ca 2021-04 Yes Take by Uni vers sei/B.bif/B 2-08 mouth. ity of .ronnell/FOS 11:04: [place] (PROBIOTIC 37 Medical BLEND ORAL) Branch mv-mn/iron/ 2021-04 Yes Take by Uni vers folic 2-08 mouth. ity of acid/herb 11:04: [place] [address] Medical (VITAMIN D3 Branch COMPLETE ORAL) Biotin 2021-04 Yes Univers 10,000 mcg 2-08 ity of Cap 11:04: [place] [address] Medical Branch L.acid/L.ca 2021-04 Yes Take by Uni vers sei/B.bif/B 2-08 mouth. ity of .ronnell/FOS 11:04: [place] (PROBIOTIC 37 Medical BLEND ORAL) Branch mv-mn/iron/ 2021-04 Yes Take by Uni vers folic 2-08 mouth. ity of acid/herb 11:04: [place] [address] 37 Medical (VITAMIN D3 Branch COMPLETE ORAL) Biotin 2021-04 Yes Univers 10,000 mcg 2-08 ity of Cap 11:04: [place] [address] Medical Branch L.acid/L.ca 2021-04 Yes Take by Uni vers sei/B.bif/B 2-08 mouth. ity of .ronnell/FOS 11:04: [place] (PROBIOTIC 37 Medical BLEND ORAL) Branch mv-mn/iron/ 2021-04 Yes Take by Uni vers folic 2-08 mouth. ity of acid/herb 11:04: [place] [address] 37 Medical (VITAMIN D3 Branch COMPLETE ORAL) Biotin 2021-04 Yes Univers 10,000 mcg 2-08 ity of Cap 11:04: [place] [address] Medical Branch L.acid/L.ca 2021-04 Yes Take by Uni vers sei/B.bif/B 2-08 mouth. ity of .ronnell/FOS 11:04: [place] (PROBIOTIC 37 Medical BLEND ORAL) Branch mv-mn/iron/ 2021-04 Yes Take by Uni vers folic 2-08 mouth. ity of acid/herb 11:04: [place] [address] Medical (VITAMIN D3 Branch COMPLETE ORAL) Biotin 2021-04 Yes Univers 10,000 mcg 2-08 ity of Cap 11:04: [place] [address] Medical Branch L.acid/L.ca 2021-04 Yes Take by Uni vers sei/B.bif/B 2-08 mouth. ity of .[place]nell/FOS 11:04: [place] (PROBIOTIC 37 Medical BLEND ORAL) Branch mv-mn/iron/ 2021-04 Yes Take by Uni vers folic 2-08 mouth. ity of acid/herb 11:04: [place] [address] Medical (VITAMIN D3 Branch COMPLETE ORAL) Biotin 2021-04 Yes Univers 10,000 mcg 2-08 ity of Cap 11:04: [place] [address] Medical Branch L.acid/L.ca 2021-04 Yes Take by Uni vers sei/B.bif/B 2-08 mouth. ity of .[place]nell/FOS 11:04: [place] (PROBIOTIC 37 Medical BLEND ORAL) Branch mv-mn/iron/ 2021-04 Yes Take by Uni vers folic 2-08 mouth. ity of acid/herb 11:04: [place] [address] Medical (VITAMIN D3 Branch COMPLETE ORAL) Biotin 2021-04 Yes Univers 10,000 mcg 2-08 ity of Cap 11:04: [place] [address] Medical Branch L.acid/L.ca 2021-04 Yes Take by Uni vers sei/B.bif/B 2-08 mouth. ity of .[place]nell/FOS 11:04: [place] (PROBIOTIC 37 Medical BLEND ORAL) Branch mv-mn/iron/ 2021-04 Yes Take by Uni vers folic 2-08 mouth. ity of acid/herb 11:04: [place] [address] Medical (VITAMIN D3 Branch COMPLETE ORAL) Biotin 2021-04 Yes Univers 10,000 mcg 2-08 ity of Cap 11:04: [place] [address] Medical Branch L.acid/L.ca 2021-04 Yes Take by Uni vers sei/B.bif/B 2-08 mouth. ity of .[place]/FOS 11:04: [place] (PROBIOTIC 37 Medical BLEND ORAL) Branch mv-mn/iron/ 2021-04 Yes Take by Uni vers folic 2-08 mouth. ity of acid/herb 11:04: [place] [address] Medical (VITAMIN D3 Branch COMPLETE ORAL) Biotin 2021-04 Yes Univers 10,000 mcg 2-08 ity of Cap 11:04: [address] Branch L.acid/L.ca 2021-04 Yes Take by Uni vers sei/B.bif/B 2-08 mouth. ity of .ronnell/FOS 11:04: [place] (PROBIOTIC 37 Medical BLEND ORAL) Branch mv-mn/iron/ 2021-04 Yes Take by Uni vers folic 2-08 mouth. ity of acid/herb 11:04: [place] [address] Medical (VITAMIN D3 Branch COMPLETE ORAL) amLODIPine 2021-04 Yes 10mg Take 10 mg U nivers 10 mg 2-08 by mouth. ity of tablet 11:00: [address] Cholecalcif 2021-04 Yes 5000U Take 5,000 Univers stephon, 2-08 Units by ity of Vitamin D3, 11:00: mouth. [place] 125 [place] 17 Medical (5,000 Branch unit) capsule Levothyroxi 2021-04 Yes Take by Uni vers ne 137 mcg 2-08 mouth. ity of Cap 11:00: [address] amLODIPine 2021-04 Yes 10mg Take 10 mg U nivers 10 mg 2-08 by mouth. ity of tablet 11:00: [address] Cholecalcif 2021-04 Yes 5000U Take 5,000 Univers ste[place], 2-08 Units by ity of Vitamin D3, 11:00: mouth. [place] 125 [place] 17 Medical (5,000 Branch unit) capsule Levothyroxi 2021-04 Yes Take by Uni vers ne 137 mcg 2-08 mouth. ity of Cap 11:00: [address] amLODIPine 2021-04 Yes 10mg Take 10 mg U nivers 10 mg 2-08 by mouth. ity of tablet 11:00: [address] Cholecalcif 2021-04 Yes 5000U Take 5,000 Univers stephon, 2-08 Units by ity of Vitamin D3, 11:00: mouth. [place] 125 [place] 17 Medical (5,000 Branch unit) capsule Levothyroxi 2021-04 Yes Take by Uni vers ne 137 mcg 2-08 mouth. ity of Cap 11:00: [address] amLODIPine 2021-04 Yes 10mg Take 10 mg U nivers 10 mg 2-08 by mouth. ity of tablet 11:00: [address] Cholecalcif 2021-04 Yes 5000U Take 5,000 Univers stephon, 2-08 Units by ity of Vitamin D3, 11:00: mouth. [place] 125 [place] 17 Medical (5,000 Branch unit) capsule Levothyroxi 2021-04 Yes Take by Uni vers ne 137 mcg 2-08 mouth. ity of Cap 11:00: [address] amLODIPine 2021-04 Yes 10mg Take 10 mg U nivers 10 mg 2-08 by mouth. ity of tablet 11:00: [address] Cholecalcif 2021-04 Yes 5000U Take 5,000 Univers stephon, 2-08 Units by ity of Vitamin D3, 11:00: mouth. [place] 125 [place] 17 Medical (5,000 Branch unit) capsule Levothyroxi 2021-04 Yes Take by Uni vers ne 137 mcg 2-08 mouth. ity of Cap 11:00: [address] amLODIPine 2021-04 Yes 10mg Take 10 mg U nivers 10 mg 2-08 by mouth. ity of tablet 11:00: [address] Cholecalcif 2021-04 Yes 5000U Take 5,000 Univers stephon, 2-08 Units by ity of Vitamin D3, 11:00: mouth. [place] 125 [place] 17 Medical (5,000 Branch unit) capsule Levothyroxi 2021-04 Yes Take by Uni vers ne 137 mcg 2-08 mouth. ity of Cap 11:00: [address] amLODIPine 2021-04 Yes 10mg Take 10 mg U nivers 10 mg 2-08 by mouth. ity of tablet 11:00: [address] Cholecalcif 2021-04 Yes 5000U Take 5,000 Univers ste[place], 2-08 Units by ity of Vitamin D3, 11:00: mouth. [place] 125 mcg 17 Medical (5,000 Branch unit) capsule Levothyroxi 2021-04 Yes Take by Uni vers ne 137 mcg 2-08 mouth. ity of Cap 11:00: [address] amLODIPine 2021-04 Yes 10mg Take 10 mg U nivers 10 mg 2-08 by mouth. ity of tablet 11:00: [address] Cholecalcif 2021-04 Yes 5000U Take 5,000 Univers ste[place], 2-08 Units by ity of Vitamin D3, 11:00: mouth. [place] 125 mcg 17 Medical (5,000 Branch unit) capsule Levothyroxi 2021-04 Yes Take by Uni vers ne 137 mcg 2-08 mouth. ity of Cap 11:00: [address] amLODIPine 2021-04 Yes 10mg Take 10 mg U nivers 10 mg 2-08 by mouth. ity of tablet 11:00: [address] Cholecalcif 2021-04 Yes 5000U Take 5,000 Univers ste[place], 2-08 Units by ity of Vitamin D3, 11:00: mouth. [place] 125 mcg 17 Medical (5,000 Branch unit) capsule Levothyroxi 2021-04 Yes Take by Uni vers ne 137 mcg 2-08 mouth. ity of Cap 11:00: [address] amLODIPine 2021-04 Yes 10mg Take 10 mg U nivers 10 mg 2-08 by mouth. ity of tablet 11:00: [address] Cholecalcif 2021-04 Yes 5000U Take 5,000 Univers [place], 2-08 Units by ity of Vitamin D3, 11:00: mouth. [place] 125 mcg 17 Medical (5,000 Branch unit) capsule Levothyroxi 2021-04 Yes Take by Uni vers ne 137 mcg 2-08 mouth. ity of Cap 11:00: [address] amLODIPine 2021-04 Yes 10mg Take 10 mg U nivers 10 mg 2-08 by mouth. ity of tablet 11:00: [address] Cholecalcif 2021-04 Yes 5000U Take 5,000 Univers [place], 2-08 Units by ity of Vitamin D3, 11:00: mouth. [place] 125 mcg 17 Medical (5,000 Branch unit) capsule Levothyroxi 2021-04 Yes Take by Uni vers ne 137 mcg 2-08 mouth. ity of Cap 11:00: [address] amLODIPine 2021-04 Yes 10mg Take 10 mg U nivers 10 mg 2-08 by mouth. ity of tablet 11:00: [address] Cholecalcif 2021-04 Yes 5000U Take 5,000 Univers ste[place], 2-08 Units by ity of Vitamin D3, 11:00: mouth. [place] 125 mcg 17 Medical (5,000 Branch unit) capsule Levothyroxi 2021-04 Yes Take by Uni vers ne 137 mcg 2-08 mouth. ity of Cap 11:00: [address] amLODIPine 2021-04 Yes 10mg Take 10 mg U nivers 10 mg 2-08 by mouth. ity of tablet 11:00: [address] Cholecalcif 2021-04 Yes 5000U Take 5,000 Univers ste[place], 2-08 Units by ity of Vitamin D3, 11:00: mouth. [place] 125 mcg 17 Medical (5,000 Branch unit) capsule Levothyroxi 2021-04 Yes Take by Uni vers ne 137 mcg 2-08 mouth. ity of Cap 11:00: [address] amLODIPine 2021-04 Yes 10mg Take 10 mg U nivers 10 mg 2-08 by mouth. ity of tablet 11:00: [address] Cholecalcif 2021-04 Yes 5000U Take 5,000 Univers ste[place], 2-08 Units by ity of Vitamin D3, 11:00: mouth. [place] 125 mcg 17 Medical (5,000 Branch unit) capsule Levothyroxi 2021-04 Yes Take by Uni vers ne 137 mcg 2-08 mouth. ity of Cap 11:00: [address] amLODIPine 2021-04 Yes 10mg Take 10 mg U nivers 10 mg 2-08 by mouth. ity of tablet 11:00: [address] Cholecalcif 2021-04 Yes 5000U Take 5,000 Univers stephon, 2-08 Units by ity of Vitamin D3, 11:00: mouth. [place] 125 mcg 17 Medical (5,000 Branch unit) capsule Levothyroxi 2021-04 Yes Take by Uni vers ne 137 mcg 2-08 mouth. ity of Cap 11:00: [address] Cholecalcif 2021-04 Yes 5000U Take 5,000 Univers stephon, 2-08 Units by ity of Vitamin D3, 11:00: mouth. [place] 125 mcg 17 Medical (5,000 Branch unit) capsule Levothyroxi 2021-04 Yes Take by Uni vers ne 137 mcg 2-08 mouth. ity of Cap 11:00: [address] Cholecalcif 2021-04 Yes 5000U Take 5,000 Univers ste[place], 2-08 Units by ity of Vitamin D3, 11:00: mouth. [place] 125 mcg 17 Medical (5,000 Branch unit) capsule Levothyroxi 2021-04 Yes Take by Uni vers ne 137 mcg 2-08 mouth. ity of Cap 11:00: [address] Cholecalcif 2021-04 Yes 5000U Take 5,000 Univers stephon, 2-08 Units by ity of Vitamin D3, 11:00: mouth. [place] 125 mcg 17 Medical (5,000 Branch unit) capsule Levothyroxi 2021-04 Yes Take by Uni vers ne 137 mcg 2-08 mouth. ity of Cap 11:00: [address] apixaban 2021-04 Yes 1358 2.5mg Take 1 Univer s 2.5 mg 2-08 tablet by ity of tablet 00:00: mouth in [address] and 1 tablet in the evening. Indication s: atrial fibrillati on pantoprazol 2021-04 Yes [id number] 40mg Take 1 Univers e 40 mg EC 2-08 tablet by ity of tablet 00:00: mouth in [address] morning [place] and 1 tablet in the evening. apixaban 2021-04 Yes 1358 2.5mg Take 1 Univer s 2.5 mg 2-08 tablet by ity of tablet 00:00: mouth in [address] and 1 tablet in the evening. Indication s: atrial fibrillati on pantoprazol 2021-04 Yes [id number] 40mg Take 1 Univers e 40 mg EC 2-08 tablet by ity of tablet 00:00: mouth in [address] and 1 tablet in the evening. apixaban 2021-04 Yes 1358 2.5mg Take 1 Univer s 2.5 mg 2-08 tablet by ity of tablet 00:00: mouth in [address] and 1 tablet in the evening. Indication s: atrial fibrillati on pantoprazol 2021-04 Yes [id number] 40mg Take 1 Univers e 40 mg EC 2-08 tablet by ity of tablet 00:00: mouth in [place] 00 the Medical morning Branch and 1 tablet in the evening. apixaban 2021-04 Yes 1358 2.5mg Take 1 Univer s 2.5 mg 2-08 tablet by ity of tablet 00:00: mouth in [place] 00 the Medical morning Branch and 1 tablet in the evening. Indication s: atrial fibrillati on pantoprazol 2021-04 Yes [id number] 40mg Take 1 Univers e 40 mg EC 2-08 tablet by ity of tablet 00:00: mouth in [place] 00 the Medical morning Branch and 1 tablet in the evening. apixaban 2021-04 Yes 1358 2.5mg Take 1 Univer s 2.5 mg 2-08 tablet by ity of tablet 00:00: mouth in [place] [address] the Medical morning Branch and 1 tablet in the evening. Indication s: atrial fibrillati on pantoprazol 2021-04 Yes [id number] 40mg Take 1 Univers e 40 mg EC 2-08 tablet by ity of tablet 00:00: mouth in [place] [address] the Medical morning Branch and 1 tablet in the evening. apixaban 2021-04 Yes 1358 2.5mg Take 1 Univer s 2.5 mg 2-08 tablet by ity of tablet 00:00: mouth in [place] [address] the [facility] morning [place] and 1 tablet in the evening. Indication s: atrial fibrillati on pantoprazol 2021-04 Yes [id number] 40mg Take 1 Univers e 40 mg EC 2-08 tablet by ity of tablet 00:00: mouth in [place] [address] the Medical morning Branch and 1 tablet in the evening. apixaban 2021-04 Yes 1358 2.5mg Take 1 Univer s 2.5 mg 2-08 tablet by ity of tablet 00:00: mouth in [place] [address] the [facility] morning Branch and 1 tablet in the evening. Indication s: atrial fibrillati on pantoprazol 2021-04 Yes [id number] 40mg Take 1 Univers e 40 mg EC 2-08 tablet by ity of tablet 00:00: mouth in [place] [address] the Medical morning Branch and 1 tablet in the evening. apixaban 2021-04 Yes 1358 2.5mg Take 1 Univer s 2.5 mg 2-08 tablet by ity of tablet 00:00: mouth in [place] [address] the Medical morning Branch and 1 tablet in the evening. Indication s: atrial fibrillati on pantoprazol 2021-04 Yes [id number] 40mg Take 1 Univers e 40 mg EC 2-08 tablet by ity of tablet 00:00: mouth in [place] [address] the Medical morning Branch and 1 tablet in the evening. apixaban 2021-04 Yes 1358 2.5mg Take 1 Univer s 2.5 mg 2-08 tablet by ity of tablet 00:00: mouth in [place] [address] the Medical morning Branch and 1 tablet in the evening. Indication s: atrial fibrillati on pantoprazol 2021-04 Yes [id number] 40mg Take 1 Univers e 40 mg EC 2-08 tablet by ity of tablet 00:00: mouth in [place] [address] the [facility] morning Branch and 1 tablet in the evening. apixaban 2021-04 Yes 1358 2.5mg Take 1 Univer s 2.5 mg 2-08 tablet by ity of tablet 00:00: mouth in [place] [address] the [facility] morning [place] and 1 tablet in the evening. Indication s: atrial fibrillati on pantoprazol 2021-04 Yes [id number] 40mg Take 1 Univers e 40 mg EC 2-08 tablet by ity of tablet 00:00: mouth in [place] [address] the [facility] morning [place] and 1 tablet in the evening. apixaban 2021-04 Yes 1358 2.5mg Take 1 Univer s 2.5 mg 2-08 tablet by ity of tablet 00:00: mouth in [place] [address] the [facility] morning [place] and 1 tablet in the evening. Indication s: atrial fibrillati on pantoprazol 2021-04 Yes [id number] 40mg Take 1 Univers e 40 mg EC 2-08 tablet by ity of tablet 00:00: mouth in [place] [address] the [facility] morning Branch and 1 tablet in the evening. apixaban 2021-04 Yes 1358 2.5mg Take 1 Univer s 2.5 mg 2-08 tablet by ity of tablet 00:00: mouth in [place] [address] the [facility] morning [place] and 1 tablet in the evening. Indication s: atrial fibrillati on pantoprazol 2021-04 Yes [id number] 40mg Take 1 Univers e 40 mg EC 2-08 tablet by ity of tablet 00:00: mouth in [place] 00 the Medical morning Branch and 1 tablet in the evening. apixaban 2021-04 Yes 1358 2.5mg Take 1 Univer s 2.5 mg 2-08 tablet by ity of tablet 00:00: mouth in [place] [address] the Medical morning Branch and 1 tablet in the evening. Indication s: atrial fibrillati on pantoprazol 2021-04 Yes [id number] 40mg Take 1 Univers e 40 mg EC 2-08 tablet by ity of tablet 00:00: mouth in [place] [address] the Medical morning Branch and 1 tablet in the evening. apixaban 2021-04 Yes 1358 2.5mg Take 1 Univer s 2.5 mg 2-08 tablet by ity of tablet 00:00: mouth in [place] 00 the Medical morning Branch and 1 tablet in the evening. Indication s: atrial fibrillati on pantoprazol 2021-04 Yes [id number] 40mg Take 1 Univers e 40 mg EC 2-08 tablet by ity of tablet 00:00: mouth in [place] [address] the Medical morning Branch and 1 tablet in the evening. apixaban 2021-04 Yes 1358 2.5mg Take 1 Univer s 2.5 mg 2-08 tablet by ity of tablet 00:00: mouth in [place] [address] the Medical morning Branch and 1 tablet in the evening. Indication s: atrial fibrillati on pantoprazol 2021-04 Yes [id number] 40mg Take 1 Univers e 40 mg EC 2-08 tablet by ity of tablet 00:00: mouth in [place] [address] the Medical morning Branch and 1 tablet in the evening. apixaban 2021-04 Yes 1358 2.5mg Take 1 Univer s 2.5 mg 2-08 tablet by ity of tablet 00:00: mouth in [place] [address] the Medical morning Branch and 1 tablet in the evening. Indication s: atrial fibrillati on pantoprazol 2021-04 Yes [id number] 40mg Take 1 Univers e 40 mg EC 2-08 tablet by ity of tablet 00:00: mouth in [place] [address] the Medical morning Branch and 1 tablet in the evening. apixaban 2021-04 Yes 1358 2.5mg Take 1 Univer s 2.5 mg 2-08 tablet by ity of tablet 00:00: mouth in [place] [address] the [facility] morning [place] and 1 tablet in the evening. Indication s: atrial fibrillati on pantoprazol 2021-04 Yes [id number] 40mg Take 1 Univers e 40 mg EC 2-08 tablet by ity of tablet 00:00: mouth in [place] 00 the Medical morning Branch and 1 tablet in the evening. apixaban 2021-04 Yes 1358 2.5mg Take 1 Univer s 2.5 mg 2-08 tablet by ity of tablet 00:00: mouth in [place] 00 the Medical morning Branch and 1 tablet in the evening. Indication s: atrial fibrillati on pantoprazol 2021-04 Yes [id number] 40mg Take 1 Univers e 40 mg EC 2-08 tablet by ity of tablet 00:00: mouth in [place] 00 the Medical morning Branch and 1 tablet in the evening. apixaban 2021-04 No 2.5mg Take 2.5 Uni vers 2.5 mg 1-22 11-22 mg by ity of tablet 12:59: 00:00 mouth. [place] 05 :00 [facility] apixaban 2021-04 Yes 1358 2.5mg Take 1 Univer s 2.5 mg 1-22 tablet by ity of tablet 00:00: mouth in [place] [address] the [facility] morning [place] and 1 tablet in the evening. Indication s: atrial fibrillati on apixaban 2021-04 Yes 1358 2.5mg Take 1 Univer s 2.5 mg 1-22 tablet by ity of tablet 00:00: mouth in [place] [address] the [facility] morning [place] and 1 tablet in the evening. Indication s: atrial fibrillati on apixaban 2021-04 Yes 1358 2.5mg Take 1 Univer s 2.5 mg 1-22 tablet by ity of tablet 00:00: mouth in [place] [address] the Medical morning [place] and 1 tablet in the evening. Indication s: atrial fibrillati on apixaban 2021-04 Yes 1358 2.5mg Take 1 Univer s 2.5 mg 1-22 tablet by ity of tablet 00:00: mouth in [place] 00 the [facility] morning Branch and 1 tablet in the evening. Indication s: atrial fibrillati on apixaban 2021-04 Yes 1358 2.5mg Take 1 Univer s 2.5 mg 1-22 tablet by ity of tablet 00:00: mouth in [place] [address] the [facility] morning [place] and 1 tablet in the evening. Indication s: atrial fibrillati on apixaban 2022-1 2022- No 1358 2.5mg Take 1 Unive rs 2.5 mg 05-1508 tablet by ity of tablet 00:00: 00:00 mouth in [place] 00 :00 the Medical morning Branch and 1 tablet in the evening. Indication s: atrial fibrillati on apixaban 2021-04- No 1358 2.5mg Take 1 Unive rs 2.5 mg 05-15 tablet by ity of tablet 00:00: 00:00 mouth in [place] 00 :00 the Medical morning Branch and 1 tablet in the evening. Indication s: atrial fibrillati on ibuprofen 2021-04- No 800mg Take 800 Un anthony (MOTRIN) 04-30 11-07 mg by ity of 800 mg 09:35: 00:00 mouth 3 [place] tablet 50 :00 (three) Medical times [place] daily with meals. ibuprofen 2021-04- No 800mg Take 800 Un anthony (MOTRIN) 04-30 11-07 mg by ity of 800 mg 09:35: 00:00 mouth 3 [place] tablet 50 :00 (three) Medical times Branch daily with meals. ibuprofen 2021-04- No 800mg Take 800 Un anthony (MOTRIN) 04-30 11-07 mg by ity of 800 mg 09:35: 00:00 mouth 3 [place] tablet 50 :00 (three) Medical times [place] daily with meals. spironolact 2021-04- No 25mg Take 25 mg Univers one 25 mg 04-30 by mouth. ity of tablet 09:35: 00:00 [place] 19 :00 [facility] Branch spironolact 2021-04- No 25mg Take 25 mg Univers one 25 mg 04-30 by mouth. ity of tablet 09:35: 00:00 [place] 19 :00 [facility] Branch spironolact 2021-04- No 25mg Take 25 mg Univers one 25 mg 04-30 by mouth. ity of tablet 09:35: 00:00 [place] 19 :00 [facility] Branch guaiFENesin 2021-04- No 200mg Take 200 Univers 100 mg/5 mL 04-30 11-07 mg by ity of solution 09:35: 00:00 mouth. [place] 09 :00 [facility] Branch guaiFENesin 2021-04- No 200mg Take 200 Univers 100 mg/5 mL 04-30 11-07 mg by ity of solution 09:35: 00:00 mouth. [place] 09 :00 [facility] guaiFENesin 2021-04- No 200mg Take 200 Univers 100 mg/5 mL 04-30 11-07 mg by ity of solution 09:35: 00:00 mouth. [place] 09 :00 [facility] glyBURIDE-m 2021-04- No 1{tbl} Take 1 U nivers etformin 04-30 tablet by ity o f 1.25-250 mg 09:35: 00:00 mouth. [place] tablet 06 :00 [facility] glyBURIDE-m 2021-04- No 1{tbl} Take 1 U nivers etformin 04-30 tablet by ity o f 1.25-250 mg 09:35: 00:00 mouth. [place] tablet 06 :00 [facility] glyBURIDE-m 2021-04- No 1{tbl} Take 1 U nivers etformin 04-30 tablet by ity o f 1.25-250 mg 09:35: 00:00 mouth. [place] tablet 06 :00 [facility] apixaban 2021-04 Yes 2.5mg Take 2.5 Univ ers 2.5 mg 1-07 mg by ity of tablet 09:14: mouth. [address] Biotin 2021-04 Yes Univers 10,000 mcg 1-07 ity of Cap 09:14: [address] metoprolol 2021-04 Yes 25mg Take 25 mg U nivers succinate 1-07 by mouth. ity o f XL 25 mg 24 09:14: [place] hr tablet [address] [place] [address] apixaban 2021-04 Yes 2.5mg Take 2.5 Univ ers 2.5 mg 1-07 mg by ity of tablet 09:14: mouth. [address] Biotin 2021-04 Yes Univers 10,000 mcg 1-07 ity of Cap 09:14: [address] metoprolol 2021-04 Yes 25mg Take 25 mg U nivers succinate 1-07 by mouth. ity o f XL 25 mg 24 09:14: [place] hr tablet [address] [place] [address] apixaban 2021-04 Yes 2.5mg Take 2.5 Univ ers 2.5 mg 1-07 mg by ity of tablet 09:14: mouth. [address] Biotin 2021-04 Yes Univers 10,000 mcg 1-07 ity of Cap 09:14: [address] metoprolol 2021-04 Yes 25mg Take 25 mg U nivers succinate 1-07 by mouth. ity o f XL 25 mg 24 09:14: [place] hr tablet [address] [place] [address] Biotin 2021-04 Yes [facility] 10,000 mcg 1-07 ity of Cap 09:14: [address] metoprolol 2021-04 Yes 25mg Take 25 mg U nivers succinate 1-07 by mouth. ity o f XL 25 mg 24 09:14: [place] hr tablet [address] [place] [address] Biotin 2021-04 Yes [facility] 10,000 mcg 1-07 ity of Cap 09:14: [address] metoprolol 2021-04 Yes 25mg Take 25 mg U nivers succinate 1-07 by mouth. ity o f XL 25 mg 24 09:14: [place] hr tablet [address] [place] [address] Biotin 2021-04 Yes [facility] 10,000 mcg 1-07 ity of Cap 09:14: [address] metoprolol 2021-04 Yes 25mg Take 25 mg U nivers succinate 1-07 by mouth. ity o f XL 25 mg 24 09:14: [place] hr tablet [address] [place] [address] Biotin 2021-04 Yes [facility] 10,000 mcg 1-07 ity of Cap 09:14: [address] metoprolol 2021-04 Yes 25mg Take 25 mg U nivers succinate 1-07 by mouth. ity o f XL 25 mg 24 09:14: [place] hr tablet [address] [place] [address] Biotin 2021-04 Yes [facility] 10,000 mcg 1-07 ity of Cap 09:14: [address] metoprolol 2021-04 Yes 25mg Take 25 mg U nivers succinate 1-07 by mouth. ity o f XL 25 mg 24 09:14: [place] hr tablet [address] [place] [address] metoprolol 2021-04 Yes 25mg Take 25 mg U nivers succinate 1-07 by mouth. ity o f XL 25 mg 24 09:14: [place] hr tablet [address] [place] [address] Branch metoprolol 2021-04 Yes 25mg Take 25 [...] o f XL 25 mg 24 09:14: [place] hr tablet 24 Medical Branch ALPRAZolam 2021-04 Yes .25mg Take 0.25 U nivers 0.25 mg 1-07 mg by ity of tablet 09:08: mouth [address] [place] [address] (three) Medical times Branch daily. ALPRAZolam 2021-04 Yes .25mg Take 0.25 U nivers 0.25 mg 1-07 mg by ity of tablet 09:08: mouth 3 [place] [address] (three) Medical times Branch daily. ALPRAZolam 2021-04 Yes .25mg Take 0.25 U nivers 0.25 mg 1-07 mg by ity of tablet 09:08: mouth 3 [place] [address] (three) Medical times Branch daily. ALPRAZolam 2021-04 Yes .25mg Take 0.25 U nivers 0.25 mg 1-07 mg by ity of tablet 09:08: mouth 3 [place] [address] (three) Medical times Branch daily. ALPRAZolam 2021-04 Yes .25mg Take 0.25 U nivers 0.25 mg 1-07 mg by ity of tablet 09:08: mouth 3 [place] [address] (three) Medical times Branch daily. ALPRAZolam 2021-04 Yes .25mg Take 0.25 U nivers 0.25 mg 1-07 mg by ity of tablet 09:08: mouth 3 [place] 44 (three) Medical times Branch daily. ALPRAZolam 2021-04 Yes .25mg Take 0.25 U nivers 0.25 mg 1-07 mg by ity of tablet 09:08: mouth 3 [place] [address] (three) Medical times Branch daily. ALPRAZolam 2021-04 Yes .25mg Take 0.25 U nivers 0.25 mg 1-07 mg by ity of tablet 09:08: mouth 3 [place] 44 (three) Medical times Branch daily. baclofen 2021-04 Yes [id number] 5mg Take 1 U nivers mg tablet 1-07 tablet by ity o f 00:00: mouth 3 [place] 00 (three) Medical times Branch daily as needed for Pain (scale 4-6) (May make sleepy). baclofen 2021-04 Yes [id number] 5mg Take 1 U nivers mg tablet 1-07 tablet by ity o f 00:00: mouth 3 [place] 00 (three) Medical times Branch daily as needed for Pain (scale 4-6) (May make sleepy). baclofen 2021-04 Yes [id number] 5mg Take 1 U nivers mg tablet 1-07 tablet by ity o f 00:00: mouth 3 [place] 00 (three) Medical times Branch daily as needed for Pain (scale 4-6) (May make sleepy). baclofen 2021-04 Yes [id number] 5mg Take 1 U nivers mg tablet 1-07 tablet by ity o f 00:00: mouth 3 [place] 00 (three) Medical times Branch daily as needed for Pain (scale 4-6) (May make sleepy). baclofen 2021-04 Yes [id number] 5mg Take 1 U nivers mg tablet 1-07 tablet by ity o f 00:00: mouth 3 [place] 00 (three) Medical times Branch daily as needed for Pain (scale 4-6) (May make sleepy). baclofen 2021-04 Yes [id number] 5mg Take 1 U nivers mg tablet 1-07 tablet by ity o f 00:00: mouth 3 [place] 00 (three) Medical times Branch daily as needed for Pain (scale 4-6) (May make sleepy). baclofen 2021-04 Yes [id number] 5mg Take 1 U nivers mg tablet 1-07 tablet by ity o f 00:00: mouth 3 [place] 00 (three) Medical times Branch daily as needed for Pain (scale 4-6) (May make sleepy). baclofen 2021-04 Yes [id number] 5mg Take 1 U nivers mg tablet 1-07 tablet by ity o f 00:00: mouth 3 [place] 00 (three) Medical times Branch daily as needed for Pain (scale 4-6) (May make sleepy). baclofen 5 2021-04- No [id number] 5mg Take 1 [facility] mg tablet 04-30 tablet by ity of 00:00: 00:00 mouth 3 [place] 00 :00 (three) Medical times Branch daily as needed for Pain (scale 4-6) (May make sleepy). baclofen 5 2021-04- No [id number] 5mg Take 1 [facility] mg tablet 04-30 tablet by ity of 00:00: 00:00 mouth 3 [place] 00 :00 (three) Medical times Branch daily as needed for Pain (scale 4-6) (May make sleepy). loratadine 2021-04 Yes TAKE 1 [facility] (CLARITIN) 0-[address] 10 mg 00:00: EVERY [facility]osp[facility] tablet 00 MORNING l (NEED APPOINTMEN T FOR FURTHER REFILL) loratadine 2021-04 Yes TAKE 1 [facility] (CLARITIN) 0-[address] 10 mg 00:00: EVERY [facility]ospita tablet 00 MORNING l (NEED APPOINTMEN T FOR FURTHER REFILL) telmisartan 2021-04 Yes [id number] TAKE 1 [facility] (MICARDIS) 0-[address] 80 MG 00:00: DAILY Hospita tablet 00 l telmisartan 2021-04 Yes [id number] TAKE 1 [facility] (MICARDIS) 0-[address] 80 MG 00:00: DAILY Hospita tablet 00 l melatonin 3 Yes Univer s mg TbDL 01-17 ity of 11:24: [place] [address] Medical Branch melatonin 3 Yes Univer s mg TbDL 01-17 ity of 11:24: [place] [address] Medical Branch melatonin 3 Yes Univer s mg TbDL - ity of 11:24: [place] 08 Medical Branch melatonin 3 Yes Univer s mg TbDL 01-17 ity of 11:24: [place] 08 Medical Branch melatonin 3 Yes Univer s mg TbDL 01-17 ity of 11:24: [place] [facility] melatonin 3 Yes Univer s mg TbDL 01-17 ity of 11:24: [address] melatonin 3 Yes Univer s mg TbDL 01-17 ity of 11:24: [address] melatonin 3 Yes Univer s mg TbDL 01-17 ity of 11:24: [address] melatonin 3 Yes Univer s mg TbDL 01-17 ity of 11:24: [address] melatonin 3 Yes Univer s mg TbDL 01-17 ity of 11:24: [address] melatonin 3 Yes Univer s mg TbDL 01-17 ity of 11:24: [address] melatonin 3 Yes Univer s mg TbDL 01-17 ity of 11:24: [address] melatonin 3 Yes Univer s mg TbDL 01-17 ity of 11:24: [address] melatonin 3 Yes Univer s mg TbDL 01-17 ity of 11:24: [address] melatonin 3 Yes Univer s mg TbDL 01-17 ity of 11:24: [address] Biotin Yes [facility] 10,000 mcg - ity of Cap 11:24: [address] glyBURIDE-m Yes 1{tbl} Take 1 Un anthony etformin 01-17 tablet by ity of 1.25-250 mg 11:24: [place] [address] [place] [address] guaiFENesin Yes 200mg Take 200 U nivers 100 mg/5 mL -26 mg by ity of solution 11:24: mouth. [address] melatonin 3 Yes Univer s mg TbDL 01-17 ity of 11:24: [address] metoprolol Yes 25mg Take 25 mg U nivers succinate - by mouth. ity o f XL 25 mg 24 11:24: [place] hr tablet [address] [place] [address] spironolact Yes 25mg Take 25 mg [facility] one 25 mg - by mouth. ity o f tablet 11:24: [address] Biotin Yes [facility] 10,000 mcg - ity of Cap 11:24: [address] glyBURIDE-m Yes 1{tbl} Take 1 [facility] etformin 9-26 tablet by ity of 1.25-250 mg 11:24: [place] [address] [place] [address] guaiFENesin Yes 200mg Take 200 U nivers 100 mg/5 mL 9-26 mg by ity of solution 11:24: mouth. [address] melatonin 3 Yes Univer s mg TbDL 9- ity of 11:24: [address] metoprolol Yes 25mg Take 25 mg U nivers succinate 9-26 by mouth. ity o f XL 25 mg 24 11:24: [place] hr tablet [address] [place] [address] spironolact Yes 25mg Take 25 mg [facility] one 25 mg 9-26 by mouth. ity o f tablet 11:24: [address] Biotin Yes [facility] 10,000 mcg 9-26 ity of Cap 11:24: [address] glyBURIDE-m Yes 1{tbl} Take 1 Un [facility] etformin 9-26 tablet by ity of 1.25-250 mg 11:24: [place] [address] [place] [address] guaiFENesin Yes 200mg Take 200 U nivers 100 mg/5 mL 9-26 mg by ity of solution 11:24: mouth. [address] melatonin 3 Yes Univer s mg TbDL - ity of 11:24: [address] metoprolol Yes 25mg Take 25 mg U nivers succinate 9-26 by mouth. ity o f XL 25 mg 24 11:24: [place] hr tablet [address] [place] [address] spironolact Yes 25mg Take 25 mg [facility] one 25 mg 9-26 by mouth. ity o f tablet 11:24: [address] Biotin Yes [facility] 10,000 mcg 9-26 ity of Cap 11:24: [address] glyBURIDE-m Yes 1{tbl} Take 1 Un [facility] etformin 9-26 tablet by ity of 1.25-250 mg 11:24: [place] [address] [place] [address] guaiFENesin Yes 200mg Take 200 U nivers 100 mg/5 mL 9-26 mg by ity of solution 11:24: mouth. [address] Branch melatonin 3 Yes Univer s mg TbDL 01-17 ity of 11:24: [address] metoprolol Yes 25mg Take 25 mg U nivers succinate - by mouth. ity o f XL 25 mg 24 11:24: [place] hr tablet [address] [place] [address] spironolact Yes 25mg Take 25 mg [facility] one 25 mg 01-17 by mouth. ity o f tablet 11:24: [address] Biotin Yes [facility] 10,000 mcg 01-17 ity of Cap 11:24: [address] glyBURIDE-m Yes 1{tbl} Take 1 [facility] etformin 01-17 tablet by ity of 1.25-250 mg 11:24: [place] [address] [place] [address] guaiFENesin Yes 200mg Take 200 U nivers 100 mg/5 mL 9-26 mg by ity of solution 11:24: mouth. [address] Branch melatonin 3 Yes Univer s mg TbDL 01-17 ity of 11:24: [address] metoprolol Yes 25mg Take 25 mg U nivers succinate 01-17 by mouth. ity o f XL 25 mg 24 11:24: [place] hr tablet [address] [place] [address] spironolact Yes 25mg Take 25 mg [facility] one 25 mg 01-17 by mouth. ity o f tablet 11:24: [address] melatonin 3 Yes Univer s mg TbDL 01-17 ity of 11:24: [address] melatonin 3 Yes Univer s mg TbDL 01-17 ity of 11:24: [address] Branch melatonin 3 Yes Univer s mg TbDL 01-17 ity of 11:24: [address] melatonin 3 Yes Univer s mg TbDL 01-17 ity of 11:24: [address] melatonin 3 Yes Univer s mg TbDL 01-17 ity of 11:24: [address] melatonin 3 Yes Univer s mg TbDL 9-26 ity of 11:24: [place] [address] Medical Branch melatonin 3 0 Yes Univer s mg TbDL 9-26 ity of 11:24: [place] [address] Medical Branch melatonin 3 0 Yes Univer s mg TbDL 9-26 ity of 11:24: [place] [address] Medical Branch melatonin 3 0 Yes Univer s mg TbDL 9-26 ity of 11:24: [place] [address] Medical Branch melatonin 3 0 Yes Univer s mg TbDL 9-26 ity of 11:24: [place] [address] Medical Branch melatonin 3 0 Yes Univer s mg TbDL 9-26 ity of 11:24: [place] [address] Medical Branch fluticasone Yes [id number] 2{spray Use 2 [facility] propionate 9-26 } Sprays in ity of 50 00:00: each [place] mcg/actuati 00 nostril in Me dical on nasal the Branch spray morning. fluticasone Yes [id number] 2{spray Use 2 [facility] propionate 9-26 } Sprays in ity of 50 00:00: each [place] mcg/actuati 00 nostril in Me dical on nasal the Branch spray morning. fluticasone 0 Yes [id number] 2{spray Use 2 [facility] propionate 9-26 } Sprays in ity of 50 00:00: each [place] mcg/actuati 00 nostril in Me dical on nasal the Branch spray morning. fluticasone Yes [id number] 2{spray Use 2 [facility] propionate 9-26 } Sprays in ity of 50 00:00: each [place] mcg/actuati 00 nostril in Me dical on nasal the Branch spray morning. fluticasone Yes [id number] 2{spray Use 2 [facility] propionate 9-26 } Sprays in ity of 50 00:00: each [place] mcg/actuati 00 nostril in Me dical on nasal the Branch spray morning. fluticasone 0 2021- No [id number] 2{spray Use 2 [facility] propionate 9-26 11-07 } Sprays in ity of 50 00:00: 00:00 each [place] mcg/actuati 00 :00 nostril in Me dical on nasal the Branch spray morning. fluticasone 2021- No [id number] 2{spray Use 2 [facility] propionate 01-17 } Sprays in ity of 50 00:00: 00:00 each [place] mcg/actuati 00 :00 nostril in Me dical on nasal the Branch spray morning. fluticasone 2021- No [id number] 2{spray Use 2 [facility] propionate 01-17 } Sprays in ity of 50 00:00: 00:00 each [place] mcg/actuati 00 :00 nostril in Me dical on nasal the Branch spray morning. doxycycline 2021- No [id number] 100mg Take 1 [facility] hyclate 100 01-17 tablet by it y of mg tablet 00:00: 04:59 mouth in [place] 00 :00 the Medical morning Branch and 1 tablet in the evening. Do all this for 10 days. doxycycline 2021- No [id number] 100mg Take 1 [facility] hyclate 100 01-17 tablet by it y of mg tablet 00:00: 04:59 mouth in [place] 00 :00 the Medical morning Branch and 1 tablet in the evening. Do all this for 10 days. blood sugar Yes [id number] [facility] diagnostic 8-[address] strips 00:00: Reflect, Hospita strip test 00 test blood l strips sugar once daily, Dx E11.65-DM lancets 33 0 Yes [id number] [facility] gauge misc 8-[address] 00:00: Reflect, Hospita 00 test blood l sugar once daily, DX-E11.65, DM blood sugar 0 Yes [id number] [facility] diagnostic 8-[address] strips 00:00: Reflect, Hospita strip test 00 test blood l strips sugar once daily, Dx E11.65-DM lancets 33 2021-0 Yes [id number] [facility] gauge misc 8-[address] 00:00: Reflect, Hospita 00 test blood l sugar once daily, DX-E11.65, DM guaiFENesin Yes 200mg Q.[id number] Take 200 [facility] (ROBITUSSIN 8-10 [id number] mg by s t ) 100 mg/5 08:33: 3D mouth 3 [facility] mL syrup 33 (three) l times a day as needed for cough. guaiFENesin 0 Yes 200mg Q.[id number] Take 200 [facility] (ROBITUSSIN 8-10 [id number] mg by s t ) 100 mg/5 08:33: 3D mouth 3 [facility] mL syrup 33 (three) l times a day as needed for cough. multivit 0 Yes Take by [facility] with 8-[address] iron,minera 08:23: Hospit a ls 46 l (GERIATRIC MULTIVIT-IR ON-MINS ORAL) ALPRAZolam 0 Yes .25mg QD Take 0.25 [facility] (XANAX) 8-[address] 0.25 MG 08:23: mouth Hospita tablet 46 nightly as l needed. amLODIPine Yes 10mg QD Take 10 mg [facility] (NORVASC) 8-[address] 10 mg 08:23: daily. Hospita tablet 46 l metoprolol 0 Yes 25mg QD Take 25 mg M [facility] succinate 8-[address] XL 08:23: nightly. Hospita (TOPROL-XL) 46 l 25 mg 24 hr tablet melatonin 3 Yes [facility] i mg 8-10 st tablet,disi 08:23: Hospit a ntegrating 46 l potassium Yes Only w/ Metho di chloride 8-[address] (KLOR-CON) 08:23: Hospita 10 MEQ CR 46 l tablet biotin 0 Yes [facility] 10,000 mcg 8-10 st capsule 08:23: Hospita 46 l cholecalcif 0 Yes 5000U QD Take 5,000 [facility] stephon, 8-[address] vitamin D3, 08:23: mouth Hospi ta 5,000 unit 46 daily. l capsule ibuprofen Yes 200mg Q6H Take 200 [facility] (ADVIL) 200 8-[address] MG tablet 08:23: mouth Hospita 46 every 6 l (six) hours as needed for mild pain. multivit 0 Yes Take by [facility] with 8-10 [...] (six) hours as needed for mild pain. topiramate Yes [facility] 25 mg 8-10 ity of tablet 00:00: [address] topiramate Yes [facility] 25 mg 8-10 ity of tablet 00:00: [address] topiramate Yes [facility] 25 mg 8-10 ity of tablet 00:00: [address] topiramate Yes Univers 25 mg 8-10 ity of tablet 00:00: [place] [facility] topiramate Yes Univers 25 mg 8-10 ity of tablet 00:00: [address] topiramate Yes Univers 25 mg 8-10 ity of tablet 00:00: [place] [facility] topiramate Yes Univers 25 mg 8-10 ity of tablet 00:00: Medical Branch topiramate Yes [facility] 25 mg 8-10 ity of tablet 00:00: Medical Branch topiramate Yes [facility] 25 mg 8-10 ity of tablet 00:00: Medical Branch topiramate Yes [facility] 25 mg 8-10 ity of tablet 00:00: Medical Branch topiramate Yes [facility] 25 mg 8-10 ity of tablet 00:00: Medical Branch topiramate Yes [facility] 25 mg 8-10 ity of tablet 00:00: Medical Branch topiramate Yes [facility] 25 mg 8-10 ity of tablet 00:00: [place] [facility] Branch blood-gluco Yes [id number] Use as [facility] se meter 8-[address] (glucose 00:00: Hospita monitoring 00 l kit) kit blood-gluco Yes [id number] Use as [facility] se meter 8-[address] (glucose 00:00: Hospita monitoring 00 l kit) kit topiramate 2022- No 25mg Q.5D Take 1 [facility] (Topamax) 8-10 08-11 tablet (25 st 25 MG 00:00: 04:59 mg total) Hospit a tablet 00 :00 by mouth 2 l (two) times a day. topiramate 2022- No 25mg Q.5D Take 1 [facility] (Topamax) 8-10 08-11 tablet (25 st 25 MG 00:00: 04:59 mg total) Hospit a tablet 00 :00 by mouth 2 l (two) times a day. topiramate 2021- No Univer s 25 mg 8-10 12-08 ity of tablet 00:00: 00:00 [place] 00 : Medical Branch topiramate 2021-0 2021- No Univer s 25 mg 8-10 12-08 ity of tablet 00:00: 00:00 [place] 00 : Medical Branch loratadine 2021-0 2021- No TAKE 1 [facility] (CLARITIN) 7-26 10-[address] 10 mg 00:00: 00:00 EVERY Hospita tablet 00 :00 MORNING l (NEED APPOINTMEN T FOR FURTHER REFILL) loratadine 2021- No TAKE 1 [facility] (CLARITIN) 11-16 10-[address] 10 mg 00:00: 00:00 EVERY Hospita tablet 00 :00 MORNING l (NEED APPOINTMEN T FOR FURTHER REFILL) telmisartan Yes [id number] TAKE 1 [facility] (MICARDIS) -12 TABLET(80 st 80 MG 00:00: MG) BY Hospita tablet 00 MOUTH l DAILY telmisartan Yes [id number] TAKE 1 [facility] (MICARDIS) -12 TABLET(80 st 80 MG 00:00: MG) BY Hospita tablet 00 MOUTH l DAILY telmisartan 2021- No [id number] 80mg QD Take 1 [facility] (MICARDIS) 11-01-20 tablet (80 st 80 MG 00:00: 00:00 mg total) Hospit a tablet 00 :00 by mouth l daily. telmisartan 2021- No [id number] 80mg QD Take 1 [facility] (MICARDIS) 11-0120 tablet (80 st 80 MG 00:00: 00:00 mg total) Hospit a tablet 00 :00 by mouth l daily. telmisartan 2021- No [id number] 80mg QD Take 1 [facility] (MICARDIS) 11-01 tablet (80 st 80 MG 00:00: 00:00 mg total) Hospit a tablet 00 :00 by mouth l daily. telmisartan 2021- No [id number] 80mg QD Take 1 [facility] (MICARDIS) 11-01 tablet (80 st 80 MG 00:00: 00:00 mg total) Hospit a tablet 00 :00 by mouth l daily. Micardis 80 Yes 80mg QD Take 1 [facility] mg tablet 7-08 tablet (80 st 00:00: mg total) Hospita 00 by mouth l daily. Patient will need appointmen t for future refills. Micardis 80 Yes 80mg QD Take 1 [facility] mg tablet 7-08 tablet (80 st 00:00: mg total) Hospita 00 by mouth l daily. Patient will need appointmen t for future refills. Micardis 80 2-0 2022- No 80mg QD Take 1 [facility] mg tablet 10-29-08 tablet (80 st 00:00: 00:00 mg total) Hospita 00 :00 by mouth l daily. Patient will need appointmen t for future refills. Micardis 80 2-0 2022- No 80mg QD Take 1 [facility] mg tablet 10-29- tablet (80 st 00:00: 00:00 mg total) Hospita 00 :00 by mouth l daily. Patient will need appointmen t for future refills. pantoprazol 2-0 Yes 40mg Q.5D Take 1 Meth anne e 5-02 tablet (40 st (PROTONIX) 00:00: mg total) Ho spita 40 MG EC 00 by mouth 2 l tablet (two) times a day for 90 days. pantoprazol 2-0 Yes 40mg Q.5D Take 1 Meth anne e 5-02 tablet (40 st (PROTONIX) 00:00: mg total) Ho spita 40 MG EC 00 by mouth 2 l tablet (two) times a day for 90 days. apixaban 2021-0 2022- No 2.5mg Q.5D Take 2.5 Met [facility] (ELIQUIS) 4-26 04-[address] 2.5 mg 16:43: 00:00 mouth 2 Hospita tablet 01 :00 (two) l times a day. apixaban 2-0 2022- No 2.5mg Q.5D Take 2.5 [facility] (ELIQUIS) 4-26 04-[address] 2.5 mg 16:43: 00:00 mouth 2 Hospita tablet 01 :00 (two) l times a day. apixaban 2-0 2022- No 2.5mg Q.5D Take 1 Metho di (ELIQUIS) 4-26 05-[address] 2.5 mg 00:00: 04:59 (2.5 mg Hospita tablet 00 :00 total) by l mouth 2 (two) times a day for 30 days. apixaban 2-0 2022- No 2.5mg Q.5D Take 1 [facility] di (ELIQUIS) 4-26 05-[address] 2.5 mg 00:00: 04:59 (2.5 mg Hospita tablet 00 :00 total) by l mouth 2 (two) times a day for 30 days. pantoprazol 2021-0 2021- No 40mg Q.5D Take 1 Met hodi e 08-17-02 tablet (40 st (PROTONIX) 00:00: 00:00 mg total) H ospita 40 MG EC 00 :00 by mouth 2 l tablet (two) times a day for 30 days. pantoprazol 2021-0 2021- No 40mg Q.5D Take 1 Met hodi e 08-17- tablet (40 st (PROTONIX) 00:00: 00:00 mg total) H ospita 40 MG EC 00 :00 by mouth 2 l tablet (two) times a day for 30 days. methylPREDN 2021-0 2021- No [id number] 40mg M ethodi ISolone 08-12 st acetate 19:45: 19:46 Hospita (DEPO-MEDRO 00 :00 l L) injection 40 mg methylPREDN 2021-0 2021- No [id number] 40mg M ethodi ISolone 08-12 st acetate 19:45: 19:46 Hospita (DEPO-MEDRO 00 :00 l L) injection 40 mg phenylephri 2021-0 2021- No Take by Me anurag Haines 08-[address] enesin 13:33: 00:00 Hospita (Child 12 :00 l Mucinex Cough-Conge st) 2.5-5-100 mg/5 mL liquid phenylephri 2-0 2021- No Take by Me anurag Haines 08-[address] enesin 13:33: 00:00 Hospita (Child 12 :00 l Mucinex Cough-Conge st) 2.5-5-100 mg/5 mL liquid fluticasone 2021-0 Yes 1{puff} Inhale 1 [facility] propion-fernie 4-21 Puff. ity of meteroL 00:00: [place] 250-50 00 Medical mcg/dose Branch inhalation disk fluticasone 2021-0 Yes 1{puff} Inhale 1 [facility] propion-fernie 4-21 Puff. ity of meteroL 00:00: [place] 250-50 00 Medical mcg/dose Branch inhalation disk fluticasone 2021-0 Yes 1{puff} Inhale 1 [facility] propion-fernie 4-21 Puff. ity of meteroL 00:00: [place] 250-50 00 Medical mcg/dose Branch inhalation disk fluticasone 2021-0 Yes 1{puff} Inhale 1 [facility] propion-fernie 4-21 Puff. ity of meteroL 00:00: [place] 250-50 00 Medical mcg/dose Branch inhalation disk fluticasone 2021-0 Yes 1{puff} Inhale 1 [facility] propion-fernie 4-21 Puff. ity of meteroL 00:00: [place] 250-50 00 Medical mcg/dose Branch inhalation disk fluticasone 2021-0 Yes 1{puff} Q.5D Inhale 1 [facility] propion-fernie 4-[address] meteroL 00:00: (two) Hospita (Advair 00 times a l Diskus) day. 250-50 mcg/dose DISKUS fluticasone 2021-0 Yes 1{puff} Q.5D Inhale 1 [facility] propion-fernie 4-[address] meteroL 00:00: (two) Hospita (Advair 00 times a l Diskus) day. 250-50 mcg/dose DISKUS fluticasone 2021-0 2021- No 1{puff} Inhale 1 [facility] propion-fernie 4-21 11-07 Puff. ity of meteroL 00:00: 00:00 [place] 250-50 00 :00 Medical mcg/dose Branch inhalation disk fluticasone 2021-0 2021- No 1{puff} Inhale 1 [facility] propion-fernie 4-21 11-07 Puff. ity of meteroL 00:00: 00:00 [place] 250-50 00 :00 Medical mcg/dose Branch inhalation disk fluticasone 2021-0 2021- No 1{puff} Inhale 1 [facility] propion-fernie 4-21 11-07 Puff. ity of meteroL 00:00: 00:00 [place] 250-50 00 :00 Medical mcg/dose Branch inhalation disk cefuroxime 2021-0 2021- No 250mg Q.5D Take 1 [facility] (CEFTIN) 4-21 05-[address] 250 MG 00:00: 04:59 (250 mg Hospita tablet 00 :00 total) by l mouth 2 (two) times a day for 10 days. cefuroxime 2021- No 250mg Q.5D Take 1 [facility] (CEFTIN) 08-[address] 250 MG 00:00: 04:59 (250 mg Hospita tablet 00 :00 total) by l mouth 2 (two) times a day for 10 days. loratadine 2021- No TAKE 1 [facility] (CLARITIN) 05-[address] 10 mg 00:00: 00:00 EVERY Hospita tablet 00 :00 MORNING l (NEED APPOINTMEN T FOR FURTHER REFILL) loratadine 2021- No TAKE 1 Meth anne (CLARITIN) 05-[address] 10 mg 00:00: 00:00 EVERY [...] mg by ity of tablet 18:58: mouth. [address] apixaban 2020-04 Yes 2.5mg Take 2.5 Univ ers 2.5 mg 1-19 mg by ity of tablet 18:58: mouth. [address] apixaban 2020-04 Yes 2.5mg Take 2.5 Univ ers 2.5 mg 1-19 mg by ity of tablet 18:58: mouth. [address] apixaban 2020-04 Yes 2.5mg Take 2.5 Univ ers 2.5 mg 1-19 mg by ity of tablet 18:58: mouth. [address] apixaban 2020-04 Yes 2.5mg Take 2.5 Univ ers 2.5 mg 1-19 mg by ity of tablet 18:58: mouth. [address] apixaban 2020-04 Yes 2.5mg Take 2.5 Univ ers 2.5 mg 1-19 mg by ity of tablet 18:58: mouth. [address] apixaban 2020-04 Yes 2.5mg Take 2.5 Univ ers 2.5 mg 1-19 mg by ity of tablet 18:58: mouth. [address] apixaban 2020-04 Yes 2.5mg Take 2.5 Univ ers 2.5 mg 1-19 mg by ity of tablet 18:58: mouth. [address] amLODIPine 2020-04 Yes 10mg Take 10 mg U nivers 10 mg 1-19 by mouth. ity of tablet 18:57: [address] amLODIPine 2020-04 Yes 10mg Take 10 mg U nivers 10 mg 1-19 by mouth. ity of tablet 18:57: [address] amLODIPine 2020-04 Yes 10mg Take 10 mg U nivers 10 mg 1-19 by mouth. ity of tablet 18:57: [address] amLODIPine 2020-04 Yes 10mg Take 10 mg U nivers 10 mg 1-19 by mouth. ity of tablet 18:57: [address] amLODIPine 2020-04 Yes 10mg Take 10 mg U nivers 10 mg 1-19 by mouth. ity of tablet 18:57: [address] amLODIPine 2020-04 Yes 10mg Take 10 mg U nivers 10 mg 1-19 by mouth. ity of tablet 18:57: [address] amLODIPine 2020-04 Yes 10mg Take 10 mg U nivers 10 mg 1-19 by mouth. ity of tablet 18:57: [address] amLODIPine 2020-04 Yes 10mg Take 10 mg U nivers 10 mg 1-19 by mouth. ity of tablet 18:57: [address] amLODIPine 2020-04 Yes 10mg Take 10 mg U nivers 10 mg 1-19 by mouth. ity of tablet 18:57: [address] amLODIPine 2020-04 Yes 10mg Take 10 mg U nivers 10 mg 1-19 by mouth. ity of tablet 18:57: [address] amLODIPine 2020-04 Yes 10mg Take 10 mg U nivers 10 mg 1-19 by mouth. ity of tablet 18:57: [address] amLODIPine 2020-04 Yes 10mg Take 10 mg U nivers 10 mg 1-19 by mouth. ity of tablet 18:57: [address] amLODIPine 2020-04 Yes 10mg Take 10 mg U nivers 10 mg 1-19 by mouth. ity of tablet 18:57: [address] amLODIPine 2020-04 Yes 10mg Take 10 mg U nivers 10 mg 1-19 by mouth. ity of tablet 18:57: [address] amLODIPine 2020-04 Yes 10mg Take 10 mg U nivers 10 mg 1-19 by mouth. ity of tablet 18:57: [address] amLODIPine 2020-04 Yes 10mg Take 10 mg U nivers 10 mg 1-19 by mouth. ity of tablet 18:57: [address] levalbutero 2020-04 Yes [id number] 1{puff} Inhale 1-2 Univers l 45 1-19 Puffs ity of mcg/actuati 00:00: every 4 [place] on inhaler 00 (four) Medical hours as Branch needed for Wheezing. levalbutero 2020-04 Yes [id number] 1{puff} Inhale 1-2 Univers l 45 1-19 Puffs ity of mcg/actuati 00:00: every 4 [place] on inhaler 00 (four) Medical hours as Branch needed for Wheezing. levalbutero 2020-04 Yes [id number] 1{puff} Inhale 1-2 Univers l 45 1-19 Puffs ity of mcg/actuati 00:00: every 4 [place] on inhaler 00 (four) Medical hours as Branch needed for Wheezing. levalbutero 2020-04 Yes [id number] 1{puff} Inhale 1-2 Univers l 45 1-19 Puffs ity of mcg/actuati 00:00: every 4 [place] on inhaler 00 (four) Medical hours as Branch needed for Wheezing. levalbutero 2020-04 Yes [id number] 1{puff} Inhale 1-2 Univers l 45 1-19 Puffs ity of mcg/actuati 00:00: every 4 [place] on inhaler 00 (four) Medical hours as Branch needed for Wheezing. levalbutero 2020-04 Yes [id number] 1{puff} Inhale 1-2 Univers l 45 1-19 Puffs ity of mcg/actuati 00:00: every 4 [place] on inhaler 00 (four) Medical hours as Branch needed for Wheezing. levalbutero 2020-04 Yes [id number] 1{puff} Inhale 1-2 Univers l 45 1-19 Puffs ity of mcg/actuati 00:00: every 4 [place] on inhaler 00 (four) Medical hours as Branch needed for Wheezing. levalbutero 2020-04 Yes [id number] 1{puff} Inhale 1-2 Univers l 45 1-19 Puffs ity of mcg/actuati 00:00: every 4 [place] on inhaler 00 (four) Medical hours as Branch needed for Wheezing. levalbutero 2020-04 Yes [id number] 1{puff} Inhale 1-2 Univers l 45 1-19 Puffs ity of mcg/actuati 00:00: every 4 [place] on inhaler 00 (four) Medical hours as Branch needed for Wheezing. levalbutero 2020-04 Yes [id number] 1{puff} Inhale 1-2 Univers l 45 1-19 Puffs ity of mcg/actuati 00:00: every 4 [place] on inhaler 00 (four) Medical hours as Branch needed for Wheezing. levalbutero 2020-04 Yes [id number] 1{puff} Inhale 1-2 Univers l 45 1-19 Puffs ity of mcg/actuati 00:00: every 4 [place] on inhaler 00 (four) Medical hours as Branch needed for Wheezing. levalbutero 2020-04 Yes [id number] 1{puff} Inhale 1-2 Univers l 45 1-19 Puffs ity of mcg/actuati 00:00: every 4 [place] on inhaler 00 (four) Medical hours as Branch needed for Wheezing. levalbutero 2020-04 Yes [id number] 1{puff} Inhale 1-2 Univers l 45 1-19 Puffs ity of mcg/actuati 00:00: every 4 [place] on inhaler 00 (four) Medical hours as Branch needed for Wheezing. levalbutero 2020-04 Yes [id number] 1{puff} Inhale 1-2 Univers l 45 1-19 Puffs ity of mcg/actuati 00:00: every 4 [place] on inhaler 00 (four) Medical hours as Branch needed for Wheezing. levalbutero 2020-04 Yes [id number] 1{puff} Inhale 1-2 Univers l 45 1-19 Puffs ity of mcg/actuati 00:00: every 4 [place] on inhaler 00 (four) Medical hours as Branch needed for Wheezing. levalbutero 2020-04 Yes [id number] 1{puff} Inhale 1-2 Univers l 45 1-19 Puffs ity of mcg/actuati 00:00: every 4 [place] on inhaler 00 (four) Medical hours as Branch needed for Wheezing. levalbutero 2020-04- No [id number] 1{puff} Inhale 1-2 Univers l 45 1-19 12-08 Puffs ity of mcg/actuati 00:00: 00:00 every 4 [place] inhaler 00 :00 (four) Medical hours as Branch needed for Wheezing. levalbutero 2020-04- No [id number] 1{puff} Inhale 1-2 Univers l 45 1-19 12-08 Puffs ity of mcg/actuati 00:00: 00:00 every 4 [place] inhaler 00 :00 (four) Medical hours as Branch needed for Wheezing. benzonatate 2020-04- No [id number] 100mg Take 1 Univers (TESSALON 1-19 11-30 capsule by [place]) 100 00:00: 05:59 [place] mg capsule 00 :00 every 8 Medica l (eight) Branch hours for 10 days. benzonatate 2020-04- No [id number] 100mg Take 1 Univers (TESSALON 1-19 11-30 [...] appointmen t for future refills. Micardis 80 2020-04- No 80mg QD Take 1 Met [facility] mg tablet 04-28 07-08 tablet (80 st 00:00: 00:00 mg total) [facility]ospita 00 :00 by mouth l daily. Patient will need appointmen t for future refills. pantoprazol 2020-04 Yes Take by Uni vers e 40 mg EC 0-12 mouth 2 ity of tablet 00:00: (two) [place] 00 times Medical daily. Branch pantoprazol 2020-04 [...] [place] 00 times Medical daily. Branch pantoprazol 2020-04 Yes Take by Uni vers e 40 mg EC 0-12 mouth 2 ity of tablet 00:00: (two) [place] 00 times Medical daily. Branch pantoprazol 2020-04 Yes Take by Uni vers e 40 mg EC 0-12 mouth 2 ity of tablet 00:00: (two) [place] 00 times Medical daily. Branch pantoprazol 2020-04 Yes Take by Uni vers e 40 mg EC 0-12 mouth 2 ity of tablet 00:00: (two) [place] 00 times Medical daily. Branch pantoprazol 2020-04 Yes Take by Uni vers e 40 mg EC 0-12 mouth 2 ity of tablet 00:00: (two) [place] 00 times Medical daily. Branch pantoprazol 2020-04 Yes Take by Uni vers e 40 mg EC 0-12 mouth 2 ity of tablet 00:00: (two) [place] 00 times Medical daily. Branch pantoprazol 2020-04- No Take by Un anthony e 40 mg EC 0-12 12-08 mouth 2 ity o f tablet 00:00: 00:00 (two) [place] 00 :00 times Medical daily. Branch pantoprazol 2020-04- No Take by Un anthony e 40 mg EC 0-12 12-08 mouth 2 ity o f tablet 00:00: 00:00 (two) [place] 00 :00 times Medical daily. Branch pantoprazol 2020-04- No TAKE 1 Met hodi e 0-12 04-[address] (PROTONIX) 00:00: 00:00 TWICE A [facility] 40 MG EC 00 :00 DAY l tablet pantoprazol 2020-04- No TAKE 1 Met hodi e 0-12 04-[address] (PROTONIX) 00:00: 00:00 TWICE A [facility] 40 MG EC 00 :00 DAY l tablet loratadine 2021- No TAKE 1 Meth anne (CLARITIN) 8-10 02-[address] 10 mg 00:00: 00:00 EVERY Hospita tablet 00 :00 MORNING l (NEED APPOINTMEN T FOR FURTHER REFILL) ID NOW Yes TEST [facility] COVID-19 10-[address] Test Kit 00:00: Hospita kit 00 l ID NOW Yes TEST [facility] COVID-19 10-[address] Test Kit 00:00: Hospita kit 00 l buPROPion 2021- No [facility] (WELLBUTRIN 10-14 st ) 75 MG 00:00: 00:00 Hospita tablet 00 :00 l buPROPion 2021- No [facility] (WELLBUTRIN 6- st ) 75 MG 00:00: 00:00 Hospita tablet 00 :00 l cyanocobala Yes 500ug QD Take 500 M ethodi min, 6-[address] vitamin 00:00: mouth Hospita B-12, 500 00 daily. l mcg lozenge cyanocobala Yes 500ug QD Take 500 M ethodi min, 6-[address] vitamin 00:00: mouth [facility]ospita B-12, 500 00 daily. l mcg lozenge Synthroid 2021- No 150ug QD Take 150 Me thodi 150 mcg 3-25 08-[address] tablet 00:00: 00:00 mouth Hospita 00 :00 every l morning. Synthroid 2021- No 150ug QD Take 150 Me [facility] 150 mcg 3-25 08-[address] tablet 00:00: 00:00 mouth Hospita 00 :00 every l morning. furosemide Yes TAKE 1 Metho di (LASIX) 40 6-[address] mg tablet 00:00: MOUTH [facility]ospita 00 DAILY l NEEDED FOR LEG SWELLING(F LUID RETENTION) furosemide Yes TAKE 1 Metho di (LASIX) 40 6-[address] mg tablet 00:00: MOUTH [facility]ospita 00 DAILY l NEEDED FOR LEG SWELLING(F LUID RETENTION) chlorphenir 2012-04 Yes [id number] 5mL Take 5 mL Univers amine-hydro 2-09 by mouth ity of codone 00:00: every 12 [place] (TUSSIONEX) 00 (twelve) Medi adalberto 8-10 mg/5 hours as Branch mL needed for suspension Cough. chlorphenir 2012-04 Yes [id number] 5mL Take 5 mL Univers amine-hydro 2-09 by mouth ity of codone 00:00: every 12 [place] (TUSSIONEX) 00 (twelve) Medi adalberto 8-10 mg/5 hours as Branch mL needed for suspension Cough. chlorphenir 2012-04 Yes [id number] 5mL Take 5 mL Univers amine-hydro 2-09 by mouth ity of codone 00:00: every 12 [place] (IONEX) 00 (twelve) Medi adalberto 8-10 mg/5 hours as Branch mL needed for suspension Cough. chlorphenir 2012-04 Yes [id number] 5mL Take 5 mL Univers amine-hydro 2-09 by mouth ity of codone 00:00: every 12 [place] (IONEX) 00 (twelve) Medi adalberto 8-10 mg/5 hours as Branch mL needed for suspension Cough. chlorphenir 2012-04 Yes [id number] 5mL Take 5 mL Univers amine-hydro 2-09 by mouth ity of codone 00:00: every 12 [place] (IONEX) 00 (twelve) Medi adalberto 8-10 mg/5 hours as Branch mL needed for suspension Cough. chlorphenir 2012-04 Yes [id number] 5mL Take 5 mL Univers amine-hydro 2-09 by mouth ity of codone 00:00: every 12 [place] (IONEX) 00 (twelve) Medi adalberto 8-10 mg/5 hours as Branch mL needed for suspension Cough. chlorphenir 2012-04 Yes [id number] 5mL Take 5 mL Univers amine-hydro 2-09 by mouth ity of codone 00:00: every 12 [place] (IONEX) 00 (twelve) Medi adalberto 8-10 mg/5 hours as Branch mL needed for suspension Cough. chlorphenir 2012-04 Yes [id number] 5mL Take 5 mL Univers amine-hydro 2-09 by mouth ity of codone 00:00: every 12 [place] (IONEX) 00 (twelve) Medi adalberto 8-10 mg/5 hours as Branch mL needed for suspension Cough. chlorphenir 2012-04- No [id number] 5mL Take 5 mL Univers amine-hydro 2-09 11-07 by mouth ity of codone 00:00: 00:00 every 12 [place] (SSIONEX) 00 :00 (twelve) Medi adalberto 8-10 mg/5 hours as Branch mL needed for suspension Cough. chlorphenir 2012-04- No [id number] 5mL Take 5 mL Univers amine-hydro 2-09 11-07 by mouth ity of codone 00:00: 00:00 every 12 [place] (SSIONEX) 00 :00 (twelve) Medi adalberto 8-10 mg/5 hours as Branch mL needed for suspension Cough. chlorphenir 2012-04- No [id number] 5mL Take 5 mL Univers amine-hydro 06-02 by mouth ity of codone 00:00: 00:00 every 12 [place] (TUSSIONEX) 00 :00 (twelve) Medi adalberto 8-10 mg/5 hours as Branch mL needed for suspension Cough. loratadine 2012-04 Yes 10mg Take 1 Tab U nivers (CLARITIN) 0-18 by mouth ity o f 10 mg 00:00: daily. [place] tablet [facility] loratadine 2012-04 Yes 10mg Take 1 Tab U nivers (CLARITIN) 0-18 by mouth ity o f 10 mg 00:00: daily. [place] tablet [facility] loratadine 2012-04 Yes 10mg Take 1 Tab U nivers (CLARITIN) 0-18 by mouth ity o f 10 mg 00:00: daily. [place] tablet [facility] loratadine 2012-04 Yes 10mg Take 1 Tab U nivers (CLARITIN) 0-18 by mouth ity o f 10 mg 00:00: daily. [place] tablet [facility] loratadine 2012-04 Yes 10mg Take 1 Tab U nivers (CLARITIN) 0-18 by mouth ity o f 10 mg 00:00: daily. [place] tablet [facility] loratadine 2012-04 Yes 10mg Take 1 Tab U nivers (CLARITIN) 0-18 by mouth ity o f 10 mg 00:00: daily. [place] tablet [facility] loratadine 2012-04 Yes 10mg Take 1 Tab U nivers (CLARITIN) 0-18 by mouth ity o f 10 mg 00:00: daily. [place] tablet [facility] loratadine 2012-04 Yes 10mg Take 1 Tab U nivers (CLARITIN) 0-18 by mouth ity o f 10 mg 00:00: daily. [place] tablet [facility] loratadine 2012-04 Yes 10mg Take 1 Tab U nivers (CLARITIN) 0-18 by mouth ity o f 10 mg 00:00: daily. [place] tablet [facility] loratadine 2012-04 Yes 10mg Take 1 Tab U nivers (CLARITIN) 0-18 by mouth ity o f 10 mg 00:00: daily. [place] tablet [facility] loratadine 2012-04 Yes 10mg Take 1 Tab [...] 10 mg 00:00: daily. [place] tablet [facility] loratadine 2012-04 Yes 10mg Take 1 Tab U nivers (CLARITIN) 0-18 by mouth ity o f 10 mg 00:00: daily. [place] tablet [facility] [place] loratadine 2012-04 Yes 10mg Take 1 Tab U nivers (CLARITIN) 0-18 by mouth ity o f 10 mg 00:00: daily. [place] tablet [facility] [place] loratadine 2012-04- No 10mg Take 1 Tab Univers (CLARITIN) 0-18 12-08 by mouth ity of 10 mg 00:00: 00:00 daily. [place] tablet 00 : Medical [place] loratadine 2012-04- No 10mg Take 1 Tab Univers (CLARITIN) 0-18 12-08 by mouth ity of 10 mg 00:00: 00:00 daily. [place] tablet 00 :00 [facility] furosemide Yes [id number] 40mg Take 1 Tab Univers (LASIX) 40 8-22 by mouth ity o f mg tablet 00:00: daily. [place] 00 Medical Branch telmisartan Yes [id number] 80mg Take 1 Tab Univers (MICARDIS) 8-22 by mouth ity o f 80 mg 00:00: daily. [place] tablet Medical Branch potassium Yes [id number] 10meq Take 1 Tab Univers chloride 8-22 by mouth ity of (K-DUR) 10 00:00: daily. [place] mEq CR Medical [facility] Branch furosemide Yes [id number] 40mg Take 1 Tab Univers (LASIX) 40 8-22 by mouth ity o f mg tablet 00:00: daily. [address] telmisartan Yes [id number] 80mg Take 1 Tab Univers (MICARDIS) 8-22 by mouth ity o f 80 mg 00:00: daily. [place] tablet [facility] potassium Yes [id number] 10meq Take 1 Tab Univers chloride 8-22 by mouth ity of (K-DUR) 10 00:00: daily. [place] mEq CR Medical tablet Branch furosemide Yes [id number] 40mg Take 1 Tab Univers (LASIX) 40 8-22 by mouth ity o f mg tablet 00:00: daily. [address] telmisartan Yes [id number] 80mg Take 1 Tab Univers (MICARDIS) 8-22 by mouth ity o f 80 mg 00:00: daily. [place] tablet [facility] potassium Yes [id number] 10meq Take 1 Tab Univers chloride 8-22 by mouth ity of (K-DUR) 10 00:00: daily. [place] mEq CR Medical [facility] Branch furosemide Yes [id number] 40mg Take 1 Tab Univers (LASIX) 40 8-22 by mouth ity o f mg tablet 00:00: daily. [address] telmisartan Yes [id number] 80mg Take 1 Tab Univers (MICARDIS) 8-22 by mouth ity o f 80 mg 00:00: daily. [place] tablet [facility] potassium Yes [id number] 10meq Take 1 Tab Univers chloride 8-22 by mouth ity of (K-DUR) 10 00:00: daily. [place] mEq CR Medical [facility] Branch furosemide Yes [id number] 40mg Take 1 Tab Univers (LASIX) 40 8-22 by mouth ity o f mg tablet 00:00: daily. [address] telmisartan Yes [id number] 80mg Take 1 Tab Univers (MICARDIS) 8-22 by mouth ity o f 80 mg 00:00: daily. [facility] potassium Yes [id number] 10meq Take 1 Tab Univers chloride 8-22 by mouth ity of (K-DUR) 10 00:00: daily. [place] mEq CR Medical [facility] telmisartan Yes [id number] 80mg Take 1 Tab Univers (MICARDIS) 8-22 by mouth ity o f 80 mg 00:00: daily. [place] tablet [facility] telmisartan Yes [id number] 80mg Take 1 Tab Univers (MICARDIS) 8-22 by mouth ity o f 80 mg 00:00: daily. [place] tablet [facility] [place] telmisartan Yes [id number] 80mg Take 1 Tab Univers (MICARDIS) 8-22 by mouth ity o f 80 mg 00:00: daily. [place] tablet [facility] telmisartan Yes [id number] 80mg Take 1 Tab Univers (MICARDIS) 8-22 by mouth ity o f 80 mg 00:00: daily. [place] tablet [facility] furosemide Yes [id number] 40mg Take 1 Tab Univers (LASIX) 40 8-22 by mouth ity o f mg tablet 00:00: daily. [place] [facility] telmisartan Yes [id number] 80mg Take 1 Tab Univers (MICARDIS) 8-22 by mouth ity o f 80 mg 00:00: daily. [place] tablet [facility] telmisartan Yes [id number] 80mg Take 1 Tab Univers (MICARDIS) 8-22 by mouth ity o f 80 mg 00:00: daily. [place] tablet [facility] potassium Yes [id number] 10meq Take 1 Tab Univers chloride 8-22 by mouth ity of (K-DUR) 10 00:00: daily. [place] mEq CR [facility] telmisartan Yes [id number] 80mg Take 1 Tab Univers (MICARDIS) 8-22 by mouth ity o f 80 mg 00:00: daily. [place] tablet [facility] telmisartan Yes [id number] 80mg Take 1 Tab Univers (MICARDIS) 8-22 by mouth ity o f 80 mg 00:00: daily. [place] tablet [facility] telmisartan Yes [id number] 80mg Take 1 Tab Univers (MICARDIS) 8-22 by mouth ity o f 80 mg 00:00: daily. [place] tablet [facility] furosemide Yes [id number] 40mg Take 1 Tab Univers (LASIX) 40 8-22 by mouth ity o f mg tablet 00:00: daily. [place] 00 [facility] telmisartan Yes [id number] 80mg Take 1 Tab Univers (MICARDIS) 8-22 by mouth ity o f 80 mg 00:00: daily. [place] tablet 00 [facility] potassium Yes [id number] 10meq Take 1 Tab Univers chloride 8-22 by mouth ity of (K-DUR) 10 00:00: daily. [place] mEq CR 00 Medical tablet Branch furosemide Yes [id number] 40mg Take 1 Tab Univers (LASIX) 40 8-22 by mouth ity o f mg tablet 00:00: daily. [place] [facility] telmisartan Yes [id number] 80mg Take 1 Tab Univers (MICARDIS) 8-22 by mouth ity o f 80 mg 00:00: daily. [place] tablet [facility] potassium Yes [id number] 10meq Take 1 Tab Univers chloride 8-22 by mouth ity of (K-DUR) 10 00:00: daily. [place] mEq CR 00 [facility] telmisartan 2021- No [id number] 80mg Take 1 Tab Univers (MICARDIS) 8-22 12-08 by mouth ity of 80 mg 00:00: 00:00 daily. [place] tablet 00 :00 [facility] telmisartan 2021- No [id number] 80mg Take 1 Tab Univers (MICARDIS) 8-22 12-08 by mouth ity of 80 mg 00:00: 00:00 daily. [place] tablet 00 :00 [facility] furosemide 2021- No [id number] 40mg Take 1 Tab Univers (LASIX) 40 8- 11-07 by mouth ity of mg tablet 00:00: 00:00 daily. [place] 00 :00 [facility] potassium 2021- No [id number] 10meq Take 1 Tab Univers chloride 8-22 11-07 by mouth ity of (K-DUR) 10 00:00: 00:00 daily. [facility] s mEq CR 00 :00 [facility] furosemide 2021- No [id number] 40mg Take 1 Tab Univers (LASIX) 40 8-22 11-07 by mouth ity of mg tablet 00:00: 00:00 daily. [place] 00 :00 Medical Branch potassium 2021- No [id number] 10meq Take 1 Tab Univers chloride 12-13 by mouth ity of (K-DUR) 10 00:00: 00:00 daily. [place] s mEq CR 00 :00 Medical tablet Branch furosemide 2021- No [id number] 40mg Take 1 Tab Univers (LASIX) 40 12-13 by mouth ity of mg tablet 00:00: 00:00 daily. [place] 00 :00 Medical Branch potassium 2021- No [id number] 10meq Take 1 Tab Univers chloride 12-13 by mouth ity of (K-DUR) 10 00:00: 00:00 daily. [place] mEq CR 00 :00 Medical tablet Branch Immunizations Ordered Filled Immunization Date Status Comments [facility] e Immunization Name Name Influenza Virus 2022-02-05 Completed Universit y of Vaccine Quad IM, 00:00:00 [place] Me dical Preserv and ABX Branch Free 6 MO-64 YRS Influenza Virus 2022-02-05 Completed Universit y of Vaccine Quad IM, 00:00:00 [place] Me dical Preserv and ABX Branch Free 6 MO-64 YRS SARS-COV-2 COVID-19 2022-02-05 Completed Unive rsity of MERARY-SUCROSE 00:00:00 [place] Medica l VACCINE 12 YRS+, Branch BIVALENT 0.3ML, IM, (PFIZER BERNAL TOP BOOSTER) Influenza Virus 2022-02-05 Completed Universit y of Vaccine Quad IM, 00:00:00 [place] Me dical Preserv and ABX Branch Free 6 MO-64 YRS SARS-COV-2 COVID-19 2022-02-05 Completed Unive rsity of MERARY-SUCROSE 00:00:00 [place] Medica l VACCINE 12 YRS+, Branch BIVALENT 0.3ML, IM, (PFIZER BERNAL TOP BOOSTER) Influenza Virus 2022-02-05 Completed Universit y of Vaccine Quad IM, 00:00:00 [place] Me dical Preserv and ABX Branch Free [...] BERNAL TOP BOOSTER) PFIZER COVID-19 2021-02-15 Completed [facility] MRNA VACCINATION 00:00:00 [facility] PFIZER COVID-19 2021-02-15 Completed [facility] MRNA VACCINATION 00:00:00 [facility] Tdap 2021-01-13 Completed [facility] 00:00:00 [facility] Tdap 2021-01-13 Completed [facility] 00:00:00 [facility] FLUCELVAX QUAD PF 2021-01-[address] 00:00:00 [facility] FLUCELVAX QUAD PF 2021-01-[address] 00:00:00 [facility] PFIZER COVID-19 2020-06-02 Completed [facility] MRNA VACCINATION 00:00:00 Hospital PFIZER COVID-19 2020-06-02 Completed [facility] MRNA VACCINATION 00:00:00 [facility] PFIZER COVID-19 2020-05-12 Completed [facility] MRNA VACCINATION 00:00:00 [facility] PFIZER COVID-19 2020-05-12 Completed [facility] MRNA VACCINATION 00:00:00 [facility] FLUZONE HIGH-DOSE 2019-12-[address] PF 00:00:00 [facility] FLUZONE HIGH-DOSE 2019-12-[address] PF 00:00:00 [facility] Tdap 2019-05-14 Completed [facility] 00:00:00 Hospital Tdap 2019-05-14 Completed [facility] 00:00:00 [facility] Zoster Vaccine 2019-03-09 Completed [facility] Recombinant 00:00:00 [facility] Zoster Vaccine 2019-03-09 Completed [facility] Recombinant 00:00:00 [facility] FLUZONE HIGH-DOSE 2019-03-[address] PF 00:00:00 Hospital FLUZONE HIGH-DOSE 2019-03-[address] PF 00:00:00 [facility] FLUBLOK QUAD PF 2018-02-19 Completed [facility] 00:00:00 [facility] FLUBLOK QUAD PF 2018-02-19 Completed [facility] 00:00:00 [facility] FLUZONE HIGH-DOSE 2016-02-[address] PF 00:00:00 [facility] FLUZONE HIGH-DOSE 2016-02-[address] PF 00:00:00 [facility] Pneumococcal 2014-04-24 Completed [facility] Conjugate 00:00:00 [facility] Pneumococcal 2014-04-24 Completed [facility] Conjugate 00:00:00 [facility] Pneumococcal 2012-04-24 Completed [facility] Conjugate 13[facility]ent 00:00:00 [facility] Pneumococcal 2012-04-24 Completed [facility] Vital Sign[facility] Vital Name Observation Time Observation Value Comments Source Systolic blood 2022-06-09 00:24:00 158 mm[Hg] Univer sity of pressure [facility] Diastolic blood 2022-06-09 00:24:00 89 mm[Hg] Unive rsity [facility] Heart rate 2022-06-09 00:23:00 88 /min [facility] Body temperature 2022-06-09 00:23:00 38.72 [facility] Respiratory rate 2022-06-09 00:23:00 18 /min [facility] Body height 2022-06-09 00:23:[address] [facility] Body weight 2022-06-09 00:23:[address] [facility] BMI 2022-06-09 00:23:00 33.18 kg/m2 [facility] Oxygen saturation in 2022-06-09 00:23:00 95 /min [facility] of Arterial blood by [place] [facility]i adalberto Pulse oximetry Branch Systolic blood 2022-05-26 18:46:00 155 mm[Hg] Univer sity of pressure [place] [facility] Diastolic blood 2022-05-26 18:46:00 82 mm[Hg] Unive rsity of pressure [place] [facility] Heart rate 2022-05-26 18:46:00 75 /min [facility]i [facility] [place] [facility] Body temperature 2022-05-26 18:46:00 36.89 [facility] [place] [facility] Respiratory rate 2022-05-26 18:46:00 18 /min Univ ers[facility] [place] [facility] Body height 2022-05-26 18:46:00 162.6 cm [facility] [place] [facility] Body weight 2022-05-26 18:46:00 87.629 kg [facility] [place] [facility] BMI 2022-05-26 18:46:00 33.16 kg/m2 [facility] [place] [facility] Oxygen saturation in 2022-05-26 18:46:00 96 /min University of Arterial blood by [place] [employer] adalberto Pulse oximetry Branch Systolic blood 2022-04-15 20:26:00 163 mm[Hg] Univer sity of pressure [place] [facility] Diastolic blood 2022-04-15 20:26:00 81 mm[Hg] Unive rsity of pressure [place] [facility] Heart rate 2022-04-15 20:25:00 92 /min [facility] [place] [facility] Body temperature 2022-04-15 20:25:00 37.5 [facility] [place] [facility] Body height 2022-04-15 20:25:00 162.6 cm [facility] Body weight 2022-04-15 20:25:00 85.73 kg [facility] BMI 2022-04-15 20:25:00 32.44 kg/m2 [facility] Oxygen saturation in 2022-04-15 20:25:00 95 /min [facility] of Arterial blood by [employer] adalberto Pulse oximetry Branch Systolic blood 2022-03-31 17:00:00 131 mm[Hg] [facility] Diastolic blood 2022-03-31 17:00:00 81 mm[Hg] Unive rsity [facility] Heart rate 2022-03-31 17:00:00 72 /min [facility] Body temperature 2022-03-31 17:00:00 36.89 [facility] Body height 2022-03-31 17:00:00 162.6 cm [facility] Body weight 2022-03-31 17:00:00 86.637 kg [facility] BMI 2022-03-31 17:00:00 32.79 kg/m2 [facility] Oxygen saturation in 2022-03-31 17:00:00 96 /min [facility] Arterial blood by [facility] Pulse oximetry Branch Systolic blood 2022-02-28 14:36:00 135 mm[Hg] [facility]iver [facility] Diastolic blood 2022-02-28 14:36:00 77 mm[Hg] [facility] Heart rate 2022-02-28 14:35:00 65 /min [facility] Body temperature 2022-02-28 14:35:00 36.5 [facility] Body height 2022-02-28 14:35:00 162.6 cm [facility] Body weight 2022-02-28 14:35:00 86.183 kg [facility] BMI 2022-02-28 14:35:00 32.61 kg/m2 [facility] Oxygen saturation in 2022-02-28 14:35:00 97 /min [facility] Arterial blood by [facility] Pulse oximetry Branch Systolic blood 2022-01-17 16:25:00 148 mm[Hg] [facility] Diastolic blood 2022-01-17 16:25:00 79 mm[Hg] [facility] Heart rate 2022-01-17 16:17:00 89 /min [facility] Body temperature 2022-01-17 16:17:00 36.67 [facility] Respiratory rate 2022-01-17 16:17:00 18 /min [facility] Body height 2022-01-17 16:17:00 162.6 cm [facility] [place] Body weight 2022-01-17 16:17:00 86.229 kg [facility] BMI 2022-01-17 16:17:00 32.63 kg/m2 [facility] Oxygen saturation in 2022-01-17 16:17:00 97 /min [facility] Arterial blood by [facility] Pulse oximetry Branch Systolic blood 2021-03-13 01:03:00 149 mm[Hg] [facility] [place] [facility] [place] Diastolic blood 2021-03-13 01:03:00 88 mm[Hg] Unive rsity of pressure [facility] Heart rate 2021-03-13 01:02:00 86 /min Universi ty [facility] Body temperature 2021-03-13 01:02:00 37.5 [facility] Res[facility] rate 2021-03-13 01:02:00 21 /min [facility] Body height 2021-03-13 01:02:[address] [facility] Body weight 2021-03-13 01:02:00 85.231 kg Universi ty [facility] [place] BMI 2021-03-13 01:02:00 32.25 kg/m2 Universi ty [facility] Oxygen saturation in 2021-03-13 01:02:00 96 /min [facility] Arterial blood by [facility] Pulse oximetry Branch Systolic blood 2021-12-01 13:26:00 148 mm[Hg] Method [facility] pressure Diastolic blood 2021-12-01 13:26:00 86 mm[Hg] [facility] pressure Heart rate 2021-12-01 13:26:00 67 /min [facility] Respiratory rate 2021-12-01 13:26:00 22 /min [facility] Body height 2021-12-01 13:26:00 163.8 cm [facility] Body weight 2021-12-01 13:26:00 87.091 kg [facility] BMI 2021-12-01 13:26:00 32.45 kg/m2 [facility] Oxygen saturation in 2021-12-01 13:26:00 97 /min [facility] Arterial blood by Pulse oximetry Body temperature 2021-08-12 18:31:00 36.67 [facility] Procedures Procedure Date / Time Performing Clinician Source Performed AUTHORIZATION TO RELEASE 2022-05-13 06:01:00 Doctor Reymundo, [facility] PHI TO [facility] [place] [facility] POCT MOLECULAR FLU 2022-04-15 20:21:00 Anay Bruno [facility] Medical [facility] POCT SARS-COV-2 ANTIGEN 2022-04-15 20:20:00 Anay Bruno [facility] (BINAX NOW) Medical Branch AUTHORIZATION TO RELEASE 2022-04-04 06:01:00 Doctor Reymundo, [facility] PHI TO [facility] [place] [facility] NO SHOW OR MISSED 2022-02-28 14:25:14 Doctor Reymundo, [facility] APPOINTMENT POLICY [place] [facility] h ACKNOWLEDGEMENT SARS-COV-2 COVID-19 2022-02-05 17:07:33 [facility] MERARY-SUCROSE VACCINE 12 [place] [facility] YRS+, BIVALENT 0.3ML, IM, (PFIZER BERNAL TOP BOOSTER) FLU VACC (), 6 2022-02-05 17:06:17 Doctor Reymundo, [facility] MO-64 YRS, .5ML, IM, QUAD [place] [facility] ([facility] CONSENT/REFUSAL FOR 2022-01-17 16:16:15 Doctor Reymundo, [facility] DIAGNOSIS AND TREATMENT [place] [facility] CBC WITH PLATELET AND 2021-12-01 18:44:00 [facility] DIFFERENTIAL COMPREHENSIVE METABOLIC 2021-12-01 18:44:00 [facility] PANEL LIPID PANEL 2021-12-01 18:44:00 [facility] URINALYSIS, AUTOMATED WITH 2021-12-01 18:44:00 [facility] MICROSCOPY POC GLYCOSYLATED 2021-12-01 13:39:00 [facility] HEMOGLOBIN (HGB A1C) XR CHEST 2 VW 2021-08-12 20:50:00 [facility] POC GLYCOSYLATED 2021-08-12 19:45:00 [facility] HEMOGLOBIN (HGB A1C) MICROALBUMIN / CREATININE 2021-08-12 19:42:00 [facility] URINE RATIO CBC WITH PLATELET AND 2021-08-12 19:42:00 [employer] DIFFERENTIAL URINALYSIS, COMPLETE, WITH 2021-08-12 19:42:00 [facility] REFLEX TO CULTURE MAMMO SELF REQUESTING 2021-08-12 17:46:35 [employer] SCREENING BILATERAL W TASHA POCT RAPID FLU A AND B 2021-03-13 01:42:00 Anjana Carvalho [facility] TEST Medical Branch POCT GRP A STREP 2021-03-13 01:42:00 Anjana Carvalho [facility] (MOLECULAR) Medical Branch XR CHEST 2 VW 2021-03-13 01:25:08 Anjana Carvalho [facility] [id number] 2019-12-09 00:00:00 JOHRI.02 [facility] [id number] 2019-12-09 00:00:00 JOHRI.02 [facility] [id number] 2019-12-09 00:00:00 JOHRI.02 [facility] Plan of Care Planned Activity Planned Date Details Comments Source Future Scheduled 2022-06-02 Hepatitis C Evangelical Test 16:11:02 screening Hospital (procedure) [code = 924764185] Future Scheduled 2022-06-02 65+ PNEUMOCOCCAL Methodi [facility] Test 16:11:02 VACCINE (2 - PPSV23 Hospital if available, else PCV20) [code = 65+ PNEUMOCOCCAL VACCINE (2 - PPSV23 if available, else PCV20)] Future Scheduled 2022-06-02 COVID-19 VACCINE (4 Meth odist Test 16:11:02 - Booster for Pfizer Hospita l series) [code = COVID-19 VACCINE (4 - Booster for Pfizer series)] Future Scheduled 2022-06-02 DIABETES: RETINAL Method ist Test 16:11:02 EYE EXAM [code = Hospital DIABETES: RETINAL EYE EXAM] Future Scheduled 2022-06-02 DIABETIC FOOT EXAM Metho dist Test 16:11:02 [code = DIABETIC Hospital FOOT EXAM] Future Scheduled 2022-06-02 SHINGLES VACCINES (2 Postponed from M ethodist Test 16:11:02 of 2) [code = 05/04/2019 Hospital SHINGLES VACCINES (2 (Patient of 2)] Refused) Future Scheduled 2022-05-26 Hepatitis C Evangelical Test 16:31:04 screening Hospital (procedure) [code = 920187785] Future Scheduled 2022-05-26 65+ PNEUMOCOCCAL Methodi st [...] = 05/04/2019 Hospital SHINGLES VACCINES (2 (Patient of 2)] Refused) Procedure 2022-06-09 POCT SARS-COV-2 University o f 00:44:00 ANTIGEN (BINAX NOW) [facility] dicct Branch Procedure 2022-06-09 POCT MOLECULAR FLU [facility] of 00:31:00 [facility] Encounters Start End Encounter Admission Attending Care Care Encounter Source Date/Time Date/Time Type Type Clinicians Facility Department ID 2019-12-10 Inpatient SHERLY Rangel [facility] MEDI.01 [id number] [facility] 14:30:00 Avinash 00 [facility] 2022-06-30 2022-06-30 Outpatient Sridevi BRUNO [facility] [id number] Univers 11:00:00 11:00:00 ANAY bright of [facility] 2022-06-08 2022-06-08 Outpatient Sridevi RHODES III [facility] [id number] Univers 18:00:00 18:44:[address] [facility] 2022-06-08 2022-06-08 Urgent Delilah Rhodes [facility] 1.2.840.114 [id number] Univers 18:00:00 18:44:34 Care Unknown, Attending HEALTH 350.1.13.10 ity of [place] 4.2.7.2.686 Barrie as ANDREA?BLEA [phone] [facility] [address] MEDICAL OFFICE [facility] 2022-06-02 2022-06-02 [facility] 1.2.840.114 [id number] Univers 00:00:00 00:00:00 Formerly [facility] 350.1.13.10 ity of [place] 4.2.7.2.686 Barrie as ANDREA?BLEA [phone] [facility] [address] [facility] OFFICE [facility] 2022-05-26 2022-05-26 Outpatient Sridevi RHODES III, [facility] [id number] Univers 12:15:00 12:56:19 DELILAH [facility] 2022-05-26 2022-05-26 Nurse Nurse, [facility] 1.2.840.114 [id number] Univers 12:15:00 12:35:00 Visit Unknown, Attending HEALTH 350.1.13.10 ity of [place] 4.2.7.2.686 Barrie as ANDREA?BLEA [phone] [facility] [address] MEDICAL OFFICE [facility] 2022-05-16 2022-05-16 Outpatient Sridevi AREVALO, [facility] [id number] Univers 11:00:00 11:00:00 LIAM bright o f [facility] 2022-05-13 2022-05-13 Orders Doctor GIULIANA 1.2.840.114 [id number] Univers 00:00:00 00:00:00 Only Unassigned, CONCEPCION 350.1.13.10 ity of [place] [facility] 4.2.7.2.686 Barrie as [phone] [address] 2022-05-12 2022-05-12 Telephone [facility] 1.2.038.361 [id number] Univers 00:00:00 00:00:00 Formerly [facility] 350.1.13.10 ity of [place] 4.2.7.2.686 Barrie as ANDREA?BLEA [phone] [address] OFFICE [facility] 2022-05-12 2022-05-12 Telephone [facility] 1.2.826.745 [id number] Univers 00:00:00 00:00:00 Anay HEALTH 350.1.13.10 ity of [place] 4.2.7.2.686 Barrie as ANDREA?BLEA [phone] [address] OFFICE [facility] 2022-05-11 2022-05-11 Telephone [facility] 1.2.268.679 [id number] Univers 00:00:00 00:00:00 Anay HEALTH 350.1.13.10 [facility] 4.2.7.2.686 [place] as ANDREA?BLEA [phone] [address] OFFICE [facility] 2022-04-15 2022-04-15 [facility] [id number] [facility] 14:20:00 14:52:[address] [facility] 2022-04-15 2022-04-15 Office [facility] 1.2.840.114 [id number] [facility] 14:20:00 14:52:17 Visit [facility] 350.1.13.10 [facility] 4.2.7.2.686 [place] as ANDREA?BLEA [id number] [address] OFFICE [facility] 2022-04-15 2022-04-15 Refill [facility] 1.2.840.114 [id number] Univers 00:00:00 00:00:00 Anay HEALTH 350.1.13.10 ity of [place] 4.2.7.2.686 Barrie as ANDREA?BLEA [id number] [address] OFFICE [facility] 2022-04-05 2022-04-05 Ancillary Denisse Adames [facility] 1.2. 840.114 [id number] Univers 09:30:00 10:15:00 Visit Tuan Hussein [facility] 350.1.13.10 [facility] [place] [phone] Fl dical NAL [address] [facility] 2022-04-05 2022-04-05 Outpatient R JOVITA [facility] [id number] Univers 09:30:00 09:30:[address] [facility] 2022-04-04 2022-04-04 Orders Doctor GIULIANA 1.2.840.114 [id number] Univers 00:00:00 00:00:00 Only Unassigned, CONCEPCION 350.1.13.10 ity of [place] [facility] 4.2.7.2.686 Bar[place] as [phone] [address] 2022-03-31 2022-03-31 Technical Document Writer Lab, Gil[facility] - Kyler [facility] 1.2.840.1 14 [id number] Univers 11:45:00 12:00:00 [facility] 350.1.13.10 ity of [place] 4.2.7.2.686 [place] as ANDREA?BLEA [phone] Fl jamel NSOW [address] [facility] OFFICE [facility] 2022-03-31 2022-03-31 Outpatient R UMU [facility] [id number] Univers 11:00:00 11:50:48 ANAY [facility] 2022-03-31 2022-03-31 Office [facility] 1.2.840.114 [id number] Univers 11:00:00 11:50:48 Visit [facility] 350.1.13.10 ity of [place] 4.2.7.2.686 [place] as ANDREA?BLEA [phone] Fl dical LEAHEY [address] [facility] OFFICE [facility] 2022-03-31 2022-03-31 Ancillary Eula Hughes [facility] 1.2.840 .114 [id number] Univers 09:30:00 10:15:00 Visit Tuan Hussein 350.1.13.10 ity [facility] 4[place] [id number] Fl dical NAL [address] [facility] 2022-03-28 2022-03-28 Ancillary Jyoti Valdez [facility] 1.2.840 .114 [id number] Univers 10:15:00 12:59:51 Visit [facility]uan [facility] 350.1.13.10 ity [facility] 4.2.7.2.[place] [phone] [facility] [address] [facility] 2022-03-21 2022-03-21 Outpatient R JOVITA [facility] [id number] Univers 11:00:00 16:16:[address] [facility] 2022-03-21 2022-03-21 Ancillary Ingrid Shepherd [facility] 1 .2.840.114 [id number] [facility] 11:00:00 16:16:34 Visit Tuan Hussein 350.1.13.10 ity [facility] 4[place] [phone] [address] 2022-03-14 2022-03-14 [facility]ill [facility] 1.2.840.114 [id number] Univers 00:00:00 00:00:00 Formerly [facility] 350.1.13.10 ity of [place] 4.2.7.2.686 Barrie as ANDREA?BLEA [phone] [address] OFFICE [facility] 2022-02-28 2022-02-28 Outpatient R UMU [facility] [id number] Univers 09:41:14 23:59:[address] [facility] 2022-02-28 2022-02-28 Office [facility] 1.2.840.114 [id number] Univers 08:40:00 09:39:25 Visit [facility] 350.1.13.10 ity of [place] 4.2.7.2.686 Barrie as ANDREA?BLEA [id number] [address] OFFICE [facility] 2022-02-28 2022-02-28 Orders Doctor GIORDANO 1.2.840.114 [id number] Univers 00:00:00 00:00:00 Only Unassigned, CONCEPCION 350.1.13.10 ity of [place] [facility] 4.2.7.2.686 Barrie as [phone] [address] 2022-02-14 2022-02-14 Refill Ghadiri, 1.2.840.1 [id number] Methodi 00:00:00 00:00:[address] 3.430.2.7 Hospit a .3.952610 l .8 2022-02-14 2022-02-14 Refill Ghadiri, 1.2.840.1 [id number] Methodi 00:00:00 00:00:[address] 3.430.2.7 Hospit a .3.659031 l .8 2022-02-10 2022-02-10 Refill Ghadiri, 1.2.840.1 [id number] Methodi 00:00:00 00:00:[address] 3.430.2.7 Hospit a .3.158313 l .8 2022-02-10 2022-02-10 Refill Ghadiri, 1.2.840.1 [id number] Methodi 00:00:00 00:00:[address] 3.430.2.7 Hospit a .3.522764 l .8 2022-02-05 2022-02-05 Outpatient R CHIDI [facility] [id number] [facility] 12:00:00 13:10:[address] [facility] 2022-02-05 2022-02-05 Imm/Inj Vaccine, [facility] Db [facility] 1.2.840 .114 [id number] [facility] 12:20:00 12:30:00 Visit Unknown, Attending HEALTH 350.1.13.10 ity of [place] 4.2.7.2.686 Barrie as ANDREA?BLEA [phone] [address] MEDICAL OFFICE BUILDING 2022-02-05 2022-02-05 Imm/Inj Nurse, [facility] 1.2.840.114 [id number] [facility] 12:00:00 12:20:00 Visit Unknown, Attending HEALTH 350.1.13.10 ity of [place] 4.2.7.2.686 Barrie as ANDREA?BLEA [phone] [address] OFFICE [facility] 2022-01-17 2022-01-17 Urgent [facility] 1.2.840.114 [id number] Univers 11:30:00 11:53:17 Care [facility] 350.1.13.10 i ty of [place] 4.2.7.2.686 Barrie as ANDREA?BLEA [phone] [address] OFFICE [facility] 2022-01-17 2022-01-17 Outpatient R [facility] [id number] Univers 11:30:00 11:53:17 YULY ity o f [facility] 2022-01-17 2022-01-17 Refill [facility] 1.2.840.114 [id number] Univers 00:00:00 00:00:00 [facility] 350.1.13.10 i ty of [place] 4.2.7.2.686 Barrie as ANDREA?BLEA [phone] [address] MEDICAL OFFICE [facility] 2022-01-17 2022-01-17 Orders Doctor GIULIANA 1.2.840.114 [id number] Univers 00:00:00 00:00:00 Only Unassigned, CONCEPCION 350.1.13.10 ity of [place] [facility] 4.2.7.2.686 Barrie as [phone] [address] 2021-12-01 2021-12-01 Office Martínezri, 1.2.840.1 [id number] Methodi 08:40:00 09:25:02 Visit Meg 96078.1.[address] 3.430.2.7 Hospit a .3.029918 l .8 2021-12-01 2021-12-01 Office Martínezri, 1.2.840.1 [id number] Methodi 08:40:00 09:25:02 Visit Meg 64716.1.[address] 3.430.2.7 Hospit a .3.318111 l .8 2021-12-01 2021-12-01 Travel 1.2.840.1 1.2.159.017 [id number] Methodi 00:00:00 00:00:[address] 3.430.2.7 0.2.7.3.698 Ho spita .3.463480 084.8 l .8 2021-12-01 2021-12-01 Travel 1.2.840.1 1.2.324.990 [id number] Methodi 00:00:00 00:00:[address] 3.430.2.7 0.2.7.3.698 Ho spita .3.748842 084.8 l .8 2021-11-16 2021-11-16 Refill Ghadiri, 1.2.840.1 [id number] Methodi 00:00:00 00:00:[address] 3.430.2.7 Hospit a .3.954962 l .8 2021-11-16 2021-11-16 Refill Ghadiri, 1.2.840.1 [id number] Methodi 00:00:00 00:00:[address] 3.430.2.7 Hospit a .3.740494 l .8 2021-11-02 2021-11-02 Refill Ghadiri, 1.2.840.1 [id number] Methodi 00:00:00 00:00:[address] 3.430.2.7 Hospit a .3.855173 l .8 2021-11-02 2021-11-02 Refill Ghadiri, 1.2.840.1 [id number] Methodi 00:00:00 00:00:[address] 3.430.2.7 Hospit a .3.363457 l .8 2021-11-01 2021-11-01 Telephone Ghadiri, 1.2.840.1 [id number] Methodi 00:00:00 00:00:[address] 3.430.2.7 Hospit a .3.958797 l .8 2021-11-01 2021-11-01 Telephone Ghadiri, 1.2.840.1 [id number] Methodi 00:00:00 00:00:[address] 3.430.2.7 Hospit a .3.270805 l .8 2021-10-30 2021-10-30 Refill Ghadiri, 1.2.840.1 [id number] 08490 Methodi 00:00:00 00:00:[address] 3.430.2.7 Hospit a .3.507788 l .8 2021-10-30 2021-10-30 Refill Ghadiri, 1.2.840.1 [id number] 14095 Methodi 00:00:00 00:00:[address] 3.430.2.7 Hospit a .3.936817 l .8 2021-10-29 2021-10-29 Orders Ghadiri, 1.2.840.1 [id number] Methodi 00:00:00 00:00:00 Only Meg 01249.1.[address] 3.430.2.7 Hospit a .3.849024 l .8 2021-10-29 2021-10-29 Refill Ghadiri, 1.2.840.1 [id number] 59442 Methodi 00:00:00 00:00:[address] 3.430.2.7 Hospit a .3.648105 l .8 2021-10-29 2021-10-29 Orders Ghadiri, 1.2.840.1 [id number] Methodi 00:00:00 00:00:00 Only Meg 08501.1.[address] 3.430.2.7 Hospit a .3.572540 l .8 2021-10-29 2021-10-29 [facility] [id number] 31820 Methodi 00:00:00 00:00:[address] 3.430.2.7 Hospit a .3.943869 l .8 2021-08-23 2021-08-23 Orders [facility], 1.2.840.1 [id number] Methodi 00:00:00 00:00:00 Only Meg 26892.1.[address] 3.430.2.7 Hospit a .3.425536 l .8 2021-08-23 2021-08-23 [facility] 1.2.840.1 [id number] Methodi 00:00:00 00:00:00 Only Meg 75332.1.[address] 3.430.2.7 Hospit a .3.627976 l .8 2021-08-17 2021-08-17 Refill [facility], 1.2.840.1 [id number] [id number] Methodi 00:00:00 00:00:[address] 3.430.2.7 Hospit a .3.726323 l .8 2021-08-17 2021-08-17 Refill adiri, 1.2.840.1 [id number] Methodi 00:00:00 00:00:[address] 3.430.2.7 Hospit a .3.324250 l .8 2021-08-12 2021-08-12 [facility], 1.2.840.1 [id number] [id number] Methodi 14:45:00 23:59:00 Encounter Meg 26123.1.1 [address] 3.430.2.7 Hospit a .3.963798 l .8 2021-08-12 2021-08-12 [facility], 1.2.840.1 [id number] Methodi 14:45:00 23:59:00 Encounter Meg 66787.1.1 483 [address] t 3.430.2.7 Hospit a .3.414762 l .8 2021-08-12 2021-08-12 [facility], 1.2.840.1 [id number] Methodi 13:40:00 15:04:27 Visit Meg 08216.1.[address] 3.430.2.7 Hospit a .3.820911 l .8 2021-08-12 2021-08-12 Office [facility], 1.2.840.1 [id number] Methodi 13:40:00 15:04:27 Visit Meg 23174.1.[address] 3.430.2.7 Hospit a .3.404206 l .8 2021-08-12 2021-08-12 [facility], 1.2.840.1 [id number] 2099 [id number] Methodi 12:06:19 14:44:00 Encounter Meg 15155.1.1 397 s t 3.430.2.7 Hospit a .3.788267 l .8 2021-08-12 2021-08-12 [facility], 1.2.840.1 [id number] Methodi 12:06:19 14:44:00 Encounter Meg 00472.1.1 397 s t 3.430.2.7 Hospit a .3.951007 l .8 2021-08-12 2021-08-12 Transcribe [facility], 1.2.840.1 [id number] Methodi 00:00:00 00:00:00 Orders Meg 74433.1.[address] 3.430.2.7 Hospit a .3.170884 l .8 2021-08-12 2021-08-12 Travel 1.2.840.1 1.2.796.429 1087 [id number] Methodi 00:00:00 00:00:[address] 3.430.2.7 0.2.7.3.698 Ho spita .3.124056 084.8 l .8 2021-08-12 2021-08-12 Transcribe Ghadiri, 1.2.840.1 [id number] Methodi 00:00:00 00:00:00 [place] 56959.1.[address] 3.430.2.7 Hospit a .3.870948 l .8 2021-08-12 2021-08-12 Travel 1.2.840.1 1.2.520.813 0609 [id number] Methodi 00:00:00 00:00:[address] 3.430.2.7 0.2.7.3.698 Ho spita .3.343067 084.8 l .8 2021-07-19 2021-07-19 Transcribe Ghadiri, 1.2.840.1 [id number] 21 [id number] Methodi 00:00:00 00:00:00 [place] 99333.1.[address] 3.430.2.7 Hospit a .3.990065 l .8 2021-07-19 2021-07-19 Transcribe Ghadiri, 1.2.840.1 [id number] 21 [id number] Methodi 00:00:00 00:00:00 [place] [address]180.1.[address] 3.430.2.7 Hospit a .3.256294 l .8 2021-06-08 2021-06-08 Patient Pranav, 1.2.840.1 [id number] 0707 Methodi 00:00:00 00:00:00 Outreach Jes 73150.1.[address] 3.430.2.7 Hospit a .3.109510 l .8 2021-06-08 2021-06-08 Patient Pranav, 1.2.840.1 [id number] Methodi 00:00:00 00:00:00 Outreach Jes 01196.1.[address] 3.430.2.7 Hospit a .3.072565 l .8 2021-05-28 2021-05-28 Refill Ghadiri, 1.2.840.1 [id number] 88348 Methodi 00:00:00 00:00:[address] 3.430.2.7 Hospit a .3.769231 l .8 2021-03-12 2021-03-12 [facility] 1.2.779.390 6755 6271 [facility] 19:17:34 23:59:00 Encounter [facility] 350.1.13.10 ity [facility] 4.2.7.2.686 Brarie as ANDREA?BLEA 201.0070248 Fl dical LEAHEY [address] [facility] OFFICE [facility] 2021-03-12 2021-03-12 [facility]patient [facility] [id number] [facility] 19:00:00 19:49:37 [facility] 2021-03-12 2021-03-12 [facility] 1.2.840.114 [id number] [facility] 18:44:47 19:49:37 Care [facility] 350.1.13.10 it y of SPADE 4.2.7.2.686 Barrie as ANDREA?BLEA [id number] Fl dical LEAHEY 370 [facility] OFFICE [facility] 2020-11-03 2020-11-03 Outpatient [facility] [id number] Mico 00:00:00 00:00:00 134 Method i 2020-07-27 2020-07-29 Outpatient GHADIRI, [facility] [id number] Mico 00:00:00 00:00:00 MEG [address] 2020-07-15 2020-07-15 [facility] [facility] [id number] [place] 00:00:00 00:00:00 KISHA [address] 2020-07-02 2020-07-02 Outpatient GHADIRI, [facility] [id number] [place] 00:00:00 00:00:00 MEG [address] 2020-06-29 2020-06-29 Emergency WINGKUN, [facility] [id number] [place] 00:00:00 00:00:00 KEITH [address] 2020-06-02 2020-06-02 Outpatient [facility] [id number] [place] 00:00:00 00:00:[address] 2020-05-12 2020-05-12 Outpatient [facility] [id number] [place] 00:00:00 00:00:[address] 2020-01-14 2020-01-14 Outpatient GHADIRI, [facility] [id number] [place] 00:00:00 00:00:00 MEG [address] 2019-10-21 2019-10-21 Outpatient [facility] [id number] [place] 00:00:00 00:00:[address] 2019-10-15 2019-10-15 Outpatient REX RAMOS [facility] [id number] M[place] 00:00:00 00:00:[address] 2019-10-07 2019-10-08 Outpatient KOHRIRIHOFER, [facility] [id number] Mico 00:00:00 00:00:00 LURDES [address] 2019-08-27 2019-08-27 Outpatient REX RAMOS [facility] [id number] M[place] 00:00:00 00:00:[address] 2019-08-14 2019-08-14 Outpatient GHADIRI, [facility] [id number] M[place] 00:00:00 00:00:00 MEG [address] 2019-08-14 2019-08-14 Outpatient GHADIRI, [facility] [id number] [place] 00:00:00 00:00:00 MEG [address] 2019-07-12 2019-07-12 Outpatient MARIO, [facility] 06047 [id number] [place] 00:00:00 00:00:00 KISHA [address] 2019-07-08 2019-07-08 Outpatient MARIO, [facility] [id number] M[place] 00:00:00 00:00:00 KISHA [address] 2019-07-08 2019-07-08 Outpatient MARIO, [facility] [id number] M[place] 00:00:00 00:00:00 KISHA [address] 2019-06-27 2019-06-27 Outpatient MARIO, [facility] [id number] M[place] 00:00:00 00:00:00 KISHA [address] 2019-06-27 2019-06-27 Outpatient SATNAM, [facility] [id number] [place] 00:00:00 00:00:00 MEG [address] 2019-03-05 2019-03-05 Emergency LEVI WARREN [facility] 064 [id number] M[place] 00:00:00 00:00:[address] Results Test Description Test Time Test Comments Results Result Comments Source POCT SARS-COV-2 ANTIGEN (BINAX NOW) 2022-06-09 00:44:00 Test Item Value Reference Range Interpretation Comme nts POCT SARS-COV-2 ANTIGEN (test code Not Detected Not Detected = 59444-5) On board controls acceptable with Yes C Line (test code = 3574) GIN (test code = GIN) accurate development and interpretation of all internal controls Lab Interpretation (test code = Normal 38815-8) [facility] MOLECULAR [id number] 00:43:16 Test Item Value Reference Range Interpretation Comments POCT Molecular FluA (test code = Negative Negative 68602-4) POCT Molecular FluB (test code = Negative Negative 60297-3) Lab Interpretation (test code = Normal 30899-6) [facility] SARS-COV-2 ANTIGEN (BINAX NOW)2022-04-15 20:37:00 Test Item Value Reference Range Interpretation Comments POCT SARS-COV-2 ANTIGEN (test Not Detected Not Detected code = 09563-2) On board controls acceptable Yes with C Line (test code = 3574) [facility] SARS-COV-2 ANTIGEN (BINAX NOW)2022-04-15 20:37:00 Test Item Value Reference Range Interpretation Comments POCT SARS-COV-2 ANTIGEN (test Not Detected Not Detected code = 52273-1) On board controls acceptable Yes with C Line (test code = 3574) [facility] SARS-COV-2 ANTIGEN (BINAX NOW)2022-04-15 20:37:00 Test Item Value Reference Range Interpretation Comments POCT SARS-COV-2 ANTIGEN (test Not Detected Not Detected code = 00269-2) On board controls acceptable Yes with C Line (test code = 3574) [facility] SARS-COV-2 ANTIGEN (BINAX NOW)2022-04-15 20:37:00 Test Item Value Reference Range Interpretation Comments POCT SARS-COV-2 ANTIGEN (test Not Detected Not Detected code = 82105-9) On board controls acceptable Yes with C Line (test code = 3574) [facility] MOLECULAR [id number] 20:33:08 Test Item Value Reference Range Interpretation Comments POCT Molecular FluA (test code = Negative Negative 31220-8) POCT Molecular FluB (test code = Negative Negative 52239-1) Lab Interpretation (test code = Normal 95613-2) [facility] MOLECULAR [id number] 20:33:08 Test Item Value Reference Range Interpretation Comments POCT Molecular FluA (test code = Negative Negative 03645-7) POCT Molecular FluB (test code = Negative Negative 73124-4) Lab Interpretation (test code = Normal 72014-2) [facility] MOLECULAR [id number] 20:33:08 Test Item Value Reference Range Interpretation Comments POCT Molecular FluA (test code = Negative Negative 40774-8) POCT Molecular FluB (test code = Negative Negative 22640-9) Lab Interpretation (test code = Normal 77952-2) [facility] MOLECULAR [id number] 20:33:08 Test Item Value Reference Range Interpretation Comments POCT Molecular FluA (test code = Negative Negative 45052-1) POCT Molecular FluB (test code = Negative Negative 98480-3) Lab Interpretation (test code = Normal 95940-9) [facility] [id number] 05:30:00 Test Item Value Reference Range Interpretation [...] Cystatin Cresul t, go to [email or web address] ne y.[email or web address]/profkadiio na ls/kdoqi/gfr%5F ca lculator [Automated message] The [...] Calcium (test code 8.9 mg/dL 8.6-10.4 = 54846-9) Protein (test code 6.5 g/dL 6.1-8.1 = 2885-2) Albumin, S (test 3.9 g/dL 3.6-5.1 code = 1751-7) Globulin, total 2.6 See_Comment [Automated (test code = message] The 24413-3) system which generated this result transmitted reference range : 1.9 - 3.7 g/dL (calc). The reference range was not used to interpret this result as normal/abnormal . Albumin/globulin 1.5 See_Comment [Automated ratio (test code = message] The 1759-0) system which generated this result transmitted reference range : 1.0 - 2.5 (calc ). The reference range was not used to interpr et this result as normal/abnormal . Total bilirubin 0.6 mg/dL 0.2-1.2 (test code = 1974-2) Alkaline 78 U/L 37-153 phosphatase (test code = 6768-6) AST (test code = 19 U/L 10-35 1920-8) ALT (test code = 15 U/L 6-29 1742-6) GIN (test code = FASTING:YES GIN) FASTING: YES RAC (test code = Performing RAC) Organization Information: Site ID: SARAHY Name: [facility] Address: [address] [place] [address] Director: Peng Balderrama [facility] [id number] 05:30:00 Test Item Value Reference Range Interpretation Comments Cholesterol, total 190 mg/dL <=200 (test code = 2093-3) HDL cholesterol 54 mg/dL See_Comment [Automated (test code = 2084-) message ] The system which generated this result transmitted reference range : > OR = 50. The reference range was not used to interpret this result as normal/abnormal . Triglycerides (test 175 mg/dL <=150 H code = 2571-8) LDL cholesterol 107 mg/dL (calc) H Reference ra nge: calculated (test <100 Desira ble code = 89044-8) range <100 m g/dL for primary prevention; <70 mg/dL for patients with C HD or diabetic patients with > or = 2 CHD risk factors. LDL-C is now calculated using the Chinedu-Marcy calculation, which is a validated novel method providin g better accuracy than the Friedewald equation in the estimation of LDL-C. Chinedu S S et al. CHON. 2013;310(19): 3547-6619 (http://educati on .Nanomech .com/faq/GMH508 ) Cholesterol/HDL 3.5 See_Comment [Automated ratio (test code = message] The 9830-1) system which generated this result transmitted reference range : <5.0 (calc). Th e reference range was not used to interpret this result as normal/abnormal . Non-HDL cholesterol 136 See_Comment H For alfonso ents with (test code = diabetes plus 1 77746-0) major ASCVD ris k factor, treatin g [...] RAC) Organization Information: Site ID: RGA Name: [facility] Lab Address: [address] [place] [address] Director: Peng Balderrama Lab Interpretation Abnormal (test code = 75144-6) [facility] with platelet and [id number] 05:30:00 Test Item Value Reference Range Interpretation Comments WBC (test code = 6.0 See_Comment [Automated 6690-2) message] The system which generated this result [...] RAC) Organization Information: Site ID: RGA Name: [facility] Address: [address] [place] [phone] Director: Peng Balderrama [facility] CenterUrinal[facility], automated with [id number] 05:30:00 Test Item Value Reference Range Interpretation Comments Color, UA (test YELLOW YELLOW code = 5778-6) Appearance (test CLEAR CLEAR code = 5767-9) Specific gravity, 1.011 1.001-1.035 urine (test code = 5811-5) pH, urine (test 8.0 5.0-8.0 code = 5803-2) Glucose, urine NEGATIVE NEGATIVE (test code = 19717-3) Bilirubin, UA NEGATIVE NEGATIVE (test code = 5770-3) Ketones, UA (test NEGATIVE NEGATIVE code = 2514-8) Occult blood, NEGATIVE NEGATIVE urine (test code = 5794-3) Protein, UA (test NEGATIVE NEGATIVE code = 95068-9) Nitrite, UA (test NEGATIVE NEGATIVE code = [...] (test NONE SEEN See_Comment [Automated code = 17779-2) message] The system which generated this result transmit john reference range : < OR = 2 /HPF. Th e reference range was not used to interpret this result as normal/abnormal . Squamous NONE SEEN See_Comment [Automated epithelial cells, message] T he UA (test code = system which 24823-5) generated this result transmit john reference range [...] RAC) Organization Information: Site ID: RGA Name: [facility] Address: [address] [place] [phone] Director: Peng Balderrama [facility] [id number] 05:30:00 Test Item Value Reference Range Interpretation [...] Cystatin Cresul t, go to [email or web address] ne y.org/darrin valderrama/kdoqi/gfr%5F ca lculator [Automated message] The system which [...] Calcium (test code 8.9 mg/dL 8.6-10.4 = 15270-5) Protein (test code 6.5 g/dL 6.1-8.1 = 2885-2) Albumin, S (test 3.9 g/dL 3.6-5.1 code = 1751-7) Globulin, total 2.6 See_Comment [Automated (test code = message] The 74696-5) system which generated this result transmitted reference range : 1.9 - 3.7 g/dL (calc). The reference range was not used to interpret this result as normal/abnormal . Albumin/globulin 1.5 See_Comment [Automated ratio (test code = message] The 1759-0) system which generated this result transmitted reference range : 1.0 - 2.5 (calc ). The reference range was not used to interpr et this result as normal/abnormal . Total bilirubin 0.6 mg/dL 0.2-1.2 (test code = 1974-2) Alkaline 78 U/L 37-153 phosphatase (test code = 6768-6) AST (test code = 19 U/L 10-35 1920-8) ALT (test code = 15 U/L 6-29 1742-6) GIN (test code = FASTING:YES GIN) FASTING: YES RAC (test code = Performing RAC) Organization Information: Site ID: RGA Name: [facility] Address: [address] [place] [phone] Director: Peng Balderrama [facility] [id number] 05:30:00 Test Item Value Reference Range Interpretation Comments Cholesterol, total 190 mg/dL <=200 (test code = 2092-3) HDL cholesterol 54 mg/dL See_Comment [Automated (test code = 5-9) message ] The system which generated this result transmitted reference range : > OR = 50. The reference range was not used to interpret this result as normal/abnormal . Triglycerides (test 175 mg/dL <=150 H code = 2571-8) LDL cholesterol 107 mg/dL (calc) H Reference ra nge: calculated (test <100 Desira ble code = 53320-9) range <100 m g/dL for primary prevention; <70 mg/dL for patients with C HD or diabetic patients with > or = 2 CHD risk factors. LDL-C is now calculated using the Chinedu-Marcy calculation, which is a validated novel method providin g better accuracy than the Friedewald equation in the estimation of LDL-C. Chinedu S S et al. CHON. 2013;310(19): 4969-4605 (http://educati on .JustFamilyDiagnBeMe Intimates .com/faq/XMC434 ) Cholesterol/HDL 3.5 See_Comment [Automated ratio (test code = message] The 9830-1) system which generated this result transmitted reference range : <5.0 (calc). Th e reference range was not used to interpret this result as normal/abnormal . Non-HDL cholesterol 136 See_Comment H For alfonso ents with (test code = diabetes plus 1 71733-4) major ASCVD ris k factor, treatin g [...] RAC) Organization Information: Site ID: RGA Name: [facility] Lab Address: [address] [place] [address] Director: Peng Balderrama Lab Interpretation Abnormal (test code = 93932-9) [facility] with platelet and [id number] 05:30:00 Test Item Value Reference Range Interpretation Comments WBC (test code = 6.0 See_Comment [Automated 4790-2) message] The system which generated this result [...] RAC) Organization Information: Site ID: RGA Name: [facility] Address: [address] [place] [address] Director: Peng Balderrama [facility] CenterUrinalysis, automated with [id number] 05:30:00 Test Item Value Reference Range Interpretation Comments Color, UA (test YELLOW YELLOW code = 5778-6) Appearance (test CLEAR CLEAR code = 5767-9) Specific gravity, 1.011 1.001-1.035 urine (test code = 5811-5) pH, urine (test 8.0 5.0-8.0 code = 5803-2) Glucose, urine NEGATIVE NEGATIVE (test code = 48984-2) Bilirubin, UA NEGATIVE NEGATIVE (test code = 5770-3) Ketones, UA (test NEGATIVE NEGATIVE code = 2514-8) Occult blood, NEGATIVE NEGATIVE urine (test code = 5794-3) Protein, UA (test NEGATIVE NEGATIVE code = 79571-9) Nitrite, UA (test NEGATIVE NEGATIVE code = [...] (test NONE SEEN See_Comment [Automated code = 01552-5) message] The system which generated this result transmit john reference range : < OR = 2 /HPF. Th e reference range was not used to interpret this result as normal/abnormal . Squamous NONE SEEN See_Comment [Automated epithelial cells, message] T he UA (test code = system which 50470-9) generated this result transmit john reference range [...] RAC) Organization Information: Site ID: RGA Name: [facility] Address: [address] [place] [address] Director: Peng Balderrama [facility] glycosylated hemoglobin (Hb A1C)2021-12-01 13:39:00 Test Item Value Reference Range Interpretation Comments POC Hemoglobin A1C (test code = 5.6 % 9185559) [facility] glycosylated hemoglobin (Hb A1C)2021-12-01 13:39:00 Test Item Value Reference Range Interpretation Comments POC Hemoglobin A1C (test code = 5.6 % 4747401) [facility] / creatinine urine [id number] 20:55:00 Test Item Value Reference Interpretation Comments Range Creatinine, urine 64 mg/dL 20-275 (mg/dL) (test code = 2161-8) Microalbumin, urine 6.6 mg/dL See Note: Referenc e Range: (test code = Reference Range Not 48653-5) established Microalbumin/creati 103 See_Comment H The ADA defines nine ratio (test abnormaliti es in code = 9318-7) albuminexcret ion as follows: Albumi dexter Category Result (mcg/mg creatin ine) Normal to Mildl y increased <30Moderately increased 30-29 9 Severely increa sed > OR = 300 The ADA recommends that at least two of threespecimens [...] RAC) Organization Information: Site ID: RGA Name: [facility] Lab Address: [address] [place] [address] Director: Peng Balderrama Lab Interpretation Abnormal (test code = 55984-2) [facility], WITH REFLEX TO [id number] 20:55:00 Test Item Value Reference Range Interpretation Comments Color, UA (test code YELLOW YELLOW = 5778-6) Appearance (test CLEAR CLEAR code = 5767-9) Specific gravity, 1.015 1.001-1.035 urine (test code = 5811-5) pH, urine (test code 7.5 5.0-8.0 = 5803-2) Glucose, urine (test NEGATIVE NEGATIVE code = 48189-3) Bilirubin, UA (test NEGATIVE NEGATIVE code = 5770-3) Ketones, UA (test NEGATIVE NEGATIVE code = 2514-8) Occult blood, urine NEGATIVE NEGATIVE (test code = 5794-3) Protein, UA (test TRACE NEGATIVE A code = 35725-7) Nitrite, UA (test NEGATIVE NEGATIVE code = [...] code = NONE SEEN See_Comment [Autom ated 12416-5) message] The system which generated this result transmitted reference range : < OR = 2 /HPF. The reference range was not used to interpr et this result as normal/abnormal . Squamous epithelial NONE SEEN See_Comment [Automa john cells, UA (test code message ] The = 05872-1) system which generated this result transmitted reference [...] = Performing RAC) Organization Information: Site ID: ESCOBARA Name: [facility] Lab Address: [address] [place] [address] Director: Peng Balderrama Lab Interpretation Abnormal (test code = 14500-5) [facility] creatinine urine [id number] 20:55:00 Test Item Value Reference Interpretation Comments Range Creatinine, urine 64 mg/dL 20-275 (mg/dL) (test code = 2161-8) Microalbumin, urine 6.6 mg/dL See Note: Referenc e Range: (test code = Reference Range Not 06672-5) established Microalbumin/creati 103 See_Comment H The ADA [...] = Performing RAC) Organization Information: Site ID: A Name: [facility] Lab Address: [address] [place] [phone] Director: Peng Balderrama Lab Interpretation Abnormal (test code = 61138-5) [facility], WITH REFLEX TO [id number] 20:55:00 Test Item Value Reference Range Interpretation Comments Color, UA (test code YELLOW YELLOW = 5778-6) Appearance (test CLEAR CLEAR code = 5767-9) Specific gravity, 1.015 1.001-1.035 urine (test code = 5811-5) pH, urine (test code 7.5 5.0-8.0 = 5803-2) Glucose, urine (test NEGATIVE NEGATIVE code = 55895-8) Bilirubin, UA (test NEGATIVE NEGATIVE code = 5770-3) Ketones, UA (test NEGATIVE NEGATIVE code = 2514-8) Occult blood, urine NEGATIVE NEGATIVE (test code = 5794-3) Protein, UA (test TRACE NEGATIVE A code = 06414-2) Nitrite, UA (test NEGATIVE NEGATIVE code = [...] code = NONE SEEN See_Comment [Autom ated 12966-2) message] The system which generated this result transmitted reference range : < OR = 2 /HPF. The reference range was not used to interpr et this result as normal/abnormal . Squamous epithelial NONE SEEN See_Comment [Automa john cells, UA (test code message ] The = 16405-9) system which generated this result transmitted reference [...] RAC) Organization Information: Site ID: RGA Name: [facility] Lab Address: [address] [place] [address] Director: Peng Balderrama Lab Interpretation Abnormal (test code = 44128-1) [facility] RAPID FLU A AND B [id number] 01:42:00 Test Item Value Reference Range Interpretation Comments POCT INFLUENZA A (test negative Negative - code = 3840) Negative POCT INFLUENZA B (test negative Negative - code = 3841) Negative GIN (test code = GIN) accurate development and interpretation of all internal controls Lab Interpretation Normal (test code = 25853-0) [facility] (MOLECULAR)2021-03-13 01:42:00 Test Item Value Reference Range Interpretation Comments POCT GP A STREP (test negative Negative - code = 29515-1) Negative GIN (test code = GIN) accurate development and interpretation of all internal controls Lab Interpretation Normal (test code = 25503-9) [facility] [id number] 06:18:00 Test Item Value Reference Range Interpretation Comments MAGNESIUM (test code = MAG) 1.84 mg/dL 1.8-2.4 N CALCIUM [id number] 06:18:00 Test Item Value Reference Range Interpretation Comments CALCIUM IONIZED (test code = MICKEY) 0.98 MMOL/L 1.12-1.32 L [id number] 06:04:00 Test Item Value Reference Range Interpretation Comments MAGNESIUM (test code = MAG) mg/dL 1.8-2.4 CALCIUM [id number] 06:04:00 Test Item Value Reference Range Interpretation Comments CALCIUM IONIZED (test code = MICKEY) 0.98 MMOL/L 1.12-1.32 L [id number] 16:47:00 Test Item Value Reference Range Interpretation Comments CALCIUM (test code = CA) 6.9 mg/dL 8.0-10.5 L [id number] 16:47:00 Test Item Value Reference Range Interpretation Comments MAGNESIUM (test code = MAG) 1.84 mg/dL 1.8-2.4 N CALCIUM [id number] 16:47:00 Test Item Value Reference Range Interpretation Comments CALCIUM IONIZED (test code = MICKEY) 0.97 MMOL/L 1.12-1.32 L [id number] 16:46:00 Test Item Value Reference Range Interpretation Comments CALCIUM (test code = CA) 6.9 mg/dL 8.0-10.5 L [id number] 16:46:00 Test Item Value Reference Range Interpretation Comments MAGNESIUM (test code = MAG) 1.84 mg/dL 1.8-2.4 N CALCIUM [id number] 16:46:00 Test Item Value Reference Range Interpretation Comments CALCIUM IONIZED (test code = MICKEY) MMOL/L 1.12-1.32 SURGICAL PATH [id number] 15:35:00 RUN DATE: 12/12/19 [facility] *LIVE* PAGE 1 RUN TIME: 1069 Specimen Inquiry RUN USER: INTERFACE --------- ---PATIENT: ELISE MONROY [facility] #: [id number] AGE/SX: 74/F ROOM: [facility] RE12/10/19REG DR: Avinash Rangel III : 43 BED: 1 DIS: STATUS: ADM IN TLOC: SPEC #: [id number] RECD: 12/09/19 STATUS: WAYNE REQ #: [id number] MARCEL: 12/09/[address]: Avinash Rangel III, MD ENTERED: 12/09/19 SP TYPE: SURG SPEC OTHR DR: Meg Ulrich MD ORDERED: FROZEN SECTION, LEVEL 5 CODES: L6Q994 - SOFT TISSUES, N CG3720 - THYROID GLAND COPIES TO: Meg Ulrich MD [address] [place], [place] [id number] [place] [address] [address] [email or web address] PROCEDURES: FROZEN SECTION (Incomplete) GM LEVEL 5 [...] CONTINUED ON NEXT PAGE RUN DATE: 12/12/19 [facility]*LIVE* PAGE 2 RUN TIME: 1535 Specimen Inquiry RUN USER: INTERFACE SPEC #: [id number] PATIENT: ELISE MONROY #[id number] (Continued) FINAL DIAGNOSIS (Continued) PROVISIONAL DIAGNOSIS Thyroid lobe, left : Follicular lesion, final diagnosis deferred to permanent sections. Thyroid lobe, right: Follicular lesion, final diagnosis deferred to permanent sections. GROSS AND MICROSCOPIC FROZEN DIAGNOSIS: Thyroid, leftlobe, excision: Follicular lesion, deferred to permanent sections. Thyroid, right lobe, excision: Follicular lesion, deferred to permanent sections. GROSS DESCRIPTION: Received fresh designated left thyroid lobe is one segment of pink- hicks tissue measuring 7 x 2.7 x 2 cm and weighing 16.3 g. The entire surface is inked black. Sections are submitted as (A) for frozen diagnosis. Additional sections aresubmitted entirely as (B)-(G). Received fresh and designated [...] CONTINUED ON NEXT PAGE RUN DATE: 12/12/19 [facility] *LIVE* PAGE 3 RUN TIME: 1535 Specimen Inquiry RUN USER: INTERFACE SPEC #: [id number] PATIENT: ELISE MONROY #[id number] (Continued) PRE-OP DIAGNOSIS Malignant neoplasm of thyroid gland REVIEWED BY: SYNOPTIC REPORT *Procedure: Right Lobectomy Left Lobectomy *Lymph Node Sampling - Central compartment dissection, right. Received: Fresh Specimen Integrity: Intact. Divided (thyroidectomy [...] Not identified. *Extrathyroidal Extension: No. * TNM: [id number] Tumor block(s): (Eric) (K) Signed SIGNATURE ON FILE Johan Sanders MD 12/12/19 1535 END OF REPORT CALCIUM 2019-12-12 07:31:00 Test Item Value Reference Range Interpretation Comments CALCIUM (test code = CA) 6.7 mg/dL 8.0-10.5 L [id number] 07:31:00 Test Item Value Reference Range Interpretation Comments MAGNESIUM (test code = MAG) 1.98 mg/dL 1.8-2.4 CALCIUM [id number] 07:31:00 Test Item Value Reference Range Interpretation Comments CALCIUM IONIZED (test code = MICKEY) 0.95 MMOL/L 1.12-1.32 L [id number] 07:23:00 Test Item Value Reference Range Interpretation Comments CALCIUM (test code = CA) mg/dL 8.0-10.5 [id number] 07:23:00 Test Item Value Reference Range Interpretation Comments MAGNESIUM (test code = MAG) mg/dL 1.8-2.4 CALCIUM [id number] 07:23:00 Test Item Value Reference Range Interpretation Comments CALCIUM IONIZED (test code = MICKEY) 0.95 MMOL/L 1.12-1.32 L [id number] 16:39:00 Test Item Value Reference Range Interpretation Comments CALCIUM (test code = CA) 7.2 mg/dL 8.0-10.5 L [id number] 16:39:00 Test Item Value Reference Range Interpretation Comments MAGNESIUM (test code = MAG) 1.67 mg/dL 1.8-2.4 L CALCIUM [id number] 16:39:00 Test Item Value Reference Range Interpretation Comments CALCIUM IONIZED (test code = MICKEY) 0.98 MMOL/L 1.12-1.32 L [id number] 16:25:00 Test Item Value Reference Range Interpretation Comments CALCIUM (test code = CA) mg/dL 8.0-10.5 [id number] 16:25:00 Test Item Value Reference Range Interpretation Comments MAGNESIUM (test code = MAG) mg/dL 1.8-2.4 CALCIUM [id number] 16:25:00 Test Item Value Reference Range Interpretation Comments CALCIUM IONIZED (test code = MICKEY) 0.98 MMOL/L 1.12-1.32 L [id number] 08:36:00 Test Item Value Reference Range Interpretation Comments CALCIUM (test code = CA) 7.1 mg/dL 8.0-10.5 L [id number] 08:36:00 Test Item Value Reference Range Interpretation Comments MAGNESIUM (test code = MAG) 1.70 mg/dL 1.8-2.4 L CALCIUM [id number] 08:36:00 Test Item Value Reference Range Interpretation Comments CALCIUM IONIZED (test code = MICKEY) 0.97 MMOL/L 1.12-1.32 L [id number] 08:34:00 Test Item Value Reference Range Interpretation Comments CALCIUM (test code = CA) 7.1 mg/dL 8.0-10.5 L [id number] 08:34:00 Test Item Value Reference Range Interpretation Comments MAGNESIUM (test code = MAG) 1.70 mg/dL 1.8-2.4 L CALCIUM [id number] 08:34:00 Test Item Value Reference Range Interpretation Comments CALCIUM IONIZED (test code = MICKEY) MMOL/L 1.12-1.32 [id number] 18:47:00 Test Item Value Reference Range Interpretation Comments CALCIUM (test code = CA) 7.5 mg/dL 8.0-10.5 L [id number] 18:47:00 Test Item Value Reference Range Interpretation Comments MAGNESIUM (test code = MAG) 1.86 mg/dL 1.8-2.4 N CALCIUM [id number] 18:47:00 Test Item Value Reference Range Interpretation Comments CALCIUM IONIZED (test code = MICKEY) 1.03 MMOL/L 1.12-1.32 L [id number] 18:30:00 Test Item Value Reference Range Interpretation Comments CALCIUM (test code = CA) mg/dL 8.0-10.5 [id number] 18:30:00 Test Item Value Reference Range Interpretation Comments MAGNESIUM (test code = MAG) mg/dL 1.8-2.4 CALCIUM [id number] 18:30:00 Test Item Value Reference Range Interpretation Comments CALCIUM IONIZED (test code = MICKEY) 1.03 MMOL/L 1.12-1.32 L [id number] 05:57:00 Test Item Value Reference Range Interpretation Comments CALCIUM (test code = CA) 7.2 mg/dL 8.0-10.5 L [id number] 05:57:00 Test Item Value Reference Range Interpretation Comments MAGNESIUM (test code = MAG) 1.66 mg/dL 1.8-2.4 L CALCIUM [id number] 05:57:00 Test Item Value Reference Range Interpretation Comments CALCIUM IONIZED (test code = MICKEY) 1.04 MMOL/L 1.12-1.32 L [id number] 05:40:00 Test Item Value Reference Range Interpretation Comments CALCIUM (test code = CA) 7.2 mg/dL 8.0-10.5 L [id number] 05:40:00 Test Item Value Reference Range Interpretation Comments MAGNESIUM (test code = MAG) 1.66 mg/dL 1.8-2.4 L CALCIUM [id number] 05:40:00 Test Item Value Reference Range Interpretation Comments CALCIUM IONIZED (test code = MICKEY) MMOL/L 1.12-1.32 [id number] 18:12:00 Test Item Value Reference Range Interpretation Comments CALCIUM (test code = CA) 8.5 mg/dL 8.0-10.5 N [id number] 18:12:00 Test Item Value Reference Range Interpretation Comments MAGNESIUM (test code = MAG) 1.76 mg/dL 1.8-2.4 L CALCIUM [id number] 18:12:00 Test Item Value Reference Range Interpretation Comments CALCIUM IONIZED (test code = MICKEY) 1.13 MMOL/L 1.12-1.32 N [id number] 18:10:00 Test Item Value Reference Range Interpretation Comments CALCIUM (test code = CA) mg/dL 8.0-10.5 [id number] 18:10:00 Test Item Value Reference Range Interpretation Comments MAGNESIUM (test code = MAG) mg/dL 1.8-2.4 CALCIUM [id number] 18:10:00 Test Item Value Reference Range Interpretation Comments CALCIUM IONIZED (test code = MICKEY) 1.13 MMOL/L 1.12-1.32 N Novel Coronavirus 2019 [id number] 20:53:00 Test Item Value Reference Range Interpretation Comments Novel Coronavirus 2019 Inhouse (test Negative Negative code = COVNONPUI) BASIC METABOLIC [id number] 12:00:00 Test Item Value Reference Range Interpretation [...] 8.0-10.5 N CA) - XR CHEST 2 [id number] 11:58:00 FAX: Meg Robin MD [place]: St: PRE FAX: Avinash Wood III [phone] Name: ELISE MONROY : 1945 Age/S: 74/F [address] [place] [address] Unit #: [id number] Loc: [place] [address] Phys: Avinash Rangel III, MD Acct: [id number] Dis Date: Status: PRE SDC PHONE #: [phone] Exam Date: 12/05/2019 1148 FAX #: [phone] Reason: THYROIDECTOMY EXAMS: CPT CODE: [id number] XR CHEST 2 V 85154 EXAM: XR CHEST 2 VIEWS DATE: 12/05/2019 10:51 AM : 1945; Age: 74 years y/o Female INDICATION: THYROIDECTOMY COMPARISON: None. TECHNIQUE: PA and lateral chest radiographs. FI NDINGS: Lines, tubes and hardware: None. Lungs and pleura: The lungs are clear. Hyperexpanded lungs.No pleural effusion. Heart and mediastinum: The heart size is normal for technique. The mediastinal contours are normal. Pulmonary vascularity is normal. IMPRESSION: No acute cardiopulmonary process. Emphysema. SL: [id number] at 1158 Reported and signed by: Norah Webster D.O. CC: Shaolnda Ulrich MD; Avinash Rangel III, MDTechnologist: RT Kvng(Sridevi) Trnscrd Date/Time/By: 12/05/2019 (8353) : By: [email or web address] Orig PrintD/T: S: 12/05/2019 (6687) PAGE 1 Signed ReportCBC W/AUTO [id number] 11:32:00 Test Item Value Reference Range Interpretation [...] in Respiratory specimen by ARAMIS with probe [id number] 22:31:33 Test Item Value Reference Range Interpretation Comments SARS coronavirus 2 RNA Not detected Not-Detected [Presence] in Respiratory specimen by ARAMIS with probe detection (test code = 37554-0) [facility]
[2022-06-08 20:25] LABS: SARS-COV-2 RT PCR NEGATIVE (NEGATIVE)
--- NOTE | 2022-06-08 21:19 | RAD REPORT ---
EXAM DESCRIPTION: RAD - Chest Single View - 06/08/2022 8:46 pm CLINICAL HISTORY: Cough COMPARISON: Chest Single View dated 05/26/2022; Chest Single View dated 06/07/2021; Chest Pa And Lat (2 Views) dated 03/14/2021 FINDINGS: Lines: None. Lungs: No evidence of edema or pneumonia. Pleural: No significant pleural effusions or pneumothorax. Cardiac: The heart size is within normal limits. Mediastinum: Within normal limits. Bones: No acute fractures. Other: None IMPRESSION: No acute cardiopulmonary disease.
--- NOTE | 2022-06-08 21:31 | ER ---
Nurse's Notes [facility] Name: Val Love Age: 76 yrs Sex: Female : 1945 Arrival Date: 06/08/2022 Time: 19:26 Bed 12 Private MD: Diagnosis: Acute bronchitis, unspecified;Fever, unspecified;Cough Presentation: 06/08 19:27 Chief complaint: Patient states: I went to a walk in clinic and they told me that I kd3 have pneumonia and they couldn't treat me and they told me to come here. I cant lay down, I have to sit up and I just feel like I am wheezing a lot. He didn't take a chest X-ray, he just listened to me and told me to come straight here. Coronavirus screen: Vaccine status: Patient reports receiving the 2nd dose of the covid vaccine. Ebola Screen: No symptoms or risks identified at this time. Initial Sepsis Screen: Does the patient meet any 2 criteria? No. Patient's initial sepsis screen is negative. Does the patient have a suspected source of infection? No. Patient's initial sepsis screen is negative. Risk Assessment: Do you want to hurt yourself or someone else? Patient reports no desire to harm self or others. Onset of symptoms was June 08, 2022. 19:27 Method Of Arrival: Ambulatory kd3 19:27 Acuity: NELDA 3 kd3 Triage Assessment: 19:30 General: Appears uncomfortable, ill, Behavior is calm, cooperative. Pain: Complains of kd3 pain in anterior aspect of left upper chest. Neuro: Level of Consciousness is awake, alert, obeys commands, Oriented to person, place, time, situation. Cardiovascular: Patient's skin is warm and dry. Respiratory: Airway is patent Trachea midline Respiratory effort is even, unlabored, Respiratory pattern is regular, symmetrical. Historical: - Allergies: 19:30 statins; kd3 19:30 HYDRALAZINE; kd3 19:30 amoxicillin-pot clavulanate; kd3 - PMHx: 19:30 Hypothyroidism; Hypertensive disorder; a fib; kd3 - PSHx: 19:30 Tonsillectomy; Thyroidectomy; Cholecystectomy; kd3 - Immunization history:: Adult Immunizations up to date. - Social history:: Smoking status: Patient denies any tobacco usage or history of. Screenin:[facility] ED Fall Risk Assessment (Adult) History of falling in the last 3 months, kd3 including since admission No falls in past 3 months (0 pts) Confusion or Disorientation No (0 pts) Intoxicated or Sedated No (0 pts) Impaired Gait No (0 pts) Mobility Assist Device Used No (0 pt) Altered Elimination No (0 pt) Score/Fall Risk Level 0 - 2 = Low Risk Maintained a safe environment. Abuse screen: Denies threats or abuse. Denies injuries from another. Nutritional screening: No deficits noted. Tuberculosis screening: No symptoms or risk factors identified. Assessment: 19:34 Respiratory: Breath sounds are clear in right upper lobe and left upper lobe. kd3 21:00 Reassessment: Patient appears in no apparent distress at this time. Patient and/or 3 family updated on plan of care and expected duration. Pain level reassessed. Patient is alert, oriented x 3, equal unlabored respirations, skin warm/dry/pink. Vital Signs: 19:27 Pulse 92; Resp 19; Temp 100.5; Pulse Ox 94% on R/A; Weight 87.54 kg; Height 5 ft. 4 in. kd3 (162.56 cm); 19:27 BP 146 / 72; Pulse 18; kd3 19:27 Weight 87.54 kg; Height 5 ft. 4 in. (162.56 cm); kd3 19:33 Pulse 82; kd3 19:27 Body Mass Index 33.13 (87.54 kg, 162.56 cm) kd3 ED Course: 19:26 Patient arrived in ED. rg4 19:30 Triage completed. kd3 19:31 Sony Chin MD is Attending Physician. kdr 19:31 Arm band placed on left wrist. kd3 19:44 Strep Sent. kd3 19:44 COVID-19/FLU A+B Sent. kd3 21:25 Georgia Gilman RN is Primary Nurse. eh3 21:30 Patient has correct armband on for positive identification. eh3 22:20 No provider procedures requiring assistance completed. Patient did not have IV access eh3 during this emergency room visit. Administered Medications: 21:35 Drug: Augmentin (Amoxicillin-Clavulanate) 875 mg Route: PO; eh3 21:41 Follow up: Response: Medication administered at discharge. eh3 Medication: 22:19 VIS not applicable for this client. eh3 Outcome: 21:30 Discharge ordered by . kdr 21:58 Patient left the ED. eh3 22:20 Discharged to home ambulatory, with family. eh3 22:20 Condition: stable 22:20 Discharge instructions given to patient, Instructed on discharge instructions, follow up and referral plans. medication usage, Demonstrated understanding of instructions, follow-up care, medications, Prescriptions given X 3. Signatures: Sony Chin MD MD kdr Garcia, Rubi 4 Sydney Crow, RN RN 3 Georgia Gilman RN RN 3
--- NOTE | 2022-06-08 21:31 | EDPHYS ---
Physician Documentation [facility] Name: Val Love Age: 76 yrs Sex: Female : 1945 Arrival Date: 06/08/2022 Time: 19:26 Bed 12 Private MD: ED Physician Sony Chin HPI: 06/08 21:32 This 76 yrs old Female presents to ER via Ambulatory with complaints of Flu Symptoms. kdr 21:32 Patient complains of generalized flulike symptoms including fever to 101 over the last kdr week. Initially when she became ill she self medicated with Tylenol and Motrin and things seem to improve. Subsequently her symptoms have returned and she generally feels achy with low-grade fever. She has also had mild cough. She states that the cough keeps her up at night but is nonproductive. Onset: The symptoms/episode began/occurred gradually, 1 week(s) ago. Severity of symptoms: At their worst the symptoms were mild moderate just prior to arrival, in the emergency department the symptoms are unchanged. The patient has not experienced similar symptoms in the past. The patient has not recently seen a physician. Historical: - Allergies: 19:30 statins; kd3 19:30 HYDRALAZINE; kd3 19:30 amoxicillin-pot clavulanate; kd3 - PMHx: 19:30 Hypothyroidism; Hypertensive disorder; a fib; kd3 - PSHx: 19:30 Tonsillectomy; Thyroidectomy; Cholecystectomy; kd3 - Immunization history:: Adult Immunizations up to date. - Social history:: Smoking status: Patient denies any tobacco usage or history of. ROS: 21:32 Constitutional: Negative for fever, chills, and weight loss. kdr 21:32 Eyes: Negative for injury, pain, redness, and discharge, Neck: Negative for injury, pain, and swelling, Cardiovascular: Negative for chest pain, palpitations, and edema, Abdomen/GI: Negative for abdominal pain, nausea, vomiting, diarrhea, and constipation, Back: Negative for injury and pain, : Negative for injury, bleeding, discharge, and swelling, MS/Extremity: Negative for injury and deformity, Skin: Negative for injury, rash, and discoloration, Neuro: Negative for headache, weakness, numbness, tingling, and seizure activity. Psych: Negative for depression, anxiety, suicide ideation, homicidal ideation, and hallucinations, Allergy/Immunology: Negative for hives, rash, and allergies, Endocrine: Negative for neck swelling, polydipsia, polyuria, polyphagia, and marked weight changes, Hematologic/Lymphatic: Negative for swollen nodes, abnormal bleeding, and unusual bruising. 21:32 Constitutional: Positive for body aches, chills, fever, malaise, poor PO intake. 21:32 Respiratory: Positive for cough, with no reported sputum, dyspnea on exertion, shortness of breath, on exertion. wheezing, inspiratory, expiratory. Exam: 21:32 Constitutional: This is a well developed, well nourished patient who is awake, alert, kdr and in no acute distress. Head/Face: Normocephalic, atraumatic. Eyes: Pupils equal round and reactive to light, extra-ocular motions intact. Lids and lashes normal. Conjunctiva and sclera are non-icteric and not injected. Cornea within normal limits. Periorbital areas with no swelling, redness, or edema. Neck: Trachea midline, no thyromegaly or masses palpated, and no cervical lymphadenopathy. Supple, full range of motion without nuchal rigidity, or vertebral point tenderness. No Meningismus. Chest/axilla: Normal chest wall appearance and motion. Nontender with no deformity. No lesions are appreciated. Cardiovascular: Regular rate and rhythm with a normal S1 and S2. No gallops, murmurs, or rubs. Normal PMI, no JVD. No pulse deficits. Abdomen/GI: Soft, non-tender, with normal bowel sounds. No distension or tympany. No guarding or rebound. No evidence of tenderness throughout. Back: No spinal tenderness. No costovertebral tenderness. Full range of motion. Skin: Warm, dry with normal turgor. Normal color with no rashes, no lesions, and no evidence of cellulitis. MS/ Extremity: Pulses equal, no cyanosis. Neurovascular intact. Full, normal range of motion. Neuro: Awake and alert, GCS 15, oriented to person, place, time, and situation. Cranial nerves II-XII grossly intact. Motor strength 5/5 in all extremities. Sensory grossly intact. Cerebellar exam normal. Normal gait. Psych: Awake, alert, with orientation to person, place and time. Behavior, mood, and affect are within normal limits. 21:32 Respiratory: the patient does not display signs of respiratory distress, Respirations: normal, Breath sounds: rales, that are mild, are scattered, wheezing: that is mild, is scattered, is heard diffusely. Vital Signs: 19:27 Pulse 92; Resp 19; Temp 100.5; Pulse Ox 94% on R/A; Weight 87.54 kg; Height 5 ft. 4 in. kd3 (162.56 cm); 19:27 BP 146 / 72; Pulse 18; kd3 19:27 Weight 87.54 kg; Height 5 ft. 4 in. (162.56 cm); kd3 19:33 Pulse 82; kd3 19:27 Body Mass Index 33.13 (87.54 kg, 162.56 cm) kd3 MDM: 21:30 Patient medically screened. [facility] 21:32 Data reviewed: vital signs, nurses notes, lab test result(s), radiologic studies. [facility] / 19:37 Order name: COVID-19/FLU A+B [facility] 06/08 19:37 Order name: Strep [facility] 06/08 19:41 Order name: XRAY Chest (1 view) [facility] 06/08 20:13 Order name: Group A Streptococcus Rapid Sc; Complete Time: 20:34 EDMS 06/08 20:25 Order name: COVID-19/FLU A+B; Complete Time: 20:34 EDPA 06/08 21:28 Order name: Throat Culture [facility] 06/08 19:37 Order name: EKG - Nurse/Tech; Complete Time: 19:38 [facility] 06/08 21:21 Order name: RAD; Complete Time: 21:24 EDMS Administered Medications: 21:35 Drug: Augmentin (Amoxicillin-Clavulanate) 875 mg Route: PO; [facility] 21:41 Follow up: Response: Medication administered at discharge. [facility] Disposition Summary: 06/08/22 21:30 Discharge Ordered Location: Home kdr Problem: an ongoing problem kdr Symptoms: have improved kdr Condition: Stable kdr Diagnosis - Acute bronchitis, unspecified kdr - Fever, unspecified kdr - Cough kdr Followup: kdr - With: Private Physician - When: 2 - 3 days - Reason: If symptoms return, Further diagnostic work-up, Recheck today's complaints, Continuance of care, Re-evaluation by your physician Discharge Instructions: - Discharge Summary Sheet kdr - Acute Bronchitis, Adult kdr Forms: - Medication Reconciliation Form kdr - Thank You Letter kdr - Antibiotic Education kdr Prescriptions: - Augmentin 875-125 mg Oral Tablet - take 1 tablet by ORAL route every 12 hours for 10 days; 20 tablet; Refills: 0, kdr Product Selection Permitted - Tessalon Perles 100 mg Oral Capsule - take 1 capsule by ORAL route every 8 hours As needed; 15 capsule; Refills: 0, kdr Product Selection Permitted - albuterol sulfate 90 mcg/actuation Inhalation HFA aerosol inhaler - inhale 2 puff by INHALATION route every 4-6 hours As needed; 2 canister; kdr Refills: 0, Product Selection Permitted Signatures: Dispatcher [employer] Sony Connor MD MD kdr Doucette, Kyli, RN RN kd3 Georgia Gilman RN RN eh3
[2022-06-08] MEDS ORDERED: AMOX/K CLAV 875 MG TAB ONE (21:33)
[2022-06-08 22:13] VITALS: BP 146/72; TEMP 100.5; O2SAT 94
== END 2022-06-08 21:58 | disposition home or self-care (01) ==
LOC: ER 19:15
DX: J20.9 Acute bronchitis, unspecified (principal); R05.9 Cough, unspecified; I10 Essential (primary) hypertension; I48.91 Unspecified atrial fibrillation; Z20.822 Contact with and (suspected) exposure to COVID-19; Z88.1 Allergy status to other antibiotic agents; Z88.8 Allergy status to other drugs, medicaments and biological substances
CPT/HCPCS: 87070; 87081; 0240U; 71045

== ENCOUNTER 2022-09-21 11:29 | Day surgery (SDC) | payer OTHER ==
[2022-09-21] MEDS ORDERED: ATROPINE SULF 1 MG/10 ML SYR IV ONE (12:08)
[2022-09-21] MEDS ORDERED: MIDAZOLAM HCL 5 ML ONE (12:09)
[2022-09-21] MEDS ORDERED: LIDOCAINE VISCOUS 2% SOLN 15 ML UDC ONE (12:10)
[2022-09-21] MEDS ORDERED: FLUMAZENIL 0.1 MG/ML (5 mL VIAL) IV ONE (12:10)
[2022-09-21] MEDS ORDERED: PHENOL 1.4% ORAL SPRAY 180ML ONE (12:10)
[2022-09-21] MEDS ORDERED: NA CHLORIDE 0.9% 500 ML ONE (12:10)
[2022-09-21] MEDS ORDERED: LIDOCAINE 1% MPF 5 ML VIAL ONE (13:40)
[2022-09-21] MEDS ORDERED: propofoL 200 MG/20 ML VIAL IV ONE ×2 (13:40)
[2022-09-21 14:22] VITALS: BP 149/72; O2SAT 100
--- NOTE | 2022-09-21 14:40 | OP ---
Date of Procedure: 09/21/2022 Surgeon: MELISSA ANDERSON Procedure Performed: Transesophageal echocardiogram. Indication: Atrial fibrillation, status post Watchman. Description Of Procedure: After risks, benefits, and alternatives were explained, the patient agreed to procedure and signed informed consent. After proper time-out, Anesthesia team was in the room, g ave propofol, and then JOAN probe was inserted without difficulty. JOAN was performed and the probe wa s removed. The patient tolerated the procedure very well. Conclusion: Successful transesophageal echocardiogram. /CHRIS Voice ID: [id number] Report ID: [id number]
--- NOTE | 2022-09-22 07:14 | TEE ---
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 TRANSESOPHAGEAL ECHOCARDIOGRAM PROBE INSERTED WITHOUT DIFFICULTY 2. NORMAL LEFT VENTRICULAR EJECTION FRACTION 60% 3. MILD MITRAL REGURGITATION 4. WATCHMAN IS SEATED WELL, NO LEAK, NO THOMBUS TECHNOLOGIST: RENETTA WINSTON
== END 2022-09-21 15:15 | disposition home or self-care (01) ==
LOC: EKG 11:29
PROVIDERS: ATTEND Internal Medicine
DX: I48.0 Paroxysmal atrial fibrillation (principal); Z98.890 Other specified postprocedural states; I11.0 Hypertensive heart disease with heart failure; I50.30 Unspecified diastolic (congestive) heart failure; Z88.8 Allergy status to other drugs, medicaments and biological substances
CPT/HCPCS: 93312; J0461; J2001; J2250; J2704; J7040